=== PATIENT | male | born 1940 | race Caucasian/White ===

== ENCOUNTER 2016-10-25 06:23 | Inpatient (IN) | payer MEDICARE, BC ==
[2016-10-25] VITALS (7 sets, daily range): BP systolic 122–211; BP diastolic 68–131; PULSE 58–134; RESP 16–32; TEMP 96.8–98.4; O2SAT 90–97; Ht 177.8 cm; Wt 67.4 kg
[~2016-10-25] VITALS: Ht 177.8 cm; Wt 67.4 kg
[~2016-10-25 06:23] MED LIST: GLIP5TAB11 PO; [UNRECOGNIZED DRUG - CODE] PO
--- OUTSIDE RECORDS SUMMARY | 2016-10-25 06:28 | XMS REPORT | Continuity of Care Document ---
Author Author [facility] Organization [facility] Address Unknown Phone Unavailable Allergies Active Description Code Type Severity Reaction Onset Reported/Identified Relationship to Patient Clinical Status Yes No Known Allergies Drug Allergy 08/06/2012 Yes No Known Drug Allergies Drug Allergy 08/06/2012 Yes No Known Food Allergies Food Allergy 08/06/2012 Yes No Known Allergies Drug Allergy N/A N/A 08/29/2013 Yes No Known Drug Allergies Drug Allergy N/A N/A 08/29/2013 Yes No Known Food Allergies Food Allergy N/A N/A 08/29/2013 Yes No Known Allergies No Known Allergies Drug Allergy Unknown N/A 03/20/2016 Yes No Known Allergies No Known Allergies Drug Allergy Unknown N/A 08/15/2016 Medications Problems Date Dx Coded Attending Type Code Diagnosis Diagnosed By 04/30/2012 Phani Renteria MD Final V10.06 HX RECTAL ANAL CA 04/30/2012 Phani Renteria MD Final V55.2 ATTEN TO ILEOSTOMY 04/30/2012 Phani Renteria MD Final V72.63 PRE-PX LABORATORY EXAM 05/04/2012 Phani Renteria MD Final 250.00 DM2/NOS UNCOMP NSU 05/04/2012 Phani Renteria MD Final 272.0 PURE HYPERCHOLESTEROLEM 05/04/2012 Phani Renteria MD Final 401.9 HYPERTENSION NOS 05/04/2012 Phani Renteria MD Final 428.0 CHF NOS 05/04/2012 Phani Renteria MD Final 428.22 CHRONIC SYSTOLIC HF 05/04/2012 Phani Renteria MD Final 790.99 ABNORMAL BLOOD FIND NEC 05/04/2012 Phani Renteria MD Final V55.2 ATTEN TO ILEOSTOMY 05/04/2012 Phani Renteria MD Final V64.1 NO PX/CONTRAINDICATION 08/06/2012 Rodger Welch MD Final 250.02 DM2/NOS UNCOMP UNC 08/06/2012 Rodger Welch MD Final 276.1 HYPOSMOLALITY 08/06/2012 Rodger Welch MD Final 276.2 ACIDOSIS 08/06/2012 Rodger Welch MD Final 276.69 FLUID OVERLOAD NEC 08/06/2012 Rodger Welch MD Final 276.7 HYPERPOTASSEMIA 08/06/2012 Rodger Welch MD Final 285.9 ANEMIA NOS 08/06/2012 Rodger Welch MD Final 403.90 HTN CKD NOS I-IV/NOS 08/06/2012 Rodger Welch MD Final 428.0 CHF NOS 08/06/2012 Rodger Welch MD Final 458.9 HYPOTENSION NOS 08/06/2012 Rodger Welch MD Final 560.1 PARALYTIC ILEUS 08/06/2012 Rodger Welch MD Final 584.9 ACUTE KIDNEY FAILURE NOS 08/06/2012 Rodger Welch MD Final 585.9 CHRONIC KIDNEY DIS NOS 08/06/2012 Rodger Welch MD Final V55.2 ATTEN TO ILEOSTOMY 08/29/2013 Diamond Lin MD Final 154.1 RECTUM CA 08/29/2013 Diamond Lin MD L Final 250.00 DM2/NOS UNCOMP NSU 08/29/2013 Diamond Lin MD L Final 272.4 HYPERLIPIDEMIA NEC NOS 08/29/2013 Diamond Lin MD L Final 403.90 HTN CKD NOS I-IV/NOS 08/29/2013 Diamond Lin MD L Final 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 08/29/2013 Diamond Lin MD L Final 428.0 CHF NOS 08/29/2013 Diamond Lin MD L Final 560.1 PARALYTIC ILEUS 08/29/2013 Diamond Lin MD L Final 585.9 CHRONIC KIDNEY DIS NOS 08/29/2013 Diamond Lin MD L Final 592.1 URETERAL CALCULUS 08/29/2013 Diamond Lin MD Admitting 789.09 ABDOMINAL PAIN-SITE NEC Procedures Code Description Performed By Performed On 46.51 SM BOWEL STOMA CLOSURE Dexter ALVAREZ, Phani C 08/13/2012 45.24 FLEXIBLE SIGMOIDOSCOPY Dexter ALVAREZ, Phani C 08/30/2013 04.43 CARPAL TUNNEL RELEASE Naeem ALVAREZ, Vaibhav P 03/14/2014 14.52 DETACH RETINA-CRYOTHERAP Naeem ALVAREZ, Vaibhav P 03/14/2014 14.74 MECH VITRECTOMY NEC Naeem ALVAREZ, Vaibhav P 03/14/2014 14.75 VITREOUS SUBSTITUT INJEC Naeem ALVAREZ, Vaibhav P 03/14/2014 86.84 RELAXATION OF SCAR Naeem ALVAREZ, Vaibhav P 03/14/2014 86.87 FAT GRAFT OF SKIN AND SUBCUTANEOUS TISSUE Naeem ALVAREZ, Vaibhav P 03/14/2014 14.49 SCLERAL BUCKLING Vaibhav Chavez MD P 04/07/2014 Results Test Result Range HEMOGLOBIN - 03/14/14 13:07 MEAN CELL VOLUME 89.0 fl 80.0-100.0 HEMOGLOBIN 13.5 gm/dL 14.0-18.0 GLUCOSE (POC) - 03/14/14 13:10 GLUCOSE (POC) 217 mg/dL 70-99 METABOLIC PANEL, BASIC - 03/14/14 13:10 POTASSIUM 3.6 mmol/L 3.5-5.3 EST GFR (MDRD) 58 mL/min > 59 ANION GAP 8 mmol/L 5-15 EST CrCl (CG) 38 mL/min > 59 GLUCOSE 232 mg/dL 70-99 CALCIUM 9.1 mg/dL 8.5-10.1 BLOOD UREA NITROGEN 21 mg/dL 7-20 CREATININE 1.3 mg/dL 0.8-1.3 SODIUM 141 mmol/L 135-148 CHLORIDE 104 mmol/L 98-110 CARBON DIOXIDE 29 mmol/L 21-32 GLUCOSE (POC) - 03/14/14 15:53 GLUCOSE (POC) 185 mg/dL 70-99 GLUCOSE (POC) - 03/14/14 18:13 GLUCOSE (POC) 259 mg/dL 70-99 ARTERIAL BLOOD GAS - 03/14/14 22:21 ABG BASE EXCESS -4.1 meq/L -3.0-3.0 ABG DEVICE NC ABG BICARBONATE 19.6 meq/L 23.0-28.0 ABG L/M 2.0 ABG PCO2 33 mm Hg 34-45 ABG PH 7.40 7.35-7.45 ABG PO2 63 mm Hg 75-100 ABG O2 SATURATION 91 % 93-100 GLUCOSE (POC) - 03/15/14 05:53 GLUCOSE (POC) 234 mg/dL 70-99 GLUCOSE (POC) - 04/07/14 14:58 GLUCOSE (POC) 278 mg/dL 70-99 GLUCOSE (POC) - 03/20/16 12:56 GLUCOSE (POC) 127 mg/dL 70-99 HEMOGLOBIN - 03/20/16 13:00 MEAN CELL VOLUME 88.2 fl 80.0-100.0 HEMOGLOBIN 14.9 gm/dL 14.0-18.0 METABOLIC PANEL, BASIC - 03/20/16 13:01 POTASSIUM 3.9 mmol/L 3.5-5.3 EST GFR (MDRD) 59 mL/min > 59 ANION GAP 7 mmol/L 5-15 EST CrCl (CG) 57 mL/min > 59 GLUCOSE 149 mg/dL 70-99 CALCIUM 8.9 mg/dL 8.5-10.1 BLOOD UREA NITROGEN 20 mg/dL 7-20 CREATININE 1.2 mg/dL 0.7-1.3 SODIUM 142 mmol/L 135-148 CHLORIDE 107 mmol/L 98-110 CARBON DIOXIDE 28 mmol/L 21-32 GLUCOSE (POC) - 03/20/16 16:02 GLUCOSE (POC) 140 mg/dL 70-99 B-TYPE NATRIURETIC PEPTIDE - 08/15/16 21:40 B-TYPE NATRIURETIC PEPTIDE 2000 pg/mL < 100 CBC W/DIFF - 08/15/16 21:40 COMMENT REVIEWED EOSINOPHIL # 0.2 k/cumm 0.1-0.5 EOSINOPHIL % 2 % 2-4 GRANULOCYTE # 7.3 k/cumm 2.0-9.0 GRANULOCYTE % 82 % 50-75 LYMPHOCYTE # 0.8 k/cumm 1.0-4.0 LYMPHOCYTE % 9 % 20-30 MEAN CELL HGB 30.0 pg 27.0-33.0 MEAN CELL HGB CONCENTRATION 34.3 g/dL 32.0-37.0 MEAN CELL VOLUME 87.6 fl 80.0-100.0 MONOCYTE # 0.6 k/cumm 0.1-1.0 MONOCYTE % 7 % 4-6 RED BLOOD CELL 4.66 m/cumm 4.00-6.00 RED CELL DISTRIBUTION WIDTH 14.2 % 11.0- 15.6 WHITE BLOOD CELL 8.9 k/cumm 5.0-10.0 HEMOGLOBIN 14.0 gm/dL 14.0-18.0 HEMATOCRIT 40.8 % 40.0-54.0 PLATELET COUNT 249 k/cumm 150-450 D-DIMER QUANT - 08/15/16 21:40 D-DIMER QUANT 413 ng/mL 0-229 METABOLIC PANEL, COMPREHN - 08/15/16 21:40 POTASSIUM 3.6 mmol/L 3.5-5.3 EST GFR (MDRD) 54 mL/min > 59 ANION GAP 12 mmol/L 5-15 EST CrCl (CG) 54 mL/min > 59 GLUCOSE 208 mg/dL 70-99 CALCIUM 8.7 mg/dL 8.5-10.1 BLOOD UREA NITROGEN 23 mg/dL 7-20 CREATININE 1.3 mg/dL 0.7-1.3 SODIUM 141 mmol/L 135-148 CHLORIDE 106 mmol/L 98-110 AST/SGOT 19 Units/L 10-37 ALT/SGPT 24 Units/L < 66 CARBON DIOXIDE 23 mmol/L 21-32 TOTAL PROTEIN 6.5 gm/dL 6.4-8.2 ALBUMIN 3.1 gm/dL 3.4-5.0 BILI TOTAL 1.3 mg/dL 0.0-1.0 ALKALINE PHOSPHATASE TOTAL 123 IU/L 45- 117 TROPONIN I - 08/15/16 21:40 TROPONIN I 0.03 ng/mL < 0.07 Encounters ACCT No. Visit Date/Time Discharge Status Pt. Type Provider Facility Loc./Unit Complaint [id number] 08/29/2013 03:47:00 2013 11:10:00 DIS Inpatient Riley ALVAREZ, Diamond Phan [facility] F8SE [id number] 08/06/2012 16:32:00 2012 18:33:00 DIS Inpatient Yuri ALVAREZ, Rodger Mccord [facility] F6SE [id number] 05/04/2012 09:41:00 2011 12:15:00 DIS Inpatient Phani Renteria MD [facility] F3PA [id number] 04/30/2012 05:00:00 2011 23:59:59 CLS Outpatient Phani Renteria MD [facility] FOP [id number] 08/04/2012 14:40:00 Document Registration [id number] 08/04/2012 14:36:00 Document Registration
[2016-10-25] MEDS ORDERED: METOCLOPRAMIDE 10mg/2ml INJECTION IV ONE (07:00)
[2016-10-25] MEDS ORDERED: PROCHLORPERAZINE 10mg/2ml INJECTION IV ONE (07:00)
--- NOTE | 2016-10-25 07:00 | NUR ---
ELIMINATION PT. NEEDING TO URINATE. UA COLLECTED. THEN CLEANED PT. OF INCONTINENT SOFT STOOL. STOOL IS A YELLOWISH BROWN COLOR.
[2016-10-25] MEDS ORDERED: NORMAL SALINE 1,000 ML IV ONE (07:04)
--- OUTSIDE RECORDS SUMMARY | 2016-10-25 07:08 | XMS REPORT | Continuity of Care Document ---
Author Author [facility] Organization [facility] Address Unknown Phone Unavailable Allergies [...] Diamond Lin MD L Final 414.01 COR -SEMINOLE VESSEL 08/29/2013 Diamond Lin MD L Final [...] Status Pt. Type Provider Facility Loc./Unit Complaint [id number] 08/29/2013 03:47:00 2013 11:10:00 DIS Inpatient Riley ALVAREZ, Diamond Phan [facility] F8SE [id number] 08/06/2012 16:32:00 2012 18:33:00 DIS Inpatient Yuri ALVAREZ, Rodger Mccord [facility] F6SE [id number] 05/04/2012 09:41:00 2011 12:15:00 DIS Inpatient Phani Renteria MD [facility] F3PA [id number] 04/30/2012 05:00:00 2011 23:59:59 CLS Outpatient Phani Renteria MD [facility] FOP [id number] 08/04/2012 14:40:00 Document Registration [id number] 08/04/2012 14:36:00 Document Registration
[2016-10-25 07:11] LABS: BASOPHILS # (AUTO) 0.1 T/MM3 (0-0.2); BASOPHILS % (AUTO) 0.6 % (0-2); EOSINOPHILS # (AUTO) 0.3 T/MM3 (0-0.5); EOSINOPHILS % (AUTO) 3.6 % (0-4); HCT - HEMATOCRIT 45.6 % (41-53); IMMATURE GRANULOCYTE # (AUTO) 0.08 T/MM3 (0.00-0.03); IMMATURE GRANULOCYTE % (AUTO) 0.9 % (0.0-0.5); LYMPHOCYTES # (AUTO) 2.3 T/MM3 (1-4.8); LYMPHOCYTES % (AUTO) 26.9 % (23-45); MEAN CORPUSCULAR HGB 29.2 UUG (26-34); MEAN CORPUSCULAR HGB CONC(MCHC 32.9 GM/DL (31-37); MEAN CORPUSCULAR VOLUME 88.9 UM3 (80-100); MEAN PLATELET VOLUME 10.7 UM3 (9.4-12.4); MONOCYTES # (AUTO) 0.5 T/MM3 (0-0.8); MONOCYTES % (AUTO) 5.7 % (0-9.0); NEUTROPHILS #(AUTO)-ABSOLUTE 5.4 T/MM3 (1.8-7.7); NEUTROPHILS % (AUTO) 62.3 % (33-66); RED BLOOD COUNT 5.13 M/MM3 (4.50-5.90); WBC - WHITE BLOOD COUNT 8.6 T/MM3 (4.5-11.0)
[2016-10-25 07:15] LABS: INR 1.05 (0.76-1.04); PROTHROMBIN TIME 11.4 SEC (9.31-12.49)
[2016-10-25] MEDS ORDERED: NITROGLYCERIN 0.4 MG SUBLINGUAL TABLET SL PRN (07:15)
--- NOTE | 2016-10-25 07:15 | NUR ---
IV FLUIDS IV FLUIDS STARTED AT 125 CC/HR.
[2016-10-25 07:17] LABS: ALBUMIN 3.7 G/DL (3.5-5.0); ALBUMIN/GLOBULIN RATIO 1.1 RATIO (1.1-2.2); ALKALINE PHOSPHATASE 115 U/L (38-126); ALT (SGPT) 33 U/L (21-72); ANION GAP 14 MEQ/L (5-15); AST (SGOT) 30 U/L (17-59); BUN/CREATININE RATIO 26 RATIO (6-26); CALCIUM 9.2 MG/DL (8.4-10.2); CHLORIDE 106 MEQ/L (98-107); CO2 - CARBON DIOXIDE 24 MEQ/L (22-30); CREATININE 1.1 MG/DL (0.8-1.5); GLOMERULAR FILTRATION RATE 66; GLUCOSE 162 MG/DL (75-110); POTASSIUM 3.6 MEQ/L (3.6-5); SODIUM 144 MEQ/L (134-144)
--- NOTE | 2016-10-25 07:25 | NUR ---
MEDS REGLAN AND COMPAZINE GIVEN FOR NAUSEA. THEN STRAIGTENED PT. UP TO GIVE HIM BABY ASA AND HE STARTED WRETCHING AGAIN. WILL WAIT AND ATTEMPT ASA AGAIN LATER.
[2016-10-25 07:28] LABS: PROBNP 7160 PG/ML (0-175)
[2016-10-25] MEDS: ASPIRIN 81 MG CHEWABLE TABLET PO ONE ×2 (07:28→09:50)
--- NOTE | 2016-10-25 07:40 | NUR ---
CT PT. TO CT PER CART.
[2016-10-25 07:42] LABS: BLOOD, URINE TRACE-INTACT (NEGATIVE); COLOR,URINE YELLOW (YELLOW); LEUKOCYTE ESTERASE ,URINE NEGATIVE (NEGATIVE); NITRITE,URINE NEGATIVE (NEGATIVE); UROBILINOGEN,URINE 0.2 EU/DL (NORMAL)
[2016-10-25] MEDS ORDERED: SALINE FLUSH 10ml SYRINGE ONE (07:45)
[2016-10-25] MEDS ORDERED: IOHEXOL 350 MG/ML 75ml INJECTION ONE (07:45)
[2016-10-25] MEDS ORDERED: NORMAL SALINE 100 ML ONE (07:45)
[2016-10-25 07:57] LABS: BACTERIA,URINE NEGATIVE (NEGATIVE); RBC,URINE NONE SEEN /HPF (0-3); WBC,URINE NONE SEEN /HPF (0-5)
--- NOTE | 2016-10-25 08:08 | NUR ---
CT PT. RETURNED FROM CT.
[2016-10-25] MEDS ORDERED: PROMETHAZINE 25 MG INJECTION IV ONE (08:15)
--- NOTE | 2016-10-25 08:24 | DI ---
Indication: ITS.REASON: ms changes PROCEDURE: CT HEAD W/O CONTRAST: Encounter: Initial Comparison: None Technique: Axial CT images through the head were performed without contrast. Iterative Reconstruction dose reducing technique was utilized. FINDINGS: The ventricles are of normal size, shape, and contour for the patient's age. There are scattered areas of low attenuation in the white matter which most likely represent changes from chronic microvascular ischemia. The brainstem, cerebellum, and cerebral hemispheres otherwise have a normal morphology and CT attenuation. There is no evidence of midline displacement. No hemorrhage, signs of acute territorial stroke, mass effect, mass lesions, or edema is evident. The visualized portions of the skull base, midface, and calvarium demonstrate no abnormality. Prominent mucus retention cysts in the maxillary sinuses. The tympanic and mastoid cavities appear normal. Right ocular prosthesis. IMPRESSION: No acute intracranial abnormality or hemorrhage. .
--- NOTE | 2016-10-25 08:24 | ERPDOC ---
Departure Disposition Decision Date: Oct 25, 2016 Disposition Decision Time: 09:15 Disposition: 02 TO [facility] Impression Impression Impression: Primary Impression: Pulmonary edema Additional Impressions: Diabetes Shortness of breath Severity: Moderate Condition: Stable Seen By: Physician only Referrals: ALLY MENDEZ MD (Family) Problems/Meds/Labs Reviewed?: Yes Medications reviewed and manag: Yes Follow up care ordered?: Yes Mental Status: Alert [facility] - General Medical General Chief Complaint: Dizzy Stated Complaint: DIZZY/NAUSEA Time Seen by Provider: 06:55 HPI - General Medical Initial Comments 75-year-old gentleman with some confusion, severe dizziness, nausea and vomiting. His states that since middle of the night he has vomited approximately 5 times, with no diarrhea, but has had incontinence of stool. No fever. He does not answer our questions, mostly mutters and the answers. O2 sats are low at 88% on initial eval. He does not claim any dyspnea, but does have mild chest pain. He did have a cardiac stress test performed yesterday. Family is uncertain of results. Allergies: Coded Allergies: No Known Drug Allergies (Verified Allergy, Unknown, 10/25/16) Past History Past Medical History Metabolic: cancer, diabetes, hypertension ENMT: nosebleeds Cardiac: CAD, [place] Male: renal insufficiency Surgical History General: colonoscopy, other Cardiac: cardiac bypass, cardiac cath, cardiac stent Family History Family PMH: FOUND: [place], cancer Vaccines Hx Influenza Vaccination: Yes (MAR 2013) Hx Pneumococcal Vaccination: Yes (2009) Social History Smoking Status: Never smoker Substance Use Type: does not use Record Review Pertinent history updated: Yes Review of Systems Cardiovascular Cardiac: see HPI Rhythm/Rate: see HPI Vascular: see HPI Pulmonary Respiratory: see HPI GI Upper Abdomen: see HPI Lower Abdomen: see HPI All other Systems All Other Systems: Reviewed and Negative Physical Exam General General Nourishment: well nourished, appears stated age Distress Description Patient is gagging and dry heaving, bringing up spittle Vitals and Pain First Documented Vital Signs Date Time Temp Pulse Resp B/P Pulse Ox O2 Delivery O2 Flow Rate FiO2 10/25/16 06:25 97.4 88 20 187/107 88 Nasal Cannula 2.00 Weight: Kilograms: 71.500 Height (feet): 5 Height (inches): 10.00 Triage Pain Scale: Normal Exams: Head: Normocephalic w/o trauma Chest/Resp: Clear all dinh, with good airflow, and symmetry bilaterally CV: Regular rate and rhythm, without murmur or gallop, Pulses 2+ all extremities, capillary refill, <2 seconds all ext., no pedal edema noted Abdomen: Bowel sounds positive, non-distended, no hepatosplenomegaly, masses or bruits noted Abdomen (brief) Abdominal Brief: FOUND: tender Comments Mildly tender midepigastric, bowel sounds slightly hyperactive, nondistended. Differential Diagnoses Considering: Acute [place], Hypo/Hyperkalemia, Medication Effect, Metabolic, Pneumonia, Poisoning/Accidental OD, Pulmonary Embolus, TIA, UTI Progress Results/Orders Orders Procedure Category Date Status Time Prochlorperazine PHA 10/25/16 Complete (Compazine) 07:00 Metoclopramide PHA 10/25/16 Complete (Reglan Inj) 07:00 Cbc W/Auto LAB 10/25/16 Complete Diff-Reflex Manual 07:04 Cmp - Comprehensive LAB 10/25/16 Complete Metabolic 07:04 Probnp LAB 10/25/16 Complete 07:04 Troponin I W LAB 10/25/16 Complete Hemolysis Index 07:04 INR LAB 10/25/16 Complete 07:04 D-Dimer LAB 10/25/16 Complete 07:04 EKG EKG 10/25/16 Taken 07:04 Iv Lock (Ed Only) EDM 10/25/16 Transmitted 07:04 Normal Saline (Normal PHA 10/25/16 In Process Saline Iv) 07:04 Aspirin (Asa) PHA 10/25/16 Complete 07:15 Nitroglycerin PHA 10/25/16 In Process (Nitrostat) 07:15 UA, LAB 10/25/16 Complete Dip&Micro(Complete) & 07:27 Iohexol (Omnipaque) PHA 10/25/16 Complete 07:45 Normal Saline (Ns) PHA 10/25/16 Complete 07:45 Saline Flush (Iv PHA 10/25/16 Complete Flush) 07:[address] 10/25/[address] Head W/O Contrast CT 10/25/16 Resulted 07:45 Promethazine PHA 10/25/16 Complete (Phenergan) 08:15 Gi Panel, Pcr, Stool LAB 10/25/16 Logged 09:07 [address] In Facility: ED ADM 10/25/16 Verified 09:10 Furosemide (Lasix) PHA 10/25/16 Verified 09:15 Measure Intake And SONU 10/25/16 Verified Output 09:10 Lab Results Laboratory Tests Test 10/25/16 06:39 10/25/16 07:27 White Blood Count 8.6T/MM3 Red Blood Count 5.13M/MM3 Hemoglobin 15.0GM/DL Hematocrit 45.6% Mean Corpuscular Volume 88.9UM3 Mean Corpuscular Hemoglobin 29.2UUG Mean Corpuscular Hemoglobin Concent 32.9GM/DL RDW Standard Deviation 50.6FL Platelet Count 234T/MM3 Mean Platelet Volume 10.7UM3 Immature Granulocyte % (Auto) 0.9% Neutrophils (%) (Auto) 62.3% Lymphocytes (%) (Auto) 26.9% Monocytes (%) (Auto) 5.7% Eosinophils (%) (Auto) 3.6% Basophils (%) (Auto) 0.6% Absolute Immature Granulocyte (auto 0.08T/MM3 Absolute Neutrophils (auto) 5.4T/MM3 Absolute Lymphocytes (auto) 2.3T/MM3 Absolute Monocytes (auto) 0.5T/MM3 Absolute Eosinophils (auto) 0.3T/MM3 Absolute Basophils (auto) 0.1T/MM3 Prothromb Time International Ratio 1.05 D-Dimer 552NG/ML Turbidity < 20 Sodium Level 144MEQ/L Potassium Level 3.6MEQ/L Chloride Level 106MEQ/L Carbon Dioxide Level 24MEQ/L Anion Gap 14MEQ/L Blood Urea Nitrogen 28.0MG/DL Creatinine 1.1MG/DL Glomerular Filtration Rate Calc 66 BUN/Creatinine Ratio 26RATIO Glucose Level 162MG/DL Calculated Osmolality 287MOSM/KG Calcium Level 9.2MG/DL Total Bilirubin 1.00MG/DL Icterus Index < 2 Aspartate Amino Transf (AST/SGOT) 30U/L Alanine Aminotransferase (ALT/SGPT) 33U/L Alkaline Phosphatase 115U/L Troponin I 0.078ng/ml PF-Nfq-S-Type Natriuretic Peptide 7160PG/ML Total Protein 7.0G/DL Albumin 3.7G/DL Globulin 3.3G/DL Albumin/Globulin Ratio 1.1RATIO Chemistry Specimen Hemolysis < 15 Urine Collection Type Voided-not cc-midstr Urine Color Yellow Urine Turbidity Clear Urine pH 6.0 Urine Specific [place] 1.025 Urine Protein 2+ Urine Glucose (UA) 1+ Urine Ketones Negative Urine Blood Trace-intact Urine Nitrite Negative Urine Bilirubin Negative Urine Urobilinogen 0.2EU/DL Urine Leukocyte Esterase Negative Urine RBC None seen/HPF Urine WBC None seen/HPF Urine Bacteria Negative Urine Culture Indicated Cult not indicated Medications Current ED Medications Prochlorperazine Edisylate (Compazine) 10 mg O ONCE IV Last administered on 07:22; Start 10/25/16 at 07:00; Stop 10/25/16 at 07:01; Status DC Metoclopramide HCl 5 mg 5 mg O ONCE IV Last administered on 10/25/16 07:19; Start 10/25/16 at 07:00; Stop 10/25/16 at 07:01; Status DC Sodium Chloride (Normal Saline IV) 1,000 ml @ 125 mls/hr Q8H ONCE IV Last administered on 10/25/16 07:15; Start 10/25/16 at 07:04; Stop 10/25/16 at 15:03 Aspirin (ASA) 324 mg O ONCE PO ; Start 10/25/16 at 07:15; Stop 10/25/16 at 07: 16; Status DC Nitroglycerin (Nitrostat) 0.4 mg Q5MIN PRN SL CHEST PAIN; Start 10/25/16 at 07: 15 Iohexol 1 bottle 1 bottle STK-MED ONCE .ROUTE ; Start 10/25/16 at 07:45; Stop at 07:46; Status DC Sodium Chloride (NS) 100 ml @ As Directed STK-MED ONCE .ROUTE ; Start 10/25/16 at 07:45; Stop 10/25/16 at 07:46; Status DC Sodium Chloride (Iv Flush) 10 ml STK-MED ONCE .ROUTE ; Start 10/25/16 at 07:45; Stop 10/25/16 at 07:46; Status DC Promethazine HCl (Phenergan) 25 mg O ONCE IV Last administered on 10/25/16 08 :50; Start 10/25/16 at 08:15; Stop 10/25/16 at 08:16; Status DC Progress Progress White count appropriate, creatinine is normal. D-dimer was elevated, patient had CT head and CT PE. CT head was negative, does not account for confusion, which is most likely due to vomiting and possibly some dehydration. CT PE was negative for PE but did show pulmonary edema, consistent with possible heart failure. Spoke with hospitalist, Dr. Reeves, who graciously accepted the patient. Patient be placed on observation with IV diuresis, Lasix 20 mg given in the ER. Stool PCR ordered. I spoke with Dr. Hooks who offered to be on consult for the patient if hospitalist wanted, but felt that this was not cardiac directly. Initial troponins were negative, EKG was not impressive. OLIVA STUBBS MD Oct 25, 2016 08:24
--- NOTE | 2016-10-25 08:29 | DI ---
Indication: ITS.REASON: elevated ddimer PROCEDURE: CTA PULMONARY EMBOLI: Encounter: Initial Comparison: None Technique: Axial CT pulmonary angiographic phase images were performed through the chest after the administration of intravenous contrast. Coronal and Sagittal MIP reconstructed images were created and reviewed. Automated Exposure Control and Iterative Reconstruction dose reducing techniques were utilized. Contrast: Omnipaque 350 60 mL Findings: Pulmonary arteries: Exam is diagnostic to the interlobar pulmonary artery only due to severe respiratory motion artifact. No large or saddle embolus identified. Segmental and subsegmental pulmonary artery branches cannot be well evaluated Other findings: Severe motion artifact. Diffuse groundglass opacities and interlobular septal thickening seen in both upper lobes. Small bilateral pleural effusions. No pneumothorax. The central airways are patent. No axillary or mediastinal adenopathy. Heart is severely enlarged without pericardial effusion. Main pulmonary artery is enlarged relative to the aorta consistent with pulmonary artery hypertension. Left subclavian port in place. Prior CABG. Moderate hiatal hernia. The upper abdomen shows no acute findings. Impression: 1. No large or central pulmonary embolus. 2. Diffuse airspace disease with findings most consistent with severe pulmonary edema. Less common considerations would include pulmonary hemorrhage and hypersensitivity pneumonitis/drug reaction. 3. Cardiomegaly and pulmonary artery hypertension. .
--- NOTE | 2016-10-25 08:45 | NUR ---
ELIMINATION PT. USED URINAL AGAIN. NO WRETCHING AT THIS TIME.
--- NOTE | 2016-10-25 08:50 | NUR ---
STATUS PT. WRETCHING AGAIN. PHENERGAN GIVEN IV FOR CONTINUED WRETCHING WITH MOVEMENT.
[2016-10-25] MEDS ORDERED: FUROSEMIDE 20 MG/2 ML INJECTION IV ONE (09:15)
--- OUTSIDE RECORDS SUMMARY | 2016-10-25 09:19 | XMS REPORT | Continuity of Care Document ---
Author Author [facility] Organization [facility] Address Unknown Phone Unavailable Allergies [...] Diamond Lin MD L Final 414.01 COR -KALSK[place] VESSEL 08/29/2013 Diamond Lin MD L Final [...] Status Pt. Type Provider Facility Loc./Unit Complaint [id number] 08/29/2013 03:47:00 2013 11:10:00 DIS Inpatient Riley ALVAREZ, Diamond Phan [facility] F8SE [id number] 08/06/2012 16:32:00 2012 18:33:00 DIS Inpatient Yuri ALVAREZ, Rodger Mccord [facility] F6SE [id number] 05/04/2012 09:41:00 2011 12:15:00 DIS Inpatient Phani Renteria MD [facility] F3PA [id number] 04/30/2012 05:00:00 2011 23:59:59 CLS Outpatient Phani Renteria MD [facility] FOP [id number] 08/04/2012 14:40:00 Document Registration [id number] 08/04/2012 14:36:00 Document Registration
[2016-10-25] MEDS ORDERED: GLIP5TAB PO ×2 (09:27)
--- NOTE | 2016-10-25 09:37 | NUR ---
REPORT REPORT GIVEN TO MCKENZIE GAVIN ON MEDICAL UNIT.
--- NOTE | 2016-10-25 09:50 | NUR ---
ADMIT PT ADMITTED TO ROOM 159 ON 4L/NC. PT MUMBLES AT TIMES, BUT OTHERWISE DOES NOT SPEAK TO STAFF WHEN TALKED TO. DOES NOT APPEAR TO BE IN PAIN. TRANSFERRED TO THE BED X4 ASSIST AND DRAW SHEET. BED ALARM ON.
--- NOTE | 2016-10-25 09:50 | NUR ---
ADMISSION NOTE PT. TAKEN TO RM. 159 PER CART. PT. INCONTINENT STOOL AGAIN AND ASSISTED IN CLEANING HIM UP.
[2016-10-25] MEDS ORDERED: ONDANSETRON 4mg/2ml INJECTION IV PRN (10:00)
--- NOTE | 2016-10-25 10:20 | HPPDOC ---
MARLENE HIGGINS V [employer] E[employer]MENT INST[employer]ER 10/25/16 0939: HPI - Adult Date DATE: 10/25/16 TIME: 09:36 General Chief Complaint: Nausea, vomiting, Respiratory failure with hypoxia History of Present Illness Patient 75-year-old male who is brought by EMS today for evaluation of nausea, vomiting, dizziness, following a fall. Patient resides independently at home with his . reports that patient awoke at approximately 5 a.m. and was having nausea and vomiting. He then fell due to losing his balance. He was significantly dizzy and unable to get up and activated EMS brought him to the emergency room for further evaluation and treatment. Laboratory studies were obtained. The WBC count was found normal 8.6, hemoglobin 15, hematocrit 45.6, platelet count 234. Sodium 144, potassium 3.6, BUN 28, creatinine 1.1. Troponin is 0.078, proBNP 7160. INR 1.02, d-dimer was found to be elevated at 552. A CT scan of the head is obtained does not show any intracranial abnormalities or hemorrhages. CTA was obtained which was negative for pulmonary emboli, however, did reveal evidence of diffuse airspace consistent with severe pulmonary edema. There is prominent cardiomegaly and pulmonary artery hypertension. Arrival he was found to be afebrile 97.4, pulse 88, respiration rate 20, blood pressure is initially elevated at 187/107 Room air saturations are low at 88%. 12-lead EKG was obtains showing Sinus rhythm with PVCs. This was reviewed with cardiology in the ER. Patient was placed on 2 liters of oxygen by nasal cannula. She received multiple antiemetic agents while in the emergency room as well as IV fluids. Given his continued nausea and vomiting. Due to findings of pulmonary edema and respiratory failure with hypoxia. The hospitalist services were contacted and accepted patient for outpatient admission for further evaluation and treatment. It is expected that his stay will be less than 2 overnights. David is seen on initial examination was done emergency room. He is quite lethargic/sedated secondary to receiving multiple antimanic agents. All history and information is obtained from his at the bedside. Ports onside started just this morning as described above. He does reveal that patient follows with Dr. Hooks and that he had an echocardiogram in the last 1 month, as well as a stress test yesterday 10/24/16. It is reported that patient is on multiple cardiac medications, however, he has had a long-standing history of noncompliance as he has not tolerated many of those. Did discuss advanced directives and does verbalize that she wishes patient to be a full code Past Medical History Past Medical History Coronary artery disease with [place] 2. Diabetes Colon cancer Kidney stones History of detached retina Massive Paraesophageal hernia Hyperlipidemia Surgical History Patient's Surgical History: CABG 4 Radha Fundoplication- 2004- Dr Jennings. Repeat in 2009. Rectal/Colon Resection- Dr Renteria- 2011 Appendectomy Inguinal Hernia repair 2 Bilateral cataract extraction Current Medications Home Meds Reported Medications Glipizide (Glipizide Xl) 5 Mg Tab.er.24, 5 MG PO HS 10/25/16 Glipizide (Glipizide Xl) 5 Mg Tab.er.24, 10 MG PO QAM 10/25/16 Allergies: Coded Allergies: No Known Drug Allergies (Verified Allergy, Unknown, 10/25/16) Family History Family History: Father history of aortic aneurysm Mother-lung cancer Social History Smoking Status: Never smoker Substance Use Type: does not use Sexuality: female partner Housing: house Advance Directives: Yes Full Code Social History Comments Primary care provider Dr. Srivastava Cardiology Dr. Hooks Review of Systems Unable to Obtain ROS Due to: clinical condition Comments Unable to obtain ROS due to level of sedation. All information is obtained from at the bedside Physical Exam General General Nourishment: well nourished, well developed Vital Signs Vital Signs Date Time Temp Pulse Resp B/P Pulse Ox O2 Delivery O2 Flow Rate FiO2 10/25/16 06:25 97.4 88 20 187/107 88 Nasal Cannula 2.00 Height (Feet): 5 Height (Inches): 10.00 ENMT Brief: FOUND: mucosa moist, normal dentition, NOT FOUND: pharnyx erythema Comments Diminished bilaterally throughout Cardiovascular (brief) Cardiac Brief: FOUND: regular rate, regular rhythm, NOT FOUND: murmur, pedal edema Abdomen (brief) Abdominal Brief: FOUND: BS normo active x4, soft, NOT FOUND: distended, tender Integumentary (brief) Integumentary Brief: FOUND: dry, pink, warm Neurologic RN Documented GCS Eye Opening: Verbal: Motor: Total: Laboratory Laboratory Tests Test 10/25/16 06:39 10/25/16 07:27 White Blood Count 8.6T/MM3 Red Blood Count 5.13M/MM3 Hemoglobin 15.0GM/DL Hematocrit 45.6% Mean Corpuscular Volume 88.9UM3 Mean Corpuscular Hemoglobin 29.2UUG Mean Corpuscular Hemoglobin Concent 32.9GM/DL RDW Standard Deviation 50.6FL Platelet Count 234T/MM3 Mean Platelet Volume 10.7UM3 Immature Granulocyte % (Auto) 0.9% Neutrophils (%) (Auto) 62.3% Lymphocytes (%) (Auto) 26.9% Monocytes (%) (Auto) 5.7% Eosinophils (%) (Auto) 3.6% Basophils (%) (Auto) 0.6% Absolute Immature Granulocyte (auto 0.08T/MM3 Absolute Neutrophils (auto) 5.4T/MM3 Absolute Lymphocytes (auto) 2.3T/MM3 Absolute Monocytes (auto) 0.5T/MM3 Absolute Eosinophils (auto) 0.3T/MM3 Absolute Basophils (auto) 0.1T/MM3 Prothromb Time International Ratio 1.05 D-Dimer 552NG/ML Turbidity < 20 Sodium Level 144MEQ/L Potassium Level 3.6MEQ/L Chloride Level 106MEQ/L Carbon Dioxide Level 24MEQ/L Anion Gap 14MEQ/L Blood Urea Nitrogen 28.0MG/DL Creatinine 1.1MG/DL Glomerular Filtration Rate Calc 66 BUN/Creatinine Ratio 26RATIO Glucose Level 162MG/DL Calculated Osmolality 287MOSM/KG Calcium Level 9.2MG/DL Total Bilirubin 1.00MG/DL Icterus Index < 2 Aspartate Amino Transf (AST/SGOT) 30U/L Alanine Aminotransferase (ALT/SGPT) 33U/L Alkaline Phosphatase 115U/L Troponin I 0.078ng/ml YH-Lyj-N-Type Natriuretic Peptide 7160PG/ML Total Protein 7.0G/DL Albumin 3.7G/DL Globulin 3.3G/DL Albumin/Globulin Ratio 1.1RATIO Chemistry Specimen Hemolysis < 15 Urine Collection Type Voided-not cc-midstr Urine Color Yellow Urine Turbidity Clear Urine pH 6.0 Urine Specific [place] 1.025 Urine Protein 2+ Urine Glucose (UA) 1+ Urine Ketones Negative Urine Blood Trace-intact Urine Nitrite Negative Urine Bilirubin Negative Urine Urobilinogen 0.2EU/DL Urine Leukocyte Esterase Negative Urine RBC None seen/HPF Urine WBC None seen/HPF Urine Bacteria Negative Urine Culture Indicated Cult not indicated Assessment & Plan Problems: (1) Respiratory failure with hypoxia Status: Acute Qualifiers: Chronicity: acute Qualified Codes: J96.01 - Acute respiratory failure with hypoxia (2) Pulmonary edema Status: Acute Qualifiers: Chronicity: acute Qualified Codes: J81.0 - Acute pulmonary edema (3) Nausea & vomiting Status: Acute (4) CAD (coronary artery disease) Status: Chronic (5) DM (diabetes mellitus) Status: Chronic (6) Hyperlipemia Status: Chronic (7) Non compliance w medication regimen Status: Chronic (8) History of colon cancer Status: Resolved (9) History of kidney stones Status: Resolved (10) History of Radha fundoplication Status: Resolved Plan/Intensity of Service Admit patient as an outpatient observation for nausea/vomiting, speech rate failure with hypoxemia and pulmonary edema Patient continues on 2 liters of oxygen by nasal canula to maintain adequate saturations. Lasix 20 mg IV x1 is given on admission. He will likely need further diuresing given findings of pulmonary edema. Monitor patient on cardiac telemetry. Will obtain serial troponins x3 to rule out cardiac ischemia given known coronary artery disease. Will obtain records from Dr Hooks office to review recent ECHO and stress test. Monitor accuchecks fasting and [address] patient on sliding scale insulin. Will likely not be able to take in PO currently given nausea Zofran as needed for nausea and vomiting. Will obtain GI Panel to rule out infectious etiology SCD to bilateral lower extremities for DVT prophylaxis Will recheck CBC and BMP tomorrow morning to follow blood counts, renal function and electrolytes Will discuss further plan of care with attending Dr Gonzalez Again patient is a full code and this order is written At time of discharge medical care is to return to PCP Dr Srivastava DVT Prophylaxis: SCD'S Code Status Full Code Hospital Course Summary Disclaimer The hospital course summary below is not to be considered part of the above Progress Note. Hospital Course Summary 10/25/16- Admission Admit patient as an outpatient observation for nausea/vomiting, speech rate failure with hypoxemia and pulmonary edema Patient continues on 2 liters of oxygen by nasal canula to maintain adequate saturations. Lasix 20 mg IV x1 is given on admission. He will likely need further diuresing given findings of pulmonary edema. Monitor patient on cardiac telemetry. Will obtain serial troponins x3 to rule out cardiac ischemia given known coronary artery disease. Will obtain records from Dr Hooks office to review recent ECHO and stress test. Monitor accuchecks fasting and [address] patient on sliding scale insulin. Will likely not be able to take in PO currently given nausea Zofran as needed for nausea and vomiting. Will obtain GI Panel to rule out infectious etiology SCD to bilateral lower extremities for DVT prophylaxis Will recheck CBC and BMP tomorrow morning to follow blood counts, renal function and electrolytes Will discuss further plan of care with attending Dr Gonzalez Again patient is a full code and this order is written At time of discharge medical care is to return to PCP SHEMAR Zhao MD 10/25/16 4083: Past Medical History Current Medications Home Meds Reported Medications Glipizide (Glipizide Xl) 5 Mg Tab.er.24, 5 MG PO HS 10/25/16 Glipizide (Glipizide Xl) 5 Mg Tab.er.24, 10 MG PO QAM 10/25/16 Allergies: Coded Allergies: No Known Drug Allergies (Verified Allergy, Unknown, 10/25/16) Assessment & Plan Problems: (1) Cerebellar infarct Assessment & Plan: Based on MRI showing a large left cerebellar infarct which appears to be acute (2) Pulmonary edema Status: Acute Qualifiers: Chronicity: acute Qualified Codes: J81.0 - Acute pulmonary edema (3) CAD (coronary artery disease) Status: Chronic (4) DM (diabetes mellitus) Status: Chronic (5) Nausea & vomiting Status: Acute (6) History of kidney stones Status: Resolved (7) Respiratory failure with hypoxia Status: Acute Qualifiers: Chronicity: acute Qualified Codes: J96.01 - Acute respiratory failure with hypoxia (8) Hyperlipemia Status: Chronic (9) History of colon cancer Status: Resolved (10) Non compliance w medication regimen Status: Chronic (11) History of Radha fundoplication Status: Resolved Assessment 10/25/2016-I reviewed this chart, the patient history, and the HEATING EQUIPMENT INSTALLER's/PA's documented findings as above. We discussed and formulated the assessment and plan as above with the additions below.-Dr. Gonzalez The patient was seen in his room accompanied by his and son. He was very somnolent after receiving antibiotics including Phenergan in the emergency room. His stated that he was fine last night and this morning had nausea, vomiting and diarrhea. He was complaining of being dizzy and had to crawl on the ground in the hallway. He could not walk. She thought his speech was somewhat slurred. She called EMS and he was taken to the emergency room at [facility]. In the ER CT head was obtained which showed no acute intracranial abnormality. He was mildly hypoxic and a d-dimer was obtained and was elevated. He then underwent CTA of the chest which showed no large or central pulmonary embolus. Diffuse airspace disease with findings most consistent with severe pulmonary edema. Less common considerations would include pulmonary hemorrhage and hypersensitivity pneumonitis/drug reaction. Cardiomegaly and pulmonary artery hypertension also seen. MRI head without contrast was obtained because of his dizziness and slurred speech. This did show a large left cerebellar infarct which was acute. Exam was otherwise limited due to motion artifact. Family was notified of acute stroke and my recommendation for transfer to a facility in [place] with neurologic specialist. They requested transfer to [facility]. Currently, patient is arousable to voice. He does speak but mumbles. He moves all 4 extremities on command. Heart rate is 59. Blood pressure 122/68. O2 sat is 95% on room air. I did call and speak with Dr. Baxter, neurologist at [facility] for possible transfer. He did agree that transfer was indicated based on large cerebellar ischemic stroke. I then spoke with the hospitalist at [facility] who agreed to accept. Echocardiogram was read after MRI done and showed an apical thrombus which is likely the cause of his stroke. EF was 30-35%. This is a verbal report from Dr. Hooks. Patient is critically ill. Greater than 90 minutes time was spent seeing and evaluating the patient, performing H&P, and arranging transfer MARLENE HIGGINS APRN Oct 25, 2016 09:39 SHEMAR GONZALEZ MD Oct 25, 2016 17:19
--- NOTE | 2016-10-25 10:25 | NUR ---
MED REC PT'S STATES PT WILL ONLY TAKE HIS GLIPIZIDE AND SHE IS NOT SURE IF HE ALWAYS TAKES THAT-"PROBABLY NOT." ALSO STATES PT'S DOCTOR ORDER "LASIX" AND "ISORBIDE" AND THAT DR. CORREA HAD PT ON "A COUPLE MORE MEDS" BUT THAT PT DOES NOT TAKE ANY OF THEM BECAUSE HE "DID NOT KNOW WHICH OF THEM WAS CAUSING HIS DIARRHEA."
[2016-10-25] MEDS: INSULIN LISPRO 100 UNIT/ML SQ PRN ×2 (10:53→14:52)
[2016-10-25] MEDS ORDERED: LISINOPRIL 5 MG TABLET PO SCH (12:45)
[2016-10-25] MEDS ORDERED: ASPIRIN *EC* 81mg TABLET PO SCH (12:45)
[2016-10-25] MEDS ORDERED: ISOSORBIDE MONONITRATE ER 30 MG TABLET PO SCH (13:15)
--- NOTE | 2016-10-25 13:21 | CONSPD ---
HANNA ISRAEL UPKEEP WORKER 10/25/16 1302: Consultation Info Date DATE: 10/25/16 TIME: 12:54 Date of Consultation: Oct 25, 2016 Attending Physician: Analy Reeves MD Reason for Consultation: pulmonary edema, CHF HPI - Adult Date DATE: 10/25/16 TIME: 12:54 General Date of Admission Date of Admission: Oct 25, 2016 at 09:10 Chief Complaint: Nausea, vomiting, Respiratory failure with hypoxia History of Present Illness David is a 75-year-old male who is known to Dr. Hooks who was last seen on August 16, 2016 for dyspnea and acute diastolic heart failure with a history of CAD with CABG, HTN and DM. He presented to ED today with some confusion, severe dizziness, nausea and vomiting. His stated that since middle of the night he had vomited approximately 5 times, with no diarrhea, but has had incontinence of stool. No fever. He does not answer questions, mostly mutters and the answers. O2 saturations were low at 88% on initial evaluation. He does not claim any dyspnea, but does have mild chest pain. He did have a cardiac stress test performed yesterday. Family is uncertain of results. He is examined in his room on the Medical unit. He is somnolent and his reports this is due to antiemetics given to control his vomiting. She reports being awake early this morning when she heard her bedroom door open and the patient in his bathroom vomiting. When she arrived to him he reported that he had been very dizzy and fell to the floor, he then crawled to the bathroom. Patient is unable at this time to verify if there was loss of consciousness. Past Medical History Past Medical History Metabolic: cancer, diabetes, hypertension ENMT: nosebleeds Cardiac: CAD, PA Male: renal insufficiency Surgical History General: colonoscopy, other Cardiac: cardiac bypass, cardiac cath, cardiac stent Current Medications Home Meds Discontinued Reported Medications Glipizide (Glipizide Xl) 5 Mg Tab.er.24, 5 MG PO HS 10/25/16 Glipizide (Glipizide Xl) 5 Mg Tab.er.24, 10 MG PO QAM 10/25/16 Allergies: Coded Allergies: No Known Drug Allergies (Verified Allergy, Unknown, 10/25/16) Family History FOUND: PA, cancer Vaccines SEPT 2016 23-9/23/09 13-04/25/1504/19/0904/25/15 Social History Smoking Status: Never smoker Substance Use Type: does not use Sexuality: female partner Housing: house Advance Directives: Yes Full Code, No DPOA for Healthcare Only Review of Systems Unable to Obtain ROS Due to: clinical condition Comments able to provide a limited ROS Constitutional: REPORTS: dizziness, syncope, DENIES: chills, fever Cardiovascular dyspnea on exertion, DENIES: chest pain Pulmonary Respiratory: DENIES: cough GI Upper Abdomen: nausea, vomiting Lower Abdomen: diarrhea Physical Exam General General Nourishment: well nourished, apparent age Vital Signs Vital Signs Date Time Temp Pulse Resp B/P Pulse Ox O2 Delivery O2 Flow Rate FiO2 10/25/16 10:36 100 176/102 97 Nasal Cannula 2.00 10/25/16 10:17 32 10/25/16 09:58 96.8 Height (Feet): 5 Height (Inches): 10.00 ENMT Brief: FOUND: mucosa moist Neck Brief: NOT FOUND: JVD, carotid bruits Respiratory Brief: FOUND: clear all dinh, equal bilaterally (diminished), NOT FOUND: rales, wheezes Cardiovascular (brief) Cardiac Brief: FOUND: regular rate, regular rhythm, NOT FOUND: click, gallop, murmur, pedal edema Abdomen (brief) Abdominal Brief: FOUND: BS normo active x4, soft Integumentary (brief) Integumentary Brief: FOUND: dry, pink, warm Neurologic RN Documented GCS Eye Opening: Verbal: Motor: Total: Laboratory Laboratory Tests Test 10/25/16 06:39 10/25/16 07:27 10/25/16 10:04 10/25/16 10:43 White Blood Count 8.6T/MM3 Red Blood Count 5.13M/MM3 Hemoglobin 15.0GM/DL Hematocrit 45.6% Mean Corpuscular Volume 88.9UM3 Mean Corpuscular Hemoglobin 29.2UUG Mean Corpuscular Hemoglobin Concent 32.9GM/DL RDW Standard Deviation 50.6FL Platelet Count 234T/MM3 Mean Platelet Volume 10.7UM3 Immature Granulocyte % (Auto) 0.9% Neutrophils (%) (Auto) 62.3% Lymphocytes (%) (Auto) 26.9% Monocytes (%) (Auto) 5.7% Eosinophils (%) (Auto) 3.6% Basophils (%) (Auto) 0.6% Absolute Immature Granulocyte (auto 0.08T/MM3 Absolute Neutrophils (auto) 5.4T/MM3 Absolute Lymphocytes (auto) 2.3T/MM3 Absolute Monocytes (auto) 0.5T/MM3 Absolute Eosinophils (auto) 0.3T/MM3 Absolute Basophils (auto) 0.1T/MM3 Prothromb Time International Ratio 1.05 D-Dimer 552NG/ML Turbidity < 20 Sodium Level 144MEQ/L Potassium Level 3.6MEQ/L Chloride Level 106MEQ/L Carbon Dioxide Level 24MEQ/L Anion Gap 14MEQ/L Blood Urea Nitrogen 28.0MG/DL Creatinine 1.1MG/DL Glomerular Filtration Rate Calc 66 BUN/Creatinine Ratio 26RATIO Glucose Level 162MG/DL Calculated Osmolality 287MOSM/KG Calcium Level 9.2MG/DL Total Bilirubin 1.00MG/DL Icterus Index < 2 Aspartate Amino Transf (AST/SGOT) 30U/L Alanine Aminotransferase (ALT/SGPT) 33U/L Alkaline Phosphatase 115U/L Troponin I 0.078ng/ml [id number]-B-Type Natriuretic Peptide 7160PG/ML Total Protein 7.0G/DL Albumin 3.7G/DL Globulin 3.3G/DL Albumin/Globulin Ratio 1.1RATIO Chemistry Specimen Hemolysis < 15 Urine Collection Type Voided-not cc-midstr Urine Color Yellow Urine Turbidity Clear Urine pH 6.0 Urine Specific [place] 1.025 Urine Protein 2+ Urine Glucose (UA) 1+ Urine Ketones Negative Urine Blood Trace-intact Urine Nitrite Negative Urine Bilirubin Negative Urine Urobilinogen 0.2EU/DL Urine Leukocyte Esterase Negative Urine RBC None seen/HPF Urine WBC None seen/HPF Urine Bacteria Negative Urine Culture Indicated Cult not indicated Stool Cyclospora species Detection Negative Stool Rotavirus A PCR Negative Stool Adenovirus (PCR) Negative Stool Astrovirus (PCR) Negative Stool Campylobacter PCR Negative Stool C. difficile Toxin (PCR) Negative Stool Cryptosporidium PCR Negative Stool E. coli Shiga Toxins Negative Stool E coli O157 PCR N/a Stool Enterotoxigenic Ecoli PCR Negative Stool Enteropathogenic E. coli (PCR Negative Stool Enteroaggregative E. coli PCR Negative Stool Entamoeba (PCR) Negative Stool Giardia Lamblia PCR Negative Stool Salmonella PCR Negative Stool Sapovirus (PCR) Negative Stool Plesiomonas shigelloides PCR Negative Stool Shigella/EIEC (PCR) Negative Stool Yersinia enterocolitica (PCR) Negative Stool Vibrio (PCR) Negative Stool Vibrio cholera (PCR) Negative Stool Norovirus GI/GII PCR Negative Glucometer 246mg/dL Test 10/25/16 11:24 Troponin I 0.052ng/ml Chemistry Specimen Hemolysis 27 Laboratory Tests Test 10/25/16 06:39 10/25/16 07:27 10/25/16 10:04 10/25/16 10:43 White Blood Count 8.6T/MM3 Red Blood Count 5.13M/MM3 Hemoglobin 15.0GM/DL Hematocrit 45.6% Mean Corpuscular Volume 88.9UM3 Mean Corpuscular Hemoglobin 29.2UUG Mean Corpuscular Hemoglobin Concent 32.9GM/DL RDW Standard Deviation 50.6FL Platelet Count 234T/MM3 Mean Platelet Volume 10.7UM3 Immature Granulocyte % (Auto) 0.9% Neutrophils (%) (Auto) 62.3% Lymphocytes (%) (Auto) 26.9% Monocytes (%) (Auto) 5.7% Eosinophils (%) (Auto) 3.6% Basophils (%) (Auto) 0.6% Absolute Immature Granulocyte (auto 0.08T/MM3 Absolute Neutrophils (auto) 5.4T/MM3 Absolute Lymphocytes (auto) 2.3T/MM3 Absolute Monocytes (auto) 0.5T/MM3 Absolute Eosinophils (auto) 0.3T/MM3 Absolute Basophils (auto) 0.1T/MM3 Prothromb Time International Ratio 1.05 D-Dimer 552NG/ML Turbidity < 20 Sodium Level 144MEQ/L Potassium Level 3.6MEQ/L Chloride Level 106MEQ/L Carbon Dioxide Level 24MEQ/L Anion Gap 14MEQ/L Blood Urea Nitrogen 28.0MG/DL Creatinine 1.1MG/DL Glomerular Filtration Rate Calc 66 BUN/Creatinine Ratio 26RATIO Glucose Level 162MG/DL Calculated Osmolality 287MOSM/KG Calcium Level 9.2MG/DL Total Bilirubin 1.00MG/DL Icterus Index < 2 Aspartate Amino Transf (AST/SGOT) 30U/L Alanine Aminotransferase (ALT/SGPT) 33U/L Alkaline Phosphatase 115U/L Troponin I 0.078ng/ml [id number]-M-Type Natriuretic Peptide 7160PG/ML Total Protein 7.0G/DL Albumin 3.7G/DL Globulin 3.3G/DL Albumin/Globulin Ratio 1.1RATIO Chemistry Specimen Hemolysis < 15 Urine Collection Type Voided-not cc-midstr Urine Color Yellow Urine Turbidity Clear Urine pH 6.0 Urine Specific [place] 1.025 Urine Protein 2+ Urine Glucose (UA) 1+ Urine Ketones Negative Urine Blood Trace-intact Urine Nitrite Negative Urine Bilirubin Negative Urine Urobilinogen 0.2EU/DL Urine Leukocyte Esterase Negative Urine RBC None seen/HPF Urine WBC None seen/HPF Urine Bacteria Negative Urine Culture Indicated Cult not indicated Stool Cyclospora species Detection Negative Stool Rotavirus A PCR Negative Stool Adenovirus (PCR) Negative Stool Astrovirus (PCR) Negative Stool Campylobacter PCR Negative Stool C. difficile Toxin (PCR) Negative Stool Cryptosporidium PCR Negative Stool E. coli Shiga Toxins Negative Stool E coli O157 PCR N/a Stool Enterotoxigenic Ecoli PCR Negative Stool Enteropathogenic E. coli (PCR Negative Stool Enteroaggregative E. coli PCR Negative Stool Entamoeba (PCR) Negative Stool Giardia Lamblia PCR Negative Stool Salmonella PCR Negative Stool Sapovirus (PCR) Negative Stool Plesiomonas shigelloides PCR Negative Stool Shigella/EIEC (PCR) Negative Stool Yersinia enterocolitica (PCR) Negative Stool Vibrio (PCR) Negative Stool Vibrio cholera (PCR) Negative Stool Norovirus GI/GII PCR Negative Glucometer 246mg/dL Test 10/25/16 11:24 Troponin I 0.052ng/ml Chemistry Specimen Hemolysis 27 EKG SR, occasional PVCs, LVH, STT changes, AWMI, IWMI Radiology DATE OF EXAM: 10/25/16 ORDERING DOCTOR: OLIVA STUBBS MD TYPE OF EXAM: CTA PULMONARY EMBOLI REASON FOR EXAM: elevated ddimer Indication: ITS.REASON: elevated ddimer PROCEDURE: CTA PULMONARY EMBOLI: Encounter: Initial Comparison: None Technique: Axial CT pulmonary angiographic phase images were performed through the chest after the administration of intravenous contrast. Coronal and Sagittal MIP reconstructed images were created and reviewed. Automated Exposure Control and Iterative Reconstruction dose reducing techniques were utilized. Contrast: Omnipaque 350 60 mL Findings: Pulmonary arteries: Exam is diagnostic to the interlobar pulmonary artery only due to severe respiratory motion artifact. No large or saddle embolus identified. Segmental and subsegmental pulmonary artery branches cannot be well evaluated Other findings: Severe motion artifact. Diffuse groundglass opacities and interlobular septal thickening seen in both upper lobes. Small bilateral pleural effusions. No pneumothorax. The central airways are patent. No axillary or mediastinal adenopathy. Heart is severely enlarged without pericardial effusion. Main pulmonary artery is enlarged relative to the aorta consistent with pulmonary artery hypertension. Left subclavian port in place. Prior CABG. Moderate hiatal hernia. The upper abdomen shows no acute findings. Impression: 1. No large or central pulmonary embolus. 2. Diffuse airspace disease with findings most consistent with severe pulmonary edema. Less common considerations would include pulmonary hemorrhage and hypersensitivity pneumonitis/drug reaction. 3. Cardiomegaly and pulmonary artery hypertension. DATE OF EXAM: 10/25/16 ORDERING DOCTOR: OLIVA STUBBS MD TYPE OF EXAM: CT HEAD W/O CONTRAST REASON FOR EXAM: ms changes Indication: ITS.REASON: ms changes PROCEDURE: CT HEAD W/O CONTRAST: Encounter: Initial Comparison: None Technique: Axial CT images through the head were performed without contrast. Iterative Reconstruction dose reducing technique was utilized. FINDINGS: The ventricles are of normal size, shape, and contour for the patient's age. There are scattered areas of low attenuation in the white matter which most likely represent changes from chronic microvascular ischemia. The brainstem, cerebellum, and cerebral hemispheres otherwise have a normal morphology and CT attenuation. There is no evidence of midline displacement. No hemorrhage, signs of acute territorial stroke, mass effect, mass lesions, or edema is evident. The visualized portions of the skull base, midface, and calvarium demonstrate no abnormality. Prominent mucus retention cysts in the maxillary sinuses. The tympanic and mastoid cavities appear normal. Right ocular prosthesis. IMPRESSION: No acute intracranial abnormality or hemorrhage. Impression/Recommendation Problems: (1) Atrial thrombus Status: Acute Assessment & Plan: per echo, report pending (2) Respiratory failure with hypoxia Status: Acute (3) Acute systolic (congestive) heart failure Status: Acute Assessment & Plan: Echo done 09/12/16 showed LVH, LV hypokinesis with akinesis of the LV apex, inferior and lateral sun. EF 30-35%. Will start on Coreg 3.125mg, resume previously ordered Lisinopril 5mg daily, Imdur 30mg daily, Aspirin 81mg daily (4) Pulmonary edema Status: Acute Assessment & Plan: Lasix 40mg IV q12h for diuresis, may increase depending on diuresis. (5) Atherosclerosis of coronary artery bypass graft without angina pectoris Status: Chronic Assessment & Plan: continue medical therapy, with risk management and routine monitoring. (6) Essential (primary) hypertension Status: Chronic (7) DM (diabetes mellitus) Status: Chronic Assessment & Plan: per attending, PCP manages (8) Hyperlipemia Status: Chronic Assessment & Plan: Lipid panel in am. Start Atorvastatin 40mg at HS Recommendation CHF: Echo done 09/12/16 showed LVH, LV hypokinesis with akinesis of the LV apex, inferior and lateral sun. EF 30-35%. Echo today shows atrial thrombus. Will start on Coreg 3.125mg, resume previously ordered Lisinopril 5mg daily, Imdur 30mg daily, Aspirin 81mg daily when able to swallow. Pulm.Edema: Lasix 40mg IV q12h for diuresis, may increase depending on diuresis. Potassium for replacement. Lipid panel in am, start Atorvastatin. Thank you for allowing us to participate in the care of this patient, we will follow along with you. HUMERA HOOKS MD 10/29/16 1549: Past Medical History Current Medications Home Meds Discontinued Reported Medications Glipizide (Glipizide Xl) 5 Mg Tab.er.24, 5 MG PO HS 10/25/16 Glipizide (Glipizide Xl) 5 Mg Tab.er.24, 10 MG PO QAM 10/25/16 Allergies: Coded Allergies: No Known Drug Allergies (Verified Allergy, Unknown, 10/25/16) Impression/Recommendation Recommendation After examining the patient I agree with the above assessment. I am involved in the formulation of the patient's plan of care. HANNA ISRAEL APRN Oct 25, 2016 13:02 HUMERA HOOKS MD Oct 29, 2016 15:49
[2016-10-25] MEDS: CARVEDILOL 3.125 MG TABLET PO SCH ×2 (14:38→17:19)
--- NOTE | 2016-10-25 15:33 | STEVAL ---
Eval Subjective and History Date/Time of Eval DATE: 10/25/16 TIME: 15:10 Medical Diagnosis Nausea, vomiting, respiratory failure with hypoxia, decreased LOC Treatment Order: Assessment, Dev./Imp. tx plan Orientations: Cooperative, Lethargic (maintained eyes closed but alerted briefly) Primary Complaint: Respiratory failure with hypoxia Date of Onset of Primary Com: 10/25/16 Secondary Complaint: Dysphagia Patient's Goals: Pt was not alert enough to express his goals. Significant Past Medical Hx: CAD with MIx2, Diabetes, Colon cancer, Hx of detached retina, massive paraesophageal hernia, hyperlipidemia, Radha Fundoplication in 2004 and repeated in 2009. Medical History Form Reviewed: Yes Residence Type: Private home/apartment Lives With: Spouse Prior Functional Status: Pts and son stated that altough he does not have teeth or dentures, the pt was on a regular diet and had no swallowing difficulties prior to hospitalization. Pts reported that her is active and working. He had worked a full day at work yesterday. Current Functional Status: The pt is with decreased LOC. He had been given several medications that cause drowsiness per RN report. Pts stated that when she found him struggling on the floor after falling, he was vomiting and his speech was not coherent. Education Subject: Safety, Diet, Treatment Plan Person(s) Educated: Spouse/significant other, Family/DPOA Instruction Understanding Demo: Famly/[employer] verb underst Education Comment CHEMICAL LIBRARIAN educated patient on reasoning for evaluation. Patient was agreeable to evaluation. Subjective and History Comment: Pts and son were present for this evaluation. Dysphagia Evaluation Evaluation Location: Bed Evaluation Angle: 80 Oral Peripheral Exam-facial: Facial Symmetry: No Impairment (WFL) Facial Asymmetry Comment: difficult to fully assess due to extreme lethargy Tongue Elevation: Mild Impairment Tongue Lateralization: Minimal Impairment Tongue Protrusion: Mild Impairment Tongue Retraction: No Impairment (WFL) Tongue Extension Midline: No Impairment (WFL) Labial Approximation: Minimal Impairment Intraoral Air Pressure: Unable to Elicit Volitional Cough: Unable to Elicit Palatal Elevation: Unable to Elicit Larynx Elevation During Swallo: Mild Impairment Saliva Control: Minimal Impairment Dentition: Natural Oral Peripheral Exam Comment: The pt was lethargic, alerting only briefly to respond to question; pts eyes remained closed throughout the assessment. Pt presents with generalized oral motor weakness, possibly partially due to medication causing decreased LOC. Pts voice is dry and clear. He is on 2L supplemental O2. He is edentulous and has no dentures. Pts stated that he is able to eat a regular diet. Lip Seal: Inadequate-liquid, Adequate-pudding Lingual Manipulation: Adequate-liquid, Adequate-pudding Oral cavity clear post swallow: Adequate-liquid, Adequate-pudding Swallow initiated w/o delay: Inadequate-liquid (4 second delay), Adequate- pudding Multiple swallows not needed: Inadequate-liquid, Adequate-pudding Voice clear&dry post swallow: Adequate-liquid, Adequate-pudding No cough/throat clear: Adequate-liquid, Adequate-pudding (pt was assessed with trials of thickened water and pudding. Thin trials were not assessed at this time due to pts inability to maintain alertness.) Assessment/Plan of Care Speech Therapy Impressions: Pt presents with decreased LOC and dysphagia characterized by a 4 second delay in pharyngeal swallow response with thin liquids, decreased laryngeal elevation and generalized oral motor weakness. The pt has had several medications recently that cause drowsiness. The pt did alert briefly to tolerate bites of pudding with adequate swallow response and slightly decreased laryngeal elevation. No s/s of aspiration was noted with thickened water trials or pudding. The pt refused further trials. Chcf Goal: Pt will maintain nutrition and hydration of the least restrictive diet while demonstrating no s/s of aspiration for [3] consecutive trials. Short Term Goal: Pt will consume a [soft/reg] consistency with [thin] liquids without outward signs of aspiration at bedside in 85% of trials. ST Treatment Plan: Modified Diet ST Treatment Plan Frequency: three times per week Treatment Plan Duration: one week Plan of Care Comment ST will provide therapy to pt to assess toleration of the safest oral diet. The pt was lethargic at the time of this evaluation possibly due to medication. Recommended Diet: Pureed with syrup thick liquids. Pt must be fully alert and maintain alertness. Please use the following precautions: 1. Pt must be HOB at 90 degrees 2. No straws 3. Frequent oral care if pt cont. to be decreased LOC Date of Visit 10/25/16 Time Visit Began: 14:55 Time Visit Ended: 15:25 ST Assess/Plan of Care: ST Treatment Charge: Swallow Eval Minutes of Individual Therapy: 30 GILBERTO CANSECO MA Oct 25, 2016 15:13
--- NOTE | 2016-10-25 15:43 | NUR ---
SPEECH THERAPY: DYSPHAGIA Pt with decreased LOC during assessment. Recommend pureed trials and syrup thick liquids. Pt must be fully alert, sitting upright at 90 degrees for all meals/snack; no straws; frequent oral care; crush meds in applesauce. ST will work with pt and upgrade diet when safely possible. Full report can be found in EMR under "other reports".
[2016-10-25 15:48] LABS: MAGNESIUM 1.7 MG/DL (1.6-2.3); PHOSPHORUS 3.9 MG/DL (2.5-4.5)
[2016-10-25] MEDS ORDERED: FUROSEMIDE 40 MG/4 ML INJECTION IV SCH (16:00)
[2016-10-25 16:31] LABS: THYROID STIM HORMONE-TSH 2.79 MIU/L (0.47-4.68)
--- NOTE | 2016-10-25 16:57 | DI ---
Indication: ITS.REASON: altered mental status, dizziness, evaluate for cva PROCEDURE: MRI BRAIN W/O CONTRAST: Encounter: Initial Comparisons: Head CT dated October 25, 2016 Technique: Multiplanar, multisequence, MR imaging of the head without contrast was acquired. FINDINGS: Exam is severely limited by motion artifact. There is a large area of restricted diffusion involving the left cerebellar hemisphere. This area has corresponding T2/FLAIR hyperintensity as expected. No other areas of acute diffusion restriction identified. Most of the remaining sequences are essentially nondiagnostic due to severe motion artifact. Prominent mucus retention cysts noted incidentally in the right maxillary sinus. Moderate generalized atrophy. No gross acute intracranial hemorrhage or extra-axial fluid collection. Impression: Acute left cerebellar infarct. This is in the superior cerebellar artery territory. .
--- NOTE | 2016-10-25 17:19 | NUR ---
DECREASED LOC NOTIFIED DR. GONZALEZ OF DECREASING LOC ON PATIENT. ORDERS TO HOLD ALL MEDS IV AND PO NOW.
--- NOTE | 2016-10-25 17:26 | NUR ---
[facility] CALLED FOR TRANSPORT TO [place] [id number] BED ROOM 308.
[2016-10-25] MEDS ORDERED: POTASSIUM CHLORIDE 20 MEQ TABLET PO SCH (17:30)
--- NOTE | 2016-10-25 17:51 | DSPDOC ---
General Date Date DATE: 10/25/16 TIME: 17:40 Attending Physician Analy Reeves MD Admitting Physician Analy Reeves MD Consulting Physician López Hooks MD Admitting Diagnosis pulmonary edema Discharge Diagnosis Acute large left cerebellar infarct Echocardiogram showing apical thrombus Cardiomyopathy with ejection fraction of 30-35% Acute hypoxic respiratory failure secondary to pulmonary edema Coronary artery disease Intermittent diarrhea Nausea and vomiting-likely secondary to acute stroke Dizziness-likely secondary to acute stroke Diabetes mellitus newly diagnosed with A1c of 8.0 Procedures Echocardiogram showing apical thrombus and ejection fraction of 30-35%-this is a verbal report Laboratory Laboratory Tests Test 10/25/16 06:39 10/25/16 07:27 10/25/16 10:04 10/25/16 10:43 White Blood Count 8.6T/MM3 (4.5-11.0) Red Blood Count 5.13M/MM3 (4.50-5.90) Hemoglobin 15.0GM/DL (13.5-17.5) Hematocrit 45.6% (41-53) Mean Corpuscular Volume 88.9UM3 (80-100) Mean Corpuscular Hemoglobin 29.2UUG (26-34) Mean Corpuscular Hemoglobin Concent 32.9GM/DL (31-37) RDW Standard Deviation 50.6FL (36.9-50.2) Platelet Count 234T/MM3 (130-400) Mean Platelet Volume 10.7UM3 (9.4-12.4) Immature Granulocyte % (Auto) 0.9% (0.0-0.5) Neutrophils (%) (Auto) 62.3% (33-66) Lymphocytes (%) (Auto) 26.9% (23-45) Monocytes (%) (Auto) 5.7% (0-9.0) Eosinophils (%) (Auto) 3.6% (0-4) Basophils (%) (Auto) 0.6% (0-2) Absolute Immature Granulocyte (auto 0.08T/MM3 (0.00-0.03) Absolute Neutrophils (auto) 5.4T/MM3 (1.8-7.7) Absolute Lymphocytes (auto) 2.3T/MM3 (1-4.8) Absolute Monocytes (auto) 0.5T/MM3 (0-0.8) Absolute Eosinophils (auto) 0.3T/MM3 (0-0.5) Absolute Basophils (auto) 0.1T/MM3 (0-0.2) Prothromb Time International Ratio 1.05 (0.76-1.04) D-Dimer 552NG/ML (0-230) Turbidity < 20 (0-20) Sodium Level 144MEQ/L (134-144) Potassium Level 3.6MEQ/L (3.6-5) Chloride Level 106MEQ/L (98-107) Carbon Dioxide Level 24MEQ/L (22-30) Anion Gap 14MEQ/L (5-15) Blood Urea Nitrogen 28.0MG/DL (9-20) Creatinine 1.1MG/DL (0.8-1.5) Glomerular Filtration Rate Calc 66 BUN/Creatinine Ratio 26RATIO (6-26) Glucose Level 162MG/DL (75-110) Calculated Osmolality 287MOSM/KG (261-280) Calcium Level 9.2MG/DL (8.4-10.2) Total Bilirubin 1.00MG/DL (0.20-1.30) Icterus Index < 2 (0-7) Aspartate Amino Transf (AST/SGOT) 30U/L (17-59) Alanine Aminotransferase (ALT/SGPT) 33U/L (21-72) Alkaline Phosphatase 115U/L (38-126) Troponin I 0.078ng/ml (0-0.12) NB-Jxt-D-Type Natriuretic Peptide 7160PG/ML (0-175) Total Protein 7.0G/DL (6.3-8.2) Albumin 3.7G/DL (3.5-5.0) Globulin 3.3G/DL (2.4-3.6) Albumin/Globulin Ratio 1.1RATIO (1.1-2.2) Chemistry Specimen Hemolysis < 15 (0-25) Urine Collection Type Voided-not cc-midstr Urine Color Yellow (YELLOW) Urine Turbidity Clear (CLEAR) Urine pH 6.0 (5.0-8.0) Urine Specific [place] 1.025 (1.015-1.025) Urine Protein 2+ (NEGATIVE) Urine Glucose (UA) 1+ (NEGATIVE) Urine Ketones Negative (NEGATIVE) Urine Blood Trace-intact (NEGATIVE) Urine Nitrite Negative (NEGATIVE) Urine Bilirubin Negative (NEGATIVE) Urine Urobilinogen 0.2EU/DL (NORMAL) Urine Leukocyte Esterase Negative (NEGATIVE) Urine RBC None seen/HPF (0-3) Urine WBC None seen/HPF (0-5) Urine Bacteria Negative (NEGATIVE) Urine Culture Indicated Cult not indicated Stool Cyclospora species Detection Negative (NEGATIVE) Stool Rotavirus A PCR Negative (NEGATIVE) Stool Adenovirus (PCR) Negative (NEGATIVE) Stool Astrovirus (PCR) Negative (NEGATIVE) Stool Campylobacter PCR Negative (NEGATIVE) Stool C. difficile Toxin (PCR) Negative (NEGATIVE) Stool Cryptosporidium PCR Negative (NEGATIVE) Stool E. coli Shiga Toxins Negative (NEGATIVE) Stool E coli O157 PCR N/a (NA/NEG) Stool Enterotoxigenic Ecoli PCR Negative (NEGATIVE) Stool Enteropathogenic E. coli (PCR Negative (NEGATIVE) Stool Enteroaggregative E. coli PCR Negative (NEGATIVE) Stool Entamoeba (PCR) Negative (NEGATIVE) Stool Giardia Lamblia PCR Negative (NEGATIVE) Stool Salmonella PCR Negative (NEGATIVE) Stool Sapovirus (PCR) Negative (NEGATIVE) Stool Plesiomonas shigelloides PCR Negative (NEGATIVE) Stool Shigella/EIEC (PCR) Negative (NEGATIVE) Stool Yersinia enterocolitica (PCR) Negative (NEGATIVE) Stool Vibrio (PCR) Negative (NEGATIVE) Stool Vibrio cholera (PCR) Negative (NEGATIVE) Stool Norovirus GI/GII PCR Negative (NEGATIVE) Glucometer 246mg/dL (75-110) Test 10/25/16 11:24 Hemoglobin A1c 8.0% (6.1-7.9) Phosphorus Level 3.9MG/DL (2.5-4.5) Magnesium Level 1.7MG/DL (1.6-2.3) Troponin I 0.052ng/ml (0-0.12) Thyroid Stimulating Hormone (TSH) 2.79MIU/L (0.47-4.68) Chemistry Specimen Hemolysis 27 (0-25) Radiology CTA chest Pulmonary arteries: Exam is diagnostic to the interlobar pulmonary artery only due to severe respiratory motion artifact. No large or saddle embolus identified. Segmental and subsegmental pulmonary artery branches cannot be well evaluated Other findings: Severe motion artifact. Diffuse groundglass opacities and interlobular septal thickening seen in both upper lobes. Small bilateral pleural effusions. No pneumothorax. The central airways are patent. No axillary or mediastinal adenopathy. Heart is severely enlarged without pericardial effusion. Main pulmonary artery is enlarged relative to the aorta consistent with pulmonary artery hypertension. Left subclavian port in place. Prior CABG. Moderate hiatal hernia. The upper abdomen shows no acute findings. Impression: 1. No large or central pulmonary embolus. 2. Diffuse airspace disease with findings most consistent with severe pulmonary edema. Less common considerations would include pulmonary hemorrhage and hypersensitivity pneumonitis/drug reaction. 3. Cardiomegaly and pulmonary artery hypertension. PROCEDURE: MRI BRAIN W/O CONTRAST: Encounter: Initial Comparisons: Head CT dated October 25, 2016 Technique: Multiplanar, multisequence, MR imaging of the head without contrast was acquired. FINDINGS: Exam is severely limited by motion artifact. There is a large area of restricted diffusion involving the left cerebellar hemisphere. This area has corresponding T2/FLAIR hyperintensity as expected. No other areas of acute diffusion restriction identified. Most of the remaining sequences are essentially nondiagnostic due to severe motion artifact. Prominent mucus retention cysts noted incidentally in the right maxillary sinus. Moderate generalized atrophy. No gross acute intracranial hemorrhage or extra-axial fluid collection. Impression: Acute left cerebellar infarct. This is in the superior cerebellar artery territory. CT head without contrast FINDINGS: The ventricles are of normal size, shape, and contour for the patient's age. There are scattered areas of low attenuation in the white matter which most likely represent changes from chronic microvascular ischemia. The brainstem, cerebellum, and cerebral hemispheres otherwise have a normal morphology and CT attenuation. There is no evidence of midline displacement. No hemorrhage, signs of acute territorial stroke, mass effect, mass lesions, or edema is evident. The visualized portions of the skull base, midface, and calvarium demonstrate no abnormality. Prominent mucus retention cysts in the maxillary sinuses. The tympanic and mastoid cavities appear normal. Right ocular prosthesis. IMPRESSION: No acute intracranial abnormality or hemorrhage. History of Present Illness Patient 75-year-old male who is brought by EMS today for evaluation of nausea, vomiting, dizziness, following a fall. Patient resides independently at home with his . reports that patient awoke at approximately 5 a.m. and was having nausea and vomiting. He then fell due to losing his balance. He was significantly dizzy and unable to get up and activated EMS brought him to the emergency room for further evaluation and treatment. Laboratory studies were obtained. The WBC count was found normal 8.6, hemoglobin 15, hematocrit 45.6, platelet count 234. Sodium 144, potassium 3.6, BUN 28, creatinine 1.1. Troponin is 0.078, proBNP 7160. INR 1.02, d-dimer was found to be elevated at 552. A CT scan of the head is obtained does not show any intracranial abnormalities or hemorrhages. CTA was obtained which was negative for pulmonary emboli, however, did reveal evidence of diffuse airspace consistent with severe pulmonary edema. There is prominent cardiomegaly and pulmonary artery hypertension. Arrival he was found to be afebrile 97.4, pulse 88, respiration rate 20, blood pressure is initially elevated at 187/107 Room air saturations are low at 88%. 12-lead EKG was obtains showing Sinus rhythm with PVCs. This was reviewed with cardiology in the ER. Patient was placed on 2 liters of oxygen by nasal cannula. She received multiple antiemetic agents while in the emergency room as well as IV fluids. Given his continued nausea and vomiting. Due to findings of pulmonary edema and respiratory failure with hypoxia. The hospitalist services were contacted and accepted patient for outpatient admission for further evaluation and treatment. It is expected that his stay will be less than 2 overnights. David is seen on initial examination was done emergency room. He is quite lethargic/sedated secondary to receiving multiple antimanic agents. All history and information is obtained from his at the bedside. Ports onside started just this morning as described above. He does reveal that patient follows with Dr. Hooks and that he had an echocardiogram in the last 1 month, as well as a stress test yesterday 10/24/16. It is reported that patient is on multiple cardiac medications, however, he has had a long-standing history of noncompliance as he has not tolerated many of those. Did discuss advanced directives and does verbalize that she wishes patient to be a full code Hospital Course 10/25/16- Admission Admit patient as an outpatient observation for nausea/vomiting, speech rate failure with hypoxemia and pulmonary edema Patient continues on 2 liters of oxygen by nasal canula to maintain adequate saturations. Lasix 20 mg IV x1 is given on admission. He will likely need further diuresing given findings of pulmonary edema. Monitor patient on cardiac telemetry. Will obtain serial troponins x3 to rule out cardiac ischemia given known coronary artery disease. Will obtain records from Dr Hooks office to review recent ECHO and stress test. Monitor accuchecks fasting and [address] patient on sliding scale insulin. Will likely not be able to take in PO currently given nausea Zofran as needed for nausea and vomiting. Will obtain GI Panel to rule out infectious etiology SCD to bilateral lower extremities for DVT prophylaxis Will recheck CBC and BMP tomorrow morning to follow blood counts, renal function and electrolytes Will discuss further plan of care with attending Dr Reeves Again patient is a full code and this order is written At time of discharge medical care is to return to PCP Dr Srivastava 10/25/2016-I reviewed this chart, the patient history, and the ATTENDANCE SECRETARY's/PA's documented findings as above. We discussed and formulated the assessment and plan as above with the additions below.-Dr. Reeves The patient was seen in his room accompanied by his and son. He was very somnolent after receiving anti-emetics including Phenergan in the emergency room. His stated that he was fine last night and this morning had nausea, vomiting and diarrhea. He was complaining of being dizzy and had to crawl on the ground in the hallway. He could not walk. She thought his speech was somewhat slurred. She called EMS and he was taken to the emergency room at [facility]. In the ER CT head was obtained which showed no acute intracranial abnormality. He was mildly hypoxic and a d-dimer was obtained and was elevated. He then underwent CTA of the chest which showed no large or central pulmonary embolus. Diffuse airspace disease with findings most consistent with severe pulmonary edema. Less common considerations would include pulmonary hemorrhage and hypersensitivity pneumonitis/drug reaction. Cardiomegaly and pulmonary artery hypertension also seen. On my exam the patient was somnolent but arousable. He could speak but speech was slurred. He was not able to answer very many questions secondary to somnolence. Chest was clear to auscultation. Cardiovascular reveals a regular rate and rhythm. Abdomen was soft and nontender. Extremities were free of edema. Skin was warm and dry and without rashes. He would not allow me to examine his eyes. Oropharynx was moist. Speech was slurred. It was difficult to assess cranial nerve testing secondary to patient' s somnolence and difficulty following directions. Her strength was equal and 4+ in the hands bilaterally and he had equal strength in the legs and feet 4+ bilaterally. MRI head without contrast was obtained to rule out stroke because of his dizziness and slurred speech. This unfortunately, MRI did show a large left cerebellar infarct which was acute. Exam was otherwise limited due to motion artifact. Family was notified of acute stroke and my recommendation for transfer to a facility in [place] with neurologic specialist. They requested transfer to [facility]. Currently, patient is arousable to voice. He does speak but mumbles. He moves all 4 extremities on command. Heart rate is 59. Blood pressure 122/68. O2 sat is 95% on room air. I did call and speak with Dr. Baxter, neurologist at [facility] for possible transfer. He did agree that transfer was indicated based on large cerebellar ischemic stroke. I then spoke with the hospitalist at [facility] who agreed to accept. Echocardiogram was read after MRI done and showed an apical thrombus which is likely the cause of his stroke. EF was 30-35%. This is a verbal report from Dr. Hooks. Patient is critically ill. Greater than 90 minutes time was spent seeing and evaluating the patient, performing H&P, and arranging transfer Problems: (1) Cerebellar infarct Assessment & Plan: Based on MRI showing a large left cerebellar infarct which appears to be acute (2) Pulmonary edema Status: Acute (3) CAD (coronary artery disease) Status: Chronic (4) DM (diabetes mellitus) Status: Chronic (5) Nausea & vomiting Status: Acute (6) History of kidney stones Status: Resolved (7) Respiratory failure with hypoxia Status: Acute (8) Hyperlipemia Status: Chronic (9) History of colon cancer Status: Resolved (10) Non compliance w medication regimen Status: Chronic (11) History of Radha fundoplication Status: Resolved Code Status Full Code Home Meds Discontinued Reported Medications Glipizide (Glipizide Xl) 5 Mg Tab.er.24, 5 MG PO HS 10/25/16 Glipizide (Glipizide Xl) 5 Mg Tab.er.24, 10 MG PO QAM 10/25/16 Face to Face Encounter I met with patient on the day of dismissal and discussed follow up appointments , medications, and safety plan. Discharge Disposition Transfer to [facility] in critical condition Copies To 1: HOLDEMAN,ALLY ANALY PARKER MD, MD Oct 25, 2016 17:45
--- NOTE | 2016-10-25 18:18 | NUR ---
DISCHARGE PT DISCHARGED WITH EMS, REPORT CALLED TO [facility], REPORT GIVEN TO EMS. PACKET SENT WITH EMS FOR [facility], IMAGING DISC IN PACKET. PT DISCHARGED ON 1L/NC. SIGNED CONSENT FOR TRANSPORT. PT DID NOT HAVE ANY EMESIS WHILE HERE ONLY [facility]. PT WAS TURNED Q2H. USED URINAL TO VOID. PT BLIND IN THE RIGHT EYE, PUPIL DILATED. SLURRED SPEECH. SPEAKS MINIMALLY TO STAFF WITH COAXING. 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 DIFFICULT TO ASSESS SMILE OR SENSATIONS DO TO HIS DECREASED LOC. UNABLE TO TELL ORIENTATION WELL. BELONGINGS SENT WITH FAMILY. PT DISCHARGED WITH IVL. TELEMETRY DC'D FOR EMS CARDIAC MONITORING.
--- NOTE | 2016-10-25 18:24 | ECHOF ---
DATE OF PROCEDURE 10/25/2016 PROCEDURE This is a two-dimensional echo with spectral Doppler, color-flow, and M-mode. It was obtained in a patient with dyspnea. DESCRIPTION OF PROCEDURE Left atrium is dilated. Left ventricle is dilated. Left ventricular wall thickness is normal. LV systolic function is reduced with apical, lateral, posterior, and inferior wall akinesia with ejection fraction of about 30% to 35%. Apical thrombus cannot be excluded. Right atrium is normal. Right ventricle is normal. Aortic root dimension is normal. Mitral valve is morphologically normal with mild mitral annulus calcification and mild mitral regurgitation. Aortic valve appears to be normal with mild aortic insufficiency. Tricuspid valve shows mild tricuspid regurgitation with moderate pulmonary hypertension with estimated pulmonary artery systolic pressure of 59. Pulmonary valve shows no pulmonary insufficiency. There is no pericardial effusion. IMPRESSION 1. Wall motion abnormalities as described above with ejection fraction of about 30% to 35%. 2. Possible apical thrombus. 3. Left atrial dilation. 4. Left ventricular dilation. 5. Mitral annulus calcification with mild mitral regurgitation. 6. Mild aortic insufficiency. 7. Mild tricuspid regurgitation with moderate pulmonary hypertension with estimated pulmonary artery systolic pressure of 59. MTDD
[2016-10-25] MEDS ORDERED: ATORVASTATIN 40 MG TABLET PO SCH (22:00)
== END 2016-10-25 18:18 | disposition short-term general hospital (02) | DRG 64 ==
LOC: ED 06:23 → EDHOLD 09:10 → MED 09:50 → OBSVTOIN 15:31
PROVIDERS: ADMIT Internal Medicine; ATTEND Internal Medicine
PROC: B24BZZZ Ultrasonography of Heart with Aorta (ICD-10-PCS; principal; 2016-10-25)
PROC: B030ZZZ Magnetic Resonance Imaging (MRI) of Brain (ICD-10-PCS; 2016-10-25)
DX: I63.342 Cerebral infarction due to thrombosis of left cerebellar artery (principal); J81.0 Acute pulmonary edema; J96.01 Acute respiratory failure with hypoxia; I50.21 Acute systolic (congestive) heart failure; I25.810 Atherosclerosis of coronary artery bypass graft(s) without angina pectoris; E11.9 Type 2 diabetes mellitus without complications; I27.2 Other secondary pulmonary hypertension; E78.5 Hyperlipidemia, unspecified; R11.2 Nausea with vomiting, unspecified; I11.0 Hypertensive heart disease with heart failure; Z91.14 Patient's other noncompliance with medication regimen
CPT/HCPCS: 0398T; 76376; 93307; 36415; 80053; 81001; 82948; 83036; 83735; 83880; 84100; 84443; 84484; 85025; 85379; 85610; 87507; 93005; 93306; 96361; 96374; 96375

== ENCOUNTER 2016-10-31 17:40 | Inpatient (IN) | payer MEDICARE, BC ==
[~2016-10-31] VITALS: Ht 177.8 cm; Wt 69.3 kg
[2016-10-31 16:00] VITALS: PULSE 55
[2016-10-31 17:40] VITALS: Ht 177.8 cm; Wt 69.3 kg
--- NOTE | 2016-10-31 17:40 | NUR ---
ADMISSION NOTE PATIENT ARRIVED FROM [facility] VIA PRIVATE VEHICLE, DROVE. ARRIVED TO MAIN ENTRANCE, TRANSPORTED VIA WHEELCHAIR BY NURSING ASSISTENT TO IRU 179. ONE ASSIST FROM WHEELCHAIR TO BED. VITALS TAKEN, PATIENT ORIENTED TO UNIT, CONSENTS SIGNED. ARMBAND PLACED. OLD ARMBANDS FROM PREVIOUS HOSPITAL REMOVED.
--- OUTSIDE RECORDS SUMMARY | 2016-10-31 17:54 | XMS REPORT | Continuity of Care Document ---
Author Author [facility] Organization [facility] Address Unknown Phone Unavailable Allergies Active Description [...] Diamond Lin MD L Final 414.01 COR -THREE [employer] VESSEL 08/29/2013 Diamond Lin MD L Final [...] 21:40 TROPONIN I 0.03 ng/mL < 0.07 GLUCOSE (POC) - 10/25/16 21:20 GLUCOSE (POC) 213 mg/dL 70-99 CBC W/DIFF - 10/25/16 22:30 COMMENT REVIEWED GRANULOCYTE # 8.1 k/cumm 2.0-9.0 GRANULOCYTE % 89 % 50-75 LYMPHOCYTE # 0.5 k/cumm 1.0-4.0 LYMPHOCYTE % 5 % 20-30 MEAN CELL HGB 29.7 pg 27.0-33.0 MEAN CELL HGB CONCENTRATION 33.3 g/dL 32.0-37.0 MEAN CELL VOLUME 89.1 fl 80.0-100.0 MONOCYTE # 0.5 k/cumm 0.1-1.0 MONOCYTE % 6 % 4-6 RED BLOOD CELL 4.31 m/cumm 4.00-6.00 RED CELL DISTRIBUTION WIDTH 15.6 % 11.0- 15.6 WHITE BLOOD CELL 9.1 k/cumm 5.0-10.0 HEMOGLOBIN 12.8 gm/dL 14.0-18.0 HEMATOCRIT 38.4 % 40.0-54.0 PLATELET COUNT 203 k/cumm 150-400 HEMOGLOBIN A1C - 10/25/16 22:30 HEMOGLOBIN A1C 8.4 % < 5.7 PROTHROMBIN TIME WITH INR - 10/25/16 22:30 INTERNATIONAL NORMAL RATIO 1.1 0.9-1.1 PROTHROMBIN TIME 12.5 sec 10.0-12.9 PARTIAL THROMBOPLASTIN TIME - 10/25/16 22:30 PARTIAL THROMBOPLASTIN TIME 28 sec 25-37 METABOLIC PANEL, BASIC - 10/25/16 22:30 POTASSIUM 4.4 mmol/L 3.5-5.3 EST GFR (MDRD) 46 mL/min > 59 ANION GAP 9 mmol/L 5-15 EST CrCl (CG) 42 mL/min > 59 GLUCOSE 224 mg/dL 70-99 CALCIUM 8.2 mg/dL 8.5-10.1 BLOOD UREA NITROGEN 27 mg/dL 7-20 CREATININE 1.5 mg/dL 0.7-1.3 SODIUM 140 mmol/L 135-148 CHLORIDE 105 mmol/L 98-110 CARBON DIOXIDE 26 mmol/L 21-32 THYROID STIM HORMONE (TSH) - 10/25/16 22:30 THYROID STIM HORMONE (TSH) 1.62 uIU/mL 0.34-4.82 CBC W/DIFF - 10/26/16 04:36 GRANULOCYTE # 8.8 k/cumm 2.0-9.0 GRANULOCYTE % 83 % 50-75 LYMPHOCYTE # 0.8 k/cumm 1.0-4.0 LYMPHOCYTE % 8 % 20-30 MEAN CELL HGB 29.0 pg 27.0-33.0 MEAN CELL HGB CONCENTRATION 32.5 g/dL 32.0-37.0 MEAN CELL VOLUME 89.4 fl 80.0-100.0 MONOCYTE # 0.9 k/cumm 0.1-1.0 MONOCYTE % 9 % 4-6 RED BLOOD CELL 4.34 m/cumm 4.00-6.00 RED CELL DISTRIBUTION WIDTH 15.7 % 11.0- 15.6 WHITE BLOOD CELL 10.5 k/cumm 5.0-10.0 HEMOGLOBIN 12.6 gm/dL 14.0-18.0 HEMATOCRIT 38.8 % 40.0-54.0 PLATELET COUNT 197 k/cumm 150-400 METABOLIC PANEL, BASIC - 10/26/16 04:36 POTASSIUM 4.1 mmol/L 3.5-5.3 EST GFR (MDRD) 50 mL/min > 59 ANION GAP 7 mmol/L 5-15 EST CrCl (CG) 45 mL/min > 59 GLUCOSE 178 mg/dL 70-99 CALCIUM 8.2 mg/dL 8.5-10.1 BLOOD UREA NITROGEN 30 mg/dL 7-20 CREATININE 1.4 mg/dL 0.7-1.3 SODIUM 141 mmol/L 135-148 CHLORIDE 107 mmol/L 98-110 CARBON DIOXIDE 27 mmol/L 21-32 LIPID PANEL - 10/26/16 04:36 CHOLESTEROL/HDL RATIO 2.7 < 5.0 LDL CHOLESTEROL 82 mg/dL < 100 VLDL CHOLESTEROL 14 mg/dL < 30 TRIGLYCERIDES 72 mg/dL < 150 CHOLESTEROL 153 mg/dL < 200 HDL CHOLESTEROL 57 mg/dL > 39 GLUCOSE (POC) - 10/26/16 13:01 GLUCOSE (POC) 180 mg/dL 70-99 GLUCOSE (POC) - 10/26/16 17:14 GLUCOSE (POC) 149 mg/dL 70-99 GLUCOSE (POC) - 10/26/16 21:40 GLUCOSE (POC) 145 mg/dL 70-99 CBC - 10/27/16 05:12 MEAN CELL HGB 29.2 pg 27.0-33.0 MEAN CELL HGB CONCENTRATION 32.9 g/dL 32.0-37.0 MEAN CELL VOLUME 88.8 fl 80.0-100.0 RED BLOOD CELL 4.83 m/cumm 4.00-6.00 RED CELL DISTRIBUTION WIDTH 15.7 % 11.0- 15.6 WHITE BLOOD CELL 10.1 k/cumm 5.0-10.0 HEMOGLOBIN 14.1 gm/dL 14.0-18.0 HEMATOCRIT 42.9 % 40.0-54.0 PLATELET COUNT 189 k/cumm 150-400 RENAL FUNCTION PANEL - 10/27/16 05:12 POTASSIUM 4.1 mmol/L 3.5-5.3 EST GFR (MDRD) 59 mL/min > 59 ANION GAP 9 mmol/L 5-15 EST CrCl (CG) 53 mL/min > 59 GLUCOSE 180 mg/dL 70-99 CALCIUM 8.6 mg/dL 8.5-10.1 BLOOD UREA NITROGEN 26 mg/dL 7-20 CREATININE 1.2 mg/dL 0.7-1.3 SODIUM 140 mmol/L 135-148 CHLORIDE 106 mmol/L 98-110 CARBON DIOXIDE 25 mmol/L ALBUMIN 2.8 gm/dL 3.4-5.0 PHOSPHORUS 3.5 mg/dL 2.5-4.9 MAGNESIUM - 10/27/16 05:12 MAGNESIUM 1.7 mg/dL 1.8-2.4 GLUCOSE (POC) - 10/27/16 11:19 GLUCOSE (POC) 204 mg/dL 70-99 GLUCOSE (POC) - 10/27/16 17:36 GLUCOSE (POC) 280 mg/dL 70-99 GLUCOSE (POC) - 10/27/16 19:51 GLUCOSE (POC) 202 mg/dL 70-99 CBC - 10/28/16 05:37 MEAN CELL HGB 29.2 pg 27.0-33.0 MEAN CELL HGB CONCENTRATION 32.9 g/dL 32.0-37.0 MEAN CELL VOLUME 88.6 fl 80.0-100.0 RED BLOOD CELL 4.90 m/cumm 4.00-6.00 RED CELL DISTRIBUTION WIDTH 15.2 % 11.0- 15.6 WHITE BLOOD CELL 10.5 k/cumm 5.0-10.0 HEMOGLOBIN 14.3 gm/dL 14.0-18.0 HEMATOCRIT 43.4 % 40.0-54.0 PLATELET COUNT 191 k/cumm 150-400 RENAL FUNCTION PANEL - 10/28/16 05:37 POTASSIUM 4.6 mmol/L 3.5-5.3 EST GFR (MDRD) 54 mL/min > 59 ANION GAP 8 mmol/L 5-15 EST CrCl (CG) 49 mL/min > 59 GLUCOSE 195 mg/dL 70-99 CALCIUM 8.5 mg/dL 8.5-10.1 BLOOD UREA NITROGEN 25 mg/dL 7-20 CREATININE 1.3 mg/dL 0.7-1.3 SODIUM 138 mmol/L 135-148 CHLORIDE 104 mmol/L 98-110 CARBON DIOXIDE 26 mmol/L 21-32 ALBUMIN 2.7 gm/dL 3.4-5.0 PHOSPHORUS 3.1 mg/dL 2.5-4.9 MAGNESIUM - 10/28/16 05:37 MAGNESIUM 2.0 mg/dL 1.8-2.4 GLUCOSE (POC) - 10/28/16 05:39 GLUCOSE (POC) 212 mg/dL 70-99 Encounters ACCT No. Visit Date/Time Discharge Status Pt. Type Provider Facility Loc./Unit Complaint [id number] 08/29/2013 03:47:00 2013 11:10:00 DIS Inpatient Riley ALVAREZ, Diamond Phan [facility] [id number] [id number] 08/06/2012 16:32:00 2012 18:33:00 DIS Inpatient Rodger Welch MD [facility] F6SE [id number] 05/04/2012 09:41:00 2011 12:15:00 DIS Inpatient Phani Renteria MD [facility] F3PA [id number] 04/30/2012 05:00:00 2011 23:59:59 CLS Outpatient Phani Renteria MD [facility] FO [id number] 08/04/2012 14:40:00 Document Registration [id number] 08/04/2012 14:36:00 Document Registration
--- OUTSIDE RECORDS SUMMARY | 2016-10-31 17:54 | XMS REPORT | Continuity of Care Document ---
Author Author [facility] Organization [facility] Address Unknown Phone Unavailable Support Name Relationship Address Phone SHEMAR REEVES MD Caregiver [address] [place] [address] Unavailable SHEMAR REEVES MD Caregiver [address] [place] [address] Unavailable ALLY MENDEZ MD Caregiver [address] [place] [address] [place] [address] Unavailable OLIVA STUBBS MD Caregiver [address] [place] [id number] Unavailable ROLANDO DURAN Next Of Kin [address] [place] [id number] Insurance Providers Guarantor Cheryl Duran Address [address] [place] [address] Email DENIED 10-25-16 [facility] Policy Number [id number] Subscriber's Name Cheryl Duran Relationship 18 Self Group Number [id number] Effective Date 10 Payer Medicare Policy Number [id number] Subscriber's Name Cheryl Duran Relationship 18 Self Effective Date 07 Advance Directives Directive Response Recorded Date/Time Advanced Directives Type None 10/25/16 6:25am Ordered Resuscitation Status Full Code 10/25/16 9:12am Resuscitation Documents on File No 10/25/16 10:12am DPOA for Healthcare Only No 10/25/16 1:21pm Living Will No 10/25/16 10:12am Problems Active Problems Medical Problem Onset Date Status Acute diastolic heart failure Unknown Acute Acute systolic (congestive) heart failure Unknown Acute Atherosclerosis of coronary artery bypass graft without angina pectoris Unknown Chronic Atrial thrombus Unknown Acute CAD (coronary artery disease) Unknown Chronic Cerebellar infarct Unknown DM (diabetes mellitus) Unknown Chronic Epistaxis Unknown Acute Essential (primary) hypertension Unknown Chronic History of colon cancer Unknown Resolved History of kidney stones Unknown Resolved Hyperlipemia Unknown Chronic LEFT URETERAL STONE Unknown Acute LEFT URETERAL STONE Unknown Acute Nausea & vomiting Unknown Acute Non compliance w medication regimen Unknown Chronic Respiratory failure with hypoxia Unknown Acute URETERAL COLIC Unknown Acute large bowel obstruction Unknown Acute Surgical Problem Onset Date Status History of Radha fundoplication Unknown Resolved Past Problems Medical Problem Onset Date Diabetes Unknown Pulmonary edema Unknown Shortness of breath Unknown Medications Past Home Medications Medication Directions Ordered Status Aspirin (Aspir 81) 81 Mg Tablet.dr, 81 Mg Oral Bedtime 09/15/09 Discontinued Atenolol 25 Mg Tablet, 25 Mg Oral Daily 09/15/09 Discontinued Cholecalciferol (Vitamin D) 1,000 Unit Capsule, 1000 Unit Oral Daily Discontinued Cholecalciferol (Vitamin D3) (Vitamin D) 5,000 Unit Tablet, 5000 Unit Oral Daily 05/05/13 Discontinued Clopidogrel Bisulfate (Plavix) 75 Mg Tablet, 75 Mg Oral Daily 09/15/09 Discontinued Ferrous Sulfate 1 Tab Tablet, 1 Tab Oral 02/24/12 Discontinued Furosemide (Lasix) 40 Mg Tablet, 40 Mg Oral Daily 09/15/09 Discontinued Glipizide (Glipizide Xl) 5 Mg Tab.er.24, 10 Mg Oral Every Morning 10/25/16 Discontinued Glipizide (Glipizide Xl) 5 Mg Tab.er.24, 5 Mg Oral Bedtime 10/25/16 Discontinued Insulin Glargine (Lantus Solostar) 1 Unit Pen, 8 Unit Sub-Q Bedtime 05/05/13 Discontinued Isosorbide Mononitrate 30 Mg Tab.sr.24h, 30 Mg Oral 2 In Am, 1 In Pm Discontinued Meloxicam (Mobic) 15 Mg Tablet, 15 Mg Oral 02/24/12 Discontinued Metformin Hcl 500 Mg Tablet, 500 Mg Oral Twice A Day 09/15/09 Discontinued Multivitamins (Multivitamin) 1 Tab Tablet, 1 Tab Oral Daily 05/05/13 Discontinued Nadolol/Bendroflumethiazide (Corzide 40/5 Tablet) 1 Tab Tablet, 1 Tab Oral Daily 11/06/08 Discontinued Nitroglycerin 0.4 Mg Tab.subl, 0.4 Mg Sublingual As Needed 09/05/09 Discontinued Omeprazole (Prilosec) 20 Mg Tablet.dr, 20 Mg Oral Daily 02/24/12 Discontinued Pioglitazone Hcl (Actos) 45 Mg Tablet, 1 Tab Oral Daily 11/06/08 Discontinued Potassium Chloride (Klor-Con M20) 20 Meq Tab.prt.sr, 20 Meq Oral Daily Discontinued Simvastatin 20 Mg Tablet, 20 Mg Oral 1 Qod 09/15/09 Discontinued Telmisartan (Micardis) 80 Mg Tablet, 1 Tab Oral Daily 11/06/08 Discontinued Social History Social History Problem Response Recorded Date/Time Onset Date Status Reason for Hospitalization nausea, vomiting, dizziness 10/25/2016 5:52pm Not Applicable Not Applicable Chewing Tobacco Status No 08/28/2013 11:47pm Not Applicable Not Applicable Hx Substance Use No 10/25/2016 7:48am Not Applicable Not Applicable Hx Alcohol Use No 10/25/2016 7:48am Not Applicable Not Applicable Has the pt used tobacco in the last 12 months No 10/25/2016 10:13am Not Applicable Not Applicable Query Response Start Date Stop Date Smoking Status Never smoker Hospital Discharge Instructions Instructions: Care Instructions: Reason for Hospitalization: nausea, vomiting, dizziness I was in the hospital because (patient own words): unable to say Discharge Diet: nothing by mouth Discharge Activity: Bedrest Follow Up Appointments: Not applicable Pending Lab / Results: Follow up w/ your PCP Wound/Incision Care: Not applicable Pain Management/Treatment: Not applicable Expected Signs/Symptoms: Not Applicable Notify Physician If: Not applicable During Business Hours:: Not applicable After Business Hours:: Not applicable Condition at time of discharge: Critical Plan of Care Discharge Date 10/25/16 6:18pm Disposition 02 TO [facility] Instructions/Education Provided Effects of a Stroke (DC) Prescriptions See Medication Section Care Plan and Goals See Discharge Instructions Section Functional Status Query Response Date Recorded Mobility Status Ambulatory October 25, 2016 5:52pm Assistive Devices None October 25, 2016 5:52pm Activity Limitations Weakness Fatigue Shortness of breath Dizziness October 25, 2016 5:52pm Feeding Ability Independent October 25, 2016 5:52pm Toileting Ability Independent October 25, 2016 5:52pm Grooming Ability Independent October 25, 2016 5:52pm Dressing Ability Independent October 25, 2016 5:52pm Driving Ability Independent October 25, 2016 5:52pm Housework Ability Independent October 25, 2016 5:52pm Meal Preparation Ability Independent October 25, 2016 5:52pm Stair Climbing Ability Independent October 25, 2016 5:52pm Ability to complete ADL's impeded by No change October 25, 2016 5:52pm Cognitive/Perceptual Impairments Impaired vision Impaired hearing October 25, 2016 5:52pm Visual Assistive Devices Glasses October 25, 2016 10:07am Allergies, Adverse Reactions, Alerts Allergen Type Severity Reaction Status Last Updated No Known Drug Allergies Allergy Unknown Active 10/25/16 Immunizations Query Response on File Recorded Date/Time Hx Influenza Vaccination Y APR 2016 10/25/16 10:13am Hx Pneumococcal Vaccination Y 04/19/0904/25/15 10/25/16 10:13am Hx Influenza Vaccination Y APR 2016 10/25/16 10:13am Influenza Vaccine Hx MAR 2016 10/25/16 7:48am Vital Signs Acute Vital Signs Vital Response Date/Time Temperature (Fahrenheit) 98.4 deg F (96.8 - 99.1) 10/25/2016 5:08pm Temperature (Calculated Celsius) 36.94983 degrees C (36.0 - 37.3) 10/25/2016 5:08pm Pulse Rate (adult) 59 bpm (60 - 100) 10/25/2016 5:08pm Respiratory Rate 16 breaths/min (10 - 20) 10/25/2016 5:08pm O2 Sat by Pulse Oximetry 95 % (90 - 100) 10/25/2016 5:08pm Oxygen Delivery Method Nasal Cannula 10/25/2016 5:08pm Oxygen Flow Rate 1.00 L/min 10/25/2016 5:08pm Blood Pressure 122/68 mm Hg 10/25/2016 5:08pm Blood Pressure Source Automatic Cuff 10/25/2016 5:08pm Height (Feet) 5 feet 10/25/2016 1:21pm Height (Inches) 10.00 inches 10/25/2016 1:21pm Weight (Kilograms) 67.400 kg 10/25/2016 10:04am Body Mass Index (BMI) 21.3 10/25/2016 10:04am Results Laboratory Results Test Name Result Units Flags Reference Collection Date/Time Result Date/ Time Comments Adenovirus (PCR) NEGATIVE NEGATIVE 08/15/2016 4:02pm 08/15/2016 5: 17pm Coronavirus Type 229E (PCR) NEGATIVE NEGATIVE 08/15/2016 4:02pm 08/15 5:17pm Coronavirus Type HKU1 (PCR) NEGATIVE NEGATIVE 08/15/2016 4:02pm 08/15 5:17pm Coronavirus Type NL63 (PCR) NEGATIVE NEGATIVE 08/15/2016 4:02pm 08/15 5:17pm Coronavirus Type OC43 (PCR) NEGATIVE NEGATIVE 08/15/2016 4:02pm 08/15 5:17pm Human Metapneumovirus (PCR) NEGATIVE NEGATIVE 08/15/2016 4:02pm 08/15 5:17pm Enterovirus/Rhinovirus (PCR) NEGATIVE NEGATIVE 08/15/2016 4:02pm 5:17pm Influenza Virus Type A (PCR) NEGATIVE NEGATIVE 08/15/2016 4:02pm 5:17pm Influenza Virus Type B (PCR) NEGATIVE NEGATIVE 08/15/2016 4:02pm 5:17pm Parainfluenza Type 1 (PCR) NEGATIVE NEGATIVE 08/15/2016 4:02pm 2016 5:17pm Parainfluenza Type 2 (PCR) NEGATIVE NEGATIVE 08/15/2016 4:02pm 2016 5:17pm Parainfluenza Type 3 (PCR) NEGATIVE NEGATIVE 08/15/2016 4:02pm 2016 5:17pm Parainfluenza Type 4 (PCR) NEGATIVE NEGATIVE 08/15/2016 4:02pm 2016 5:17pm Respiratory Syncytial Virus (PCR) NEGATIVE NEGATIVE 08/15/2016 4:02pm 08/15/2016 5:17pm Bordetella parapertussis DNA (PCR) NEGATIVE NEGATIVE 08/15/2016 4: 02pm 08/15/2016 5:17pm Chlamydia pneumoniae DNA (PCR) NEGATIVE NEGATIVE 08/15/2016 4:02pm 5:17pm Mycoplasma pneumoniae (PCR) NEGATIVE NEGATIVE 08/15/2016 4:02pm 08/15 5:17pm White Blood Count 8.6 T/MM3 4.5-11.0 10/25/2016 6:39am 10/25/2016 7: 11am Red Blood Count 5.13 M/MM3 4.50-5.90 10/25/2016 6:39am 10/25/2016 7: 11am Hemoglobin 15.0 GM/DL 13.5-17.5 10/25/2016 6:39am 10/25/2016 7:11am Hematocrit 45.6 % 41-53 10/25/2016 6:39am 10/25/2016 7:11am Mean Corpuscular Volume 88.9 UM3 80-100 10/25/2016 6:3910/25/2016 7: 11am Mean Corpuscular Hemoglobin 29.2 UUG 26-34 10/25/2016 6:392016 7:11am Mean Corpuscular Hemoglobin Concent 32.9 GM/DL 31-37 10/25/2016 6:3910/25/2016 7:11am RDW Standard Deviation 50.6 FL H 36.9-50.2 10/25/2016 6:3910/25/2016 7:11am Platelet Count 234 T/MM3 130-400 10/25/2016 6:3910/25/2016 7:11am Mean Platelet Volume 10.7 UM3 9.4-12.4 10/25/2016 6:3910/25/2016 7: 11am Neutrophils (%) (Auto) 62.3 % 33-66 10/25/2016 6:3910/25/2016 7: 11am Lymphocytes (%) (Auto) 26.9 % 23-45 10/25/2016 6:3910/25/2016 7: 11am Monocytes (%) (Auto) 5.7 % 0-9.0 10/25/2016 6:3910/25/2016 7:11am Eosinophils (%) (Auto) 3.6 % 0-4 10/25/2016 6:3910/25/2016 7:11am Basophils (%) (Auto) 0.6 % 0-2 10/25/2016 6:3910/25/2016 7:11am Immature Granulocyte % (Auto) 0.9 % H 0.0-0.5 10/25/2016 6:392016 7:11am Absolute Neutrophils (auto) 5.4 T/MM3 1.8-7.7 10/25/2016 6:392016 7:11am Absolute Lymphocytes (auto) 2.3 T/MM3 1-4.8 10/25/2016 6:392016 7:11am Absolute Monocytes (auto) 0.5 T/MM3 0-0.8 10/25/2016 6:3910/25/2016 7:11am Absolute Eosinophils (auto) 0.3 T/MM3 0-0.5 10/25/2016 6:39am 2016 7:11am Absolute Basophils (auto) 0.1 T/MM3 0-0.2 10/25/2016 6:39am 10/25/2016 7:11am Absolute Immature Granulocyte (auto 0.08 T/MM3 H 0.00-0.03 10/25/2016 6: 39am 10/25/2016 7:11am Prothromb Time International Ratio 1.05 H 0.76-1.04 10/25/2016 6:39am 10/25/2016 7:15am THERAPUTIC RANGE=2.00-3.00 FOR ANTI-THROMBOSIS THERAPUTIC RANGE=2.50-3.50 FOR IMPLANTED VALVE D-Dimer 552 NG/ML H 0-230 10/25/2016 6:39am 10/25/2016 7:15am <230 NG/ ML D-DU=PRESUMPTIVE NEGATIVE FOR PE OR DVT >230 NG/ML D-DU=ADDITIONAL EVAL FOR PE OR DVT RECOMMENDED Icterus Index < 2 0-7 10/25/2016 6:39am 10/25/2016 7:17am Chemistry Specimen Hemolysis 27 H 0-25 10/25/2016 11:24am 10/25/2016 11:57am 26-70: Specimen Exhibited Slight Hemolysis - can falsely elevate K (Potassium) and Urine Protein. Turbidity < 20 0-20 10/25/2016 6:39am 10/25/2016 7:17am Sodium Level 144 MEQ/L 134-144 10/25/2016 6:39am 10/25/2016 7:17am Potassium Level 3.6 MEQ/L 3.6-5 10/25/2016 6:39am 10/25/2016 7:17am Chloride Level 106 MEQ/L 98-107 10/25/2016 6:39am 10/25/2016 7:17am Carbon Dioxide Level 24 MEQ/L 22-30 10/25/2016 6:39am 10/25/2016 7: 17am Anion Gap 14 MEQ/L 5-15 10/25/2016 6:39am 10/25/2016 7:17am Blood Urea Nitrogen 28.0 MG/DL H 9-20 10/25/2016 6:39am 10/25/2016 7: 17am Creatinine 1.1 MG/DL 0.8-1.5 10/25/2016 6:39am 10/25/2016 7:17am BUN/Creatinine Ratio 26 RATIO 6-26 10/25/2016 6:39am 10/25/2016 7:17am Glomerular Filtration Rate Calc 66 10/25/2016 6:39am 10/25/2016 7: 17am Glucose Level 162 MG/DL H 75-110 10/25/2016 6:39am 10/25/2016 7:17am Calculated Osmolality 287 MOSM/KG H 261-280 10/25/2016 6:39am 2016 7:17am Calcium Level 9.2 MG/DL 8.4-10.2 10/25/2016 6:39am 10/25/2016 7:17am Phosphorus Level 3.9 MG/DL 2.5-4.5 10/25/2016 11:24am 10/25/2016 3: 48pm Total Bilirubin 1.00 MG/DL 0.20-1.30 10/25/2016 6:39am 10/25/2016 7: 17am Alkaline Phosphatase 115 U/L 38-126 10/25/2016 6:39am 10/25/2016 7: 17am Total Protein 7.0 G/DL 6.3-8.2 10/25/2016 6:39am 10/25/2016 7:17am Albumin 3.7 G/DL 3.5-5.0 10/25/2016 6:39am 10/25/2016 7:17am Globulin 3.3 G/DL 2.4-3.6 10/25/2016 6:39am 10/25/2016 7:17am Albumin/Globulin Ratio 1.1 RATIO 1.1-2.2 10/25/2016 6:39am 10/25/2016 7 :17am Aspartate Amino Transf (AST/SGOT) 30 U/L 17-59 10/25/2016 6:39am 2016 7:17am Alanine Aminotransferase (ALT/SGPT) 33 U/L 21-72 10/25/2016 6:39am 7:17am Troponin I 0.052 ng/ml 0-0.12 10/25/2016 11:24am 10/25/2016 11:57am Troponin values with a difference of 55% increase from orginal troponin value represent a true biological DELTA value. (%increase Calc=Orginal Troponin value, divided by subsequent Troponin value, multiplied by 100) QV-Vhw-I-Type Natriuretic Peptide 7160 PG/ML H 0-175 10/25/2016 6:39am 10/25/2016 7:28am Rule in cut points: <50 years old=450; 50-75 years old=900; >75 years old=1800; When utilizing ProBNP rule-in cut points, adjustment for impaired renal function is typically not required. Magnesium Level 1.7 MG/DL 1.6-2.3 10/25/2016 11:24am 10/25/2016 3:48pm Thyroid Stimulating Hormone (TSH) 2.79 MIU/L 0.47-4.68 10/25/2016 11: 24am 10/25/2016 4:31pm Hemoglobin A1c 8.0 % H 6.1-7.9 10/25/2016 11:24am 10/25/2016 3:48pm < 6.0 NON-DIABETIC RANGE 6.1-7.9 [facility] TARGET RANGE >8.0 ACTION SUGGESTED Stool Campylobacter PCR NEGATIVE NEGATIVE 10/25/2016 10:04am 2016 11:41am Stool C. difficile Toxin (PCR) NEGATIVE NEGATIVE 10/25/2016 10:04am 10/25/2016 11:41am Stool Plesiomonas shigelloides PCR NEGATIVE NEGATIVE 10/25/2016 10: 04am 10/25/2016 11:41am Stool Salmonella PCR NEGATIVE NEGATIVE 10/25/2016 10:04am 10/25/2016 11:41am Stool Vibrio (PCR) NEGATIVE NEGATIVE 10/25/2016 10:04am 10/25/2016 11 :41am Stool Vibrio cholera (PCR) NEGATIVE NEGATIVE 10/25/2016 10:04am 10/25 11:41am Stool Yersinia enterocolitica (PCR) NEGATIVE NEGATIVE 10/25/2016 10: 04am 10/25/2016 11:41am Stool Enteroaggregative E. coli PCR NEGATIVE NEGATIVE 10/25/2016 10: 04am 10/25/2016 11:41am Stool Enteropathogenic E. coli (PCR NEGATIVE NEGATIVE 10/25/2016 10: 04am 10/25/2016 11:41am Stool Enterotoxigenic Ecoli PCR NEGATIVE NEGATIVE 10/25/2016 10:04am 10/25/2016 11:41am Stool E. coli Shiga Toxins NEGATIVE NEGATIVE 10/25/2016 10:04am 10/25 11:41am Stool E coli O157 PCR N/A NA/NEG 10/25/2016 10:04am 10/25/2016 11: 41am Stool Shigella/EIEC (PCR) NEGATIVE NEGATIVE 10/25/2016 10:04am 2016 11:41am Stool Cryptosporidium PCR NEGATIVE NEGATIVE 10/25/2016 10:04am 2016 11:41am Stool Cyclospora species Detection NEGATIVE NEGATIVE 10/25/2016 10: 04am 10/25/2016 11:41am Stool Entamoeba (PCR) NEGATIVE NEGATIVE 10/25/2016 10:04am 2016 11:41am Stool Giardia Lamblia PCR NEGATIVE NEGATIVE 10/25/2016 10:04am 2016 11:41am Stool Adenovirus (PCR) NEGATIVE NEGATIVE 10/25/2016 10:04am 2016 11:41am Stool Astrovirus (PCR) NEGATIVE NEGATIVE 10/25/2016 10:04am 2016 11:41am Stool Norovirus GI/GII PCR NEGATIVE NEGATIVE 10/25/2016 10:04am 10/25 11:41am Stool Rotavirus A PCR NEGATIVE NEGATIVE 10/25/2016 10:04am 2016 11:41am Stool Sapovirus (PCR) NEGATIVE NEGATIVE 10/25/2016 10:04am 2016 11:41am Urine Collection Type VOIDED-NOT CC-MIDSTR 10/25/2016 7:27am 2016 7:42am Urine Color YELLOW YELLOW 10/25/2016 7:2710/25/2016 7:42am Urine Turbidity CLEAR CLEAR 10/25/2016 7:2710/25/2016 7:42am Urine Specific Kathleen 1.025 1.015-1.025 10/25/2016 7:272016 7:42am Urine pH 6.0 5.0-8.0 10/25/2016 7:27am 10/25/2016 7:42am Urine Leukocyte Esterase NEGATIVE NEGATIVE 10/25/2016 7:27am 2016 7:42am Urine Nitrite NEGATIVE NEGATIVE 10/25/2016 7:2710/25/2016 7:42am Urine Protein 2+ A NEGATIVE 10/25/2016 7:2710/25/2016 7:42am Urine Glucose (UA) 1+ A NEGATIVE 10/25/2016 7:27am 10/25/2016 7:42am Urine Ketones NEGATIVE NEGATIVE 10/25/2016 7:2710/25/2016 7:42am Urine Urobilinogen 0.2 EU/DL NORMAL 10/25/2016 7:27am 10/25/2016 7: 42am Urine Bilirubin NEGATIVE NEGATIVE 10/25/2016 7:2710/25/2016 7: 42am Urine Blood TRACE-INTACT A NEGATIVE 10/25/2016 7:10/25/2016 7: 42am Urine WBC NONE SEEN /HPF 0-5 10/25/2016 7:10/25/2016 7:57am Urine RBC NONE SEEN /HPF 0-3 10/25/2016 7:am 10/25/2016 7:57am Urine Bacteria NEGATIVE NEGATIVE 10/25/2016 7:27am 10/25/2016 7:57am Urine Culture Indicated CULT NOT INDICATED 10/25/2016 7:2016 7:57am Glucometer 246 mg/dL H 75-110 10/25/2016 10:43am 10/25/2016 11:30am Name: CHERYL DURAN Unit #: [id number] : 1940 Sex: M DISCHARGE SUMMARY Admit Date: 10/25/16 Report #: [id number] [facility] General Date Date DATE: 10/25/16 TIME: 17:40 Attending Physician Shemar Reeves MD Admitting Physician Shemar Reeves MD Consulting Physician López Hooks MD Admitting Diagnosis pulmonary edema Discharge Diagnosis Acute large left cerebellar infarct Echocardiogram showing apical thrombus Cardiomyopathy with ejection fraction of 30-35% Acute hypoxic respiratory failure secondary to pulmonary edema Coronary artery disease Intermittent diarrhea Nausea and vomiting-likely secondary to acute stroke Dizziness-likely secondary to acute stroke Diabetes mellitus newly diagnosed with A1c of 8.0 Procedures Echocardiogram showing apical thrombus and ejection fraction of 30-35%-this is a verbal report Laboratory Laboratory Tests Test 10/25/16 06:39 10/25/16 07:27 10/25/16 10:04 10/25/16 10:43 White Blood Count 8.6T/MM3 (4.5-11.0) Red Blood Count 5.13M/MM3 (4.50-5.90) Hemoglobin 15.0GM/DL (13.5-17.5) Hematocrit 45.6% (41-53) Mean Corpuscular Volume 88.9UM3 (80-100) Mean Corpuscular Hemoglobin 29.2UUG (26-34) Mean Corpuscular Hemoglobin Concent 32.9GM/DL (31-37) RDW Standard Deviation 50.6FL (36.9-50.2) Platelet Count 234T/MM3 (130-400) Mean Platelet Volume 10.7UM3 (9.4-12.4) Immature Granulocyte % (Auto) 0.9% (0.0-0.5) Neutrophils (%) (Auto) 62.3% (33-66) Lymphocytes (%) (Auto) 26.9% (23-45) Monocytes (%) (Auto) 5.7% (0-9.0) Eosinophils (%) (Auto) 3.6% (0-4) Basophils (%) (Auto) 0.6% (0-2) Absolute Immature Granulocyte (auto 0.08T/MM3 (0.00-0.03) Absolute Neutrophils (auto) 5.4T/MM3 (1.8-7.7) Absolute Lymphocytes (auto) 2.3T/MM3 (1-4.8) Absolute Monocytes (auto) 0.5T/MM3 (0-0.8) Absolute Eosinophils (auto) 0.3T/MM3 (0-0.5) Absolute Basophils (auto) 0.1T/MM3 (0-0.2) Prothromb Time International Ratio 1.05 (0.76-1.04) D-Dimer 552NG/ML (0-230) Turbidity < 20 (0-20) Sodium Level 144MEQ/L (134-144) Potassium Level 3.6MEQ/L (3.6-5) Chloride Level 106MEQ/L (98-107) Carbon Dioxide Level 24MEQ/L (22-30) Anion Gap 14MEQ/L (5-15) Blood Urea Nitrogen 28.0MG/DL (9-20) Creatinine 1.1MG/DL (0.8-1.5) Glomerular Filtration Rate Calc 66 BUN/Creatinine Ratio 26RATIO (6-26) Glucose Level 162MG/DL (75-110) Calculated Osmolality 287MOSM/KG (261-280) Calcium Level 9.2MG/DL (8.4-10.2) Total Bilirubin 1.00MG/DL (0.20-1.30) Icterus Index < 2 (0-7) Aspartate Amino Transf (AST/SGOT) 30U/L (17-59) Alanine Aminotransferase (ALT/SGPT) 33U/L (21-72) Alkaline Phosphatase 115U/L (38-126) Troponin I 0.078ng/ml (0-0.12) MC-Blw-X-Type Natriuretic Peptide 7160PG/ML (0-175) Total Protein 7.0G/DL (6.3-8.2) Albumin 3.7G/DL (3.5-5.0) Globulin 3.3G/DL (2.4-3.6) Albumin/Globulin Ratio 1.1RATIO (1.1-2.2) Chemistry Specimen Hemolysis < 15 (0-25) Urine Collection Type Voided-not cc-midstr Urine Color Yellow (YELLOW) Urine Turbidity Clear (CLEAR) Urine pH 6.0 (5.0-8.0) Urine Specific Kathleen 1.025 (1.015-1.025) Urine Protein 2+ (NEGATIVE) Urine Glucose (UA) 1+ (NEGATIVE) Urine Ketones Negative (NEGATIVE) Urine Blood Trace-intact (NEGATIVE) Urine Nitrite Negative (NEGATIVE) Urine Bilirubin Negative (NEGATIVE) Urine Urobilinogen 0.2EU/DL (NORMAL) Urine Leukocyte Esterase Negative (NEGATIVE) Urine RBC None seen/HPF (0-3) Urine WBC None seen/HPF (0-5) Urine Bacteria Negative (NEGATIVE) Urine Culture Indicated Cult not indicated Stool Cyclospora species Detection Negative (NEGATIVE) Stool Rotavirus A PCR Negative (NEGATIVE) Stool Adenovirus (PCR) Negative (NEGATIVE) Stool Astrovirus (PCR) Negative (NEGATIVE) Stool Campylobacter PCR Negative (NEGATIVE) Stool C. difficile Toxin (PCR) Negative (NEGATIVE) Stool Cryptosporidium PCR Negative (NEGATIVE) Stool E. coli Shiga Toxins Negative (NEGATIVE) Stool E coli O157 PCR N/a (NA/NEG) Stool Enterotoxigenic Ecoli PCR Negative (NEGATIVE) Stool Enteropathogenic E. coli (PCR Negative (NEGATIVE) Stool Enteroaggregative E. coli PCR Negative (NEGATIVE) Stool Entamoeba (PCR) Negative (NEGATIVE) Stool Giardia Lamblia PCR Negative (NEGATIVE) Stool Salmonella PCR Negative (NEGATIVE) Stool Sapovirus (PCR) Negative (NEGATIVE) Stool Plesiomonas shigelloides PCR Negative (NEGATIVE) Stool Shigella/EIEC (PCR) Negative (NEGATIVE) Stool Yersinia enterocolitica (PCR) Negative (NEGATIVE) Stool Vibrio (PCR) Negative (NEGATIVE) Stool Vibrio cholera (PCR) Negative (NEGATIVE) Stool Norovirus GI/GII PCR Negative (NEGATIVE) Glucometer 246mg/dL (75-110) Test 10/25/16 11:24 Hemoglobin A1c 8.0% (6.1-7.9) Phosphorus Level 3.9MG/DL (2.5-4.5) Magnesium Level 1.7MG/DL (1.6-2.3) Troponin I 0.052ng/ml (0-0.12) Thyroid Stimulating Hormone (TSH) 2.79MIU/L (0.47-4.68) Chemistry Specimen Hemolysis 27 (0-25) Radiology CTA chest Pulmonary arteries: Exam is diagnostic to the interlobar pulmonary artery only due to severe respiratory motion artifact. No large or saddle embolus identified. Segmental and subsegmental pulmonary artery branches cannot be well evaluated Other findings: Severe motion artifact. Diffuse groundglass opacities and interlobular septal thickening seen in both upper lobes. Small bilateral pleural effusions. No pneumothorax. The central airways are patent. No axillary or mediastinal adenopathy. Heart is severely enlarged without pericardial effusion. Main pulmonary artery is enlarged relative to the aorta consistent with pulmonary artery hypertension. Left subclavian port in place. Prior CABG. Moderate hiatal hernia. The upper abdomen shows no acute findings. Impression: 1. No large or central pulmonary embolus. 2. Diffuse airspace disease with findings most consistent with severe pulmonary edema. Less common considerations would include pulmonary hemorrhage and hypersensitivity pneumonitis/drug reaction. 3. Cardiomegaly and pulmonary artery hypertension. PROCEDURE: MRI BRAIN W/O CONTRAST: Encounter: Initial Comparisons: Head CT dated October 25, 2016 Technique: Multiplanar, multisequence, MR imaging of the head without contrast was acquired. FINDINGS: Exam is severely limited by motion artifact. There is a large area of restricted diffusion involving the left cerebellar hemisphere. This area has corresponding T2/FLAIR hyperintensity as expected. No other areas of acute diffusion restriction identified. Most of the remaining sequences are essentially nondiagnostic due to severe motion artifact. Prominent mucus retention cysts noted incidentally in the right maxillary sinus. Moderate generalized atrophy. No gross acute intracranial hemorrhage or extra-axial fluid collection. Impression: Acute left cerebellar infarct. This is in the superior cerebellar artery territory. CT head without contrast FINDINGS: The ventricles are of normal size, shape, and contour for the patient's age. There are scattered areas of low attenuation in the white matter which most likely represent changes from chronic microvascular ischemia. The brainstem, cerebellum, and cerebral hemispheres otherwise have a normal morphology and CT attenuation. There is no evidence of midline displacement. No hemorrhage, signs of acute territorial stroke, mass effect, mass lesions, or edema is evident. The visualized portions of the skull base, midface, and calvarium demonstrate no abnormality. Prominent mucus retention cysts in the maxillary sinuses. The tympanic and mastoid cavities appear normal. Right ocular prosthesis. IMPRESSION: No acute intracranial abnormality or hemorrhage. History of Present Illness Patient 75-year-old male who is brought by EMS today for evaluation of nausea, vomiting, dizziness, following a fall. Patient resides independently at home with his . reports that patient awoke at approximately 5 a.m. and was having nausea and vomiting. He then fell due to losing his balance. He was significantly dizzy and unable to get up and activated EMS brought him to the emergency room for further evaluation and treatment. Laboratory studies were obtained. The WBC count was found normal 8.6, hemoglobin 15, hematocrit 45.6, platelet count 234. Sodium 144, potassium 3.6, BUN 28, creatinine 1.1. Troponin is 0.078, proBNP 7160. INR 1.02, d-dimer was found to be elevated at 552. A CT scan of the head is obtained does not show any intracranial abnormalities or hemorrhages. CTA was obtained which was negative for pulmonary emboli, however, did reveal evidence of diffuse airspace consistent with severe pulmonary edema. There is prominent cardiomegaly and pulmonary artery hypertension. Arrival he was found to be afebrile 97.4, pulse 88, respiration rate 20, blood pressure is initially elevated at 187/107 Room air saturations are low at 88%. 12-lead EKG was obtains showing Sinus rhythm with PVCs. This was reviewed with cardiology in the ER. Patient was placed on 2 liters of oxygen by nasal cannula. She received multiple antiemetic agents while in the emergency room as well as IV fluids. Given his continued nausea and vomiting. Due to findings of pulmonary edema and respiratory failure with hypoxia. The hospitalist services were contacted and accepted patient for outpatient admission for further evaluation and treatment. It is expected that his stay will be less than 2 overnights. Cheryl is seen on initial examination was done emergency room. He is quite lethargic/sedated secondary to receiving multiple antimanic agents. All history and information is obtained from his at the bedside. Ports onside started just this morning as described above. He does reveal that patient follows with Dr. Hooks and that he had an echocardiogram in the last 1 month, as well as a stress test yesterday 10/24/16. It is reported that patient is on multiple cardiac medications, however, he has had a long-standing history of noncompliance as he has not tolerated many of those. Did discuss advanced directives and does verbalize that she wishes patient to be a full code Hospital Course 10/25/16- Admission Admit patient as an outpatient observation for nausea/vomiting, speech rate failure with hypoxemia and pulmonary edema Patient continues on 2 liters of oxygen by nasal canula to maintain adequate saturations. Lasix 20 mg IV x1 is given on admission. He will likely need further diuresing given findings of pulmonary edema. Monitor patient on cardiac telemetry. Will obtain serial troponins x3 to rule out cardiac ischemia given known coronary artery disease. Will obtain records from Dr Hooks office to review recent ECHO and stress test. Monitor accuchecks fasting and [address] patient on sliding scale insulin. Will likely not be able to take in PO currently given nausea Zofran as needed for nausea and vomiting. Will obtain GI Panel to rule out infectious etiology SCD to bilateral lower extremities for DVT prophylaxis Will recheck CBC and BMP tomorrow morning to follow blood counts, renal function and electrolytes Will discuss further plan of care with attending Dr Reeves Again patient is a full code and this order is written At time of discharge medical care is to return to PCP Dr Mendez 10/25/2016-I reviewed this chart, the patient history, and the CREDIT OPERATIONS SPECIALIST's/PA's documented findings as above. We discussed and formulated the assessment and plan as above with the additions below.-Dr. Reeves The patient was seen in his room accompanied by his and son. He was very somnolent after receiving anti-emetics including Phenergan in the emergency room. His stated that he was fine last night and this morning had nausea, vomiting and diarrhea. He was complaining of being dizzy and had to crawl on the ground in the hallway. He could not walk. She thought his speech was somewhat slurred. She called EMS and he was taken to the emergency room at [facility]. In the ER CT head was obtained which showed no acute intracranial abnormality. He was mildly hypoxic and a d-dimer was obtained and was elevated. He then underwent CTA of the chest which showed no large or central pulmonary embolus. Diffuse airspace disease with findings most consistent with severe pulmonary edema. Less common considerations would include pulmonary hemorrhage and hypersensitivity pneumonitis/drug reaction. Cardiomegaly and pulmonary artery hypertension also seen. On my exam the patient was somnolent but arousable. He could speak but speech was slurred. He was not able to answer very many questions secondary to somnolence. Chest was clear to auscultation. Cardiovascular reveals a regular rate and rhythm. Abdomen was soft and nontender. Extremities were free of edema. Skin was warm and dry and without rashes. He would not allow me to examine his eyes. Oropharynx was moist. Speech was slurred. It was difficult to assess cranial nerve testing secondary to patient's somnolence and difficulty following directions. Her strength was equal and 4+ in the hands bilaterally and he had equal strength in the legs and feet 4+ bilaterally. MRI head without contrast was obtained to rule out stroke because of his dizziness and slurred speech. This unfortunately, MRI did show a large left cerebellar infarct which was acute. Exam was otherwise limited due to motion artifact. Family was notified of acute stroke and my recommendation for transfer to a facility in [place] with neurologic specialist. They requested transfer to [facility]. Currently, patient is arousable to voice. He does speak but mumbles. He moves all 4 extremities on command. Heart rate is 59. Blood pressure 122/68. O2 sat is 95% on room air. I did call and speak with Dr. Baxter, neurologist at [facility] for possible transfer. He did agree that transfer was indicated based on large cerebellar ischemic stroke. I then spoke with the hospitalist at [facility] who agreed to accept. Echocardiogram was read after MRI done and showed an apical thrombus which is likely the cause of his stroke. EF was 30-35%. This is a verbal report from Dr. Hooks. Patient is critically ill. Greater than 90 minutes time was spent seeing and evaluating the patient, performing H&P, and arranging transfer Problems: (1) Cerebellar infarct Assessment & Plan: Based on MRI showing a large left cerebellar infarct which appears to be acute (2) Pulmonary edema Status: Acute (3) CAD (coronary artery disease) Status: Chronic (4) DM (diabetes mellitus) Status: Chronic (5) Nausea & vomiting Status: Acute (6) History of kidney stones Status: Resolved (7) Respiratory failure with hypoxia Status: Acute (8) Hyperlipemia Status: Chronic (9) History of colon cancer Status: Resolved (10) Non compliance w medication regimen Status: Chronic (11) History of Radha fundoplication Status: Resolved Code Status Full Code Home Meds Discontinued Reported Medications Glipizide (Glipizide Xl) 5 Mg Tab.er.24, 5 MG PO HS 10/25/16 Glipizide (Glipizide Xl) 5 Mg Tab.er.24, 10 MG PO QAM 10/25/16 Face to Face Encounter I met with patient on the day of dismissal and discussed follow up appointments , medications, and safety plan. Discharge Disposition Transfer to [facility] in critical condition Copies To 1: ALLY MENDEZ MD, STEPHANIE L MD Oct 25, 2016 17:45 Procedures Procedure Status Date Provider(s) Routine venipuncture Completed 08/15/16 Chest x-ray 2vw frontal&latl Completed 08/15/16 Comprehen metabolic panel Completed 08/15/16 Assay of natriuretic peptide Completed 08/15/16 Assay of troponin quant Completed 08/15/16 Complete cbc w/auto diff wbc Completed 08/15/16 Fibrin degradation quant Completed 08/15/16 Chylmd pneum dna amp probe Completed 08/15/16 M.pneumon dna amp probe Completed 08/15/16 Resp virus 12-25 targets Completed 08/15/16 Detect agent nos dna amp Completed 08/15/16 Encounters Encounter Location Arrival/Admit Date Discharge/Depart Date Attending Provider Discharged Inpatient [facility] 10/25/16 3:31pm 10/25/16 6:18pm SHEMAR REEVES MD Registered Clinic [facility] 08/15/16 3:41pm ALLY MENDEZ MD
[2016-10-31 18:16] VITALS: BP 153/81; PULSE 55; RESP 20; TEMP 97.7; O2SAT 96
[2016-10-31] MEDS ORDERED: ACET325T51 PO (19:13)
[2016-10-31] MEDS ORDERED: ATOR40TA64 PO (19:15)
[2016-10-31] MEDS ORDERED: FAMO20TA8 PO (19:16)
[2016-10-31] MEDS ORDERED: INSU100V SQ (19:20)
[2016-10-31] MEDS ORDERED: MAGN400T6 PO (19:21)
[2016-10-31] MEDS ORDERED: [UNRECOGNIZED DRUG - CODE] PO (19:27)
[2016-10-31 19:47] VITALS: PULSE 64; RESP 16; O2SAT 97
[2016-10-31 20:00] VITALS: BP 149/85; PULSE 58; RESP 14; TEMP 97.9; O2SAT 92
[2016-10-31] MEDS ORDERED: PRN ORDERS MC (20:45)
[2016-10-31] MEDS ORDERED: INSULIN REGULAR 100 UNIT/ML SQ PRN (20:45)
[2016-10-31] MEDS ORDERED: ACETAMINOPHEN 325 MG TABLET PO PRN (20:45)
[2016-10-31] MEDS: DOCUSATE SODIUM 100 MG CAPSULE PO SCH (21:00)
[2016-10-31] MEDS: FAMOTIDINE 20 MG TABLET PO SCH (22:21)
[2016-10-31] MEDS: MAGNESIUM OXIDE 400 MG TABLET PO SCH (22:21)
[2016-10-31] MEDS: ATORVASTATIN 40 MG TABLET PO SCH (22:22)
[2016-11-01] VITALS (7 sets, daily range): BP systolic 137–179; BP diastolic 72–97; PULSE 59–72; RESP 16–24; TEMP 97.5–97.8; O2SAT 95–96
[2016-11-01] MEDS ORDERED: INSULIN ASPART 100 UNIT/ML SQ PRN (01:30)
--- NOTE | 2016-11-01 04:08 | NUR ---
CHART CHECK 24hr chart check completed
[2016-11-01 05:31] LABS: BASOPHILS % (AUTO) 0.4 % (0-2); EOSINOPHILS # (AUTO) 0.1 T/MM3 (0-0.5); EOSINOPHILS % (AUTO) 1.1 % (0-4); HCT - HEMATOCRIT 39.6 % (41-53); HGB - HEMOGLOBIN 13.2 GM/DL (13.5-17.5); IMMATURE GRANULOCYTE # (AUTO) 0.07 T/MM3 (0.00-0.03); IMMATURE GRANULOCYTE % (AUTO) 0.8 % (0.0-0.5); LYMPHOCYTES # (AUTO) 1.1 T/MM3 (1-4.8); LYMPHOCYTES % (AUTO) 12.6 % (23-45); MEAN CORPUSCULAR HGB 29.3 UUG (26-34); MEAN CORPUSCULAR HGB CONC(MCHC 33.3 GM/DL (31-37); MEAN CORPUSCULAR VOLUME 87.8 UM3 (80-100); MEAN PLATELET VOLUME 10.2 UM3 (9.4-12.4); MONOCYTES # (AUTO) 0.6 T/MM3 (0-0.8); MONOCYTES % (AUTO) 7.3 % (0-9.0); NEUTROPHILS #(AUTO)-ABSOLUTE 6.5 T/MM3 (1.8-7.7); NEUTROPHILS % (AUTO) 77.8 % (33-66); RED BLOOD COUNT 4.51 M/MM3 (4.50-5.90); WBC - WHITE BLOOD COUNT 8.3 T/MM3 (4.5-11.0)
[2016-11-01 05:47] LABS: ANION GAP 7 MEQ/L (5-15); BUN/CREATININE RATIO 21 RATIO (6-26); CALCIUM 8.8 MG/DL (8.4-10.2); CHLORIDE 103 MEQ/L (98-107); CO2 - CARBON DIOXIDE 28 MEQ/L (22-30); CREATININE 1.1 MG/DL (0.8-1.5); GLOMERULAR FILTRATION RATE 66; GLUCOSE 212 MG/DL (75-110); POTASSIUM 3.6 MEQ/L (3.6-5); SODIUM 138 MEQ/L (134-144)
[2016-11-01] MEDS: INSULIN REGULAR 100 UNIT/ML SQ PRN ×4 (06:37→23:17)
[2016-11-01] MEDS: MAGNESIUM OXIDE 400 MG TABLET PO SCH ×2 (08:17→19:43)
[2016-11-01] MEDS: FAMOTIDINE 20 MG TABLET PO SCH ×2 (08:17→19:43)
[2016-11-01] MEDS: DOCUSATE SODIUM 100 MG CAPSULE PO SCH ×2 (08:17→19:43)
--- NOTE | 2016-11-01 08:25 | NUR ---
NOTE NOTIFIED MARLENE HIGGINS OF PATIENT ELEVATED BP 179/83. WILL CONT TO MONITOR.
--- NOTE | 2016-11-01 08:25 | NUR ---
NOTE NOTIFIED MARLENE HIGGINS OF ELEVATED CR 2.0 AND BUN, NOTIFIED HER OF TENDER, FIRM AREA IN RAC. WILL CONT TO MONITOR.
--- NOTE | 2016-11-01 08:34 | NUR ---
DISREGARD PREVIOUS NOTE, ENTERED ON WRONG PATIENT
--- NOTE | 2016-11-01 08:34 | NUR ---
DISREGARD NOTE REGARDING BUN/CR/RAC ONLY, ENTERED ON WRONG PATIENT
--- NOTE | 2016-11-01 09:15 | NUR ---
CM LACE SCORE IS 11. PT WILL BE MONITORED FOR APPROPRIATENESS OF ROTP AND DC PLANNING NEEDS. Addendum: 11/01/16 at 0916 by AYANNA HARRY Amended: Links added.
--- NOTE | 2016-11-01 09:17 | NUR ---
CM STOPPED BY PT'S ROOM, SPOKE WITH PT. INTRODUCED SELF, EXPLAINED ROLE, PROVIDED CONTACT INFO. PT STATED HE LIVES HERE IN [place] WITH HIS , JOSE, AND HIS DC PLAN IS TO RETURN HOME WITH JOSE. HE GAVE PERMISSION FOR THIS WORKER TO CONTACT JOSE. REVIEWED DME AND HOME HEALTH NEEDS. CALLED JOSE. SHE SAID SHE ALSO WANTS PT TO RETURN HOME. SHE SAID HE HAS NO DME CURRENTLY. 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 SHE SAID SHE HAS HAD HOME HEALTH IN THE PAST, DOES NOT REMEMBER THE NAME OF THE AGENCY, AND HAS NO PREFERENCE OF HOME HEALTH IF THIS IS INDICATED. THIS WORKER REVIEWED [facility], DISCLOSED THE FINANCIAL RELATIONSHIP, AND SHE STATED SHE IS FINE WITH THIS. Addendum: 11/01/16 at 0919 by AYANNA HARRY Amended: Links added.
--- NOTE | 2016-11-01 10:38 | NUR ---
MARLENE HIGGINS NOTIFIED OF REPEAT HIGH BP, 172/97, HR 70, WILL CONT TO MONITOR.
[2016-11-01] MEDS ORDERED: AMLODIPINE 5 MG TABLET PO ONE (11:00)
--- NOTE | 2016-11-01 11:05 | CONSPD ---
MARLENE HIGGINS V PATENTS EXAMINER 11/01/16 1047: Consultation Info Date DATE: 11/01/16 TIME: 10:41 Date of Consultation: Nov 01, 2016 Attending Physician: Roxana Darling Reason for Consultation: Hemorrhagic CVA and Diabetes HPI - Adult Date DATE: 11/01/16 TIME: 10:41 General Chief Complaint: hemorrhagic CVA History of Present Illness David is a 75 year old patient who originally presented to [facility] ED on 10/25/16 with intractable nausea and vomiting. He had a medical evaluate in the ER including labs and Ct scan. His initial head CT was negative for any ischemia or infarct, however a MRI was completed later on the same day for further eval however, demonstrated a left cerebellar infarct. An Echocardiogram was also completed which resulted in a left apical thrombus and cardiomyopathy of 30-35%. This patient was then transported to [facility] for further treatment. Dr. Jensen was the attending physician with a consult to Dr. Baxter for Neurology. On 10/26 the patient had a carotid ultrasound which was positive for mild atherosclerosis but negative for stenosis, Dr. Hooks's group was consulted and the patient was seen by Dr. Ortiz. Patient also had a MRI which demonstrated left cerebellar infarct with petechial like hemorrhages without alondra hemorrhaging. On 10/28 he had a head CT that resulted in a hemorrhagic conversion of the left cerebellar hemorrhage without evidence of increasing or decreasing herniation. Also demonstrated abnormal high density material with right global possible from a retinal hemorrhage. Recommendation from Dr. Baxter (Neurology) was to hold ASA and anticoagulants until November 09. Repeat head CT on 10/30 was negative for any further changes to hemorrhage or infarct. He has a history of non-compliance with both his cardiac and diabetic medication. He has recovered well, but continues to have deficits which require inpatient rehabilitation including the need for strength and functional improvement. David is seen this morning on initial consultation. He is alert and oriented and pleasant, sitting in his chair. His only complaint is some mild nausea. Did review this morning's laboratory studies. WBC 8.1, hemoglobin 13.2, hematocrit 39.6, platelet count 193. Sodium is 138, potassium 3.6, BUN 23, creatinine 1.1. Fasting glucose this morning was 168. Past Medical History Past Medical History Hemorrhagic CVA- 10/30/16 Ischemic CVA- 10/25/16 Coronary artery disease with NM 2. Diabetes Colon cancer Kidney stones History of detached retina Massive Paraesophageal hernia Hyperlipidemia Surgical History Patient's Surgical History: CABG 4 Radha Fundoplication- 2004- Dr Jennings. Repeat in 2009. Rectal/Colon Resection- Dr Renteria- 2011 Appendectomy Inguinal Hernia repair 2 Bilateral cataract extraction Current Medications Home Meds Reported Medications Glipizide (Glipizide ER) 10 Mg Tab.er.24, 1 TAB PO DAILY, TAB 10/31/16 Magnesium Oxide (Magnesium Oxide) 400 Mg Tablet, 1 TAB PO BID, TAB Take one tablet, twice daily. 10/31/16 Insulin Lispro (Humalog) 100 Unit/Ml Inj, 1 UNIT SQ SS, VIAL 10/31/16 Famotidine (Famotidine) 20 Mg Tablet, 1 TAB PO BID, TAB 10/31/16 Atorvastatin Calcium (Atorvastatin Calcium) 40 Mg Tablet, 1 TAB PO HS, TAB 10/31/16 Acetaminophen (Acetaminophen) 325 Mg Tablet, 2 TAB PO Q4HR Y for PAIN, TAB Do not exceed 3,200 mg of acetaminophen in a 24 hours period. 10/31/16 Discontinued Reported Medications Glipizide (Glipizide Xl) 5 Mg Tab.er.24, 5 MG PO HS 10/25/16 Glipizide (Glipizide Xl) 5 Mg Tab.er.24, 10 MG PO QAM 10/25/16 Allergies: Coded Allergies: No Known Drug Allergies (Verified Allergy, Unknown, 10/25/16) Family History Family History: Father history of aortic aneurysm Mother-lung cancer Social History Smoking Status: Never smoker Substance Use Type: does not use Sexuality: female partner Housing: house Advance Directives: Yes Full Code, No DPOA for Healthcare Only Review of Systems Constitutional: REPORTS: fatigue, weakness GI Upper Abdomen: nausea Musculoskeletal General: weakness Neurological General: blindness (Right eye), change in strength Endocrine other (He is T2DM) All Other Systems All Other Systems: Reviewed Physical Exam General General Nourishment: well nourished General Body Habitus: well groomed Vital Signs Vital Signs Date Time Temp Pulse Resp B/P Pulse Ox O2 Delivery O2 Flow Rate FiO2 11/01/16 10:31 70 172/97 11/01/16 08:15 97.8 24 95 Room Air Height (Feet): 5 Height (Inches): 10.00 Eyes Brief: FOUND: EOMI, PERRL (To L eye, R eye is non-reactive and without EOMI) Respiratory Brief: FOUND: clear all dinh, equal bilaterally Cardiovascular (brief) Cardiac Brief: FOUND: regular rate, regular rhythm Abdomen (brief) Abdominal Brief: FOUND: BS normo active x4, soft Musculoskeletal (brief) Musculoskeletal Brief: FOUND: extremities move equally Integumentary (brief) Integumentary Brief: FOUND: dry, pink, warm Neurologic (brief) Neurological Brief: FOUND: cerebellar, cranial 2-12 intact (grossly intact), motor (Equal Strength x 4 extremities) Neurologic RN Documented GCS Eye Opening: Verbal: Motor: Total: Psychiatric (brief) FOUND: alert, normal affect, oriented Laboratory Laboratory Tests Test 10/31/16 19:35 11/01/16 05:17 11/01/16 06:18 11/01/16 10:30 Glucometer 145mg/dL 168mg/dL 262mg/dL White Blood Count 8.3T/MM3 Red Blood Count 4.51M/MM3 Hemoglobin 13.2GM/DL Hematocrit 39.6% Mean Corpuscular Volume 87.8UM3 Mean Corpuscular Hemoglobin 29.3UUG Mean Corpuscular Hemoglobin Concent 33.3GM/DL RDW Standard Deviation 45.6FL Platelet Count 193T/MM3 Mean Platelet Volume 10.2UM3 Immature Granulocyte % (Auto) 0.8% Neutrophils (%) (Auto) 77.8% Lymphocytes (%) (Auto) 12.6% Monocytes (%) (Auto) 7.3% Eosinophils (%) (Auto) 1.1% Basophils (%) (Auto) 0.4% Absolute Immature Granulocyte (auto 0.07T/MM3 Absolute Neutrophils (auto) 6.5T/MM3 Absolute Lymphocytes (auto) 1.1T/MM3 Absolute Monocytes (auto) 0.6T/MM3 Absolute Eosinophils (auto) 0.1T/MM3 Absolute Basophils (auto) 0.0T/MM3 Turbidity < 20 Sodium Level 138MEQ/L Potassium Level 3.6MEQ/L Chloride Level 103MEQ/L Carbon Dioxide Level 28MEQ/L Anion Gap 7MEQ/L Blood Urea Nitrogen 23.0MG/DL Creatinine 1.1MG/DL Glomerular Filtration Rate Calc 66 BUN/Creatinine Ratio 21RATIO Glucose Level 212MG/DL Calculated Osmolality 276MOSM/KG Calcium Level 8.8MG/DL Icterus Index < 2 Chemistry Specimen Hemolysis < 15 Impression/Recommendation Problems: (1) Hemorrhagic cerebrovascular accident (CVA) Status: Acute Assessment & Plan: 10/28/16 (2) Cerebellar infarct Status: Chronic Assessment & Plan: 10/25/16 (3) Atrial thrombus Status: Acute Assessment & Plan: Incidental finding on 10/25/16 (4) Generalized weakness Status: Acute (5) Essential (primary) hypertension Status: Chronic (6) Cardiomyopathy Status: Chronic (7) CAD (coronary artery disease) Status: Chronic (8) DM (diabetes mellitus) Status: Chronic Qualifiers: Diabetes mellitus type: type 2 (9) Hyperlipemia Status: Chronic (10) Blind right eye Status: Chronic (11) Hx of retinal detachment Status: Resolved (12) History of colon cancer Status: Resolved Recommendation Agree with admission to IRU for ongoing rehabilitation for improved strength and functioning following hemorrhagic CVA. All neurology documents reviewed from [facility]. Recommendation is holding off on any anticoagulation until November 09. This includes ASA. Careful control of blood pressure is important given recent ischemic and hemorrhagic CVA. Blood pressure this morning was elevated at 179 systolic. Patient was not sent from [facility] on any antihypertensives. Start Amlodipine 5mg daily for hypertension. We will consult Dr. Hooks for management of blood pressure and other cardiovascular management of atrial thrombus and other existing co-morbidities. Continue Glipizide and Novolin Regular sliding scale. Continue to monitor blood glucose before meals and at bedtime. We will order SCDs for DVT prophylaxis as anticoagulation is currently contraindicated given recent hemorrhagic CVA. Continue Lipitor at for lipid control Colace 100 milligrams twice a day for ongoing bowel motivation Pepcid 20 BID for GI protection Did review this morning laboratory studies. Hemoglobin is stable at 13.1 To improve his strength and functionality he will need physical therapy, occupational therapy and speech therapy. ROXANA DARLING MD 11/01/161933: Past Medical History Current Medications Home Meds Reported Medications Glipizide (Glipizide ER) 10 Mg Tab.er.24, 1 TAB PO DAILY, TAB 10/31/16 Magnesium Oxide (Magnesium Oxide) 400 Mg Tablet, 1 TAB PO BID, TAB Take one tablet, twice daily. 10/31/16 Insulin Lispro (Humalog) 100 Unit/Ml Inj, 1 UNIT SQ SS, VIAL 10/31/16 Famotidine (Famotidine) 20 Mg Tablet, 1 TAB PO BID, TAB 10/31/16 Atorvastatin Calcium (Atorvastatin Calcium) 40 Mg Tablet, 1 TAB PO HS, TAB 10/31/16 Acetaminophen (Acetaminophen) 325 Mg Tablet, 2 TAB PO Q4HR Y for PAIN, TAB Do not exceed 3,200 mg of acetaminophen in a 24 hours period. 10/31/16 Discontinued Reported Medications Glipizide (Glipizide Xl) 5 Mg Tab.er.24, 5 MG PO HS 10/25/16 Glipizide (Glipizide Xl) 5 Mg Tab.er.24, 10 MG PO QAM 10/25/16 Allergies: Coded Allergies: No Known Drug Allergies (Verified Allergy, Unknown, 10/25/16) Impression/Recommendation Problems: (1) Hemorrhagic cerebrovascular accident (CVA) Status: Acute Assessment & Plan: 10/28/16-hemorrhagic conversion of left cerebellar infarct (2) Cerebellar infarct Status: Chronic Assessment & Plan: 10/25/16-left cerebellar (3) Atrial thrombus Status: Acute Assessment & Plan: Incidental finding on 10/25/16 (4) Cardiomyopathy Status: Chronic Assessment & Plan: Likely ischemic (5) Generalized weakness Status: Acute (6) Essential (primary) hypertension Status: Chronic (7) CAD (coronary artery disease) Status: Chronic (8) DM (diabetes mellitus) Status: Chronic Qualifiers: Diabetes mellitus type: type 2 Assessment & Plan: A1c 8.0 on 10/25/16 (9) Hyperlipemia Status: Chronic (10) Blind right eye Status: Chronic (11) Hx of retinal detachment Status: Resolved (12) History of colon cancer Status: Resolved (13) CKD (chronic kidney disease) Status: Chronic Assessment & Plan: Stage 2-3 Impression I have independently evaluated and examined this patient. I reviewed the chart, the patient's history, and the PATENTS EXAMINER's documented findings as above. We discussed and formulated the assessment and plan as above with additions as below: Mr. Duran defers to his for most history. He reports some weakness in his left arm and his reports persistent right facial drooping after recent left cerebellar ischemic stroke, acute by hemorrhagic conversion. Patient notes that he has minimal residual nausea and denies diplopia although it's noted that he had preceding right visual loss. He does not clearly describe vertigo but reports dizziness earlier in the stroke course which has improved. Patient describes his gait as "wobbly". Examination reveals right nasolabial fold flattening and droop. Right pupil is nonreactive to light. Left pupil reacts to light. There is slight right exotropia at rest but extraocular muscles are intact and no nystagmus is noted. Sensation is intact across all 3 distributions of the trigeminal nerve bilaterally and tongue elevates symmetrically. Power is grossly normal proximally and distally in the upper and lower extremities and graded 4/5 throughout but left fine finger movements are slow and clumsy compared to the right. Sensation is intact to light touch in the upper and lower extremities bilaterally. Breath sounds are clear and cardiac rhythm regular. Recommendation to withhold anticoagulation through 11/09 noted. Blood pressure control inadequate, amlodipine initiated. Given diagnosis of diabetes we can also push ESME inhibitor or switch to ARB for improved blood pressure control. Renal function should tolerate ESME inhibitor. Carvedilol initiated per cardiology. Blood sugar control suboptimal as well, will monitor and modify over the next couple of days. CTA of chest obtained last admission reviewed, pulmonary infiltrates present at that time-probable pulmonary edema. Currently on room air. Chest x-ray to be obtained given history of cardiomyopathy/CHF. Recommendation Recent records reviewed, chest x-ray ordered, CTA and recent MRI reviewed by myself, laboratory data reviewed. MARLENE HIGGINS APRN Nov 01, 2016 10:47 ROXANA DARLING MD Nov 01, 2016 19:34
--- NOTE | 2016-11-01 11:09 | NUR ---
NOTE RECEIVED CALL FROM MARLENE HIGGINS ABOUT NEW ORDER SHE PUT IN FOR BP MED AND CARD CONSULT SHE WILL NOTIFY. PO NORVASC GIVEN, WILL RECHECK BP.
--- NOTE | 2016-11-01 12:25 | STEVAL ---
Eval Subjective and History Date/Time of Eval DATE: 11/01/16 TIME: 10:01 Medical Diagnosis Large Cerebellar Infarct. Treatment Order: Assessment Orientations: Place, Time, Alert, Cooperative Primary Complaint: Cerebellar Infarct Pain: Yes (Pt c/o nausea and dizziness) Date of Onset of Primary Com: 10/25/16 Clinical Test Results: Acute large left cerebellar infarct Echocardiogram showing apical thrombus Prior History of This Problem: No Patient's Goals: Pt stated that his goal was to just get stronger and have better use of his arms/hands. Significant Past Medical Hx: CAD with MIx2, Diabetes, Colon CA, Hx of detached retina, massive paraesophageal hernia, Radha Fundoplication in 2004 and repeated in 2009 Medical History Form Reviewed: Yes Residence Type: Private home/apartment Lives With: Spouse Prior Functional Status: Pt stated that although he has no teeth and no dentures, he has always eaten a regular diet without difficulty. He stated that he is careful about the choices of foods he eats. 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 Current Functional Status: The pt c/o off/on nausea and dizziness. He was observed eating breakfast. He ate one whole pancake and sips of thin water without difficulty; no s/s of aspiration. Pts speech is somewhat slow but intelligible. The pt was initially evaluated on 10/25/16 on the medical floor of [facility] by this ST. Pts speech appears to be the same as when he was initially evaluated. The pts was present at the initial evaluation and stated that his speech has not changed. Education Subject: Safety, Diet, Treatment Plan Person(s) Educated: Patient Instruction Understanding Demo: Pt. verbalizes understand Education Comment HEAD START TEACHER educated patient on reasoning for evaluation. Patient was agreeable to evaluation. Cognition Point to single items: object, pictures Answer yes/no questions: Yes Follow simple commands: Yes Follow complex commands: Yes Comprehension Comments Pt was able to follow multi step directions. He is [place] in the right ear so it is very important for the speaker to be on the left side when speaking. The pt followed conversational speech and answered questions appropriately. Expression Assessment Method: Both Expression Abilities: Social speech, Serial speech, Phrase completion, Repeats words, Repeats phrases, Repeats sentences, Communicates w/ sentences, Formulates Sentences, Complex Conversation % Words Intelligible: 100% % Sentence Intelligible: 100% % Conversation Intelligible: 95% Written Communication: Sentences Voice Quality: Within Functional Limits Expression Comment: The pt is very [place] in the right ear and often asks for repetition or will answer a question incorrectly initially. It is important for the speaker to be placed on the left side when speaking. His speech is somewhat slow and slurred however, on 10/25/16 the pts stated that his speech is normally like this. The pt was able to explain in detail what he was doing the day before he came into the hospital and gave his personal information with accuracy. ALPS Test Results: The pt was assessed with the Aphasia Language Performance Scale. He scored 10/10 on all sub-tests: Listening, Talking, Reading, and Writing. Occasionally he asked for repetition of the question due to his hearing loss. Assessment/Plan of Care Speech Therapy Impressions: The pt is very [place] in the right ear and often asks for repetition or will answer a question incorrectly initially. It is important for the speaker to be placed on the left side when speaking. His speech is somewhat slow and slurred however, on 10/25/16 the pts stated that his speech is normally like this. The pt was able to explain in detail what he was doing the day before he came into the hospital and gave his personal information with accuracy. The pt was screened for dysphagia during his breakfast meal. The pt demonstrated no s/s of dysphagia with soft solids and thin liquids; no coughing or throat clearing. The pt is edentulous with no dentures. He stated he has had no teeth for years and eats a regular diet without difficulty. He stated that he is careful with his food choices. The pt presented with adequate oral motor strength and coordination with adequate laryngeal elevation upon a dry swallow. His speech is somewhat slow and slurred however, intelligible. The pts speech has not changed since his initial evaluation at [facility] on 10/25/16; at that time, the pts stated that his speech has not changed. ST Treatment Plan: Evaluation Only ST Treatment Plan Frequency: N/A Treatment Plan Duration: N/A Plan of Care Comment Evaluation only. ST treatment is not indicated at this time. Recommended Diet: Regular diet Date of Visit 11/01/16 Time Visit Began: 09:00 Time Visit Ended: 09:30 ST Assess/Plan of Care: ST Treatment Charge: Speech Josephine SPENCE FIM Comprehension Ability: 7+ Complete [place] Social Interaction: 7+ Complete [place] Memory: 7+ Complete [place] Memory FIM Score Reason: Pt does not remember events when hospitalized however, he was able to recall detailed information regarding events prior to hospitalization including past medical history and personal information and remote events. Expression Ability: 7+ Complete [place] Expression FIM Score Reason: Pts speech is somewhat slow and slurred however, intelligible. Pts stated on 10/25/16 that she has not noted a change in her husbands speech. Pt is very [place] in the right ear so it is important that the speaker be on his left side. Swallowin+ Complete [place] Swallowing FIM Score Reason: Pt is edentulous and does not have dentures. He stated that has tolerated a regular diet for years but is careful in his food choices. GILBERTO CANSECO MA Nov 01, 2016 10:04
--- NOTE | 2016-11-01 13:33 | CONSPD ---
HANNA ISRAEL JOB COST ESTIMATOR 11/01/16 1328: Consultation Info Date DATE: 11/01/16 TIME: :24 Date of Consultation: Nov 01, 2016 Attending Physician: Matteo Salas MD Reason for Consultation: HTN recommendations HPI - Adult Date DATE: 11/01/16 TIME: 13:24 General Date of Admission Date of Admission: Oct 31, 2016 at 17:40 Chief Complaint: hemorrhagic CVA History of Present Illness David is a 75 year old male who is well known to Dr. Correa who originally presented to [facility] ED on 10/25/16 with intractable nausea and vomiting. He had a medical evaluate in the ED including labs and Ct scan. His initial head CT was negative for any ischemia or infarct, however a MRI was completed later on the same day for further evaluation and demonstrated a left cerebellar infarct. An Echocardiogram was also completed which resulted in a left apical thrombus and cardiomyopathy of 30-35%. He was then transported to [facility] for further treatment. Dr. Jensen was the attending physician with a consult to Dr. Baxter for Neurology. On 10/26 the patient had a carotid ultrasound which was positive for mild atherosclerosis but negative for stenosis, Dr. Correa's group was consulted and the patient was seen by Dr. Ortiz. He also had a MRI which demonstrated left cerebellar infarct with petechial like hemorrhages without alondra hemorrhaging. On 10/28 he had a head CT that resulted in a hemorrhagic conversion of the left cerebellar hemorrhage without evidence of increasing or decreasing herniation. Also demonstrated abnormal high density material with right global possible from a retinal hemorrhage. Recommendation from Dr. Baxter (Neurology) was to hold ASA and anticoagulants until November 09. Repeat head CT on 10/30 was negative for any further changes to hemorrhage or infarct. He has a history of non-compliance with both his cardiac and diabetic medication. He has recovered well, but continues to have deficits which require inpatient rehabilitation including the need for strength and functional improvement. David is seen this morning on initial consultation. He is alert and oriented and pleasant, sitting in his chair. His only complaint is some mild nausea. He denies chest pain or pressure, palpitations, dyspnea, dizziness or lightheadedness. Past Medical History Past Medical History Metabolic: cancer, diabetes, hypertension ENMT: nosebleeds Cardiac: CAD, DE Male: renal insufficiency Surgical History General: colonoscopy, other Cardiac: cardiac bypass, cardiac cath, cardiac stent Current Medications Home Meds Reported Medications Glipizide (Glipizide ER) 10 Mg Tab.er.24, 1 TAB PO DAILY, TAB 10/31/16 Magnesium Oxide (Magnesium Oxide) 400 Mg Tablet, 1 TAB PO BID, TAB Take one tablet, twice daily. 10/31/16 Insulin Lispro (Humalog) 100 Unit/Ml Inj, 1 UNIT SQ SS, VIAL 10/31/16 Famotidine (Famotidine) 20 Mg Tablet, 1 TAB PO BID, TAB 10/31/16 Atorvastatin Calcium (Atorvastatin Calcium) 40 Mg Tablet, 1 TAB PO HS, TAB 10/31/16 Acetaminophen (Acetaminophen) 325 Mg Tablet, 2 TAB PO Q4HR Y for PAIN, TAB Do not exceed 3,200 mg of acetaminophen in a 24 hours period. 10/31/16 Allergies: Coded Allergies: No Known Drug Allergies (Verified Allergy, Unknown, 10/25/16) Family History FOUND: DE, cancer Vaccines 2015 Social History Smoking Status: Never smoker Substance Use Type: does not use Sexuality: female partner Housing: house Advance Directives: Yes Full Code, No DPOA for Healthcare Only Review of Systems Constitutional: DENIES: chills, dizziness, fever, weakness Eyes Vision: DENIES: double vision ENMT Hearing: DENIES: tinnitus Balance: DENIES: vertigo Sinuses: NOT FOUND: rhinorrhea Mouth/Throat: DENIES: sore throat Cardiovascular DENIES: chest pain, dyspnea on exertion, murmur, orthopnea Rhythm/Rate: DENIES: irregular beat, palpitations Vascular: DENIES: pedal edema Pulmonary Respiratory: DENIES: cough, sputum GI Upper Abdomen: nausea, DENIES: vomiting Lower Abdomen: DENIES: diarrhea General: DENIES: dysuria Musculoskeletal General: weakness (left arm) Integumentary Skin: DENIES: rash, sores Neurological General: weakness (left arm), DENIES: headache, numbness, seizures, syncope All Other Systems All Other Systems: Reviewed (remainder of 10-point ROS Neg.) Physical Exam General General Nourishment: well nourished, well developed, thin Vital Signs Vital Signs Date Time Temp Pulse Resp B/P Pulse Ox O2 Delivery O2 Flow Rate FiO2 11/01/16 12:09 66 158/88 11/01/16 08:15 97.8 24 95 Room Air Height (Feet): 5 Height (Inches): 10.00 ENMT Brief: FOUND: mucosa moist Neck Brief: NOT FOUND: JVD, carotid bruits Respiratory Brief: FOUND: clear all dinh, equal bilaterally, NOT FOUND: rales , wheezes Cardiovascular (brief) Cardiac Brief: FOUND: regular rate, regular rhythm, NOT FOUND: click, gallop, murmur Abdomen (brief) Abdominal Brief: FOUND: BS normo active x4, soft, NOT FOUND: tender Integumentary (brief) Integumentary Brief: FOUND: dry, warm Neurologic RN Documented GCS Eye Opening: Verbal: Motor: Total: Psychiatric (brief) FOUND: alert, oriented Laboratory l Laboratory Tests Test 10/31/16 19:35 11/01/16 05:17 11/01/16 06:18 11/01/16 10:30 Glucometer 145mg/dL 168mg/dL 262mg/dL White Blood Count 8.3T/MM3 Red Blood Count 4.51M/MM3 Hemoglobin 13.2GM/DL Hematocrit 39.6% Mean Corpuscular Volume 87.8UM3 Mean Corpuscular Hemoglobin 29.3UUG Mean Corpuscular Hemoglobin Concent 33.3GM/DL RDW Standard Deviation 45.6FL Platelet Count 193T/MM3 Mean Platelet Volume 10.2UM3 Immature Granulocyte % (Auto) 0.8% Neutrophils (%) (Auto) 77.8% Lymphocytes (%) (Auto) 12.6% Monocytes (%) (Auto) 7.3% Eosinophils (%) (Auto) 1.1% Basophils (%) (Auto) 0.4% Absolute Immature Granulocyte (auto 0.07T/MM3 Absolute Neutrophils (auto) 6.5T/MM3 Absolute Lymphocytes (auto) 1.1T/MM3 Absolute Monocytes (auto) 0.6T/MM3 Absolute Eosinophils (auto) 0.1T/MM3 Absolute Basophils (auto) 0.0T/MM3 Turbidity < 20 Sodium Level 138MEQ/L Potassium Level 3.6MEQ/L Chloride Level 103MEQ/L Carbon Dioxide Level 28MEQ/L Anion Gap 7MEQ/L Blood Urea Nitrogen 23.0MG/DL Creatinine 1.1MG/DL Glomerular Filtration Rate Calc 66 BUN/Creatinine Ratio 21RATIO Glucose Level 212MG/DL Calculated Osmolality 276MOSM/KG Calcium Level 8.8MG/DL Icterus Index < 2 Chemistry Specimen Hemolysis < 15 Laboratory Tests Test 10/31/16 19:35 11/01/16 05:17 11/01/16 06:18 11/01/16 10:30 Glucometer 145mg/dL 168mg/dL 262mg/dL White Blood Count 8.3T/MM3 Red Blood Count 4.51M/MM3 Hemoglobin 13.2GM/DL Hematocrit 39.6% Mean Corpuscular Volume 87.8UM3 Mean Corpuscular Hemoglobin 29.3UUG Mean Corpuscular Hemoglobin Concent 33.3GM/DL RDW Standard Deviation 45.6FL Platelet Count 193T/MM3 Mean Platelet Volume 10.2UM3 Immature Granulocyte % (Auto) 0.8% Neutrophils (%) (Auto) 77.8% Lymphocytes (%) (Auto) 12.6% Monocytes (%) (Auto) 7.3% Eosinophils (%) (Auto) 1.1% Basophils (%) (Auto) 0.4% Absolute Immature Granulocyte (auto 0.07T/MM3 Absolute Neutrophils (auto) 6.5T/MM3 Absolute Lymphocytes (auto) 1.1T/MM3 Absolute Monocytes (auto) 0.6T/MM3 Absolute Eosinophils (auto) 0.1T/MM3 Absolute Basophils (auto) 0.0T/MM3 Turbidity < 20 Sodium Level 138MEQ/L Potassium Level 3.6MEQ/L Chloride Level 103MEQ/L Carbon Dioxide Level 28MEQ/L Anion Gap 7MEQ/L Blood Urea Nitrogen 23.0MG/DL Creatinine 1.1MG/DL Glomerular Filtration Rate Calc 66 BUN/Creatinine Ratio 21RATIO Glucose Level 212MG/DL Calculated Osmolality 276MOSM/KG Calcium Level 8.8MG/DL Icterus Index < 2 Chemistry Specimen Hemolysis < 15 Impression/Recommendation Problems: (1) Cardiomyopathy Status: Chronic Assessment & Plan: Start Coreg 3.125mg BID and Lisinopril 2.5mg daily (2) CAD (coronary artery disease) Status: Chronic Assessment & Plan: continue risk management, routine monitoring (3) Essential (primary) hypertension Status: Chronic Assessment & Plan: Continue Amlodipine as tolerated (4) DM (diabetes mellitus) Status: Chronic Assessment & Plan: per attending Recommendation Cardiomyopathy: Start Coreg 3.125mg BID and Lisinopril 2.5mg daily. HTN Continue Amlodipine as tolerated. Thank you for allowing us to participate in this patient's care, we will follow along with you. HUMERA CORREA MD 11/06/16 1530: Past Medical History Current Medications Home Meds Reported Medications Glipizide (Glipizide ER) 10 Mg Tab.er.24, 1 TAB PO DAILY, TAB 10/31/16 Magnesium Oxide (Magnesium Oxide) 400 Mg Tablet, 1 TAB PO BID, TAB Take one tablet, twice daily. 10/31/16 Insulin Lispro (Humalog) 100 Unit/Ml Inj, 1 UNIT SQ SS, VIAL 10/31/16 Famotidine (Famotidine) 20 Mg Tablet, 1 TAB PO BID, TAB 10/31/16 Atorvastatin Calcium (Atorvastatin Calcium) 40 Mg Tablet, 1 TAB PO HS, TAB 10/31/16 Acetaminophen (Acetaminophen) 325 Mg Tablet, 2 TAB PO Q4HR Y for PAIN, TAB Do not exceed 3,200 mg of acetaminophen in a 24 hours period. 10/31/16 Allergies: Coded Allergies: No Known Drug Allergies (Verified Allergy, Unknown, 10/25/16) Impression/Recommendation Recommendation After examining the patient I agree with the above assessment. I am involved in the formulation of the patient's plan of care. HANNA ISRAEL APRN Nov 01, 2016 13:28 HUMERA CORREA MD Nov 06, 2016 15:30
[2016-11-01] MEDS: CARVEDILOL 3.125 MG TABLET PO SCH ×2 (13:53→17:58)
--- NOTE | 2016-11-01 16:47 | HPPDOC ---
HPI Date DATE: 11/01/16 TIME: 16:35 General Chief Complaint: hemorrhagic CVA History of Present Illness 75 yo Male with N/V which was uncontrollable. Initial CT showed no cva, but later in the day, MRI was obtained and cerebellar stroke was identified. Pt was transferred to [place] for care. He is returning to [facility] for IRU due to cont weakness and dizziness. He is unable to maintain ADL's due to symptoms. He would like to return home after therapy if possible. Past Medical History Past Medical History Hemorrhagic CVA- 10/30/16 Ischemic CVA- 10/25/16 Coronary artery disease with NV 2. Diabetes Colon cancer Kidney stones History of detached retina Massive Paraesophageal hernia Hyperlipidemia Surgical History Patient's Surgical History: CABG 4 Radha Fundoplication- 2004- Dr Jennings. Repeat in 2009. Rectal/Colon Resection- Dr Renteria- 2011 Appendectomy Inguinal Hernia repair 2 Bilateral cataract extraction Current Medications Home Meds Reported Medications Glipizide (Glipizide ER) 10 Mg Tab.er.24, 1 TAB PO DAILY, TAB 10/31/16 Magnesium Oxide (Magnesium Oxide) 400 Mg Tablet, 1 TAB PO BID, TAB Take one tablet, twice daily. 10/31/16 Insulin Lispro (Humalog) 100 Unit/Ml Inj, 1 UNIT SQ SS, VIAL 10/31/16 Famotidine (Famotidine) 20 Mg Tablet, 1 TAB PO BID, TAB 10/31/16 Atorvastatin Calcium (Atorvastatin Calcium) 40 Mg Tablet, 1 TAB PO HS, TAB 10/31/16 Acetaminophen (Acetaminophen) 325 Mg Tablet, 2 TAB PO Q4HR Y for PAIN, TAB Do not exceed 3,200 mg of acetaminophen in a 24 hours period. 10/31/16 Discontinued Reported Medications Glipizide (Glipizide Xl) 5 Mg Tab.er.24, 5 MG PO HS 10/25/16 Glipizide (Glipizide Xl) 5 Mg Tab.er.24, 10 MG PO QAM 10/25/16 Allergies: Coded Allergies: No Known Drug Allergies (Verified Allergy, Unknown, 10/25/16) Family History Family History: Father history of aortic aneurysm Mother-lung cancer Social History Smoking Status: Never smoker Substance Use Type: does not use Sexuality: female partner Housing: house Advance Directives: Yes Full Code, No DPOA for Healthcare Only Review of Systems Cardiovascular see HPI Musculoskeletal General: see HPI Neurological General: see HPI All Other Systems All Other Systems: Reviewed Physical Exam General General Nourishment: well nourished, well developed, thin General Body Habitus: well groomed Vital Signs Vital Signs Date Time Temp Pulse Resp B/P Pulse Ox O2 Delivery O2 Flow Rate FiO2 11/01/16 16:12 97.5 68 16 148/77 96 Room Air Height (Feet): 5 Height (Inches): 10.00 Telemetry Rhythm: Sinus Rhythm Eyes Brief: FOUND: EOMI, PERRL ENMT Brief: FOUND: TM clear, TM good light reflex Neck Brief: NOT FOUND: adenopathy, carotid bruits, thyromegaly Cardiovascular (brief) Cardiac Brief: FOUND: regular rate, regular rhythm Neurologic (brief) Neurological Brief: FOUND: cranial 2-12 intact Comments generalized weakness. Neurologic RN Documented GCS Eye Opening: Verbal: Motor: Total: Laboratory Laboratory Tests Test 10/31/16 19:35 11/01/16 05:17 11/01/16 06:18 11/01/16 10:30 Glucometer 145mg/dL 168mg/dL 262mg/dL White Blood Count 8.3T/MM3 Red Blood Count 4.51M/MM3 Hemoglobin 13.2GM/DL Hematocrit 39.6% Mean Corpuscular Volume 87.8UM3 Mean Corpuscular Hemoglobin 29.3UUG Mean Corpuscular Hemoglobin Concent 33.3GM/DL RDW Standard Deviation 45.6FL Platelet Count 193T/MM3 Mean Platelet Volume 10.2UM3 Immature Granulocyte % (Auto) 0.8% Neutrophils (%) (Auto) 77.8% Lymphocytes (%) (Auto) 12.6% Monocytes (%) (Auto) 7.3% Eosinophils (%) (Auto) 1.1% Basophils (%) (Auto) 0.4% Absolute Immature Granulocyte (auto 0.07T/MM3 Absolute Neutrophils (auto) 6.5T/MM3 Absolute Lymphocytes (auto) 1.1T/MM3 Absolute Monocytes (auto) 0.6T/MM3 Absolute Eosinophils (auto) 0.1T/MM3 Absolute Basophils (auto) 0.0T/MM3 Turbidity < 20 Sodium Level 138MEQ/L Potassium Level 3.6MEQ/L Chloride Level 103MEQ/L Carbon Dioxide Level 28MEQ/L Anion Gap 7MEQ/L Blood Urea Nitrogen 23.0MG/DL Creatinine 1.1MG/DL Glomerular Filtration Rate Calc 66 BUN/Creatinine Ratio 21RATIO Glucose Level 212MG/DL Calculated Osmolality 276MOSM/KG Calcium Level 8.8MG/DL Icterus Index < 2 Chemistry Specimen Hemolysis < 15 Test 11/01/16 13:56 Glucometer 272mg/dL Assessment & Plan Problems: (1) Cerebellar infarct Status: Acute Assessment & Plan: Medical to follow. PT and OT to develop plan of care for dizziness safety management and weakness strengthening and stamina. (2) Generalized weakness Status: Acute Assessment & Plan: PT and OT evaluating pt. DVT Prophylaxis: SCD'S Code Status Full Code Interventions to Obtain Goals PT Treatment Plan: Therapeutic Exercise, Gait Training, Functional Activities , Patient/Family Education OT Treatment Plan: ADL's (basic care), Ther. Exercise for ADL's, UE Functional Training, Balance Training, Pt./Family Education, IADL's ST Treatment Plan: Evaluation Only Hospital Course Summary Disclaimer The hospital course summary below is not to be considered part of the above Progress Note. OLIVA STUBBS MD Nov 01, 2016 16:39
--- NOTE | 2016-11-01 16:54 | IRU24PDOC ---
24 Hour Post Admission Eval Relevant Changes Relevant Changes: No I have reviewed the patient's information and concur with the finding and results of the pre-admission screen. Certification I certify the patient for rehabilitation. Patient Condition Prior Medical Conditions: (1) Cerebellar infarct Status: Acute Additional Information: Medical to follow. PT and OT to develop plan of care for dizziness safety management and weakness strengthening and stamina. (2) Generalized weakness Status: Acute Additional Information: PT and OT evaluating pt. Current Medical Conditions: (1) Cerebellar infarct Status: Acute Additional Information: Medical to follow. PT and OT to develop plan of care for dizziness safety management and weakness strengthening and stamina. (2) Generalized weakness Status: Acute Additional Information: PT and OT evaluating pt. Prior Functional Condition Lives With: Spouse Residence Type: Private home/apartment Assistive Devices: No Assistive Device Prior Functional Status: Indep. at home or school Current Functional Status Failed Alternative Therapy Tri: Arrived from acute care Patient Requirements * Patient has been determined to have significant functional limitations requiring at least two therapy disciplines. * Rehabilitation medical practitioner will provide admission approval, assessment and oversight and program coordination at least daily. * Intensive rehabilitative nursing services on site and available 24 hours a day. * The treatment plan will be developed within 24 hours of admission. * Interdisciplinary and goal oriented treatment by professional nursing, social worker delinquency prevention, and rehabilitation therapist. * Interdisciplinary team meeting weekly inclusive of ongoing comprehensive discharge planning. First team meeting by seven. Weekly meetings to follow. * Rehab Physician is the team meeting leader. * Pharmacy and diagnostic services will be available. * Ongoing comprehensive rehab program with at least 2 disciplines and greater than or equal to 3 hours a day, 5 days a week. Limitations require: limited mobility, ADL impairment Speech Therapy Minutes: 60 Physical Therapy Minutes: 60 Occupational Therapy Minutes: 60 Therapy The patient is to receive therapy at least 5 days a week. Current Functional Status: Using assistive device PT Treatment Plan: Therapeutic Exercise, Gait Training, Functional Activities , Patient/Family Education Treatment Plan Frequency: five times per week Treatment Plan Duration: three weeks Plan of Care Comment: 6x/wk for 1st wk; 5x/wk for 2nd and 3rd wks. OT Treatment Plan: ADL's (basic care), Ther. Exercise for ADL's, UE Functional Training, Balance Training, Pt./Family Education, IADL's OT Treatment Plan Frequency: five times per week OT Treatment Plan Duration: three weeks ST Treatment Plan: Evaluation Only ST Treatment Plan Frequency: N/A Treatment Plan Duration: N/A ROM Deficit: Left Lower Extremity, Left Upper Extremity ROM Comment: functional decrease coordination with L UE and LE Muscle Weakness Location: Left Lower Extremity, Left Upper Extremity Complication/Comorbidities Patient Complication Risk: (1) Cerebellar infarct Status: Acute Comments: Medical to follow. PT and OT to develop plan of care for dizziness safety management and weakness strengthening and stamina. (2) Generalized weakness Status: Acute Comments: PT and OT evaluating pt. Impact on Functional Outcomes will require safety training and accommodation of weakness. Barriers to Discharge: weakness, endurance, balance Plan to Avoid Complications Plan to Avoid Complications The patient cannot receive this care in a lesser intensive setting such as Halfway or Outpatient Therapy due to the patient requiring the following medical supervision after cerebellar cva. The patient requires oversight by a rehabilitation physician to manage their rehabilitation treatment plan and the multidisciplinary approach to care that can only be provided in an IRF and requires a multidisciplinary approach to care , provided by professional PTs, OTs, STs, dieticians, RTs, rehabilitation nurses and is not available in lesser levels of care. The frequency and duration for therapy, as recommended by the professional Rehabilitation therapists, meet the patient's initial rehabilitation treatment plan needs and will be further evaluated on a weekly basis for progress and/or changes needed. OLIVA STUBBS MD Nov 01, 2016 16:54
--- NOTE | 2016-11-01 17:45 | NUR ---
DM Screen Diet Order: 2000 calories consistent carb diet Lab: Glucose 145 - 272 SS Rios Burkett Insulin ordered to aid in glycemic control Per Diabetic assessment pt's Hgb A1c 8.0 10/25/2016 Based on Verna Tejada with 1.3 activity factor and 1.0 injury factor caloric needs ~ [address] to maintain current weight. RD available at ext [phone]
--- NOTE | 2016-11-01 19:00 | NUR ---
SHIFT SUMMARY PATIENT ALERT AND ORIENTED, PATIENT C/O NAUSEA IN AM. BP ELEVATED IN AM, MD MADE AWARE AND HTN MEDS AND CARDIO CONSULT STARTED. BP WENT DOWN TO NORMAL RANGE. PATIENT REFUSED TO GO TO DINNING ROOM FOR MEALS AFTER MUCH DISCUSSION. PATIENT REPORTED HE WOULD GO TO MEALS IN THE DINNING ROOM TOMORROW. AT BEDSIDE. PATIENT HAD SEVERAL INCONTINENT BM'S TODAY. CONTINENT OF BLADDER. WILL CONT TO MONITOR.
[2016-11-01] MEDS: ATORVASTATIN 40 MG TABLET PO SCH (19:43)
[2016-11-02] VITALS (7 sets, daily range): BP systolic 114–155; BP diastolic 69–85; PULSE 59–64; RESP 16–20; TEMP 97.5–98.2; O2SAT 97–98
--- NOTE | 2016-11-02 01:19 | NUR ---
Chart Check 24 hour chart check completed
[2016-11-02] MEDS: INSULIN REGULAR 100 UNIT/ML SQ PRN ×4 (06:11→23:20)
--- NOTE | 2016-11-02 07:00 | NUR ---
Summary David is a pleasant and cooperative patient. He is alert and oriented x three. He has denied pain. VSS. General / equal weakness noted. Two staff with gaitbelt for transfers. Use of w/c to the bathroom and then to bed. Incontinent of stool with staff managing hygiene and clothes. Continent of bladder per urinal. Wears pullups when OOB and while in bed..SCD's to bilateral lower extremities. He has no teeth and refused his hs oral cares. While in bed side rails up x two and bedalarms intact.
[2016-11-02] MEDS: DOCUSATE SODIUM 100 MG CAPSULE PO SCH ×3 (09:00→21:30)
[2016-11-02] MEDS: AMLODIPINE 5 MG TABLET PO SCH (09:23)
[2016-11-02] MEDS: CARVEDILOL 3.125 MG TABLET PO SCH ×2 (09:23→17:18)
[2016-11-02] MEDS: FAMOTIDINE 20 MG TABLET PO SCH ×2 (09:23→21:30)
[2016-11-02] MEDS: MAGNESIUM OXIDE 400 MG TABLET PO SCH ×2 (09:23→21:30)
[2016-11-02] MEDS: LISINOPRIL 2.5 MG TABLET PO SCH (09:23)
--- NOTE | 2016-11-02 14:09 | NUR ---
NAUSEA/DIZZINESS Pt has been up and out to dining room for lunch. Pt has been c/o nausea and has not had any emesis but spits up clear saliva. Pt gets nausea when standing and pivoting. Pt nausea after Pt worked with occupational therapy in the shower, one time with physical therapy and one time for this RN when just now transferring Pt back to bed. Pt c/o dizziness at the same times. Pt able to recover after 5-10 minutes, ie ate breakfast after shower with OT this AM. Will continue to monitor. NO emesis seen or noted thus far.
--- NOTE | 2016-11-02 19:22 | NUR ---
SUMMARY Pt is A/O x 2, thought it was October 02, able to reorient for the rest of the day. Pt is in no acute distress. Pt came out to dining room for lunch and supper. Pt took meds 2 at a time and the "bigger" ones with applesauce. Pt has had no s/s of choking this shift. Pt denies pain; was assist x 2 to and from the bathroom and pivot/transfer. Pt coccyx pink from incontinent bowel; periarea cleaned and barrier cream applied. Pt refused after physical therapy to get cleaned up or use restroom. Pt had visitors this afternoon. Pt didn't get nausea when transferring from w/c to bed. Pt remains to have abrasion on left arora, no change. Pt rested some of this afternoon with eyes closed. VSS, see vital sign assessment. Will continue to monitor. Call light in reach. Bed locked and low. Bed alarm on. Pt uses call light appropriately.
[2016-11-02] MEDS: ATORVASTATIN 40 MG TABLET PO SCH (21:30)
--- NOTE | 2016-11-03 00:11 | NUR ---
Chart Check 24 hour chart check completed
--- NOTE | 2016-11-03 06:34 | NUR ---
Summary David is a pleasant and cooperative gentleman. He is alert and oriented x three. He has denied pain. VSS. General / equal weakness noted. Two staff with gaitbelt for transfers. Use of w/c to the bathroom and then to bed. Incontinent of stool with staff managing hygiene and clothes. Continent of bladder per urinal. Wears pullups.SCD's to bilateral lower extremities. He has no teeth and refused his hs oral cares. While in bed side rails up x two and bedalarms intact.
--- NOTE | 2016-11-03 08:17 | PNPDOC ---
MAE PARIS CDL PROGRAM COORDINATOR 11/03/16 0810: Subjective Date DATE: 11/03/16 TIME: 08:07 Subjective David was lying awake in bed, watching television. He states that he had a good night, and feels pretty good this morning. His nausea seems to have resolved. He denies dizziness or weakness, but states that when he stands up, his "faculties" are quite right yet. He still has some fine motor deficits to his left hand. He is right hand dominant. We reviewed new blood pressure medications. He denies any chest pain or shortness of breath. Objective Vital Signs Vital signs Vital Signs Date Time Temp Pulse Resp B/P Pulse Ox O2 Delivery O2 Flow Rate FiO2 11/02/16 21:30 60 16 11/02/16 19:22 97.6 114/69 97 Room Air Telemetry Rhythm: Sinus Rhythm Height (Feet): 5 Height (Inches): 10.00 Weight (Kilograms): 69.500 General General Appearance: Alert, Orientated x 3, Well Nourished, Well Developed, No Acute Distress Eyes (Brief) Eyes: NOT FOUND: scleral icterus ENMT (Brief) ENMT: FOUND: mucosa moist, NOT FOUND: pharnyx erythema Respiratory (Brief) Respiratory: FOUND: clear all dinh, equal bilaterally Cardiovascular (Brief) Cardiac: FOUND: regular rate, regular rhythm Abdomen (Brief) Abdominal: FOUND: BS normo active x4, soft, NOT FOUND: distended Extremities (Brief) Extremity : Side: Bilateral Extremity: leg Extremity Finding: NOT FOUND: edema Musculoskeletal (Brief) Musculoskeletal: NOT FOUND: tenderness Integumentary (Brief) Integumentary: FOUND: dry, pink, warm Neurologic (Brief) Neurological: FOUND: facial droop (subtle right-sided drooping, ptosis) Psychiatric (Brief) Psychiatric: FOUND: alert, attentive, normal affect, oriented Assessment & Plan Problems: (1) Hemorrhagic cerebrovascular accident (CVA) Status: Acute Assessment & Plan: 10/28/16-hemorrhagic conversion of left cerebellar infarct (2) Cerebellar infarct Status: Chronic Assessment & Plan: 10/25/16-left cerebellar (3) Atrial thrombus Status: Acute Assessment & Plan: Incidental finding on 10/25/16 (4) Generalized weakness Status: Acute (5) Cardiomyopathy Status: Chronic Assessment & Plan: Likely ischemic (6) Essential (primary) hypertension Status: Chronic (7) CAD (coronary artery disease) Status: Chronic (8) DM (diabetes mellitus) Status: Chronic Qualifiers: Diabetes mellitus type: type 2 Assessment & Plan: A1c 8.0 on 10/25/16 (9) Hyperlipemia Status: Chronic (10) CKD (chronic kidney disease) Status: Chronic Qualifiers: Chronic kidney disease stage: stage 3 (moderate) Qualified Codes: N18.3 - Chronic kidney disease, stage 3 (moderate) Assessment & Plan: Stage 2-3 (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 Remains hyperglycemic with blood glucose frequently above 200. He is on glipizide 10 mg daily plus sliding scale insulin. On 10/25/16 his hemoglobin A1c was 8%. Will discuss addition of long-acting insulin with attending. Hemorrhagic conversion of left cerebellar infarct: Continue secondary prevention with blood pressure and glucose control, statin therapy. Recommendations are to avoid taking anticoagulants and anti-thrombotic through . Continue PT/OT. Code Status Full Code Hospital Course Summary Disclaimer The hospital course summary below is not to be considered part of the above Progress Note. Hospital Course Summary Agree with admission to IRU for ongoing rehabilitation for improved strength and functioning following hemorrhagic CVA. All neurology documents reviewed from [facility]. Recommendation is holding off on any anticoagulation until November 09. This includes ASA. Careful control of blood pressure is important given recent ischemic and hemorrhagic CVA. Blood pressure this morning was elevated at 179 systolic. Patient was not sent from [place] on any antihypertensives. Start Amlodipine 5mg daily for hypertension. We will consult Dr. Hooks for management of blood pressure and other cardiovascular management of atrial thrombus and other existing co-morbidities. Continue Glipizide and Novolin Regular sliding scale. Continue to monitor blood glucose before meals and at bedtime. We will order SCDs for DVT prophylaxis as anticoagulation is currently contraindicated given recent hemorrhagic CVA. Continue Lipitor at for lipid control Colace 100 milligrams twice a day for ongoing bowel motivation Pepcid 20 BID for GI protection Did review this morning laboratory studies. Hemoglobin is stable at 13.1 To improve his strength and functionality he will need physical therapy, occupational therapy and speech therapy. Impression I have independently evaluated and examined this patient. I reviewed the chart, the patient's history, and the CDL PROGRAM COORDINATOR's documented findings as above. We discussed and formulated the assessment and plan as above with additions as below: Mr. Duran defers to his for most history. He reports some weakness in his left arm and his reports persistent right facial drooping after recent left cerebellar ischemic stroke, acute by hemorrhagic conversion. Patient notes that he has minimal residual nausea and denies diplopia although it's noted that he had preceding right visual loss. He does not clearly describe vertigo but reports dizziness earlier in the stroke course which has improved. Patient describes his gait as "wobbly". Examination reveals right nasolabial fold flattening and droop. Right pupil is nonreactive to light. Left pupil reacts to light. There is slight right exotropia at rest but extraocular muscles are intact and no nystagmus is noted. Sensation is intact across all 3 distributions of the trigeminal nerve bilaterally and tongue elevates symmetrically. Power is grossly normal proximally and distally in the upper and lower extremities and graded 4/5 throughout but left fine finger movements are slow and clumsy compared to the right. Sensation is intact to light touch in the upper and lower extremities bilaterally. Breath sounds are clear and cardiac rhythm regular. Recommendation to withhold anticoagulation through 11/09 noted. Blood pressure control inadequate, amlodipine initiated. Given diagnosis of diabetes we can also push ESME inhibitor or switch to ARB for improved blood pressure control. Renal function should tolerate ESME inhibitor. Carvedilol initiated per cardiology. Blood sugar control suboptimal as well, will monitor and modify over the next couple of days. CTA of chest obtained last admission reviewed, pulmonary infiltrates present at that time-probable pulmonary edema. Currently on room air. Chest x-ray to be obtained given history of cardiomyopathy/CHF. 11/03/16 Blood pressure is under better control with addition of amlodipine, low-dose lisinopril, and Coreg. Remains hyperglycemic with blood glucose frequently above 200. He is on glipizide 10 mg daily plus sliding scale insulin. On 10/25/16 his hemoglobin A1c was 8%. Will discuss addition of long-acting insulin with attending. Hemorrhagic conversion of left cerebellar infarct: Continue secondary prevention with blood pressure and glucose control, statin therapy. Recommendations are to avoid taking anticoagulants and anti-thrombotic through . ZECHARIAH HUNTER MD 11/03/161931: Assessment & Plan Assessment I have independently evaluated and examined this patient. I reviewed the chart, the patient's history, and the CDL PROGRAM COORDINATOR's documented findings as above. We discussed and formulated the assessment and plan as above with additions as below: Mr. Duran reports that he has no concerns. He had minor nausea yesterday but no recurrence today and no emesis. He was able to walk up and down the stairs in therapy yesterday. He denied having any pain. Patient is alert and cooperative. There is a dressing on his left forearm and an abrasion over his left arora. Breath sounds are clear and respirations nonlabored. Blood sugars reviewed, fastings relatively well controlled but postprandials consistently high. I'm concerned that addition of long-acting insulin would lead to nocturnal hypoglycemia. Will add low-dose Humalog with meals and readdress. May benefit from one of the newer agents if insurance covers. MAE PARIS APRN Nov 03, 2016 08:10 ZECHARIAH HUNTER MD Nov 03, 2016 19:32
[2016-11-03 08:27] VITALS: BP 151/83; PULSE 57; RESP 20; TEMP 98.1; O2SAT 96
[2016-11-03 08:30] VITALS: PULSE 57; RESP 20
[2016-11-03] MEDS: MAGNESIUM OXIDE 400 MG TABLET PO SCH ×2 (08:37→21:35)
[2016-11-03] MEDS: FAMOTIDINE 20 MG TABLET PO SCH ×2 (08:37→21:36)
[2016-11-03] MEDS: AMLODIPINE 5 MG TABLET PO SCH (08:37)
[2016-11-03] MEDS: CARVEDILOL 3.125 MG TABLET PO SCH ×2 (08:37→17:02)
[2016-11-03] MEDS: DOCUSATE SODIUM 100 MG CAPSULE PO SCH ×2 (08:38→21:00)
[2016-11-03] MEDS: LISINOPRIL 2.5 MG TABLET PO SCH (09:34)
--- NOTE | 2016-11-03 10:00 | NUR ---
Skin Tear MAINTENANCE COORDINATOR informed this RN that pt. has a skin tear. This RN went in to assess pt. Pt. is sitting up in the wheelchair after breakfast and a skin tear is noted on left forearm. Skin tear is noted to be bleeding. Cleansed area with normal saline. Steri-strips applied and area covered with tefla dressing. Will continue to monitor.
--- NOTE | 2016-11-03 10:38 | DI ---
Indication: ITS.REASON: cardiomyopathy, CHF PROCEDURE: CHEST 1 VIEW: Encounter: Initial Comparison: August 15, 2016 Findings: Lungs are grossly stable without new pneumonia, pleural effusion or pneumothorax. Prior CABG. Heart size and mediastinal contours are stable. Left subclavian port catheter. Impression: Stable chest. .
[2016-11-03] MEDS: INSULIN REGULAR 100 UNIT/ML SQ PRN ×3 (12:06→21:35)
[2016-11-03 15:56] VITALS: BP 133/71; PULSE 53; RESP 18; TEMP 97.6; O2SAT 98
--- NOTE | 2016-11-03 18:25 | NUR ---
Summary Pt. is pleasant and A/O x3. He is a moderate assist pivot-transfer x1-2 with FWW and gait belt. Pt. does lean to the right. VS's stable. Encouraged fluids. Pt. has been continent of bladder and uses the urinal. He has been incontinent of bowel once this shift. Pt. takes meds whole w/o difficulty. BGM at 1000 noted to be 248 and BGM at 1400 noted to be 232. Insulin administered per sliding scale. Please see eMAR. Will pass on report to night hsift. Addendum: 11/03/16 at 1828 by JAMARCUS RODRIGUEZ RN Will pass on report to stock handler floorperson.
[2016-11-03 20:30] VITALS: PULSE 59; RESP 20
[2016-11-03] MEDS: ATORVASTATIN 40 MG TABLET PO SCH (21:35)
--- NOTE | 2016-11-03 21:41 | NUR ---
STATUS David was reluctant but did agree to shower. He expressed that he didn't want to be cold, so bathroom was heated up for him prior to his entering shower. He was appreciative and reports he did not get cold. Has nearly constant smearing of stool in spite of frequent kaia care provided by staff. Wears pullups. Has been continent of bladder. Has ST on left forearm. Dressing is changed after shower. 2 steri strips remain intact. covered with Telfa and secured with tape. SCDs on in bed. Takes meds whole with water. Blood sugar of 270. SS insulin given per orders. His gait is very unsteady. Required 2 assist for pivot transfer to shower bench. He overestimates his ability to walk and stood in shower in spite of staff asking him to wait. He lunges as he walks and is not able to tell he is losing his balance. He did the same as he transferred with 2 staff from w/c to bed. Loses balance and can't feel it so he keeps going. Gait belt with mod to max assist for transfers. Total assist for lower body bathing, Mod assist for upper body bathing. Min assist for upper body dressing. Max assist for lower body dressing. Toilet hygiene is total assist.
[2016-11-03 23:21] VITALS: BP 138/75; PULSE 59; RESP 20; TEMP 97.3; O2SAT 99
--- NOTE | 2016-11-04 01:18 | NUR ---
Chart Check 24 hour chart check completed
[2016-11-04 02:24] VITALS: BP 152/82; RESP 20; TEMP 98.1
--- NOTE | 2016-11-04 05:54 | NUR ---
Shift Summary Incontinent of soft brown stool x2 this shift. Judy-care given. Pt. denies pain; slept between cares.
[2016-11-04 07:34] VITALS: BP 140/77; PULSE 62; RESP 24; TEMP 99.7; O2SAT 94
[2016-11-04] MEDS: INSULIN ASPART 100 UNIT/ML SQ SCH ×3 (08:17→18:06)
[2016-11-04] MEDS: CARVEDILOL 3.125 MG TABLET PO SCH ×2 (08:17→18:06)
[2016-11-04] MEDS: LISINOPRIL 2.5 MG TABLET PO SCH (08:17)
[2016-11-04] MEDS: AMLODIPINE 5 MG TABLET PO SCH (08:17)
[2016-11-04] MEDS: MAGNESIUM OXIDE 400 MG TABLET PO SCH ×2 (08:17→20:50)
[2016-11-04] MEDS: FAMOTIDINE 20 MG TABLET PO SCH ×2 (08:17→20:50)
[2016-11-04] MEDS: DOCUSATE SODIUM 100 MG CAPSULE PO SCH ×2 (08:17→20:50)
[2016-11-04] MEDS: INSULIN REGULAR 100 UNIT/ML SQ PRN ×3 (10:56→20:51)
[2016-11-04 11:19] VITALS: TEMP 97.5
--- NOTE | 2016-11-04 12:36 | PDIRUTEAM ---
Multidisciplinary Team Meeting Nursing Hx Incontinence: Yes Bladder Goal: 6 Modified [place] Y/N: No Bladder Continent or Incontine: Continent Incontinent Product Used: Pull-up Cleaning Ability-Bladder: 5 Supervision/Setup Bowel Goal: 6 Modified [place] Colostomy Y/N: No Bowel Incontinent/Continent: Incontinent Bowel Number of Accidents: 1 Number of times Incontinent of: 3 Cleaning Ability-Bowel: 1 Total Assistance Bowel Incontinence Management: 1 Total Assistance Toileting Ability: 3 Moderate Assistance Vital Signs Vital Signs Date Time Temp Pulse Resp B/P Pulse Ox O2 Delivery O2 Flow Rate FiO2 11/04/16 11:19 97.5 11/04/16 07:34 62 24 140/77 94 Room Air Current Medications Current Medications Medications (Trade) Dose Ordered Sig/Dandy Route PRN Reason Start Time Stop Time Status Last Admin Dose Admin Docusate Sodium (Colace) 100 mg BID PO 10/31/16 21:00 11/04/16 08:17 Atorvastatin Calcium (LIPITOR 40 mg) 40 mg HS PO 10/31/16 22:00 11/03/16 21:35 Famotidine (Pepcid) 20 mg BID PO 10/31/16 21:00 11/04/16 08:17 Glipizide (Glucotrol Xl) 10 mg DAILY PO 11/01/16 09:00 11/04/16 08:17 Magnesium Oxide (Magox) 400 mg BID PO 10/31/16 21:00 11/04/16 08:17 Insulin Human Regular (Novolin R) SS PRN SQ 11/01/16 06:30 11/04/16 10:56 Amlodipine Besylate (Norvasc) 5 mg DAILY PO 11/02/16 09:00 11/04/16 08:17 Carvedilol (Coreg) 3.125 mg BIDWM PO 11/01/16 13:00 11/04/16 08:17 Lisinopril (Prinivil) 2.5 mg DAILY PO 11/02/16 09:00 11/04/16 08:17 Insulin Aspart (Novolog) 3 unit TIDWM SQ 11/04/16 08:00 11/04/16 12:20 Comments Speech patterns normal for patient. Swallow function normal. Physical Therapy Bed Transfer Ability: 4 Minimal Assistance Bed Transfer Assistance Needed: 1 Person Bed FIM Score Reason: pivot-transfer Chair Transfer Ability: 4 Minimal Assistance Chair Transfer Assistance Need: 1 Person Chair FIM Score Reason: verbal cueing to push up from surface as pt attempting to pull up from walker. Overall Wheelchair Transfer Ab: 4 Minimal Assistance Wheelchair Transfer Assistance: 1 Person Wheelchair Transfer FIM Score: verbal cueing to reach back for chair prior to descent. Overall Toilet / Commode Trans: 1 Total Assistance Ambulation Ability: 4 Minimal Assistance Ambulation Assistance Needed: 1 Person Walk FIM Score Reason: poor balance Ambulation Distance: 10 Comments Very poor balance and coordination Occupational Therapy Grooming Ability: 5 Supervision/Setup Bathing Ability: 4 Minimal Assistance Upper Body Dressing Ability: 4 Minimal Assistance Lower Body Dressing Ability: 3 Moderate Assistance Lower Body Dressing Assistance: 1 Person Toileting Assistance Needed: 1 Person Toileting FIM Score Reason: pt. uses the urinal Comments Poor lower body Left hand coordination worse than right. impulsive with safety issue. Not aware of balance loss and not anticipating stability. Care Plan Interventions/Goals Day 4, no estimate yet. Barriers to discharge: Safety, strength, balance. Address diabetes issues if pt wants to discharge home. Diabetic teaching recommended. OLIVA STUBBS MD Nov 04, 2016 12:35
[2016-11-04 16:00] VITALS: BP 150/78; PULSE 54; RESP 12; TEMP 97.5; O2SAT 99
--- NOTE | 2016-11-04 16:46 | NUR ---
DM consult r/t medications A1c: 8.0; Diet: CC 2000 kcal; Home medications: Glipizide ER 10 units, irregular usage. Current insulin order: Novolog 3 units TID with meals and SS insulin, per order. RD visited with patient and his , who was at his bedside. Pt states that he has had DM for nearly 50 years and was previously on insulin. 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 He also states that the shots in the arm hurt him. 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 pt states that he is ready to begin giving himself shots in the stomach, and expresses willingness to learn.
--- NOTE | 2016-11-04 16:49 | PDIRUOPC ---
Overall Plan of Care Date DATE: 11/03/16 TIME: 17:30 IPOC performed 11/03/16, 1730, recorded today, 11/04/16 Relevant Changes Relevant Changes: No I have reviewed the patient's information and concur with the finding and results of the pre-admission screen. Certification I certify the patient for rehabilitation. Patient Impairments Prior Medical Conditions: (1) Cerebellar infarct Status: Chronic Additional Information: Medical to follow. PT and OT to develop plan of care for dizziness safety management and weakness strengthening and stamina. (2) Generalized weakness Status: Acute Additional Information: PT and OT evaluating pt. Current Medical Conditions: (1) Cerebellar infarct Status: Chronic Additional Information: Medical to follow. PT and OT to develop plan of care for dizziness safety management and weakness strengthening and stamina. (2) Generalized weakness Status: Acute Additional Information: PT and OT evaluating pt. Medical Prognosis Fair IRF Tx That Should Address Dx: (1) Generalized weakness (2) Hemorrhagic cerebrovascular accident (CVA) Dx Requiring Medical FU: (1) Hemorrhagic cerebrovascular accident (CVA) (2) Cardiomyopathy (3) Atrial thrombus (4) Acute systolic (congestive) heart failure Vital Signs Vital Signs Date Time Temp Pulse Resp B/P Pulse Ox O2 Delivery O2 Flow Rate FiO2 11/04/16 16:00 97.5 54 12 150/78 99 Room Air Laboratory Laboratory Tests Test 11/02/16 23:15 11/03/16 06:12 11/03/16 11:25 11/03/16 14:18 Glucometer 219mg/dL 94mg/dL 248mg/dL 232mg/dL Test 11/03/16 21:20 11/04/16 05:36 11/04/16 10:16 11/04/16 14:11 Glucometer 270mg/dL 146mg/dL 158mg/dL 203mg/dL Anticipated Interventions The patient requires inpatient IRF care for PT, OT, and/or ST for residuals remaining from [] resulting in muscular weakness and strength deficits. Strength Deficits: Right Upper Extremity FIM Scores Ambulation Distance: 120 Wheelchair Propulsion Distance: 50 Ambulation Ability: 2 Maximum Assistance Ambulation Assistance Needed: 1 Person Walk FIM Score Reason: poor balance Wheelchair Propulsion Ability: 5 Supervision/Setup Wheelchair Propulsion Assistan: 1 Person Wheelchair FIM Score Reason: verbal cueing to utilize UE during w/c mobility to increase strength needed for all functional transfers and ADL/IADL tasks. Stairs: 1 Total Assistance Stair Assistance Needed: 1 Person Number of Stairs: 6 Reason for Stair FIM: The pt performed one step at a time using both hand rails and 3/7 assist.The FIM score is 1/7 due to the amount of steps Eating Ability-FIM: 5 Supervision/Setup Grooming Ability: 5 Supervision/Setup Bathing Ability: 4 Minimal Assistance Upper Body Dressing Ability: 4 Minimal Assistance Lower Body Dressing Ability: 3 Moderate Assistance Lower Body Dressing Assistance: 1 Person Toileting Ability: 3 Moderate Assistance Toileting Assistance Needed: 1 Person Toileting FIM Score Reason: pt. uses the urinal Bed Transfer Ability: 6 Modified Johnson Bed Transfer Assistance Needed: 1 Person Bed FIM Score Reason: pivot-transfer Chair Transfer Ability: 4 Minimal Assistance Chair Transfer Assistance Need: 1 Person Chair FIM Score Reason: verbal cueing to push up from surface as pt attempting to pull up from walker. Overall Wheelchair Transfer Ab: 4 Minimal Assistance Overall Toilet / Commode Trans: 1 Total Assistance Toilet / Commode Transfer Assi: 2 Persons Tub / Shower Transfer Ability: 4 Minimal Assistance Tub / Shower Transfer Assistan: 1 Person Tub/Shower FIM Score Reason: Not tested due to Pt. feeling nauseous this date. Comprehension Ability: 4 Minimal Assistance Social Interaction: 5 Supervision/Setup Problem Solvin Minimal Assistance Expression Ability: 5 Supervision/Setup Memory: 5 Supervision/Setup Memory FIM Score Reason: Pt does not remember events when hospitalized however, he was able to recall detailed information regarding events prior to hospitalization including past medical history and personal information and remote events. Expression FIM Score Reason: Pts speech is somewhat slow and slurred however, intelligible. Pts stated on 10/25/16 that she has not noted a change in her husbands speech. Pt is very [place] in the right ear so it is important that the speaker be on his left side. Swallowin+ Complete Johnson Swallowing FIM Score Reason: Pt is edentulous and does not have dentures. He stated that has tolerated a regular diet for years but is careful in his food choices. Current Functional Status Failed Alternative Therapy: Arrived from acute care Patient Requires * Patient has been determined to have significant functional limitations requiring at least two therapy disciplines. * Rehabilitation medical practitioner will provide admission approval, assessment and oversight and program coordination at least daily. * Intensive rehabilitative nursing services on site and available 24 hours a day. * The treatment plan will be developed within 24 hours of admission. * Interdisciplinary and goal oriented treatment by professional nursing, social work specialist, and rehabilitation therapist. * Interdisciplinary team meeting weekly inclusive of ongoing comprehensive discharge planning. First team meeting by day seven. Weekly meetings to follow. * Rehab Physician is the team meeting leader. * Pharmacy and diagnostic services will be available. * Ongoing comprehensive rehab program with at least 2 disciplines and greater than or equal to 3 hours a day, 5 days a week. Limitations require: limited mobility, ADL impairment Speech Therapy Minutes: 60 Physical Therapy Minutes: 60 Occupational Therapy Minutes: 60 Therapy The patient is to receive therapy at least 5 days a week. PT Treatment Plan: Therapeutic Exercise, Gait Training, Functional Activities , Patient/Family Education Treatment Plan Frequency: five times per week Treatment Plan Duration: three weeks Plan of Care Comment: 6x/wk for 1st wk; 5x/wk for 2nd and 3rd wks. OT Treatment Plan: ADL's (basic care), Ther. Exercise for ADL's, UE Functional Training, Balance Training, Pt./Family Education, IADL's OT Treatment Plan Frequency: five times per week OT Treatment Plan Duration: three weeks ST Treatment Plan: Evaluation Only ST Treatment Plan Frequency: N/A Treatment Plan Duration: N/A Anticapted LOS/Outcomes Anticipated Functional Outcome Improvement in overall strength and stability Anticipated DC Destination: Home Health Service Home Safety Plan The patient will be provided with the development of a Home Safety Plan for return to a home or home-like environment and to ensure safety post discharge. Complicating Conditions Complications since IRF admit: (1) Cerebellar infarct Status: Chronic Comments: Medical to follow. PT and OT to develop plan of care for dizziness safety management and weakness strengthening and stamina. (2) Generalized weakness Status: Acute Comments: PT and OT evaluating pt. Other Contributing Factors: Plan to Avoid Complications Barriers to Attaining Goals: weakness, balance, endurance, medical limitation Plan to Avoid Complications The patient cannot receive this care in a lesser intensive setting such as [facility] or Outpatient Therapy due to the patient requiring the following Risk of embolic stroke following cva, hx of atrial thrombus. The patient requires oversight by a rehabilitation physician to manage their rehabilitation treatment plan and the multidisciplinary approach to care that can only be provided in an IRF and requires a multidisciplinary approach to care , provided by professional PTs, OTs, STs, dieticians, RTs, rehabilitation nurses and is not available in lesser levels of care. The frequency and duration for therapy, as recommended by the professional Rehabilitation therapists, meet the patient's initial rehabilitation treatment plan needs and will be further evaluated on a weekly basis for progress and/or changes needed. OLIVA STUBBS MD Nov 04, 2016 16:49
--- NOTE | 2016-11-04 16:51 | PNPDOC ---
IRU Subjective Date DATE: 11/04/16 TIME: 16:49 Subjective Pt resting with in room. WOrked with PT and OT today and is "tired". Planning on continuing to work with them daily. IRU Objective Vital Signs Vital signs Vital Signs Date Time Temp Pulse Resp B/P Pulse Ox O2 Delivery O2 Flow Rate FiO2 11/04/16 16:00 97.5 54 12 150/78 99 Room Air Telemetry Rhythm: Sinus Rhythm Height (Feet): 5 Height (Inches): 10.00 Weight (Kilograms): 69.500 General General Appearance: Alert, Orientated x 2 Respiratory (Brief) Respiratory: FOUND: clear all dinh, equal bilaterally, NOT FOUND: rales Cardiovascular (Brief) Cardiac: FOUND: regular rate, regular rhythm Capillary Refill: <2 sec Laboratory Laboratory Laboratory Tests Test 11/02/16 23:15 11/03/16 06:12 11/03/16 11:25 11/03/16 14:18 Glucometer 219mg/dL 94mg/dL 248mg/dL 232mg/dL Test 11/03/16 21:20 11/04/16 05:36 11/04/16 10:16 11/04/16 14:11 Glucometer 270mg/dL 146mg/dL 158mg/dL 203mg/dL Assessment & Plan Problems: (1) Cerebellar infarct Status: Chronic Assessment & Plan: managed by medical. 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 Cont with PT and OT and should see improvement in strength and stability. Assessment I have independently evaluated and examined this patient. I reviewed the chart, the patient's history, and the SWITCH CLEANER's documented findings as above. We discussed and formulated the assessment and plan as above with additions as below: Mr. Duran reports that he has no concerns. He had minor nausea yesterday but no recurrence today and no emesis. He was able to walk up and down the stairs in therapy yesterday. He denied having any pain. Patient is alert and cooperative. There is a dressing on his left forearm and an abrasion over his left arora. Breath sounds are clear and respirations nonlabored. Blood sugars reviewed, fastings relatively well controlled but postprandials consistently high. I'm concerned that addition of long-acting insulin would lead to nocturnal hypoglycemia. Will add low-dose Humalog with meals and readdress. May benefit from one of the newer agents if insurance covers. Code Status Full Code Interventions to Obtain Goals PT Treatment Plan: Therapeutic Exercise, Gait Training, Functional Activities , Patient/Family Education OT Treatment Plan: ADL's (basic care), Ther. Exercise for ADL's, UE Functional Training, Balance Training, Pt./Family Education, IADL's ST Treatment Plan: Evaluation Only Hospital Course Summary Disclaimer The hospital course summary below is not to be considered part of the above Progress Note. Hospital Course Summary Agree with admission to IRU for ongoing rehabilitation for improved strength and functioning following hemorrhagic CVA. All neurology documents reviewed from [facility]. Recommendation is holding off on any anticoagulation until November 09. This includes ASA. Careful control of blood pressure is important given recent ischemic and hemorrhagic CVA. Blood pressure this morning was elevated at 179 systolic. Patient was not sent from [place] on any antihypertensives. Start Amlodipine 5mg daily for hypertension. We will consult Dr. Hooks for management of blood pressure and other cardiovascular management of atrial thrombus and other existing co-morbidities. Continue Glipizide and Novolin Regular sliding scale. Continue to monitor blood glucose before meals and at bedtime. We will order SCDs for DVT prophylaxis as anticoagulation is currently contraindicated given recent hemorrhagic CVA. Continue Lipitor at for lipid control Colace 100 milligrams twice a day for ongoing bowel motivation Pepcid 20 BID for GI protection Did review this morning laboratory studies. Hemoglobin is stable at 13.1 To improve his strength and functionality he will need physical therapy, occupational therapy and speech therapy. Impression I have independently evaluated and examined this patient. I reviewed the chart, the patient's history, and the SWITCH CLEANER's documented findings as above. We discussed and formulated the assessment and plan as above with additions as below: Mr. Duran defers to his for most history. He reports some weakness in his left arm and his reports persistent right facial drooping after recent left cerebellar ischemic stroke, acute by hemorrhagic conversion. Patient notes that he has minimal residual nausea and denies diplopia although it's noted that he had preceding right visual loss. He does not clearly describe vertigo but reports dizziness earlier in the stroke course which has improved. Patient describes his gait as "wobbly". Examination reveals right nasolabial fold flattening and droop. Right pupil is nonreactive to light. Left pupil reacts to light. There is slight right exotropia at rest but extraocular muscles are intact and no nystagmus is noted. Sensation is intact across all 3 distributions of the trigeminal nerve bilaterally and tongue elevates symmetrically. Power is grossly normal proximally and distally in the upper and lower extremities and graded 4/5 throughout but left fine finger movements are slow and clumsy compared to the right. Sensation is intact to light touch in the upper and lower extremities bilaterally. Breath sounds are clear and cardiac rhythm regular. Recommendation to withhold anticoagulation through 11/09 noted. Blood pressure control inadequate, amlodipine initiated. Given diagnosis of diabetes we can also push ESME inhibitor or switch to ARB for improved blood pressure control. Renal function should tolerate ESME inhibitor. Carvedilol initiated per cardiology. Blood sugar control suboptimal as well, will monitor and modify over the next couple of days. CTA of chest obtained last admission reviewed, pulmonary infiltrates present at that time-probable pulmonary edema. Currently on room air. Chest x-ray to be obtained given history of cardiomyopathy/CHF. 11/03/16 Blood pressure is under better control with addition of amlodipine, low-dose lisinopril, and Coreg. Remains hyperglycemic with blood glucose frequently above 200. He is on glipizide 10 mg daily plus sliding scale insulin. On 10/25/16 his hemoglobin A1c was 8%. Will discuss addition of long-acting insulin with attending. Hemorrhagic conversion of left cerebellar infarct: Continue secondary prevention with blood pressure and glucose control, statin therapy. Recommendations are to avoid taking anticoagulants and anti-thrombotic through . OLIVA STUBBS MD Nov 04, 2016 16:51
--- NOTE | 2016-11-04 16:54 | PNPDOC ---
IRU Subjective Date DATE: 11/03/16 TIME: 17:30 Evaluation/visit performed 11/03/16, approx 1730pm, recorded today. Subjective Pt eating. No complaints. IRU Objective Vital Signs Vital signs Vital Signs Date Time Temp Pulse Resp B/P Pulse Ox O2 Delivery O2 Flow Rate FiO2 11/04/16 16:00 97.5 54 12 150/78 99 Room Air Telemetry Rhythm: Sinus Rhythm Height (Feet): 5 Height (Inches): 10.00 Weight (Kilograms): 69.500 General General Appearance: Alert, Orientated x 2 Respiratory (Brief) Respiratory: FOUND: clear all dinh, equal bilaterally, NOT FOUND: rales Cardiovascular (Brief) Cardiac: FOUND: regular rate, regular rhythm Capillary Refill: <2 sec Musculoskeletal (Brief) Comments generalized weakness, cannot walk without support of 2 wheeled walker. Laboratory Laboratory Laboratory Tests Test 11/02/16 23:15 11/03/16 06:12 11/03/16 11:25 11/03/16 14:18 Glucometer 219mg/dL 94mg/dL 248mg/dL 232mg/dL Test 11/03/16 21:20 11/04/16 05:36 11/04/16 10:16 11/04/16 14:11 Glucometer 270mg/dL 146mg/dL 158mg/dL 203mg/dL Assessment & Plan Problems: (1) Cerebellar infarct Status: Chronic Assessment & Plan: to be managed by medical. (2) Generalized weakness Status: Acute Assessment & Plan: PT and OT to work with pt to increase strength and stability and to help him understand safety issues and precautions. Assessment I have independently evaluated and examined this patient. I reviewed the chart, the patient's history, and the WHEEL AND PINION INSPECTOR's documented findings as above. We discussed and formulated the assessment and plan as above with additions as below: Mr. Duran reports that he has no concerns. He had minor nausea yesterday but no recurrence today and no emesis. He was able to walk up and down the stairs in therapy yesterday. He denied having any pain. Patient is alert and cooperative. There is a dressing on his left forearm and an abrasion over his left arora. Breath sounds are clear and respirations nonlabored. Blood sugars reviewed, fastings relatively well controlled but postprandials consistently high. I'm concerned that addition of long-acting insulin would lead to nocturnal hypoglycemia. Will add low-dose Humalog with meals and readdress. May benefit from one of the newer agents if insurance covers. Code Status Full Code Interventions to Obtain Goals PT Treatment Plan: Therapeutic Exercise, Gait Training, Functional Activities , Patient/Family Education OT Treatment Plan: ADL's (basic care), Ther. Exercise for ADL's, UE Functional Training, Balance Training, Pt./Family Education, IADL's ST Treatment Plan: Evaluation Only Hospital Course Summary Disclaimer The hospital course summary below is not to be considered part of the above Progress Note. Hospital Course Summary Agree with admission to IRU for ongoing rehabilitation for improved strength and functioning following hemorrhagic CVA. All neurology documents reviewed from [facility]. Recommendation is holding off on any anticoagulation until November 09. This includes ASA. Careful control of blood pressure is important given recent ischemic and hemorrhagic CVA. Blood pressure this morning was elevated at 179 systolic. Patient was not sent from [place] on any antihypertensives. Start Amlodipine 5mg daily for hypertension. We will consult Dr. Hooks for management of blood pressure and other cardiovascular management of atrial thrombus and other existing co-morbidities. Continue Glipizide and Novolin Regular sliding scale. Continue to monitor blood glucose before meals and at bedtime. We will order SCDs for DVT prophylaxis as anticoagulation is currently contraindicated given recent hemorrhagic CVA. Continue Lipitor at for lipid control Colace 100 milligrams twice a day for ongoing bowel motivation Pepcid 20 BID for GI protection Did review this morning laboratory studies. Hemoglobin is stable at 13.1 To improve his strength and functionality he will need physical therapy, occupational therapy and speech therapy. Impression I have independently evaluated and examined this patient. I reviewed the chart, the patient's history, and the WHEEL AND PINION INSPECTOR's documented findings as above. We discussed and formulated the assessment and plan as above with additions as below: Mr. Duran defers to his for most history. He reports some weakness in his left arm and his reports persistent right facial drooping after recent left cerebellar ischemic stroke, acute by hemorrhagic conversion. Patient notes that he has minimal residual nausea and denies diplopia although it's noted that he had preceding right visual loss. He does not clearly describe vertigo but reports dizziness earlier in the stroke course which has improved. Patient describes his gait as "wobbly". Examination reveals right nasolabial fold flattening and droop. Right pupil is nonreactive to light. Left pupil reacts to light. There is slight right exotropia at rest but extraocular muscles are intact and no nystagmus is noted. Sensation is intact across all 3 distributions of the trigeminal nerve bilaterally and tongue elevates symmetrically. Power is grossly normal proximally and distally in the upper and lower extremities and graded 4/5 throughout but left fine finger movements are slow and clumsy compared to the right. Sensation is intact to light touch in the upper and lower extremities bilaterally. Breath sounds are clear and cardiac rhythm regular. Recommendation to withhold anticoagulation through 11/09 noted. Blood pressure control inadequate, amlodipine initiated. Given diagnosis of diabetes we can also push ESME inhibitor or switch to ARB for improved blood pressure control. Renal function should tolerate ESME inhibitor. Carvedilol initiated per cardiology. Blood sugar control suboptimal as well, will monitor and modify over the next couple of days. CTA of chest obtained last admission reviewed, pulmonary infiltrates present at that time-probable pulmonary edema. Currently on room air. Chest x-ray to be obtained given history of cardiomyopathy/CHF. 11/03/16 Blood pressure is under better control with addition of amlodipine, low-dose lisinopril, and Coreg. Remains hyperglycemic with blood glucose frequently above 200. He is on glipizide 10 mg daily plus sliding scale insulin. On 10/25/16 his hemoglobin A1c was 8%. Will discuss addition of long-acting insulin with attending. Hemorrhagic conversion of left cerebellar infarct: Continue secondary prevention with blood pressure and glucose control, statin therapy. Recommendations are to avoid taking anticoagulants and anti-thrombotic through . OLIVA STUBBS MD Nov 04, 2016 16:54
[2016-11-04] MEDS ORDERED: LISINOPRIL 2.5 MG TABLET PO SCH (18:00)
--- NOTE | 2016-11-04 18:40 | PNPDOC ---
HANNA ISRAEL VEHICLE DETAILER 11/04/16 1840: Subjective Date DATE: 11/04/16 TIME: 17:37 Subjective David is seen in the dining room of the IRU unit. He denies chest pain or pressure , palpitations, dyspnea or dizziness. Objective Vital Signs Vital signs Vital Signs 11/04/16 11/04/16 11/04/16 07:34 11:19 16:00 Temp 99.7 97.5 97.5 Pulse 62 54 Resp 24 12 B/P 140/77 150/78 Pulse Ox 94 99 O2 Delivery Room Air Room Air Telemetry Rhythm: Sinus Rhythm Height (Feet): 5 Height (Inches): 10.00 Weight (Kilograms): 69.500 General Alert, Cooperative, No Acute Distress ENMT (Brief) mucosa moist Neck (Brief) NOT FOUND: JVD, carotid bruits Respiratory (Brief) clear all dinh, equal bilaterally, NOT FOUND: rales, wheezes Cardiovascular (Brief) regular rate, regular rhythm, NOT FOUND: murmur, pedal edema Abdomen (Brief) BS normo active x4, soft Integumentary (Brief) dry, pink, warm Psychiatric (Brief) alert, attentive Laboratory Laboratory Laboratory Tests Test 11/02/16 23:15 11/03/16 06:12 11/03/16 11:25 11/03/16 14:18 Glucometer 219mg/dL 94mg/dL 248mg/dL 232mg/dL Test 11/03/16 21:20 11/04/16 05:36 11/04/16 10:16 11/04/16 14:11 Glucometer 270mg/dL 146mg/dL 158mg/dL 203mg/dL Medications Current Medications Docusate Sodium (Colace) 100 mg BID PO Last administered on 11/04/16 08:17; Start 10/31/16 at 21:00 Miscellaneous Medication (May use PRN orders) 1 PRN PRN MC ; Start 10/31/16 at 20:45 Acetaminophen (Tylenol Regular Strength) 650 mg Q4HR PRN PO PAIN; Start at 20:45 Atorvastatin Calcium (LIPITOR 40 mg) 40 mg HS PO Last administered on 11/03/16 21:35; Start 10/31/16 at 22:00 Famotidine (Pepcid) 20 mg BID PO Last administered on 11/04/16 08:17; Start at 21:00 Glipizide (Glucotrol Xl) 10 mg DAILY PO Last administered on 11/04/16 08:17; Start 11/01/16 at 09:00 Magnesium Oxide (Magox) 400 mg BID PO Last administered on 11/04/16 08:17; Start 10/31/16 at 21:00 Insulin Human Regular (Novolin R) SS PRN SQ Last administered on 11/04/16 15 :02; Start 11/01/16 at 06:30 Amlodipine Besylate (Norvasc) 5 mg DAILY PO Last administered on 11/04/16 08: 17; Start 11/02/16 at 09:00 Carvedilol (Coreg) 3.125 mg BIDWM PO Last administered on 11/04/16 18:06; Start 11/01/16 at 13:00 Insulin Aspart (Novolog) 3 unit TIDWM SQ Last administered on 11/04/16 18:06; Start 11/04/16 at 08:00 Lisinopril (Prinivil) 2.5 mg DAILY PO Last administered on 11/04/16 18:07; Start 11/04/16 at 18:00; Stop 11/04/16 at 19:00 Assessment & Plan Problems: (1) Cardiomyopathy Status: Chronic Assessment & Plan: Start Coreg 3.125mg BID and Lisinopril 2.5mg daily (2) CAD (coronary artery disease) Status: Chronic Assessment & Plan: continue risk management, routine monitoring (3) Essential (primary) hypertension Status: Chronic Assessment & Plan: Continue Amlodipine as tolerated (4) DM (diabetes mellitus) Status: Chronic Qualifiers: Diabetes mellitus type: type 2 Assessment & Plan: per attending Plan/Intensity of Service 11/01/16 Cardiomyopathy: Start Coreg 3.125mg BID and Lisinopril 2.5mg daily. HTN Continue Amlodipine as tolerated. 11/04/16 Increase Lisinopril to 5mg daily, give additional 2.5mg this evening Thank you for allowing us to participate in this patient's care, we will follow along with you. HUMERA CORREA MD 11/06/16 1536: Assessment & Plan Plan/Intensity of Service After examining the patient I agree with the above assessment. I am involved in the formulation of the patient's plan of care. HANNA ISRAEL VEHICLE DETAILER Nov 04, 2016 18:40 HUMERA CORREA MD Nov 06, 2016 15:36
--- NOTE | 2016-11-04 19:00 | NUR ---
SHIFT SUMMARY PATIENT ALERT AND ORIENTED. PATIENT DENIES PAIN, PATIENT WHEELING SELF IN WHEELCHAIR TO AND FROM MEALS. BP WNL TODAY. WILL CONT TO MONITOR.
[2016-11-04 20:29] VITALS: BP 124/67; PULSE 100; RESP 16; TEMP 97.7; O2SAT 97
[2016-11-04] MEDS: ATORVASTATIN 40 MG TABLET PO SCH (20:50)
[2016-11-05 02:15] VITALS: PULSE 100; RESP 16
--- NOTE | 2016-11-05 06:25 | NUR ---
Summary David is a pleasant and cooperative gentleman. He is alert and oriented x three. He has denied pain. VS have been stable. General weakness noted. One staff for transfers but another was in the room for safety. Use of w/c to the bathroom and then to bed. Incontinent of stool with staff managing hygiene and clothes. Continent of bladder per urinal. Wears pullups.SCD's to bilateral lower extremities. He has no teeth and refused his hs oral cares. While in bed side rails up x two and bedalarms intact
[2016-11-05 08:00] VITALS: BP 158/85; PULSE 64; RESP 16; TEMP 97.5; O2SAT 98
[2016-11-05] MEDS: DOCUSATE SODIUM 100 MG CAPSULE PO SCH ×2 (09:00→19:58)
[2016-11-05] MEDS: AMLODIPINE 5 MG TABLET PO SCH (09:14)
[2016-11-05] MEDS: MAGNESIUM OXIDE 400 MG TABLET PO SCH ×2 (09:14→19:58)
[2016-11-05] MEDS: FAMOTIDINE 20 MG TABLET PO SCH ×2 (09:15→19:58)
[2016-11-05] MEDS: LISINOPRIL 5 MG TABLET PO SCH (09:16)
[2016-11-05] MEDS: CARVEDILOL 3.125 MG TABLET PO SCH ×2 (09:17→18:17)
[2016-11-05] MEDS: INSULIN ASPART 100 UNIT/ML SQ SCH ×3 (09:27→17:47)
[2016-11-05] MEDS: INSULIN REGULAR 100 UNIT/ML SQ PRN ×3 (12:28→22:21)
--- NOTE | 2016-11-05 12:55 | NUR ---
DIABETES EDUCATION Met with patient about insulin injections. Previously treated with insulin. Demonstrated use of insulin pen. Adequate technique with use of pen and sample shot. Discussed timing of Novolog. Reviewed hypoglycemia treatment. Verbalized understanding. CDE will meet with patient and at 0915 on 11/06/16. Carlos Nordisk booklet and log book left in room.
--- NOTE | 2016-11-05 14:54 | NUR ---
CM THIS WORKER REVIEWED IRU PLAN OF CARE WITH PT, PT HAD NO QUESTIONS/CONCERNS. PT STATED HE AND -JOSE WILL BE MEETING WITH HEMATOLOGIST ONCOLOGIST TO REVIEW DIABETIC EDUCATION AROUND 9:30 AM 11/06/16.
[2016-11-05 16:21] VITALS: BP 138/76; PULSE 52; RESP 16; TEMP 97.4; O2SAT 99
--- NOTE | 2016-11-05 18:28 | NUR ---
Shift Summary Patient propelling self to dining room and back to room. Patient has scheduled toileting schedule but has refused to use to toilet according to schedule. Patient worked with PT and OT this shift. Alert and oriented x3. Continent of bladder. Incontinent of stool x1 per OT this shift with accident. Denies pain this shift.
[2016-11-05] MEDS: ATORVASTATIN 40 MG TABLET PO SCH (19:58)
[2016-11-05 20:00] VITALS: PULSE 53; RESP 20
[2016-11-05 21:32] VITALS: BP 151/77; PULSE 53; RESP 20; TEMP 97.4; O2SAT 98
--- NOTE | 2016-11-05 23:18 | NUR ---
Chart Check 24 hour chart check completed
--- NOTE | 2016-11-06 06:01 | NUR ---
SUMMARY David is pleasant and cooperative. He is alert and oriented x three. He is able to make his needs known. Appropriate use of call light. He is able to take his meds whole. He has denied pain. When in bed David has his side rails up x two, his bed alarm on and he has bilateral SCDs on. He was incontinent of bowel x two and continent of bladder. Staff manages clothes and hygiene. His VS are stable. Pt transfers with two staff for safety. Use of w/c for transport to the bathroom and then to bed. He wears pullups. He has no teeth and has refused his hs oral cares.
[2016-11-06 07:38] VITALS: BP 143/73; PULSE 59; RESP 18; TEMP 98.2; O2SAT 96
[2016-11-06 08:00] VITALS: PULSE 59; RESP 18
[2016-11-06] MEDS: DOCUSATE SODIUM 100 MG CAPSULE PO SCH ×2 (09:00→20:43)
[2016-11-06] MEDS: MAGNESIUM OXIDE 400 MG TABLET PO SCH ×2 (09:21→20:43)
[2016-11-06] MEDS: AMLODIPINE 5 MG TABLET PO SCH (09:21)
[2016-11-06] MEDS: LISINOPRIL 5 MG TABLET PO SCH (09:22)
[2016-11-06] MEDS: CARVEDILOL 3.125 MG TABLET PO SCH ×2 (09:22→17:39)
[2016-11-06] MEDS: FAMOTIDINE 20 MG TABLET PO SCH ×2 (09:22→20:43)
[2016-11-06] MEDS: INSULIN ASPART 100 UNIT/ML SQ SCH ×2 (09:24→17:40)
--- NOTE | 2016-11-06 10:00 | NUR ---
Bridge Ironworker manager enrollment here to see pt. this morning. Pt. was able to administer own morning insulin injection in the thigh after this RN rebecca it up with supervision. The crop specialist did also talk the pt. through the injection. Will continue to monitor.
--- NOTE | 2016-11-06 10:00 | NUR ---
DIABETES EDUCATION Met with patient and regarding injection review and SBGM. Unable to find meter or recall brand. Provided and instructed on [employer] Next EZ. Nine sample strips remain in kit. Self-test with fair technique due to shaky hands. agrees to help and verbalized understanding of technique. Patient self-injected Novolog with adequate technique. Reviewed site selection and rotation. Verbalizes understanding that if meal is skipped, meal-time insulin will not be given. Would like to use pens. Discussed causes, signs / symptoms and treatment of hypoglycemia. Agrees to keep treatment available. CDE may be reached at ext. [phone].
--- NOTE | 2016-11-06 12:21 | PNPDOC ---
Subjective Date DATE: 11/06/16 TIME: 12:16 Subjective David is seen today in follow up for post CVA. He is alert and orientated pleasant during examination. He denies having any current pain, shortness of breath or GI complaints. He does report having some intermittent episodes of nausea, however, he feels that if he takes his medications at different times with eating this improves. No difficulty with bowel movements or urination. The pressure 143/73 this morning. Objective Vital Signs Vital signs Vital Signs Date Time Temp Pulse Resp B/P Pulse Ox O2 Delivery O2 Flow Rate FiO2 11/06/16 08:00 59 18 11/06/16 07:38 98.2 143/73 96 Room Air Telemetry Rhythm: Sinus Rhythm Height (Feet): 5 Height (Inches): 10.00 Weight (Kilograms): 69.500 General General Appearance: Alert, Orientated x 3, Cooperative, No Acute Distress Eyes (Brief) Eyes: FOUND: EOMI ENMT (Brief) ENMT: FOUND: mucosa moist, normal dentition, NOT FOUND: pharnyx erythema Neck (Brief) Neck: FOUND: midline, NOT FOUND: adenopathy, carotid bruits, tracheal deviation Respiratory (Brief) Respiratory: FOUND: clear all dinh, equal bilaterally, NOT FOUND: wheezes Cardiovascular (Brief) Cardiac: FOUND: regular rate, regular rhythm, NOT FOUND: murmur, pedal edema Capillary Refill: <2 sec Abdomen (Brief) Abdominal: FOUND: BS normo active x4, soft, NOT FOUND: distended, tender Lymphatic (Brief) Lymphatic: NOT FOUND: adenopathy Musculoskeletal (Brief) Musculoskeletal: NOT FOUND: tenderness Integumentary (Brief) Integumentary: FOUND: dry, pink, warm Neurologic (Brief) Neurological: FOUND: cranial 2-12 intact Psychiatric (Brief) Psychiatric: FOUND: alert, attentive, normal affect, oriented Assessment & Plan Problems: (1) Hemorrhagic cerebrovascular accident (CVA) Status: Acute Assessment & Plan: 10/28/16-hemorrhagic conversion of left cerebellar infarct (2) Cerebellar infarct Status: Chronic Assessment & Plan: 10/25/16-left cerebellar (3) Atrial thrombus Status: Acute Assessment & Plan: Incidental finding on 10/25/16 (4) Generalized weakness Status: Acute (5) Cardiomyopathy Status: Chronic Assessment & Plan: Likely ischemic (6) Essential (primary) hypertension Status: Chronic (7) CAD (coronary artery disease) Status: Chronic (8) DM (diabetes mellitus) Status: Chronic Qualifiers: Diabetes mellitus type: type 2 Assessment & Plan: A1c 8.0 on 10/25/16 (9) Hyperlipemia Status: Chronic (10) CKD (chronic kidney disease) Status: Chronic Qualifiers: Chronic kidney disease stage: stage 3 (moderate) Qualified Codes: N18.3 - Chronic kidney disease, stage 3 (moderate) Assessment & Plan: Stage 2-3 (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 Will increase mealtime insulin to 5 units and monitor carefully. Concern for adding long- acting insulin may lead to hypoglycemia at night. Continue to monitor blood pressure carefully. Current regimen. Lisinopril 5 milligrams, Norvasc 5 milligrams, Coreg 3.125 twice a day Continue with Colace twice a day for bowel motivation PT/OT for ongoing strengthening and function. Overall making good gains Hemorrhagic conversion of left cerebellar infarct: Recommendations are to avoid taking anticoagulants and anti-thrombotic through 11/09/16. Code Status Full Code Hospital Course Summary Disclaimer The hospital course summary below is not to be considered part of the above Progress Note. Hospital Course Summary Agree with admission to IRU for ongoing rehabilitation for improved strength and functioning following hemorrhagic CVA. All neurology documents reviewed from [facility]. Recommendation is holding off on any anticoagulation until November 09. This includes ASA. Careful control of blood pressure is important given recent ischemic and hemorrhagic CVA. Blood pressure this morning was elevated at 179 systolic. Patient was not sent from [facility] on any antihypertensives. Start Amlodipine 5mg daily for hypertension. We will consult Dr. Hooks for management of blood pressure and other cardiovascular management of atrial thrombus and other existing co-morbidities. Continue Glipizide and Novolin Regular sliding scale. Continue to monitor blood glucose before meals and at bedtime. We will order SCDs for DVT prophylaxis as anticoagulation is currently contraindicated given recent hemorrhagic CVA. Continue Lipitor at HS for lipid control Colace 100 milligrams twice a day for ongoing bowel motivation Pepcid 20 BID for GI protection Did review this morning laboratory studies. Hemoglobin is stable at 13.1 To improve his strength and functionality he will need physical therapy, occupational therapy and speech therapy. Impression I have independently evaluated and examined this patient. I reviewed the chart, the patient's history, and the OYSTER BUYER's documented findings as above. We discussed and formulated the assessment and plan as above with additions as below: Mr. Duran defers to his for most history. He reports some weakness in his left arm and his reports persistent right facial drooping after recent left cerebellar ischemic stroke, acute by hemorrhagic conversion. Patient notes that he has minimal residual nausea and denies diplopia although it's noted that he had preceding right visual loss. He does not clearly describe vertigo but reports dizziness earlier in the stroke course which has improved. Patient describes his gait as "wobbly". Examination reveals right nasolabial fold flattening and droop. Right pupil is nonreactive to light. Left pupil reacts to light. There is slight right exotropia at rest but extraocular muscles are intact and no nystagmus is noted. Sensation is intact across all 3 distributions of the trigeminal nerve bilaterally and tongue elevates symmetrically. Power is grossly normal proximally and distally in the upper and lower extremities and graded 4/5 throughout but left fine finger movements are slow and clumsy compared to the right. Sensation is intact to light touch in the upper and lower extremities bilaterally. Breath sounds are clear and cardiac rhythm regular. Recommendation to withhold anticoagulation through 11/09 noted. Blood pressure control inadequate, amlodipine initiated. Given diagnosis of diabetes we can also push ESME inhibitor or switch to ARB for improved blood pressure control. Renal function should tolerate ESME inhibitor. Carvedilol initiated per cardiology. Blood sugar control suboptimal as well, will monitor and modify over the next couple of days. CTA of chest obtained last admission reviewed, pulmonary infiltrates present at that time-probable pulmonary edema. Currently on room air. Chest x-ray to be obtained given history of cardiomyopathy/CHF. 11/03/16 Blood pressure is under better control with addition of amlodipine, low-dose lisinopril, and Coreg. Remains hyperglycemic with blood glucose frequently above 200. He is on glipizide 10 mg daily plus sliding scale insulin. On 10/25/16 his hemoglobin A1c was 8%. Will discuss addition of long-acting insulin with attending. Hemorrhagic conversion of left cerebellar infarct: Continue secondary prevention with blood pressure and glucose control, statin therapy. Recommendations are to avoid taking anticoagulants and anti-thrombotic through . 11/06/16 Continues to be hyperglycemic frequently greater than 200. Will increase mealtime insulin to 5 units and monitor carefully. Concern for adding long- acting insulin may lead to hypoglycemia at night. Continue to monitor blood pressure carefully. Current regimen. Lisinopril 5 milligrams, Norvasc 5 milligrams, Coreg 3.125 twice a day Continue with Colace twice a day for bowel motivation PT/OT for ongoing strengthening and function. Overall making good gains Hemorrhagic conversion of left cerebellar infarct: Recommendations are to avoid taking anticoagulants and anti-thrombotic through 11/09/16. MARLENE HIGGINS APRN Nov 06, 2016 12:21
[2016-11-06] MEDS: INSULIN REGULAR 100 UNIT/ML SQ PRN ×3 (12:26→20:53)
--- NOTE | 2016-11-06 15:38 | NUR ---
CM SPOKE WITH PT. DISCUSSED DC PLANNING. HE SAID HE FEELS MORE COMFORTABLE AT HOME AND FEELS HE COULD MANAGE BETTER THERE BECAUSE HE IS USED TO THINGS THERE (I.E. HIS OWN TUB, ETC). HE SAID HE WOULD LIKE TO RETURN HOME AND DO OUTPT PHYS THERAPY. HE GAVE PERMISSION FOR THIS WORKER TO CONTACT HIS ABOUT THIS. THIS WORKER CALLED JOSE. SPOKE TO HER ABOUT THIS. SHE SAID SHE FEELS COMFORTABLE WITH THIS AND FEELS SHE CAN MANAGE HIS CARES AT HOME. SHE WAS AGREEABLE TO COMING IN FOR FAMILY TRAINING TO FURTHER ASSESS THIS. ARRANGED FOR HER TO COME TOMORROW AT 9 AM. PT THANKED THIS WORKER AND HAD NO QUESTIONS/CONCERNS. SPOKE WITH OT ABOUT THE ABOVE. Addendum: 11/06/16 at 1540 by AYANNA HARRY Amended: Links added.
[2016-11-06 16:47] VITALS: BP 138/74; PULSE 53; RESP 16; TEMP 97.7; O2SAT 96
--- NOTE | 2016-11-06 18:41 | NUR ---
Summary VS's stable. Pt. has denied pain and SOA. He is a moderate assist transfer x1 with FWW and gait belt. Pt. is unsteady and wobbly. I/O adequate. Pt. has been incontinent of stool three times this shift. He is mod to max assist the incontinence management. Toileting offered on a routine basis. Coccyx and scrotum are noted to be red. Barrier cream applied. BGM at 1000 noted to be 237 and BGM at 1400 noted to be 168. Insulin per sliding scale orders administered. Please see eMAR. Pt. is currently sitting up in the recliner. Alarm is on. Will pass on report to pillow filler.
[2016-11-06 19:42] VITALS: BP 134/74; PULSE 51; RESP 16; TEMP 97.6; O2SAT 99
[2016-11-06] MEDS: ATORVASTATIN 40 MG TABLET PO SCH (20:43)
[2016-11-07 01:26] VITALS: PULSE 51; RESP 16
--- NOTE | 2016-11-07 07:07 | NUR ---
Summary David has been cooperative with all cares.He has denied pain.He is alert and oriented x three.He is able to make his needs known.Appropriate use of call light.He takes his meds whole.When in bed his siderails are up x two and his bedalarm is on.He wears bilateral SCD's thru the night.He has been incontinent of bowel x two with staff managing his clothes and pericare.VSS.Pt transfers with one assist with fww gb and one staff contact guard.Use of w/c to the br then back to bed.He has no teeth and refuses pm oral care.
[2016-11-07 08:00] VITALS: BP 152/79; PULSE 61; RESP 16; TEMP 98.1; O2SAT 97
[2016-11-07] MEDS: DOCUSATE SODIUM 100 MG CAPSULE PO SCH ×2 (09:00→21:00)
[2016-11-07] MEDS: INSULIN ASPART 100 UNIT/ML SQ SCH ×3 (10:08→18:27)
[2016-11-07] MEDS: AMLODIPINE 5 MG TABLET PO SCH (10:09)
[2016-11-07] MEDS: MAGNESIUM OXIDE 400 MG TABLET PO SCH ×2 (10:09→22:00)
[2016-11-07] MEDS: LISINOPRIL 5 MG TABLET PO SCH (10:09)
[2016-11-07] MEDS: FAMOTIDINE 20 MG TABLET PO SCH ×2 (10:09→22:00)
[2016-11-07] MEDS: CARVEDILOL 3.125 MG TABLET PO SCH ×2 (10:10→18:28)
[2016-11-07] MEDS: INSULIN REGULAR 100 UNIT/ML SQ PRN ×3 (11:16→22:05)
--- NOTE | 2016-11-07 12:38 | NUR ---
CM SPOKE WITH OT; WHO SAID THAT AFTER FAMILY TRAINING, THEIR RECOMMENDATION IS A SNU DUE TO THE ASSISTANCE PT REQUIRED. THIS WORKER SPOKE WITH PT AND JOSE. JOSE STATED THAT FAMILY TRAINING WENT WELL. THIS WORKER ADDRESSED THE CONCERNS THAT THE TEAM HAS (INCLUDING PT'S LEVEL OF CARE AND LOSS OF BALANCE EPISODES), AND EXPLAINED THE TEAM IS RECOMMENDING A SNU FOR THE PT. PT AND HEAVILY INSISTED ON JUST RETURNING HOME. THIS WORKER REITERATED THAT THE TEAM IS RECOMMENDING SNU BUT THAT WE CANNOT FORCE THE PT TO GO TO SNU. PT STATED HE WANTS TO RETURN HOME, AND SAID SHE IS AGREEABLE TO THIS AND CAN HELP HIM AT HOME. THIS WORKER DISCUSSED HOME HEALTH VS. OUTPT THERAPY; HE AND AGREEABLE TO HOME HEALTH. REVIEWED PROVIDER LIST AND SHE HAD NO PREFERENCE. THIS WORKER DISCLOSED THE FINANCIAL RELATIONSHIP WITH [facility], AND SHE WAS AGREEABLE TO [facility]. THEY SAID PT DOES NOT HAVE ANY DME. THEY REQUESTED A WALKER FOR PT. REVIEWED DM SUPPLIES: THEY SAID PT HAS ALL SUPPLIES NEEDED EXCEPT TEST STRIPS. JOSE SAID SHE CAN PICK THESE UP AT THE STORE WITH NO PROBLEMS. LATER, THIS WORKER AND PHYS THERAPY SPOKE WITH PT, AND IT WAS RECOMMENDED THAT PT RECEIVE CGA AT ALL TIMES. PT STATED HE WILL GO HOME AND BE OK. EXPLAINED IT WOULD BE SAFER FOR HIM TO HAVE A WHEELCHAIR DUE TO HIS LOSS OF BALANCE EPISODES, BUT HE SAID HE WANTED A WALKER. THIS WORKER THEN SPOKE AGAIN WITH JOSE OUT OF PT'S PRESENCE. ASKED HER IF SHE TRUELY WANTS TO TAKE PT HOME OR IF SHE IS JUST GOING ALONG WITH WHAT PT WANTS. SHE SAID SHE WILL TAKE HIM HOME. SHE SAID THIS IS WHAT HE WANTS, SO SHE WILL GO ALONG WITH IT. SHE SAID SHE WILL TAKE CARE OF HIS NEEDS AND EXPLAINED HER PLAN FOR NIGHTTIME TOILETING ASSISTANCE. THIS WORKER OFFERED TO CALL THEIR SON, TO EXPRESS THE CONCERNS TO HIM AND SEE IF HE COULD CONVINCE PT TO GO TO SNU. SHE SAID NO, THIS WOULD JUST MAKE THE SON UPSET, AND THE PT DOES NOT LISTEN TO THE SON EITHER. THIS WORKER EXPLAINED THAT PT COULD GET TO A SNU WITHIN 30 DAYS OF DC FROM REHAB, IN THE EVENT THAT SHE TAKES PT HOME AND IT IS NOT WORKING. SHE EXPRESSED UNDERSTANDING OF THIS. THIS WORKER REVIEWED ROTP, AND SHE WAS AGREEABLE TO THAT. EXPLAINED PHYS THERAPY RECOMMENDS A WHEELCHAIR INSTEAD OF A WALKER, BUT SHE WANTED A WALKER. SPOKE WITH DR. STUBBS, WHO SAID HE WOULD DC THE PT TOMORROW. SPOKE WITH PT, UPDATED HIM, HE WAS AGREEABLE TO THIS. Addendum: 11/07/16 at 1250 by AYANNA HARRY Amended: Links added.
--- NOTE | 2016-11-07 13:54 | NUR ---
CM THIS WORKER VISITED PT IN ROOM. INQUIRED IF HE WOULD BE INTERESTED IN THE ROTP, PT WAS AGREEABLE. PT STATED HE HAD A SHOWER CHAIR AT HOME AND ASKED FOR THIS WORKER TO CONTACT HIS REGARDING D/C TIME SET FOR TOMORROW. THIS WORKER CALLED PT'S AND CONFIRMED PT HAD A SHOWER CHAIR AT HOME. PT'S STATED SHE HAD A SHOWER CHAIR AND A WALK-IN SHOWER AT HOME. INFORMED ON D/C TIME AROUND NOON TOMORROW, WAS AGREEABLE AND HAD NO QUESTIONS.
--- NOTE | 2016-11-07 14:44 | NUR ---
CM THIS WORKER FAXED ORDER FOR WALKER TO [facility] AT [phone]. FAX CONFIRMATION RECEIVED. CALLED AT [phone] AND SPOKE WITH NIGEL. NIGEL CONFIRMED SHE RECEIVED THE FAX AND STATED THEY COULD DELIVER THE WALKER TO PT'S HOME.
[2016-11-07 14:51] VITALS: PULSE 61; RESP 16
[2016-11-07 16:07] VITALS: BP 135/69; PULSE 55; RESP 18; TEMP 97.4; O2SAT 97
--- NOTE | 2016-11-07 19:22 | PNPDOC ---
IRU Subjective Date DATE: 11/06/16 TIME: 19:00 Pt evaluated and treated 11/06/16 at approx 19:00, note entered today. Subjective Patient working with physical therapy, did have significant fatigue today. IRU Objective Vital Signs Vital signs Vital Signs Date Time Temp Pulse Resp B/P Pulse Ox O2 Delivery O2 Flow Rate FiO2 11/07/16 16:07 97.4 55 18 135/69 97 Room Air Telemetry Rhythm: Sinus Rhythm Height (Feet): 5 Height (Inches): 10.00 Weight (Kilograms): 69.500 Respiratory (Brief) Respiratory: FOUND: clear all dinh, equal bilaterally, NOT FOUND: rales Cardiovascular (Brief) Cardiac: FOUND: regular rate, regular rhythm Capillary Refill: <2 sec Laboratory Laboratory Laboratory Tests Test 11/06/16 10:06 11/06/16 14:43 11/06/16 20:49 11/07/16 04:48 Glucometer 237mg/dL 168mg/dL 162mg/dL Magnesium Level 2.0MG/DL Test 11/07/16 05:48 11/07/16 10:42 11/07/16 13:59 Glucometer 115mg/dL 248mg/dL 198mg/dL Assessment & Plan Problems: (1) Cerebellar infarct Status: Chronic Assessment & Plan: Continue dizziness, with improvement. Working with physical therapy and occupational therapy, continue with current plan of care. (2) Generalized weakness Status: Acute Assessment & Plan: Patient is increasing strength and stability and will continue with PT and OT according to current plan. Continue to follow FIM scores Code Status Full Code Interventions to Obtain Goals PT Treatment Plan: Therapeutic Exercise, Gait Training, Functional Activities , Patient/Family Education OT Treatment Plan: ADL's (basic care), Ther. Exercise for ADL's, UE Functional Training, Balance Training, Pt./Family Education, IADL's ST Treatment Plan: Evaluation Only Hospital Course Summary Disclaimer The hospital course summary below is not to be considered part of the above Progress Note. Hospital Course Summary Agree with admission to IRU for ongoing rehabilitation for improved strength and functioning following hemorrhagic CVA. All neurology documents reviewed from [facility]. Recommendation is holding off on any anticoagulation until November 09. This includes ASA. Careful control of blood pressure is important given recent ischemic and hemorrhagic CVA. Blood pressure this morning was elevated at 179 systolic. Patient was not sent from [place] on any antihypertensives. Start Amlodipine 5mg daily for hypertension. We will consult Dr. Hooks for management of blood pressure and other cardiovascular management of atrial thrombus and other existing co-morbidities. Continue Glipizide and Novolin Regular sliding scale. Continue to monitor blood glucose before meals and at bedtime. We will order SCDs for DVT prophylaxis as anticoagulation is currently contraindicated given recent hemorrhagic CVA. Continue Lipitor at for lipid control Colace 100 milligrams twice a day for ongoing bowel motivation Pepcid 20 BID for GI protection Did review this morning laboratory studies. Hemoglobin is stable at 13.1 To improve his strength and functionality he will need physical therapy, occupational therapy and speech therapy. Impression I have independently evaluated and examined this patient. I reviewed the chart, the patient's history, and the BUSINESS IMPROVEMENT MANAGER's documented findings as above. We discussed and formulated the assessment and plan as above with additions as below: Mr. Duran defers to his for most history. He reports some weakness in his left arm and his reports persistent right facial drooping after recent left cerebellar ischemic stroke, acute by hemorrhagic conversion. Patient notes that he has minimal residual nausea and denies diplopia although it's noted that he had preceding right visual loss. He does not clearly describe vertigo but reports dizziness earlier in the stroke course which has improved. Patient describes his gait as "wobbly". Examination reveals right nasolabial fold flattening and droop. Right pupil is nonreactive to light. Left pupil reacts to light. There is slight right exotropia at rest but extraocular muscles are intact and no nystagmus is noted. Sensation is intact across all 3 distributions of the trigeminal nerve bilaterally and tongue elevates symmetrically. Power is grossly normal proximally and distally in the upper and lower extremities and graded 4/5 throughout but left fine finger movements are slow and clumsy compared to the right. Sensation is intact to light touch in the upper and lower extremities bilaterally. Breath sounds are clear and cardiac rhythm regular. Recommendation to withhold anticoagulation through 11/09 noted. Blood pressure control inadequate, amlodipine initiated. Given diagnosis of diabetes we can also push ESME inhibitor or switch to ARB for improved blood pressure control. Renal function should tolerate ESME inhibitor. Carvedilol initiated per cardiology. Blood sugar control suboptimal as well, will monitor and modify over the next couple of days. CTA of chest obtained last admission reviewed, pulmonary infiltrates present at that time-probable pulmonary edema. Currently on room air. Chest x-ray to be obtained given history of cardiomyopathy/CHF. 11/03/16 Blood pressure is under better control with addition of amlodipine, low-dose lisinopril, and Coreg. Remains hyperglycemic with blood glucose frequently above 200. He is on glipizide 10 mg daily plus sliding scale insulin. On 10/25/16 his hemoglobin A1c was 8%. Will discuss addition of long-acting insulin with attending. Hemorrhagic conversion of left cerebellar infarct: Continue secondary prevention with blood pressure and glucose control, statin therapy. Recommendations are to avoid taking anticoagulants and anti-thrombotic through . 11/06/16 Continues to be hyperglycemic frequently greater than 200. Will increase mealtime insulin to 5 units and monitor carefully. Concern for adding long- acting insulin may lead to hypoglycemia at night. Continue to monitor blood pressure carefully. Current regimen. Lisinopril 5 milligrams, Norvasc 5 milligrams, Coreg 3.125 twice a day Continue with Colace twice a day for bowel motivation PT/OT for ongoing strengthening and function. Overall making good gains Hemorrhagic conversion of left cerebellar infarct: Recommendations are to avoid taking anticoagulants and anti-thrombotic through 11/09/16. OLIVA STUBBS MD Nov 07, 2016 19:22
[2016-11-07 20:00] VITALS: BP 153/79; PULSE 61; RESP 16; TEMP 97.9; O2SAT 98
--- NOTE | 2016-11-07 20:50 | NUR ---
Shift summary Patient alert and oriented x3. Gait unsteady with FWW, gait blet and min assist. Transfers with min assist. Is able to propel wheelchair with set up assist. Patient incontinent of bowel x2 today with accident both times. Continent of urine. Patient wants to go home tomorrow with .
[2016-11-07] MEDS: ATORVASTATIN 40 MG TABLET PO SCH (22:00)
[2016-11-08 00:38] VITALS: PULSE 61
--- NOTE | 2016-11-08 01:18 | NUR ---
Chart Check 24 hour chart check completed
--- NOTE | 2016-11-08 06:33 | NUR ---
SUMMARY. PT SAT UP IN WC WATCHING TV MOST OF THE EVENING. INCONT OF BOWEL X2 TONIGHT. PT ASSISTS WITH INCONT CARE. PT GIVEN SCHEDULED MEDS WITH SIPS OF REG LIQUID. SCDS ON WHILE IN BED FOR NOC. BGM AT HS 150. PT REC'D 1 UNIT SLIDING SCALE COVERAGE. FASTING BGM 153. WILL REPORT TO DAY NURSE. PT AMBULATES USING FWW AND GAITBELT WITH 1 ASSIST. PT IS UNSTEADY AT TIMES.
[2016-11-08 07:45] VITALS: BP 132/77; PULSE 57; RESP 16; TEMP 96.9; O2SAT 94
[2016-11-08] MEDS: INSULIN ASPART 100 UNIT/ML SQ SCH ×3 (08:44→17:30)
[2016-11-08] MEDS: AMLODIPINE 5 MG TABLET PO SCH (08:45)
[2016-11-08] MEDS: LISINOPRIL 5 MG TABLET PO SCH (08:45)
[2016-11-08] MEDS: CARVEDILOL 3.125 MG TABLET PO SCH ×2 (08:45→17:35)
[2016-11-08] MEDS: DOCUSATE SODIUM 100 MG CAPSULE PO SCH ×2 (08:45→21:00)
[2016-11-08] MEDS: MAGNESIUM OXIDE 400 MG TABLET PO SCH ×2 (08:45→21:00)
[2016-11-08] MEDS: FAMOTIDINE 20 MG TABLET PO SCH ×2 (08:45→21:00)
--- NOTE | 2016-11-08 09:00 | NUR ---
DIABETES EDUCATION Reviewed home schedule with patient. Verbalized understanding of timing of Novolog doses, meals / snacks and blood sugar checks. Provided 10 sample pen needles. Contact information previously given. CDE may be reached at [phone].
--- NOTE | 2016-11-08 10:54 | NUR ---
FAMILY UPSET / DISCHARGE Pt's in hallway crying. Active listening done and states, "He's not ready to go home." "I called my son to come and help me, because I know he will shut down; but I just can't take care of him right now." "I am afraid he's going to fall, because he's not as steady as he should be." states, "He was refusing to go into the bathroom to clean himself up and he was butting heads with the staff; he finally got to the bathroom but then refused to wipe his bottom." "I'm just scared to take him home, and I wish he'd say yes to some intermediate project manager therapy." Pt has started to increase in refusal of therapies. Pt in no acute distress. Addendum: 11/08/16 at 1103 by VASQUEZ BRADFORD RN Offered to call hieu and other support for , stated no; and states, "I will have back up with my son, so I will be okay with him here." Denies needing anything else done for support of and Pt family.
[2016-11-08] MEDS: INSULIN REGULAR 100 UNIT/ML SQ PRN ×2 (11:10→14:20)
[2016-11-08 11:15] VITALS: PULSE 57; RESP 16
--- NOTE | 2016-11-08 11:39 | NUR ---
CM SPOKE AGAIN WITH . SHE WAS TEARFUL, STATED SHE IS SCARED TO TAKE PT HOME BECAUSE OF THE HIGH LEVEL OF CARE HE REQUIRES. SHE SAID SHE DOES NOT THINK SHE CAN MANAGE HIS CARES AT HOME BUT IS SCARED OF THE BACKLASH SHE WILL RECEIVE FROM THE PT. THIS WORKER DISCUSSED THAT THIS WORKER AND THE DOCTOR CAN ADDRESS THE UNSAFETY OF DC WITH THE PT AND EXPLAINED THAT THE DC ORDER CANNOT BE WRITTEN DUE TO THAT CONCERN, BUT SHE WOULD NEED TO REMAIN STRONG AND NOT TAKE PT HOME IF SHE FEELS SHE CANNOT MANAGE HIS CARES. SHE WAS AGREEABLE TO THIS. THIS WORKER SPOKE WITH DR. STUBBS ABOUT THE ABOVE AND THE GENERAL CONCERNS OF DC AT THIS TIME. HE WAS AGREEABLE TO SPEAKING WITH THE PT AND NOT DOING THE DC ORDER. THIS WORKER AND DR. STUBBS SPOKE WITH PT. EXPLAINED THAT DUE TO THE SAFETY CONCERNS OF HIS HIGH LEVEL OF CARE AND HIS HIGH FALL RISK AND MEDICALLY (CARDIOLOGY HAS CONCERNS OF BLOOD BEING THIN), THE DC ORDER CANNOT BE WRITTEN. THIS WORKER ASSURED HIM THAT THE DC PLAN CAN STILL BE TO RETURN HOME BUT AT THIS TIME HE STILL NEEDS MORE REHAB AND IT IS NOT SAFE. THIS WORKER ASKED IF HE WOULD REMAIN HERE, AND HE SAID HE WOULD BECAUSE "YOUR MINDS ARE ALREADY MADE UP." WE EXPLAINED DC DATE CAN BE REEVALUATED NEXT WEEK. THIS WORKER AND DR. STUBBS ASKED IF HE HAD ANY QUESTIONS OR CONCERNS AND ENCOURAGED HIM TO EXPRESS THEM, BUT HE SAID NOT AT THIS TIME. THIS WORKER LEFT MESSAGE WITH PT'S , UPDATING HER THAT DC HOME WILL NOT HAPPEN TODAY AND DC DATE WILL BE RE-EVALUATED NEXT WEEK.
--- NOTE | 2016-11-08 13:24 | NUR ---
Lunch/Insulin Staff has attempted several times to encourage pt. to get up to chair to eat something for Lunch. He has refused saying he is too tired, doesn't want to get up and wants to sleep. Pt. is currently still sleeping. Alarm is on. Spoke with VIVIAN Clarke, and she reported if pt. is not going to eat do not give Lunch time insulin. Will continue to monitor.
--- NOTE | 2016-11-08 15:16 | NUR ---
OT NOTE: OT treatment attempted 2x. Pt declined OTR requesting to return at 3. MACIAS returned at 3pm and pt continued to declined tx. Pt reports he is "too tired" "maybe another time." Pt educated on benefits and purpose of OT tx. Provided simple HEP. Continues to decline. Pt does not open eyes to look at therapist. Will cont to follow and address POC.
--- NOTE | 2016-11-08 15:20 | NUR ---
Status Pt. has been fatigued and napping on/off all shift. He has refused to get up out of bed despite multiple attempts and encouragement from staff and therapy. Pt. reports he is tired and wants to stay in bed. BGM at 1400 noted to be 240. Insulin per sliding scale administered per orders. Please see eMAR. Dangelo from PT is currently in room to see pt. Will continue to monitor.
--- NOTE | 2016-11-08 15:31 | PNPDOC ---
Subjective Date DATE: 11/08/16 TIME: 15:22 Subjective David is seen today laying in bed. He is not happy about staying in IRU to continue strength and functional improvements. Many discussions were held today with patient and family in relation for safety concerns. His and son were present today and informed that they could not take care of him at home. After this discussion, David elected to stay and try to improve. This afternoon he has refused therapy and also refused to eat in the dining sommer. He reports that he is too tired. He denies any other complaints including chest pain and shortness of air. Objective Vital Signs Vital signs Vital Signs Date Time Temp Pulse Resp B/P Pulse Ox O2 Delivery O2 Flow Rate FiO2 11/08/16 11:15 57 16 11/08/16 07:45 96.9 132/77 94 Room Air Height (Feet): 5 Height (Inches): 10.00 Weight (Kilograms): 68.000 General General Appearance: Alert, Orientated x 3, Cooperative, No Acute Distress Respiratory (Brief) Respiratory: FOUND: clear all dinh, equal bilaterally Cardiovascular (Brief) Cardiac: FOUND: regular rate, regular rhythm Abdomen (Brief) Abdominal: FOUND: BS normo active x4, soft Integumentary (Brief) Integumentary: FOUND: dry, pink, warm Neurologic (Brief) Neurological: FOUND: cranial 2-12 intact Psychiatric (Brief) Psychiatric: FOUND: alert, normal affect, oriented Assessment & Plan Problems: (1) Hemorrhagic cerebrovascular accident (CVA) Status: Acute Assessment & Plan: 10/28/16-hemorrhagic conversion of left cerebellar infarct (2) Cerebellar infarct Status: Chronic Assessment & Plan: 10/25/16-left cerebellar (3) Atrial thrombus Status: Acute Assessment & Plan: Incidental finding on 10/25/16 (4) Generalized weakness Status: Acute (5) Cardiomyopathy Status: Chronic Assessment & Plan: Likely ischemic (6) Essential (primary) hypertension Status: Chronic (7) CAD (coronary artery disease) Status: Chronic (8) DM (diabetes mellitus) Status: Chronic Qualifiers: Diabetes mellitus type: type 2 Assessment & Plan: A1c 8.0 on 10/25/16 (9) Hyperlipemia Status: Chronic (10) CKD (chronic kidney disease) Status: Chronic Qualifiers: Chronic kidney disease stage: stage 3 (moderate) Qualified Codes: N18.3 - Chronic kidney disease, stage 3 (moderate) Assessment & Plan: Stage 2-3 (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 Will increase mealtime insulin to 7 units and monitor carefully Concern for adding long- acting insulin may lead to hypoglycemia at night. Continue to monitor blood pressure carefully. Current regimen. Lisinopril 5 milligrams, Norvasc 5 milligrams, Coreg 3.125 twice a day. Current BP is 132/77. Continue with Colace twice a day for bowel motivation PT/OT for ongoing strengthening and function. Overall making good gains Hemorrhagic conversion of left cerebellar infarct: Recommendations are to avoid taking anticoagulants and anti-thrombotic through 11/09/16. Discussed anticoagulation with cardiology team. Will start Xarelto 15mg twice daily for 3 weeks, Then decrease to Xarelto 20mg daily. Will check CBC and BMP for blood count, electrolyte and renal function monitoring. Code Status Full Code Hospital Course Summary Disclaimer The hospital course summary below is not to be considered part of the above Progress Note. Hospital Course Summary Agree with admission to IRU for ongoing rehabilitation for improved strength and functioning following hemorrhagic CVA. All neurology documents reviewed from [facility]. Recommendation is holding off on any anticoagulation until November 09. This includes ASA. Careful control of blood pressure is important given recent ischemic and hemorrhagic CVA. Blood pressure this morning was elevated at 179 systolic. Patient was not sent from [place] on any antihypertensives. Start Amlodipine 5mg daily for hypertension. We will consult Dr. Hooks for management of blood pressure and other cardiovascular management of atrial thrombus and other existing co-morbidities. Continue Glipizide and Novolin Regular sliding scale. Continue to monitor blood glucose before meals and at bedtime. We will order SCDs for DVT prophylaxis as anticoagulation is currently contraindicated given recent hemorrhagic CVA. Continue Lipitor at HS for lipid control Colace 100 milligrams twice a day for ongoing bowel motivation Pepcid 20 BID for GI protection Did review this morning laboratory studies. Hemoglobin is stable at 13.1 To improve his strength and functionality he will need physical therapy, occupational therapy and speech therapy. Impression I have independently evaluated and examined this patient. I reviewed the chart, the patient's history, and the MANAGER ELIGIBILITY's documented findings as above. We discussed and formulated the assessment and plan as above with additions as below: Mr. Duran defers to his for most history. He reports some weakness in his left arm and his reports persistent right facial drooping after recent left cerebellar ischemic stroke, acute by hemorrhagic conversion. Patient notes that he has minimal residual nausea and denies diplopia although it's noted that he had preceding right visual loss. He does not clearly describe vertigo but reports dizziness earlier in the stroke course which has improved. Patient describes his gait as "wobbly". Examination reveals right nasolabial fold flattening and droop. Right pupil is nonreactive to light. Left pupil reacts to light. There is slight right exotropia at rest but extraocular muscles are intact and no nystagmus is noted. Sensation is intact across all 3 distributions of the trigeminal nerve bilaterally and tongue elevates symmetrically. Power is grossly normal proximally and distally in the upper and lower extremities and graded 4/5 throughout but left fine finger movements are slow and clumsy compared to the right. Sensation is intact to light touch in the upper and lower extremities bilaterally. Breath sounds are clear and cardiac rhythm regular. Recommendation to withhold anticoagulation through 11/09 noted. Blood pressure control inadequate, amlodipine initiated. Given diagnosis of diabetes we can also push ESME inhibitor or switch to ARB for improved blood pressure control. Renal function should tolerate ESME inhibitor. Carvedilol initiated per cardiology. Blood sugar control suboptimal as well, will monitor and modify over the next couple of days. CTA of chest obtained last admission reviewed, pulmonary infiltrates present at that time-probable pulmonary edema. Currently on room air. Chest x-ray to be obtained given history of cardiomyopathy/CHF. 11/03/16 Blood pressure is under better control with addition of amlodipine, low-dose lisinopril, and Coreg. Remains hyperglycemic with blood glucose frequently above 200. He is on glipizide 10 mg daily plus sliding scale insulin. On 10/25/16 his hemoglobin A1c was 8%. Will discuss addition of long-acting insulin with attending. Hemorrhagic conversion of left cerebellar infarct: Continue secondary prevention with blood pressure and glucose control, statin therapy. Recommendations are to avoid taking anticoagulants and anti-thrombotic through . 11/06/16 Continues to be hyperglycemic frequently greater than 200. Will increase mealtime insulin to 5 units and monitor carefully. Concern for adding long- acting insulin may lead to hypoglycemia at night. Continue to monitor blood pressure carefully. Current regimen. Lisinopril 5 milligrams, Norvasc 5 milligrams, Coreg 3.125 twice a day Continue with Colace twice a day for bowel motivation PT/OT for ongoing strengthening and function. Overall making good gains Hemorrhagic conversion of left cerebellar infarct: Recommendations are to avoid taking anticoagulants and anti-thrombotic through 11/09/16. 11/08/16 Continues to be hyperglycemic frequently greater than 200. Will increase mealtime insulin to 7 units and monitor carefully Concern for adding long- acting insulin may lead to hypoglycemia at night. Continue to monitor blood pressure carefully. Current regimen. Lisinopril 5 milligrams, Norvasc 5 milligrams, Coreg 3.125 twice a day. Current BP is 132/77. Continue with Colace twice a day for bowel motivation PT/OT for ongoing strengthening and function. Overall making good gains Hemorrhagic conversion of left cerebellar infarct: Recommendations are to avoid taking anticoagulants and anti-thrombotic through 11/09/16. Discussed anticoagulation with cardiology team. Will start Xarelto 15mg twice daily for 3 weeks, Then decrease to Xarelto 20mg daily. Will check CBC and BMP for blood count, electrolyte and renal function monitoring. MARLENE HIGGINS APRN Nov 08, 2016 15:25
--- NOTE | 2016-11-08 16:29 | NUR ---
PT Note: Attempted to treat at 1514 Pt declines stating "I'll try tomorrow i need to sleep". Pt reminded of IRU therapy requirements pt continues to refuse. Will continue to follow and treat according to POC. Please call [phone] with any questions.
[2016-11-08 16:39] VITALS: BP 128/67; PULSE 54; RESP 16; TEMP 98.2; O2SAT 97
--- NOTE | 2016-11-08 16:56 | NUR ---
Nausea After getting back to bed from the bathroom, pt. started dry heaving and spitting up some sputum. Pt. reports he feels nauseous and requests cool washcloth. This RN also offered anti-nausea meds, kasie and crackers which pt. refused saying he didn't need them. Will continue to monitor.
--- NOTE | 2016-11-08 18:19 | NUR ---
Summary VS's stable. Upon re-assessment, pt. reported nausea has settled. Pt. continues to be fatigued and refuses to get out of bed, or participate in cares. This RN was able to encourage pt. to get up to the bathroom before dinner. Pt. has had a poor appetite and has not eaten much since breakfast. Staff have encouraged pt. to eat several times and have offered different foods. BGM is currently 137. Dinner time insulin not given since pt. is currently not eating. Pt. is a minimal assist pivot transfer x1. He is unsteady at times. Output is adequate. Pt. takes meds whole w/o difficulty. Bed alarm is on. Will pass on report to welder 2nd shift.
--- NOTE | 2016-11-08 20:07 | PNPDOC ---
IRU Subjective Date DATE: 11/08/16 TIME: 20:05 Subjective Long conversation with patient today, met with him twice. He wanted desperately to leave and go home, was ultimately convinced to stay, but was unhappy that he was not going home. IRU Objective Vital Signs Vital signs Vital Signs Date Time Temp Pulse Resp B/P Pulse Ox O2 Delivery O2 Flow Rate FiO2 11/08/16 16:39 98.2 54 16 128/67 97 Room Air Height (Feet): 5 Height (Inches): 10.00 Weight (Kilograms): 68.000 General General Appearance: Alert, Orientated x 3 Respiratory (Brief) Respiratory: FOUND: clear all dinh, equal bilaterally Cardiovascular (Brief) Cardiac: FOUND: regular rate, regular rhythm Musculoskeletal (Brief) Comments Unable to walk without falling, even 10 feet. Requires staff constant attention while ambulating Laboratory Laboratory Laboratory Tests Test 11/06/16 20:49 11/07/16 04:48 11/07/16 05:48 11/07/16 10:42 Glucometer 162mg/dL 115mg/dL 248mg/dL Magnesium Level 2.0MG/DL Test 11/07/16 13:59 11/07/16 21:09 11/08/16 06:21 11/08/16 10:13 Glucometer 198mg/dL 150mg/dL 153mg/dL 240mg/dL Test 11/08/16 14:12 11/08/16 18:18 Glucometer 236mg/dL 137mg/dL Assessment & Plan Problems: (1) Cerebellar infarct Status: Chronic Assessment & Plan: Dizziness is still significant. Patient is unable to stand or walk without someone to study him. He is on steady enough, that he is unsafe without staff nearby, will require 24-hour supervision. If he goes home at this time, he will fall and certainly be reinjured. His understands this as does his son. He did agree to stay and and not leave to go home today. Approximately 20 minute meeting [id number] with the patient this morning, and another 20 minutes after lunch. (2) Generalized weakness Status: Acute Assessment & Plan: Continue with physical therapy and occupational therapy. Reevaluate Friday in team meeting. Code Status Full Code Interventions to Obtain Goals PT Treatment Plan: Therapeutic Exercise, Gait Training, Functional Activities , Patient/Family Education OT Treatment Plan: ADL's (basic care), Ther. Exercise for ADL's, UE Functional Training, Balance Training, Pt./Family Education, IADL's ST Treatment Plan: Evaluation Only Hospital Course Summary Disclaimer The hospital course summary below is not to be considered part of the above Progress Note. Hospital Course Summary Agree with admission to IRU for ongoing rehabilitation for improved strength and functioning following hemorrhagic CVA. All neurology documents reviewed from [facility]. Recommendation is holding off on any anticoagulation until November 09. This includes ASA. Careful control of blood pressure is important given recent ischemic and hemorrhagic CVA. Blood pressure this morning was elevated at 179 systolic. Patient was not sent from [facility] on any antihypertensives. Start Amlodipine 5mg daily for hypertension. We will consult Dr. Hooks for management of blood pressure and other cardiovascular management of atrial thrombus and other existing co-morbidities. Continue Glipizide and Novolin Regular sliding scale. Continue to monitor blood glucose before meals and at bedtime. We will order SCDs for DVT prophylaxis as anticoagulation is currently contraindicated given recent hemorrhagic CVA. Continue Lipitor at for lipid control Colace 100 milligrams twice a day for ongoing bowel motivation Pepcid 20 BID for GI protection Did review this morning laboratory studies. Hemoglobin is stable at 13.1 To improve his strength and functionality he will need physical therapy, occupational therapy and speech therapy. Impression I have independently evaluated and examined this patient. I reviewed the chart, the patient's history, and the SUPERVISOR DIE CASTING's documented findings as above. We discussed and formulated the assessment and plan as above with additions as below: Mr. Duran defers to his for most history. He reports some weakness in his left arm and his reports persistent right facial drooping after recent left cerebellar ischemic stroke, acute by hemorrhagic conversion. Patient notes that he has minimal residual nausea and denies diplopia although it's noted that he had preceding right visual loss. He does not clearly describe vertigo but reports dizziness earlier in the stroke course which has improved. Patient describes his gait as "wobbly". Examination reveals right nasolabial fold flattening and droop. Right pupil is nonreactive to light. Left pupil reacts to light. There is slight right exotropia at rest but extraocular muscles are intact and no nystagmus is noted. Sensation is intact across all 3 distributions of the trigeminal nerve bilaterally and tongue elevates symmetrically. Power is grossly normal proximally and distally in the upper and lower extremities and graded 4/5 throughout but left fine finger movements are slow and clumsy compared to the right. Sensation is intact to light touch in the upper and lower extremities bilaterally. Breath sounds are clear and cardiac rhythm regular. Recommendation to withhold anticoagulation through 11/09 noted. Blood pressure control inadequate, amlodipine initiated. Given diagnosis of diabetes we can also push ESME inhibitor or switch to ARB for improved blood pressure control. Renal function should tolerate ESME inhibitor. Carvedilol initiated per cardiology. Blood sugar control suboptimal as well, will monitor and modify over the next couple of days. CTA of chest obtained last admission reviewed, pulmonary infiltrates present at that time-probable pulmonary edema. Currently on room air. Chest x-ray to be obtained given history of cardiomyopathy/CHF. 11/03/16 Blood pressure is under better control with addition of amlodipine, low-dose lisinopril, and Coreg. Remains hyperglycemic with blood glucose frequently above 200. He is on glipizide 10 mg daily plus sliding scale insulin. On 10/25/16 his hemoglobin A1c was 8%. Will discuss addition of long-acting insulin with attending. Hemorrhagic conversion of left cerebellar infarct: Continue secondary prevention with blood pressure and glucose control, statin therapy. Recommendations are to avoid taking anticoagulants and anti-thrombotic through . 11/06/16 Continues to be hyperglycemic frequently greater than 200. Will increase mealtime insulin to 5 units and monitor carefully. Concern for adding long- acting insulin may lead to hypoglycemia at night. Continue to monitor blood pressure carefully. Current regimen. Lisinopril 5 milligrams, Norvasc 5 milligrams, Coreg 3.125 twice a day Continue with Colace twice a day for bowel motivation PT/OT for ongoing strengthening and function. Overall making good gains Hemorrhagic conversion of left cerebellar infarct: Recommendations are to avoid taking anticoagulants and anti-thrombotic through 11/09/16. 11/08/16 Continues to be hyperglycemic frequently greater than 200. Will increase mealtime insulin to 7 units and monitor carefully Concern for adding long- acting insulin may lead to hypoglycemia at night. Continue to monitor blood pressure carefully. Current regimen. Lisinopril 5 milligrams, Norvasc 5 milligrams, Coreg 3.125 twice a day. Current BP is 132/77. Continue with Colace twice a day for bowel motivation PT/OT for ongoing strengthening and function. Overall making good gains Hemorrhagic conversion of left cerebellar infarct: Recommendations are to avoid taking anticoagulants and anti-thrombotic through 11/09/16. Discussed anticoagulation with cardiology team. Will start Xarelto 15mg twice daily for 3 weeks, Then decrease to Xarelto 20mg daily. Will check CBC and BMP for blood count, electrolyte and renal function monitoring. OLIVA STUBBS MD Nov 08, 2016 20:07
[2016-11-08] MEDS: ATORVASTATIN 40 MG TABLET PO SCH (21:00)
[2016-11-08 22:35] VITALS: BP 122/68; PULSE 56; RESP 14; TEMP 98.5; O2SAT 95
[2016-11-08 22:50] VITALS: PULSE 56; RESP 14
--- NOTE | 2016-11-08 23:16 | NUR ---
Chart Check 24 hour chart check completed
--- NOTE | 2016-11-09 05:47 | NUR ---
Summary Patient is alert and oriented but withdrawn. He has allowed us to do assessments, but continues to refuse to eat anything. Blood sugar was 108 last night. When checked for incontinence he has been clean. He only answers shortly. He is able to position himself in bed. He did have an episode of nausea and spit up a little flem in a cup. He refused bag and medication and only wanted the cold wash cloth. He is currently in bed with side rails up times two, bed alarm on and call light within reach. Addendum: 11/09/16 at 0651 by LANA CARR RN Blood sugar was 68 this morning at 0611. He refused juice but agreed to eat his gram crackers and some cheese. He stated that if he eats the gram cracker and cheese he is not eating breakfast. Upon recheck at 0645 it was 83.
[2016-11-09 07:46] VITALS: BP 134/75; PULSE 53; RESP 16; TEMP 98.3; O2SAT 96
[2016-11-09 08:00] VITALS: PULSE 53; RESP 16
[2016-11-09] MEDS: INSULIN ASPART 100 UNIT/ML SQ SCH ×3 (08:00→18:01)
[2016-11-09] MEDS: DOCUSATE SODIUM 100 MG CAPSULE PO SCH ×2 (09:00→21:00)
[2016-11-09] MEDS: RIVAROXABAN 15 MG TABLET PO SCH (10:00)
[2016-11-09] MEDS: MAGNESIUM OXIDE 400 MG TABLET PO SCH ×2 (10:01→21:53)
[2016-11-09] MEDS: FAMOTIDINE 20 MG TABLET PO SCH ×2 (10:01→21:52)
[2016-11-09] MEDS: AMLODIPINE 5 MG TABLET PO SCH (10:01)
[2016-11-09] MEDS: LISINOPRIL 5 MG TABLET PO SCH (10:02)
[2016-11-09] MEDS: CARVEDILOL 3.125 MG TABLET PO SCH ×2 (10:02→18:07)
--- NOTE | 2016-11-09 11:14 | NUR ---
Insulin BGM at 0700 83. 0800 insulin not given at this time. Patient refused bfst at 0800 Ate 1 pkg of helga crackers and banana at 1030. BGM 128.
[2016-11-09] MEDS: INSULIN REGULAR 100 UNIT/ML SQ PRN ×2 (14:20→21:51)
--- NOTE | 2016-11-09 14:55 | PNPDOC ---
Progress Note Date 11/09/16 Notified by nursing staff that we had recommendations to obtain CT of the head prior to resuming Xarelto. CT ordered. vRAD did let me know that he has a left hemorrhagic conversion of approx 3.0cm with surrounding edema. No midline shift. No blood in ventricles. I did review past CT- last reported image was 1.8x 2cm. Will continue to hold Xarelto for now. He does have a ventricular thrombus that will need to be anticoagulated when safe to do so. D/W Dr. Darling re: plan of care. PHILLY WILL RECONNAISSANCE MAN Nov 09, 2016 14:55
[2016-11-09 16:00] VITALS: BP 125/65; PULSE 56; RESP 16; TEMP 97.7; O2SAT 98
[2016-11-09 18:07] VITALS: PULSE 60
--- NOTE | 2016-11-09 18:13 | NUR ---
Shift summary Patient transferring to w/c, bed with gait belt, min assist. Used urinal this shift with no assist, staff empties. Propels wheelchair without assist to and from meals. Chair alarm utilized. Bed alarm utilized. Patient went to all meals today in the dining room with encouragement. CT of head without contrast obtained today. Xarelto on hold until CT disk from [place] is obtained to compare with today's CT per hospitalist. Patient family visited today, but patient will not speak to them. Family states he is mad at them for not taking him home yesterday. Assured family that more therapy will help him improve and be safer when he goes home. Patient has spoken little to staff today, but has been compliant with cares. Lexapro 5mg at bedtime ordered per Justine Gar APRN. Denies pain.
--- NOTE | 2016-11-09 21:14 | PNPDOC ---
Subjective Date DATE: 11/09/16 TIME: 21:00 Subjective Mr. Duran was seen this evening after earlier report of increased size in left cerebellum hemorrhage. He denies nausea or vomiting today but reports that he vomited yesterday-nursing indicates he spit up some white mucus/phlegm a couple of times yesterday. He denied vertigo or dizziness and denies tinnitus. He has no right-sided vision prior to the current stroke. Nursing has not noted any change in power since admission or other functional deterioration. 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/5; stands up independently and transfers from chair to bed without assistance Psych-withdrawn Height (Feet): 5 Height (Inches): 10.00 Weight (Kilograms): 68.[address] head reviewed by myself-hemorrhage present left cerebellum Assessment & Plan Problems: (1) Hemorrhagic cerebrovascular accident (CVA) Status: Acute Assessment & Plan: 10/28/16-hemorrhagic conversion of left cerebellar infarct (2) Cerebellar infarct Status: Chronic Assessment & Plan: 10/25/16-left cerebellar (3) Atrial thrombus Status: Acute Assessment & Plan: Incidental finding on 10/25/16 (4) Generalized weakness Status: Acute (5) Cardiomyopathy Status: Chronic Assessment & Plan: Likely ischemic (6) Essential (primary) hypertension Status: Chronic (7) CAD (coronary artery disease) Status: Chronic (8) DM (diabetes mellitus) Status: Chronic Qualifiers: Diabetes mellitus type: type 2 Assessment & Plan: A1c 8.0 on 10/25/16 (9) Hyperlipemia Status: Chronic (10) CKD (chronic kidney disease) Status: Chronic Qualifiers: Chronic kidney disease stage: stage 3 (moderate) Qualified Codes: N18.3 - Chronic kidney disease, stage 3 (moderate) Assessment & Plan: Stage 2-3 (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 Suspect that the hemorrhage is radiographically stable but we will need to discuss further with radiology at [facility] for more detailed information before resuming anticoagulation. Low blood sugar this morning noted, continue to follow. Plan/Intensity of Service CT head reviewed by myself. Discussed with nursing. Laboratory data reviewed. Code Status Full Code Hospital Course Summary Disclaimer The hospital course summary below is not to be considered part of the above Progress Note. Hospital Course Summary Agree with admission to IRU for ongoing rehabilitation for improved strength and functioning following hemorrhagic CVA. All neurology documents reviewed from [facility]. Recommendation is holding off on any anticoagulation until November 09. This includes ASA. Careful control of blood pressure is important given recent ischemic and hemorrhagic CVA. Blood pressure this morning was elevated at 179 systolic. Patient was not sent from [facility] on any antihypertensives. Start Amlodipine 5mg daily for hypertension. We will consult Dr. Hooks for management of blood pressure and other cardiovascular management of atrial thrombus and other existing co-morbidities. Continue Glipizide and Novolin Regular sliding scale. Continue to monitor blood glucose before meals and at bedtime. We will order SCDs for DVT prophylaxis as anticoagulation is currently contraindicated given recent hemorrhagic CVA. Continue Lipitor at for lipid control Colace 100 milligrams twice a day for ongoing bowel motivation Pepcid 20 BID for GI protection Did review this morning laboratory studies. Hemoglobin is stable at 13.1 To improve his strength and functionality he will need physical therapy, occupational therapy and speech therapy. Impression I have independently evaluated and examined this patient. I reviewed the chart, the patient's history, and the HOUSE SUPERVISOR's documented findings as above. We discussed and formulated the assessment and plan as above with additions as below: Mr. Duran defers to his for most history. He reports some weakness in his left arm and his reports persistent right facial drooping after recent left cerebellar ischemic stroke, acute by hemorrhagic conversion. Patient notes that he has minimal residual nausea and denies diplopia although it's noted that he had preceding right visual loss. He does not clearly describe vertigo but reports dizziness earlier in the stroke course which has improved. Patient describes his gait as "wobbly". Examination reveals right nasolabial fold flattening and droop. Right pupil is nonreactive to light. Left pupil reacts to light. There is slight right exotropia at rest but extraocular muscles are intact and no nystagmus is noted. Sensation is intact across all 3 distributions of the trigeminal nerve bilaterally and tongue elevates symmetrically. Power is grossly normal proximally and distally in the upper and lower extremities and graded 4/5 throughout but left fine finger movements are slow and clumsy compared to the right. Sensation is intact to light touch in the upper and lower extremities bilaterally. Breath sounds are clear and cardiac rhythm regular. Recommendation to withhold anticoagulation through 11/09 noted. Blood pressure control inadequate, amlodipine initiated. Given diagnosis of diabetes we can also push ESME inhibitor or switch to ARB for improved blood pressure control. Renal function should tolerate ESME inhibitor. Carvedilol initiated per cardiology. Blood sugar control suboptimal as well, will monitor and modify over the next couple of days. CTA of chest obtained last admission reviewed, pulmonary infiltrates present at that time-probable pulmonary edema. Currently on room air. Chest x-ray to be obtained given history of cardiomyopathy/CHF. 11/03/16 Blood pressure is under better control with addition of amlodipine, low-dose lisinopril, and Coreg. Remains hyperglycemic with blood glucose frequently above 200. He is on glipizide 10 mg daily plus sliding scale insulin. On 10/25/16 his hemoglobin A1c was 8%. Will discuss addition of long-acting insulin with attending. Hemorrhagic conversion of left cerebellar infarct: Continue secondary prevention with blood pressure and glucose control, statin therapy. Recommendations are to avoid taking anticoagulants and anti-thrombotic through . 11/06/16 Continues to be hyperglycemic frequently greater than 200. Will increase mealtime insulin to 5 units and monitor carefully. Concern for adding long- acting insulin may lead to hypoglycemia at night. Continue to monitor blood pressure carefully. Current regimen. Lisinopril 5 milligrams, Norvasc 5 milligrams, Coreg 3.125 twice a day Continue with Colace twice a day for bowel motivation PT/OT for ongoing strengthening and function. Overall making good gains Hemorrhagic conversion of left cerebellar infarct: Recommendations are to avoid taking anticoagulants and anti-thrombotic through 11/09/16. 11/08/16 Continues to be hyperglycemic frequently greater than 200. Will increase mealtime insulin to 7 units and monitor carefully Concern for adding long- acting insulin may lead to hypoglycemia at night. Continue to monitor blood pressure carefully. Current regimen. Lisinopril 5 milligrams, Norvasc 5 milligrams, Coreg 3.125 twice a day. Current BP is 132/77. Continue with Colace twice a day for bowel motivation PT/OT for ongoing strengthening and function. Overall making good gains Hemorrhagic conversion of left cerebellar infarct: Recommendations are to avoid taking anticoagulants and anti-thrombotic through 11/09/16. Discussed anticoagulation with cardiology team. Will start Xarelto 15mg twice daily for 3 weeks, Then decrease to Xarelto 20mg daily. Will check CBC and BMP for blood count, electrolyte and renal function monitoring. ZECHARIAH HUNTER MD Nov 09, 2016 21:03
--- NOTE | 2016-11-09 21:20 | DI ---
Indication: ITS.REASON: recheck hemorraghic conversion of left cerebellar stroke. PROCEDURE: CT HEAD W/O CONTRAST: Encounter: Initial Comparison: Head CT and brain MRI dated October 25, 2016 Technique: Axial CT images through the head were performed without contrast. Iterative Reconstruction dose reducing technique was utilized. FINDINGS: Hemorrhagic conversion of the left cerebellar hemisphere stroke is noted with an area of possibly subacute hemorrhage measuring 2.1 cm in diameter on axial image #17. There is surrounding vasogenic and cytotoxic edema with mild effacement of the left aspect of the quadrigeminal plate cistern and fourth ventricle. No overt hydrocephalus. Scattered low-attenuation white matter changes are again noted with mild generalized atrophy. No other area of acute hemorrhage seen. No definite [place] stroke. No calvarial fracture. Impression: 2 cm area of hemorrhagic conversion of the left cerebellar infarct. There is a preliminary report by [facility]. .
[2016-11-09] MEDS: ATORVASTATIN 40 MG TABLET PO SCH (21:53)
[2016-11-09] MEDS: ESCITALOPRAM 10 MG TABLET PO SCH (21:54)
[2016-11-09 23:38] VITALS: PULSE 60; RESP 16
[2016-11-10 00:58] VITALS: BP 125/66; PULSE 53; RESP 14; TEMP 97.2; O2SAT 97
--- NOTE | 2016-11-10 02:25 | NUR ---
Chart Check 24 hour chart check completed
--- NOTE | 2016-11-10 06:03 | NUR ---
Summary Patient is alert and oriented tonight and has been cooperative. He has been incontinent of urine times two. The first time he was in his chair and unaware he had gone. I told him we needed to go to the restroom and he replied that he was just passing gas. I told him we were going to go anyway and make sure and he complied. He had very runny and smelly stool. He cleaned up his front and I cleaned up his back side due to unsteadiness. Wash clothes were used after wipes. Patient then dressed himself while sitting on his chair. The second time of incontinence it happened in bed and was copius and very liquid. It took two staff, two packages of wipes and a set of bag bath wash clothes to clean him. Bedding had to be changed. CDiff test was ordered so precautions initiated and maintained. Awaiting results. Pt has worn SCDs through the night. He required two units of insulin last night for hyperglycemia. He is in bed now with bed alarm on, side rails up times two and call light within reach. Blood sugar this morning is 88.
[2016-11-10 07:27] LABS: C. DIFFICILE TOXIN B NEGATIVE (NEGATIVE)
[2016-11-10 07:39] VITALS: BP 153/77; PULSE 57; RESP 20; TEMP 97.6; O2SAT 95
[2016-11-10 08:00] VITALS: PULSE 57
[2016-11-10] MEDS: MAGNESIUM OXIDE 400 MG TABLET PO SCH ×2 (08:16→20:51)
[2016-11-10] MEDS: INSULIN ASPART 100 UNIT/ML SQ SCH ×3 (08:16→17:49)
[2016-11-10] MEDS: FAMOTIDINE 20 MG TABLET PO SCH ×2 (08:16→20:51)
[2016-11-10] MEDS: AMLODIPINE 5 MG TABLET PO SCH (08:16)
[2016-11-10] MEDS: CARVEDILOL 3.125 MG TABLET PO SCH ×2 (08:16→17:49)
[2016-11-10] MEDS: LISINOPRIL 5 MG TABLET PO SCH (08:16)
[2016-11-10] MEDS: DOCUSATE SODIUM 100 MG CAPSULE PO SCH ×2 (08:17→21:00)
--- NOTE | 2016-11-10 12:33 | NUR ---
NOTE PATIENT INSTRUCTED ON SELF ADMINISTRATION OF INSULIN. PATIENT RETURNED DEMONSTRATION. NEEDED REINFORCEMENT ON ADMINISTERING INSULIN AT SITE HE CLEANED. USED PROPER TECHNIQUE WITH INSTRUCTION. SELF ADMINISTERED INSULIN THAT I LALA UP. WILL CONT TO TEACH ABOUT INSULIN ADMINISTRATION.
[2016-11-10] MEDS: INSULIN REGULAR 100 UNIT/ML SQ PRN (15:03)
[2016-11-10 16:00] VITALS: BP 143/73; PULSE 59; RESP 16; TEMP 97.8; O2SAT 98
--- NOTE | 2016-11-10 19:00 | NUR ---
SHIFT SUMMARY PATIENT ALERT AND ORIENTED X 3, DENIES PAIN. LARGE INCONTINENT ACCIDENT BOWEL MOVEMENT TODAY. INSULIN ADMINISTRATION TAUGHT TO PATIENT. PATIENT ATE MEALS IN DINNING ROOM. PATIENT TRANSFERRED TO WITH ONE ASSIST AND GAIT BELT. WHEELS SELF TO MEALS WITH SUPERVISION. WILL CONT TO MONITOR.
[2016-11-10] MEDS: ATORVASTATIN 40 MG TABLET PO SCH (20:50)
[2016-11-10] MEDS: ESCITALOPRAM 10 MG TABLET PO SCH (20:51)
--- NOTE | 2016-11-10 21:14 | PNPDOC ---
IRU Subjective Date DATE: 11/10/16 TIME: 21:12 Subjective Pt still frustrated, but he is cooperating with staff and was out to meals. IRU Objective Vital Signs Vital signs Vital Signs Date Time Temp Pulse Resp B/P Pulse Ox O2 Delivery O2 Flow Rate FiO2 11/10/16 16:00 97.8 59 16 143/73 98 Room Air Height (Feet): 5 Height (Inches): 10.00 Weight (Kilograms): 68.000 General General Appearance: Alert Respiratory (Brief) Respiratory: FOUND: clear all dinh, equal bilaterally Cardiovascular (Brief) Cardiac: FOUND: regular rate, regular rhythm Capillary Refill: <2 sec Abdomen (Brief) Abdominal: FOUND: BS normo active x4, soft, NOT FOUND: tender Laboratory Laboratory Laboratory Tests Test 11/09/16 06:11 11/09/16 06:49 11/09/16 10:22 11/09/16 14:08 Glucometer 68mg/dL 83mg/dL 128mg/dL 262mg/dL Test 11/09/16 20:54 11/10/16 04:28 11/10/16 06:17 11/10/16 10:03 Glucometer 218mg/dL 88mg/dL 114mg/dL Stool C. difficile Toxin B Gene PCR Negative Test 11/10/16 14:14 Glucometer 151mg/dL Assessment & Plan Problems: (1) Cerebellar infarct Status: Chronic Assessment & Plan: Unsafe to return home. We met end of week and discussed this with him. He understands. (2) Generalized weakness Status: Acute Assessment & Plan: PT and OT to work with him this next week to increase strength and stability and hopefully get him strong enough to return home Assessment No clinical deterioration, current CT head with hemorrhagic conversion in the left cerebellum measuring 1.1 x 2 x 2.5 cm compared to past CT at [facility] measuring 1.8 x 2 cm prior to transfer (CT reports from [facility] only describe hemorrhage in 2 dimensions). Suspect that the hemorrhage is radiographically stable but we will need to discuss further with radiology at [facility] for more detailed information before resuming anticoagulation. Low blood sugar this morning noted, continue to follow. Code Status Full Code Interventions to Obtain Goals PT Treatment Plan: Therapeutic Exercise, Gait Training, Functional Activities , Patient/Family Education OT Treatment Plan: ADL's (basic care), Ther. Exercise for ADL's, UE Functional Training, Balance Training, Pt./Family Education, IADL's ST Treatment Plan: Evaluation Only Hospital Course Summary Disclaimer The hospital course summary below is not to be considered part of the above Progress Note. Hospital Course Summary Agree with admission to IRU for ongoing rehabilitation for improved strength and functioning following hemorrhagic CVA. All [facility]y documents reviewed [facility]. Recommendation is holding off on any anticoagulation until November 09. This includes ASA. Careful control of blood pressure is important given recent ischemic and hemorrhagic CVA. Blood pressure this morning was elevated at 179 systolic. Patient was not sent from [facility] on any antihypertensives. Start Amlodipine 5mg daily for hypertension. We will consult Dr. Hooks for management of blood pressure and other cardiovascular management of atrial thrombus and other existing co-morbidities. Continue Glipizide and Novolin Regular sliding scale. Continue to monitor blood glucose before meals and at bedtime. We will order SCDs for DVT prophylaxis as anticoagulation is currently contraindicated given recent hemorrhagic CVA. Continue Lipitor at for lipid control Colace 100 milligrams twice a day for ongoing bowel motivation Pepcid 20 BID for GI protection Did review this morning laboratory studies. Hemoglobin is stable at 13.1 To improve his strength and functionality he will need physical therapy, occupational therapy and speech therapy. Impression I have independently evaluated and examined this patient. I reviewed the chart, the patient's history, and the WASH BARREL LEADER's documented findings as above. We discussed and formulated the assessment and plan as above with additions as below: Mr. Duran defers to his for most history. He reports some weakness in his left arm and his reports persistent right facial drooping after recent left cerebellar ischemic stroke, acute by hemorrhagic conversion. Patient notes that he has minimal residual nausea and denies diplopia although it's noted that he had preceding right visual loss. He does not clearly describe vertigo but reports dizziness earlier in the stroke course which has improved. Patient describes his gait as "wobbly". Examination reveals right nasolabial fold flattening and droop. Right pupil is nonreactive to light. Left pupil reacts to light. There is slight right exotropia at rest but extraocular muscles are intact and no nystagmus is noted. Sensation is intact across all 3 distributions of the trigeminal nerve bilaterally and tongue elevates symmetrically. Power is grossly normal proximally and distally in the upper and lower extremities and graded 4/5 throughout but left fine finger movements are slow and clumsy compared to the right. Sensation is intact to light touch in the upper and lower extremities bilaterally. Breath sounds are clear and cardiac rhythm regular. Recommendation to withhold anticoagulation through 11/09 noted. Blood pressure control inadequate, amlodipine initiated. Given diagnosis of diabetes we can also push ESME inhibitor or switch to ARB for improved blood pressure control. Renal function should tolerate ESME inhibitor. Carvedilol initiated per cardiology. Blood sugar control suboptimal as well, will monitor and modify over the next couple of days. CTA of chest obtained last admission reviewed, pulmonary infiltrates present at that time-probable pulmonary edema. Currently on room air. Chest x-ray to be obtained given history of cardiomyopathy/CHF. 11/03/16 Blood pressure is under better control with addition of amlodipine, low-dose lisinopril, and Coreg. Remains hyperglycemic with blood glucose frequently above 200. He is on glipizide 10 mg daily plus sliding scale insulin. On 10/25/16 his hemoglobin A1c was 8%. Will discuss addition of long-acting insulin with attending. Hemorrhagic conversion of left cerebellar infarct: Continue secondary prevention with blood pressure and glucose control, statin therapy. Recommendations are to avoid taking anticoagulants and anti-thrombotic through . 11/06/16 Continues to be hyperglycemic frequently greater than 200. Will increase mealtime insulin to 5 units and monitor carefully. Concern for adding long- acting insulin may lead to hypoglycemia at night. Continue to monitor blood pressure carefully. Current regimen. Lisinopril 5 milligrams, Norvasc 5 milligrams, Coreg 3.125 twice a day Continue with Colace twice a day for bowel motivation PT/OT for ongoing strengthening and function. Overall making good gains Hemorrhagic conversion of left cerebellar infarct: Recommendations are to avoid taking anticoagulants and anti-thrombotic through 11/09/16. 11/08/16 Continues to be hyperglycemic frequently greater than 200. Will increase mealtime insulin to 7 units and monitor carefully Concern for adding long- acting insulin may lead to hypoglycemia at night. Continue to monitor blood pressure carefully. Current regimen. Lisinopril 5 milligrams, Norvasc 5 milligrams, Coreg 3.125 twice a day. Current BP is 132/77. Continue with Colace twice a day for bowel motivation PT/OT for ongoing strengthening and function. Overall making good gains Hemorrhagic conversion of left cerebellar infarct: Recommendations are to avoid taking anticoagulants and anti-thrombotic through 11/09/16. Discussed anticoagulation with cardiology team. Will start Xarelto 15mg twice daily for 3 weeks, Then decrease to Xarelto 20mg daily. Will check CBC and BMP for blood count, electrolyte and renal function monitoring. OLIVA STUBBS MD Nov 10, 2016 21:14
[2016-11-10 22:35] VITALS: PULSE 59; RESP 16
[2016-11-11 00:29] VITALS: BP 151/77; PULSE 95; RESP 20; TEMP 97.8; O2SAT 95
--- NOTE | 2016-11-11 04:13 | NUR ---
Chart Check 24 hour chart check completed
--- NOTE | 2016-11-11 06:13 | NUR ---
Summary Patient asked to go to bed early tonight and asked for a warm blanket. When blood sugar was checked it was 58. He refused juice but agreed to eat some gram crackers. Upon recheck his blood sugar was only up to 59. He ate some more gram crackers and some cheese and increased his blood sugar to 98. He is currently in bed with SCDs on, bed alarm on, side rails up times two and call light within reach. Blood sugar this morning is 89.
[2016-11-11 08:00] VITALS: BP 142/74; PULSE 61; RESP 16; TEMP 98.7; O2SAT 94
[2016-11-11] MEDS: DOCUSATE SODIUM 100 MG CAPSULE PO SCH ×2 (09:00→21:00)
[2016-11-11] MEDS: MAGNESIUM OXIDE 400 MG TABLET PO SCH ×2 (09:17→22:23)
[2016-11-11] MEDS: FAMOTIDINE 20 MG TABLET PO SCH ×2 (09:17→22:23)
[2016-11-11] MEDS: LISINOPRIL 5 MG TABLET PO SCH (09:18)
[2016-11-11] MEDS: CARVEDILOL 3.125 MG TABLET PO SCH ×2 (09:18→18:12)
[2016-11-11] MEDS: AMLODIPINE 5 MG TABLET PO SCH (09:18)
[2016-11-11] MEDS: INSULIN ASPART 100 UNIT/ML SQ SCH ×3 (09:35→18:13)
--- NOTE | 2016-11-11 09:53 | PNPDOC ---
Subjective Date DATE: 11/11/16 TIME: 09:49 Subjective David is seen this morning during breakfast. He is alert and orientated. Verbalizes that he is ready to be discharged. Denies pain, shortness of breath or GI complaints. Appetite today is better than yesterday. Blood pressure this morning 142/74. Objective Vital Signs Vital signs Vital Signs Date Time Temp Pulse Resp B/P Pulse Ox O2 Delivery O2 Flow Rate FiO2 11/11/16 08:00 98.7 61 16 142/74 94 Room Air Height (Feet): 5 Height (Inches): 10.00 Weight (Kilograms): 68.000 General General Appearance: Alert, Orientated x 3, Cooperative, No Acute Distress Eyes (Brief) Eyes: FOUND: EOMI ENMT (Brief) ENMT: FOUND: mucosa moist, normal dentition, NOT FOUND: pharnyx erythema Neck (Brief) Neck: FOUND: midline, NOT FOUND: adenopathy, carotid bruits, tracheal deviation Respiratory (Brief) Respiratory: FOUND: clear all dinh, equal bilaterally, NOT FOUND: wheezes Cardiovascular (Brief) Cardiac: FOUND: regular rate, regular rhythm, NOT FOUND: murmur, pedal edema Capillary Refill: <2 sec Abdomen (Brief) Abdominal: FOUND: BS normo active x4, soft, NOT FOUND: distended, tender Lymphatic (Brief) Lymphatic: NOT FOUND: adenopathy Musculoskeletal (Brief) Musculoskeletal: NOT FOUND: tenderness Integumentary (Brief) Integumentary: FOUND: dry, pink, warm Neurologic (Brief) Neurological: FOUND: cranial 2-12 intact Psychiatric (Brief) Psychiatric: FOUND: alert, attentive, normal affect, oriented Assessment & Plan Problems: (1) Hemorrhagic cerebrovascular accident (CVA) Status: Acute Assessment & Plan: 10/28/16-hemorrhagic conversion of left cerebellar infarct (2) Cerebellar infarct Status: Chronic Assessment & Plan: 10/25/16-left cerebellar (3) Atrial thrombus Status: Acute Assessment & Plan: Incidental finding on 10/25/16 (4) Generalized weakness Status: Acute (5) Cardiomyopathy Status: Chronic Assessment & Plan: Likely ischemic (6) Essential (primary) hypertension Status: Chronic (7) CAD (coronary artery disease) Status: Chronic (8) DM (diabetes mellitus) Status: Chronic Qualifiers: Diabetes mellitus type: type 2 Assessment & Plan: A1c 8.0 on 10/25/16 (9) Hyperlipemia Status: Chronic (10) CKD (chronic kidney disease) Status: Chronic Qualifiers: Chronic kidney disease stage: stage 3 (moderate) Qualified Codes: N18.3 - Chronic kidney disease, stage 3 (moderate) Assessment & Plan: Stage 2-3 (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 Blood pressure has remained stable on Norvasc, Coreg, lisinopril. Continue to monitor blood sugars as they have been well controlled on glipizide and sliding scale Novolin Hopeful to recheck to [place] radiology department today for comparison of repeat CT scan from 11/09. Assuming this is unchanged, Initiate Xarelto 15 milligrams twice a day for treatment of cardiac thrombus Discuss further with Dr. Darling [id number]- Dr Darling spoke with radiologist. CT appears to be unchanged. Will resume Xarelto. Will discuss with today. Code Status Full Code Hospital Course Summary Disclaimer The hospital course summary below is not to be considered part of the above Progress Note. Hospital Course Summary Agree with admission to IRU for ongoing rehabilitation for improved strength and functioning following hemorrhagic CVA. All neurology documents reviewed from [facility]. Recommendation is holding off on any anticoagulation until November 09. This includes ASA. Careful control of blood pressure is important given recent ischemic and hemorrhagic CVA. Blood pressure this morning was elevated at 179 systolic. Patient was not sent from [place] on any antihypertensives. Start Amlodipine 5mg daily for hypertension. We will consult Dr. Hooks for management of blood pressure and other cardiovascular management of atrial thrombus and other existing co-morbidities. Continue Glipizide and Novolin Regular sliding scale. Continue to monitor blood glucose before meals and at bedtime. We will order SCDs for DVT prophylaxis as anticoagulation is currently contraindicated given recent hemorrhagic CVA. Continue Lipitor at HS for lipid control Colace 100 milligrams twice a day for ongoing bowel motivation Pepcid 20 BID for GI protection Did review this morning laboratory studies. Hemoglobin is stable at 13.1 To improve his strength and functionality he will need physical therapy, occupational therapy and speech therapy. Impression I have independently evaluated and examined this patient. I reviewed the chart, the patient's history, and the INDUSTRIAL PIPEFITTER JOURNEYMAN's documented findings as above. We discussed and formulated the assessment and plan as above with additions as below: Mr. Duran defers to his for most history. He reports some weakness in his left arm and his reports persistent right facial drooping after recent left cerebellar ischemic stroke, acute by hemorrhagic conversion. Patient notes that he has minimal residual nausea and denies diplopia although it's noted that he had preceding right visual loss. He does not clearly describe vertigo but reports dizziness earlier in the stroke course which has improved. Patient describes his gait as "wobbly". Examination reveals right nasolabial fold flattening and droop. Right pupil is nonreactive to light. Left pupil reacts to light. There is slight right exotropia at rest but extraocular muscles are intact and no nystagmus is noted. Sensation is intact across all 3 distributions of the trigeminal nerve bilaterally and tongue elevates symmetrically. Power is grossly normal proximally and distally in the upper and lower extremities and graded 4/5 throughout but left fine finger movements are slow and clumsy compared to the right. Sensation is intact to light touch in the upper and lower extremities bilaterally. Breath sounds are clear and cardiac rhythm regular. Recommendation to withhold anticoagulation through 11/09 noted. Blood pressure control inadequate, amlodipine initiated. Given diagnosis of diabetes we can also push ESME inhibitor or switch to ARB for improved blood pressure control. Renal function should tolerate ESME inhibitor. Carvedilol initiated per cardiology. Blood sugar control suboptimal as well, will monitor and modify over the next couple of days. CTA of chest obtained last admission reviewed, pulmonary infiltrates present at that time-probable pulmonary edema. Currently on room air. Chest x-ray to be obtained given history of cardiomyopathy/CHF. 11/03/16 Blood pressure is under better control with addition of amlodipine, low-dose lisinopril, and Coreg. Remains hyperglycemic with blood glucose frequently above 200. He is on glipizide 10 mg daily plus sliding scale insulin. On 10/25/16 his hemoglobin A1c was 8%. Will discuss addition of long-acting insulin with attending. Hemorrhagic conversion of left cerebellar infarct: Continue secondary prevention with blood pressure and glucose control, statin therapy. Recommendations are to avoid taking anticoagulants and anti-thrombotic through . 11/06/16 Continues to be hyperglycemic frequently greater than 200. Will increase mealtime insulin to 5 units and monitor carefully. Concern for adding long- acting insulin may lead to hypoglycemia at night. Continue to monitor blood pressure carefully. Current regimen. Lisinopril 5 milligrams, Norvasc 5 milligrams, Coreg 3.125 twice a day Continue with Colace twice a day for bowel motivation PT/OT for ongoing strengthening and function. Overall making good gains Hemorrhagic conversion of left cerebellar infarct: Recommendations are to avoid taking anticoagulants and anti-thrombotic through 11/09/16. 11/08/16 Continues to be hyperglycemic frequently greater than 200. Will increase mealtime insulin to 7 units and monitor carefully Concern for adding long- acting insulin may lead to hypoglycemia at night. Continue to monitor blood pressure carefully. Current regimen. Lisinopril 5 milligrams, Norvasc 5 milligrams, Coreg 3.125 twice a day. Current BP is 132/77. Continue with Colace twice a day for bowel motivation PT/OT for ongoing strengthening and function. Overall making good gains Hemorrhagic conversion of left cerebellar infarct: Recommendations are to avoid taking anticoagulants and anti-thrombotic through 11/09/16. Discussed anticoagulation with cardiology team. Will start Xarelto 15mg twice daily for 3 weeks, Then decrease to Xarelto 20mg daily. Will check CBC and BMP for blood count, electrolyte and renal function monitoring. 11/11/16 David continues to be doing well. Blood pressure has remained stable on Norvasc, Coreg, lisinopril. Continue to monitor blood sugars as they have been well controlled on glipizide and sliding scale Novolin Hopeful to recheck to [place] radiology department today for comparison of repeat CT scan from 11/09. Assuming this is unchanged, Initiate Xarelto 15 milligrams twice a day for treatment of cardiac thrombus Discuss further with Dr. Darling [id number]- Dr Darling spoke with radiologist. CT appears to be unchanged. Will resume Xarelto. Will discuss with today. MARLENE HIGGINS APRN Nov 11, 2016 09:53
[2016-11-11] MEDS: INSULIN REGULAR 100 UNIT/ML SQ PRN ×2 (11:47→15:34)
--- NOTE | 2016-11-11 13:42 | PDIRUTEAM ---
Multidisciplinary Team Meeting Nursing Hx Incontinence: Yes Bladder Goal: 6 Modified [place] Y/N: No Bladder Continent or Incontine: Continent Incontinent Product Used: Pull-up Number of Times Incontinent of: 0 Cleaning Ability-Bladder: 5 Supervision/Setup Bladder Incontinence Managemen: 1 Total Assistance Bowel Goal: 6 Modified [place] Colostomy Y/N: No Bowel Incontinent/Continent: Incontinent Bowel Number of Accidents: 0 Number of times Incontinent of: 1 Cleaning Ability-Bowel: 5 Supervision/Setup Bowel Incontinence Management: 1 Total Assistance Toileting Ability: 4 Minimal Assistance Vital Signs Vital Signs Date Time Temp Pulse Resp B/P Pulse Ox O2 Delivery O2 Flow Rate FiO2 11/11/16 08:00 98.7 61 16 142/74 94 Room Air Current Medications Current Medications Medications (Trade) Dose Ordered Sig/Dandy Route PRN Reason Start Time Stop Time Status Last Admin Dose Admin Docusate Sodium (Colace) 100 mg BID PO 10/31/16 21:00 11/04/16 08:17 Atorvastatin Calcium (LIPITOR 40 mg) 40 mg HS PO 10/31/16 22:00 11/10/16 20:50 Famotidine (Pepcid) 20 mg BID PO 10/31/16 21:00 11/11/16 09:17 Glipizide (Glucotrol Xl) 10 mg DAILY PO 11/01/16 09:00 11/11/16 09:17 Magnesium Oxide (Magox) 400 mg BID PO 10/31/16 21:00 11/11/16 09:17 Insulin Human Regular (Novolin R) SS PRN SQ 11/01/16 06:30 11/11/16 11:47 Amlodipine Besylate (Norvasc) 5 mg DAILY PO 11/02/16 09:00 11/11/16 09:18 Carvedilol (Coreg) 3.125 mg BIDWM PO 11/01/16 13:00 11/11/16 09:18 Lisinopril (Prinivil) 2.5 mg DAILY PO 11/02/16 09:00 11/04/16 17:50 DC 11/04/16 08:17 Insulin Aspart (Novolog) 3 unit TIDWM SQ 11/04/16 08:00 11/06/16 12:18 DC 11/06/16 09:24 Lisinopril (Prinivil) 5 mg DAILY PO 11/05/16 09:00 11/11/16 09:18 Lisinopril (Prinivil) 2.5 mg DAILY PO 11/04/16 18:00 11/04/16 19:00 DC 11/04/16 18:07 Insulin Aspart (Novolog) 5 unit TIDWM SQ 11/06/16 17:30 11/11/16 12:21 Rivaroxaban (Xarelto) 15 mg BIDWM PO 11/09/16 08:00 Future hold 11/09/16 10:00 Escitalopram Oxalate (LEXAPRO 10mg) 5 mg HS PO 11/09/16 22:00 11/10/16 20:51 Comments Working for insulin pen on d/c. frustrated to have stayed longer, but is cooperative. Physical Therapy Bed Transfer Ability: 5 Supervision/Setup Bed Transfer Assistance Needed: 1 Person Bed FIM Score Reason: pivot-transfer Chair Transfer Ability: 5 Supervision/Setup Chair Transfer Assistance Need: 1 Person Chair FIM Score Reason: pivot-transfer Overall Wheelchair Transfer Ab: 5 Supervision/Setup Wheelchair Transfer Assistance: 1 Person Wheelchair Transfer FIM Score: pivot-transfer Overall Toilet / Commode Trans: 4 Minimal Assistance Ambulation Ability: 2 Maximum Assistance Ambulation Assistance Needed: 1 Person Walk FIM Score Reason: distance. 4/7 min(A) Ambulation Distance: 104 Comments Has room for improvement but is not caring to follow safety precautions. Occupational Therapy Grooming Ability: 5 Supervision/Setup Bathing Ability: 4 Minimal Assistance Upper Body Dressing Ability: 5 Supervision/Setup Lower Body Dressing Ability: 4 Minimal Assistance Lower Body Dressing Assistance: 1 Person Dressing-Lower FIM Score Reaso: CGA in standing Toileting Assistance Needed: 1 Person Toileting FIM Score Reason: incontinent diarrhea Comments Diff with safety issues when standing. Care Plan Condition at time of discharge: Fair IRU Discharge Disposition: Home Health Service Interventions/Goals Pt has always had a strong personality and had full function prior to cva. Recommendations are to stick with wheelchair level training and function. Barriers to d/c: strength, coordination, hygeine,safety awareness, OLIVA STUBBS MD Nov 11, 2016 13:33
--- NOTE | 2016-11-11 16:13 | PNPDOC ---
HANNA ISRAEL STAFF PHYSICIAN 11/11/16 1613: Subjective Date DATE: 11/11/16 TIME: 16:10 Subjective David is sleeping in his bed on IRU. He denies cardiac complaints Objective Vital Signs Vital signs Vital Signs 11/11/16 11/11/16 08:00 08:00 Temp 98.7 Pulse 61 61 Resp 16 16 B/P 142/74 Pulse Ox 94 O2 Delivery Room Air Telemetry Rhythm: Sinus Rhythm Height (Feet): 5 Height (Inches): 10.00 Weight (Kilograms): 68.000 General Alert, Orientated x 3, Cooperative ENMT (Brief) mucosa moist Neck (Brief) NOT FOUND: JVD, carotid bruits Respiratory (Brief) clear all dinh, equal bilaterally, NOT FOUND: rales, wheezes Cardiovascular (Brief) regular rate, regular rhythm, NOT FOUND: murmur, pedal edema Abdomen (Brief) BS normo active x4, soft, NOT FOUND: tender Integumentary (Brief) dry, warm Psychiatric (Brief) alert, oriented Laboratory Laboratory Laboratory Tests Test 11/09/16 20:54 11/10/16 04:28 11/10/16 06:17 11/10/16 10:03 Glucometer 218mg/dL 88mg/dL 114mg/dL Stool C. difficile Toxin B Gene PCR Negative Test 11/10/16 14:14 11/10/16 21:37 11/11/16 11:24 11/11/16 14:42 Glucometer 151mg/dL 98mg/dL 221mg/dL 188mg/dL Medications Current Medications Docusate Sodium (Colace) 100 mg BID PO Last administered on 11/04/16 08:17; Start 10/31/16 at 21:00 Miscellaneous Medication (May use PRN orders) 1 PRN PRN MC ; Start 10/31/16 at 20:45 Acetaminophen (Tylenol Regular Strength) 650 mg Q4HR PRN PO PAIN; Start at 20:45 Atorvastatin Calcium (LIPITOR 40 mg) 40 mg HS PO Last administered on 20:50; Start 10/31/16 at 22:00 Famotidine (Pepcid) 20 mg BID PO Last administered on 11/11/16 09:17; Start at 21:00 Glipizide (Glucotrol Xl) 10 mg DAILY PO Last administered on 11/11/16 09:17; Start 11/01/16 at 09:00 Magnesium Oxide (Magox) 400 mg BID PO Last administered on 11/11/16 09:17; Start 10/31/16 at 21:00 Insulin Human Regular (Novolin R) SS PRN SQ Last administered on 11/11/16 15 :34; Start 11/01/16 at 06:30 Amlodipine Besylate (Norvasc) 5 mg DAILY PO Last administered on 11/11/16 09: 18; Start 11/02/16 at 09:00 Carvedilol (Coreg) 3.125 mg BIDWM PO Last administered on 11/11/16 09:18; Start 11/01/16 at 13:00 Insulin Aspart (Novolog) 5 unit TIDWM SQ Last administered on 11/11/16 12:21; Start 11/06/16 at 17:30 Rivaroxaban (Xarelto) 15 mg BIDWM PO Last administered on 11/09/16 10:00; Start 11/09/16 at 08:00; Status Future hold Escitalopram Oxalate (LEXAPRO 10mg) 5 mg HS PO Last administered on 11/10/16 20:51; Start 11/09/16 at 22:00 Lisinopril (Prinivil) 10 mg DAILY PO ; Start 11/12/16 at 09:00; Status UNV Assessment & Plan Problems: (1) Cardiomyopathy Status: Chronic Assessment & Plan: Start Coreg 3.125mg BID and Lisinopril 2.5mg daily (2) CAD (coronary artery disease) Status: Chronic Assessment & Plan: continue risk management, routine monitoring (3) Essential (primary) hypertension Status: Chronic Assessment & Plan: Continue Amlodipine as tolerated (4) DM (diabetes mellitus) Status: Chronic Qualifiers: Diabetes mellitus type: type 2 Assessment & Plan: per attending Plan/Intensity of Service 11/01/16 Cardiomyopathy: Start Coreg 3.125mg BID and Lisinopril 2.5mg daily. HTN Continue Amlodipine as tolerated. 11/04/16 Increase Lisinopril to 5mg daily, give additional 2.5mg this evening. 11/11/16 Increase Lisinopril to 10mg daily Thank you for allowing us to participate in this patient's care, we will follow along with you. HUMERA CORREA MD 11/15/16 1333: Assessment & Plan Plan/Intensity of Service After examining the patient I agree with the above assessment. I am involved in the formulation of the patient's plan of care. HANNA ISRAEL STAFF PHYSICIAN Nov 11, 2016 16:13 HUMERA CORREA MD Nov 15, 2016 13:33
[2016-11-11 16:24] VITALS: BP 125/67; PULSE 50; RESP 16; TEMP 98.2; O2SAT 99
[2016-11-11] MEDS: RIVAROXABAN 15 MG TABLET PO SCH (18:12)
--- NOTE | 2016-11-11 19:27 | NUR ---
Shift summary Patient very cooperative this afternoon. Transfers to wheelchair with min assist as well as to bed. Takes med whole. Denies pain today. Urinal used. No teeth or dentures used. Propels self to and from meals today.
[2016-11-11 19:54] VITALS: BP 143/73; PULSE 53; RESP 14; TEMP 97.5; O2SAT 97
[2016-11-11] MEDS: ESCITALOPRAM 10 MG TABLET PO SCH (22:23)
[2016-11-11] MEDS: ATORVASTATIN 40 MG TABLET PO SCH (22:24)
[2016-11-11 22:44] VITALS: PULSE 53; RESP 16
--- NOTE | 2016-11-11 22:52 | NUR ---
STATUS. PT SITS IN RECLINER UNTIL 2229. ASSIST TO BED WITH SBA. PT TAKES MEDS WHOLE 2 AT A TIME. PT REFUSED COLACE. PT DENIED NEED FOR TOILETING NOW. HS BGM 73, SNACK GIVEN TO PT. SCDS ON WHILE IN BED.
--- NOTE | 2016-11-11 23:36 | NUR ---
Chart Check 24 hour chart check completed
[2016-11-12 07:16] VITALS: BP 140/74; PULSE 56; RESP 16; TEMP 98.1; O2SAT 94
--- NOTE | 2016-11-12 07:48 | NUR ---
Summary Pt has slept well.Was contient of bladder ( he manages cares and urinal) and incontinent of bowel ( staff manages hygiene x one) . VSS.Transfers with fww gaitbelt to a chair.Has denied pain.
[2016-11-12 08:00] VITALS: PULSE 56; RESP 16
[2016-11-12] MEDS: MAGNESIUM OXIDE 400 MG TABLET PO SCH ×2 (08:51→20:28)
[2016-11-12] MEDS: FAMOTIDINE 20 MG TABLET PO SCH ×2 (08:51→20:28)
[2016-11-12] MEDS: RIVAROXABAN 15 MG TABLET PO SCH ×2 (08:51→18:35)
[2016-11-12] MEDS: CARVEDILOL 3.125 MG TABLET PO SCH ×2 (08:52→18:35)
[2016-11-12] MEDS: AMLODIPINE 5 MG TABLET PO SCH (08:52)
[2016-11-12] MEDS: LISINOPRIL 10 MG TABLET PO SCH (08:53)
[2016-11-12] MEDS: DOCUSATE SODIUM 100 MG CAPSULE PO SCH ×2 (09:00→20:27)
[2016-11-12] MEDS: INSULIN ASPART 100 UNIT/ML SQ SCH ×3 (09:35→18:35)
[2016-11-12 16:00] VITALS: BP 117/65; PULSE 58; RESP 20; TEMP 97.8; O2SAT 99
--- NOTE | 2016-11-12 17:56 | PNPDOC ---
Subjective Date DATE: 11/12/16 TIME: 17:47 Subjective Mr. Duran was seen after resuming anticoagulation. He is more interactive today and reports he ate well this morning and subsequently wasn't hungry at lunch. Nursing has expressed concerns that he didn't eat at lunchtime although an aide reports he had a good snack midafternoon. He denies nausea or vomiting and has had no lightheadedness. He denied dyspnea, chest pain, or palpitations. He goes on to report that he feels much better and stronger since he's been in rehabilitation. Objective Vital Signs Vital signs Vital Signs Date Time Temp Pulse Resp B/P Pulse Ox O2 Delivery O2 Flow Rate FiO2 11/12/16 16:00 97.8 58 20 117/65 99 Room Air Patient avoids direct eye contact and has mild exotropia, speech is fluent today and he responds to questions without hesitation. Cardiac rhythm is regular Respirations nonlabored with clear lung dinh Abdomen is soft and nontender, bowel sounds present Extremities without edema Pv Design Engineer are equal/strong, patient is able to raise each leg off the floor symmetrically Sensation intact to light touch 4 extremities Telemetry Rhythm: Sinus Rhythm Height (Feet): 5 Height (Inches): 10.00 Weight (Kilograms): 68.000 Assessment & Plan Problems: (1) Hemorrhagic cerebrovascular accident (CVA) Status: Acute Assessment & Plan: 10/28/16-hemorrhagic conversion of left cerebellar infarct (2) Cerebellar infarct Status: Chronic Assessment & Plan: 10/25/16-left cerebellar (3) Atrial thrombus Status: Acute Assessment & Plan: Incidental finding on 10/25/16 (4) Generalized weakness Status: Acute (5) Cardiomyopathy Status: Chronic Assessment & Plan: Likely ischemic (6) Essential (primary) hypertension Status: Chronic (7) CAD (coronary artery disease) Status: Chronic (8) DM (diabetes mellitus) Status: Chronic Qualifiers: Diabetes mellitus type: type 2 Assessment & Plan: A1c 8.0 on 10/25/16 (9) Hyperlipemia Status: Chronic (10) CKD (chronic kidney disease) Status: Chronic Qualifiers: Chronic kidney disease stage: stage 3 (moderate) Qualified Codes: N18.3 - Chronic kidney disease, stage 3 (moderate) Assessment & Plan: Stage 2-3 (11) Blind right eye Status: Chronic (12) Hx of retinal detachment Status: Resolved (13) History of colon cancer Status: Resolved Assessment Neurologically stable with resumption of Xarelto. Minor bradycardia but the pressure stable. Lisinopril/carvedilol initiated per cardiology. Will clarify with cardiology if there is intent to resume low-dose aspirin. Blood sugar control improved overall, continue to monitor. Recheck BMP for electrolytes/renal function Plan/Intensity of Service Discussed with nursing, laboratory data reviewed. Code Status Full Code Hospital Course Summary Disclaimer The hospital course summary below is not to be considered part of the above Progress Note. Hospital Course Summary Agree with admission to IRU for ongoing rehabilitation for improved strength and functioning following hemorrhagic CVA. All neurology documents reviewed from [facility]. Recommendation is holding off on any anticoagulation until November 09. This includes ASA. Careful control of blood pressure is important given recent ischemic and hemorrhagic CVA. Blood pressure this morning was elevated at 179 systolic. Patient was not sent from [facility] on any antihypertensives. Start Amlodipine 5mg daily for hypertension. We will consult Dr. Hooks for management of blood pressure and other cardiovascular management of atrial thrombus and other existing co-morbidities. Continue Glipizide and Novolin Regular sliding scale. Continue to monitor blood glucose before meals and at bedtime. We will order SCDs for DVT prophylaxis as anticoagulation is currently contraindicated given recent hemorrhagic CVA. Continue Lipitor at for lipid control Colace 100 milligrams twice a day for ongoing bowel motivation Pepcid 20 BID for GI protection Did review this morning laboratory studies. Hemoglobin is stable at 13.1 To improve his strength and functionality he will need physical therapy, occupational therapy and speech therapy. Impression I have independently evaluated and examined this patient. I reviewed the chart, the patient's history, and the TRUCK CATERER's documented findings as above. We discussed and formulated the assessment and plan as above with additions as below: Mr. Duran defers to his for most history. He reports some weakness in his left arm and his reports persistent right facial drooping after recent left cerebellar ischemic stroke, acute by hemorrhagic conversion. Patient notes that he has minimal residual nausea and denies diplopia although it's noted that he had preceding right visual loss. He does not clearly describe vertigo but reports dizziness earlier in the stroke course which has improved. Patient describes his gait as "wobbly". Examination reveals right nasolabial fold flattening and droop. Right pupil is nonreactive to light. Left pupil reacts to light. There is slight right exotropia at rest but extraocular muscles are intact and no nystagmus is noted. Sensation is intact across all 3 distributions of the trigeminal nerve bilaterally and tongue elevates symmetrically. Power is grossly normal proximally and distally in the upper and lower extremities and graded 4/5 throughout but left fine finger movements are slow and clumsy compared to the right. Sensation is intact to light touch in the upper and lower extremities bilaterally. Breath sounds are clear and cardiac rhythm regular. Recommendation to withhold anticoagulation through 11/09 noted. Blood pressure control inadequate, amlodipine initiated. Given diagnosis of diabetes we can also push ESME inhibitor or switch to ARB for improved blood pressure control. Renal function should tolerate ESME inhibitor. Carvedilol initiated per cardiology. Blood sugar control suboptimal as well, will monitor and modify over the next couple of days. CTA of chest obtained last admission reviewed, pulmonary infiltrates present at that time-probable pulmonary edema. Currently on room air. Chest x-ray to be obtained given history of cardiomyopathy/CHF. 11/03/16 Blood pressure is under better control with addition of amlodipine, low-dose lisinopril, and Coreg. Remains hyperglycemic with blood glucose frequently above 200. He is on glipizide 10 mg daily plus sliding scale insulin. On 10/25/16 his hemoglobin A1c was 8%. Will discuss addition of long-acting insulin with attending. Hemorrhagic conversion of left cerebellar infarct: Continue secondary prevention with blood pressure and glucose control, statin therapy. Recommendations are to avoid taking anticoagulants and anti-thrombotic through . 11/06/16 Continues to be hyperglycemic frequently greater than 200. Will increase mealtime insulin to 5 units and monitor carefully. Concern for adding long- acting insulin may lead to hypoglycemia at night. Continue to monitor blood pressure carefully. Current regimen. Lisinopril 5 milligrams, Norvasc 5 milligrams, Coreg 3.125 twice a day Continue with Colace twice a day for bowel motivation PT/OT for ongoing strengthening and function. Overall making good gains Hemorrhagic conversion of left cerebellar infarct: Recommendations are to avoid taking anticoagulants and anti-thrombotic through 11/09/16. 11/08/16 Continues to be hyperglycemic frequently greater than 200. Will increase mealtime insulin to 7 units and monitor carefully Concern for adding long- acting insulin may lead to hypoglycemia at night. Continue to monitor blood pressure carefully. Current regimen. Lisinopril 5 milligrams, Norvasc 5 milligrams, Coreg 3.125 twice a day. Current BP is 132/77. Continue with Colace twice a day for bowel motivation PT/OT for ongoing strengthening and function. Overall making good gains Hemorrhagic conversion of left cerebellar infarct: Recommendations are to avoid taking anticoagulants and anti-thrombotic through 11/09/16. Discussed anticoagulation with cardiology team. Will start Xarelto 15mg twice daily for 3 weeks, Then decrease to Xarelto 20mg daily. Will check CBC and BMP for blood count, electrolyte and renal function monitoring. 11/11/16 David continues to be doing well. Blood pressure has remained stable on Norvasc, Coreg, lisinopril. Continue to monitor blood sugars as they have been well controlled on glipizide and sliding scale Novolin Hopeful to recheck to [facility] radiology department today for comparison of repeat CT scan from 11/09. Assuming this is unchanged, Initiate Xarelto 15 milligrams twice a day for treatment of cardiac thrombus Discuss further with Dr. Darling [id number]- Dr Darling spoke with radiologist. CT appears to be unchanged. Will resume Xarelto. Will discuss with today. 11/12/16-Phong Neurologically stable with resumption of Xarelto. Minor bradycardia but the pressure stable. Lisinopril/carvedilol initiated per cardiology. Will clarify with cardiology if there is intent to resume low-dose aspirin. Blood sugar control improved overall, continue to monitor. Recheck BMP for electrolytes/renal function ZECHARIAH DARLING MD Nov 12, 2016 17:55
[2016-11-12 18:21] VITALS: BP 129/58; PULSE 59; RESP 14; TEMP 97.9; O2SAT 97
--- NOTE | 2016-11-12 20:19 | NUR ---
Shift Summary Patient propelling wheelchair with supervision to and from meals. Incontinent of stool x1 with total assist to clean up. Wears pull up. Urinal used, staff empties. Refused lunch, insulin held. Family brought supper for him, ate 2 chicken sandwiches and fish fillet from [employer]. Working with PT and OT. Transfers with min assist, gait belt to w/c and bed.
[2016-11-12] MEDS: ATORVASTATIN 40 MG TABLET PO SCH (20:28)
[2016-11-12] MEDS: ESCITALOPRAM 10 MG TABLET PO SCH (20:30)
[2016-11-12] MEDS: INSULIN REGULAR 100 UNIT/ML SQ PRN (20:32)
--- NOTE | 2016-11-13 00:16 | NUR ---
Chart Check 24 hour chart check completed
[2016-11-13 00:25] VITALS: PULSE 59; RESP 14
[2016-11-13 05:48] LABS: ANION GAP 10 MEQ/L (5-15); BUN/CREATININE RATIO 28 RATIO (6-26); CALCIUM 8.8 MG/DL (8.4-10.2); CHLORIDE 104 MEQ/L (98-107); CO2 - CARBON DIOXIDE 28 MEQ/L (22-30); CREATININE 1.2 MG/DL (0.8-1.5); GLOMERULAR FILTRATION RATE 59; GLUCOSE 153 MG/DL (75-110); POTASSIUM 4.6 MEQ/L (3.6-5); SODIUM 142 MEQ/L (134-144)
--- NOTE | 2016-11-13 07:00 | NUR ---
SUMMARY CHERYL IS PLEASANT AND COOPERATIVE . HE TAKES HIS MEDS WHOLE W/O ISSUE.DENIES PAIN.WAS CONTINENT OF BLADDER. HE MANAGES URINAL AND HYGIENE.HE TRANSFERS WITH GAIT BELT AND FOR ONLY SHORT DISTANCES .HE HAS SLEPT WELL.HE WAS INCONTINENT OF BOWEL WITH STAFF MANAGING HYGIENE AND CLOTHES.
[2016-11-13 07:19] VITALS: BP 127/75; PULSE 61; RESP 20; TEMP 98; O2SAT 93
[2016-11-13 08:15] VITALS: PULSE 61; RESP 20
[2016-11-13] MEDS: MAGNESIUM OXIDE 400 MG TABLET PO SCH ×2 (08:44→22:22)
[2016-11-13] MEDS: DOCUSATE SODIUM 100 MG CAPSULE PO SCH ×2 (08:45→22:23)
[2016-11-13] MEDS: LISINOPRIL 10 MG TABLET PO SCH (08:45)
[2016-11-13] MEDS: AMLODIPINE 5 MG TABLET PO SCH (08:45)
[2016-11-13] MEDS: FAMOTIDINE 20 MG TABLET PO SCH ×2 (08:45→22:22)
[2016-11-13] MEDS: RIVAROXABAN 15 MG TABLET PO SCH ×2 (08:45→17:48)
[2016-11-13] MEDS: CARVEDILOL 3.125 MG TABLET PO SCH ×2 (08:45→17:48)
[2016-11-13] MEDS: INSULIN ASPART 100 UNIT/ML SQ SCH ×3 (08:48→17:49)
[2016-11-13] MEDS: INSULIN REGULAR 100 UNIT/ML SQ PRN ×2 (10:49→14:59)
[2016-11-13 16:20] VITALS: BP 132/71; PULSE 60; RESP 16; TEMP 97.5; O2SAT 99
--- NOTE | 2016-11-13 18:08 | NUR ---
Shift Summary Pt is in the dining room eating at this time. Pivot transfers with assist of 1 and gait belt to and from the wheelchair. He refused his bath for therapy today. Has been continent this shift, able to manage his clothing and cares with assist. BGM at 1000 was 194 received 1 unit per sliding scale, at 1400 was 154 received 1 unit per sliding scale. Worked well with therapy except for refusing the bath. He has a flat affect, has very little response. Ate well for meals, did not need assist with his tray, wheeled himself to the dining room. When in the chair, wheelchair, or bed the alarm is in use and call light is within reach.
[2016-11-13 20:10] VITALS: BP 129/66; PULSE 49; TEMP 97.5; O2SAT 96
--- NOTE | 2016-11-13 20:45 | PNPDOC ---
IRU Subjective Date DATE: 11/13/16 TIME: 20:43 Subjective Pt workign to control walker. Still does not like using wheelchair. workign with PT and OT. IRU Objective Vital Signs Vital signs Vital Signs Date Time Temp Pulse Resp B/P Pulse Ox O2 Delivery O2 Flow Rate FiO2 11/13/16 16:20 97.5 60 16 132/71 99 Room Air Telemetry Rhythm: Sinus Rhythm Height (Feet): 5 Height (Inches): 10.00 Weight (Kilograms): 68.000 General General Appearance: Alert, Orientated x 2 Respiratory (Brief) Respiratory: FOUND: clear all dinh, equal bilaterally Cardiovascular (Brief) Cardiac: FOUND: regular rate, regular rhythm Capillary Refill: <2 sec Laboratory Laboratory Laboratory Tests Test 11/12/16 09:31 11/12/16 10:09 11/12/16 14:01 11/13/16 05:04 Glucometer 120mg/dL 179mg/dL 135mg/dL Turbidity < 20 Sodium Level 142MEQ/L Potassium Level 4.6MEQ/L Chloride Level 104MEQ/L Carbon Dioxide Level 28MEQ/L Anion Gap 10MEQ/L Blood Urea Nitrogen 34.0MG/DL Creatinine 1.2MG/DL Glomerular Filtration Rate Calc 59 BUN/Creatinine Ratio 28RATIO Glucose Level 153MG/DL Calculated Osmolality 284MOSM/KG Calcium Level 8.8MG/DL Icterus Index < 2 Chemistry Specimen Hemolysis < 15 Test 11/13/16 10:16 11/13/16 14:17 Glucometer 194mg/dL 154mg/dL Assessment & Plan Problems: (1) Cerebellar infarct Status: Chronic Assessment & Plan: medical following. OVerall improvement in strength. (2) Generalized weakness Status: Acute Assessment & Plan: stamina slowly improving. Assessment Neurologically stable with resumption of Xarelto. Minor bradycardia but the pressure stable. Lisinopril/carvedilol initiated per cardiology. Will clarify with cardiology if there is intent to resume low-dose aspirin. Blood sugar control improved overall, continue to monitor. Recheck BMP for electrolytes/renal function Code Status Full Code Interventions to Obtain Goals PT Treatment Plan: Therapeutic Exercise, Gait Training, Functional Activities , Patient/Family Education OT Treatment Plan: ADL's (basic care), Ther. Exercise for ADL's, UE Functional Training, Balance Training, Pt./Family Education, IADL's ST Treatment Plan: Evaluation Only Hospital Course Summary Disclaimer The hospital course summary below is not to be considered part of the above Progress Note. Hospital Course Summary Agree with admission to IRU for ongoing rehabilitation for improved strength and functioning following hemorrhagic CVA. All neurology documents reviewed from [facility]. Recommendation is holding off on any anticoagulation until November 09. This includes ASA. Careful control of blood pressure is important given recent ischemic and hemorrhagic CVA. Blood pressure this morning was elevated at 179 systolic. Patient was not sent from [facility] on any antihypertensives. Start Amlodipine 5mg daily for hypertension. We will consult Dr. Hooks for management of blood pressure and other cardiovascular management of atrial thrombus and other existing co-morbidities. Continue Glipizide and Novolin Regular sliding scale. Continue to monitor blood glucose before meals and at bedtime. We will order SCDs for DVT prophylaxis as anticoagulation is currently contraindicated given recent hemorrhagic CVA. Continue Lipitor at for lipid control Colace 100 milligrams twice a day for ongoing bowel motivation Pepcid 20 BID for GI protection Did review this morning laboratory studies. Hemoglobin is stable at 13.1 To improve his strength and functionality he will need physical therapy, occupational therapy and speech therapy. Impression I have independently evaluated and examined this patient. I reviewed the chart, the patient's history, and the WATER MAIN PIPE LAYER's documented findings as above. We discussed and formulated the assessment and plan as above with additions as below: Mr. Duran defers to his for most history. He reports some weakness in his left arm and his reports persistent right facial drooping after recent left cerebellar ischemic stroke, acute by hemorrhagic conversion. Patient notes that he has minimal residual nausea and denies diplopia although it's noted that he had preceding right visual loss. He does not clearly describe vertigo but reports dizziness earlier in the stroke course which has improved. Patient describes his gait as "wobbly". Examination reveals right nasolabial fold flattening and droop. Right pupil is nonreactive to light. Left pupil reacts to light. There is slight right exotropia at rest but extraocular muscles are intact and no nystagmus is noted. Sensation is intact across all 3 distributions of the trigeminal nerve bilaterally and tongue elevates symmetrically. Power is grossly normal proximally and distally in the upper and lower extremities and graded 4/5 throughout but left fine finger movements are slow and clumsy compared to the right. Sensation is intact to light touch in the upper and lower extremities bilaterally. Breath sounds are clear and cardiac rhythm regular. Recommendation to withhold anticoagulation through 11/09 noted. Blood pressure control inadequate, amlodipine initiated. Given diagnosis of diabetes we can also push ESME inhibitor or switch to ARB for improved blood pressure control. Renal function should tolerate ESME inhibitor. Carvedilol initiated per cardiology. Blood sugar control suboptimal as well, will monitor and modify over the next couple of days. CTA of chest obtained last admission reviewed, pulmonary infiltrates present at that time-probable pulmonary edema. Currently on room air. Chest x-ray to be obtained given history of cardiomyopathy/CHF. 11/03/16 Blood pressure is under better control with addition of amlodipine, low-dose lisinopril, and Coreg. Remains hyperglycemic with blood glucose frequently above 200. He is on glipizide 10 mg daily plus sliding scale insulin. On 10/25/16 his hemoglobin A1c was 8%. Will discuss addition of long-acting insulin with attending. Hemorrhagic conversion of left cerebellar infarct: Continue secondary prevention with blood pressure and glucose control, statin therapy. Recommendations are to avoid taking anticoagulants and anti-thrombotic through . 11/06/16 Continues to be hyperglycemic frequently greater than 200. Will increase mealtime insulin to 5 units and monitor carefully. Concern for adding long- acting insulin may lead to hypoglycemia at night. Continue to monitor blood pressure carefully. Current regimen. Lisinopril 5 milligrams, Norvasc 5 milligrams, Coreg 3.125 twice a day Continue with Colace twice a day for bowel motivation PT/OT for ongoing strengthening and function. Overall making good gains Hemorrhagic conversion of left cerebellar infarct: Recommendations are to avoid taking anticoagulants and anti-thrombotic through 11/09/16. 11/08/16 Continues to be hyperglycemic frequently greater than 200. Will increase mealtime insulin to 7 units and monitor carefully Concern for adding long- acting insulin may lead to hypoglycemia at night. Continue to monitor blood pressure carefully. Current regimen. Lisinopril 5 milligrams, Norvasc 5 milligrams, Coreg 3.125 twice a day. Current BP is 132/77. Continue with Colace twice a day for bowel motivation PT/OT for ongoing strengthening and function. Overall making good gains Hemorrhagic conversion of left cerebellar infarct: Recommendations are to avoid taking anticoagulants and anti-thrombotic through 11/09/16. Discussed anticoagulation with cardiology team. Will start Xarelto 15mg twice daily for 3 weeks, Then decrease to Xarelto 20mg daily. Will check CBC and BMP for blood count, electrolyte and renal function monitoring. 11/11/16 David continues to be doing well. Blood pressure has remained stable on Norvasc, Coreg, lisinopril. Continue to monitor blood sugars as they have been well controlled on glipizide and sliding scale Novolin Hopeful to recheck to [facility] radiology department today for comparison of repeat CT scan from 11/09. Assuming this is unchanged, Initiate Xarelto 15 milligrams twice a day for treatment of cardiac thrombus Discuss further with Dr. Darling [id number]- Dr Darling spoke with radiologist. CT appears to be unchanged. Will resume Xarelto. Will discuss with today. 11/12/16-Phong Neurologically stable with resumption of Xarelto. Minor bradycardia but the pressure stable. Lisinopril/carvedilol initiated per cardiology. Will clarify with cardiology if there is intent to resume low-dose aspirin. Blood sugar control improved overall, continue to monitor. Recheck BMP for electrolytes/renal function OLIVA STUBBS MD Nov 13, 2016 20:45
[2016-11-13 21:00] VITALS: PULSE 58; RESP 16
[2016-11-13] MEDS: ATORVASTATIN 40 MG TABLET PO SCH (22:22)
[2016-11-13] MEDS: ESCITALOPRAM 10 MG TABLET PO SCH (22:25)
--- NOTE | 2016-11-13 23:54 | NUR ---
Chart Check 24 hour chart check completed
--- NOTE | 2016-11-14 06:49 | NUR ---
Summary patient was visiting with family in room when arrived on shift. After visitors left, patient appeared to have flat and depressed affect. Patient was moderate assist with transfer and cares. Patient needed encouragement to help or participate in cares. Hs bgm 128 no SS needed. Patient slept well during the night. Turned and checked for incontinence routinely. Fasting BGM 71, patient received small snack. Patient is currently in bed with the bed alarm on, rails upx2, and call light is in reach.
[2016-11-14 08:00] VITALS: PULSE 58; RESP 16
--- NOTE | 2016-11-14 08:00 | NUR ---
RECEIVED REPORT PATIENT IS ALERT AND ORIENTED. HEARD OF HEARING. PATIENT IS INCONTINENT OF BOWEL THIS MORNING. DENIES AWARENESS OF INCONTINENCE. RA. VITAL SIGNS STABLE.
[2016-11-14 08:03] VITALS: BP 128/69; PULSE 60; RESP 16; TEMP 98.3; O2SAT 96
[2016-11-14] MEDS: LISINOPRIL 10 MG TABLET PO SCH (08:39)
[2016-11-14] MEDS: FAMOTIDINE 20 MG TABLET PO SCH ×2 (08:39→20:56)
[2016-11-14] MEDS: RIVAROXABAN 15 MG TABLET PO SCH ×2 (08:39→18:09)
[2016-11-14] MEDS: MAGNESIUM OXIDE 400 MG TABLET PO SCH ×2 (08:39→20:56)
[2016-11-14] MEDS: CARVEDILOL 3.125 MG TABLET PO SCH ×2 (08:39→18:09)
[2016-11-14] MEDS: AMLODIPINE 5 MG TABLET PO SCH (08:39)
[2016-11-14] MEDS: DOCUSATE SODIUM 100 MG CAPSULE PO SCH ×2 (08:40→20:53)
[2016-11-14] MEDS: INSULIN ASPART 100 UNIT/ML SQ SCH ×3 (08:47→18:09)
[2016-11-14] MEDS: INSULIN REGULAR 100 UNIT/ML SQ PRN (11:22)
[2016-11-14 16:36] VITALS: BP 125/67; PULSE 51; RESP 16; TEMP 97.8; O2SAT 99
--- NOTE | 2016-11-14 18:34 | NUR ---
THERAPY PATIENT ATE ALL MEAL IN THE DINING ROOM. PATIENT ONLY REQUIRED SUPERVISION WITH TRANSFERS. PATIENT WHEELED HIMSELF TO AND FROM MEALS. PATIENT AMBULATED WITH WALKER WITH THERAPY. PATIENT WAS COOPERATIVE WITH THERAPY. NO CONCERNS REPORTED TODAY.
--- NOTE | 2016-11-14 19:20 | NUR ---
EOS REPORT GIVEN TO JIMENA GAVIN, ONCOMING NURSE
[2016-11-14 20:52] VITALS: BP 120/67; PULSE 54; RESP 16; TEMP 97.6; O2SAT 97
[2016-11-14] MEDS: ESCITALOPRAM 10 MG TABLET PO SCH (21:49)
[2016-11-14] MEDS: ATORVASTATIN 40 MG TABLET PO SCH (21:49)
[2016-11-14 22:51] VITALS: PULSE 54
--- NOTE | 2016-11-15 03:38 | NUR ---
Chart Check 24 hour chart check completed
--- NOTE | 2016-11-15 05:40 | NUR ---
Bowel Pt was incontinent of bowel with bowel accident requiring changing of brief, pants, and chair pad. Pt provided minimal assistance managing clean up of bowel accident. Pt states he has less accidents at home because he has a toileting schedule 30 minutes after each meal. Pt encouraged by this nurse to maintain that schedule while in IRU and to call for assistance whenever needed. Pt educated to report s/s of having been incont of bowel.
--- NOTE | 2016-11-15 07:26 | NUR ---
Summary Pt states he slept well "off and on" last night. Pt takes pills two at a time with water. Pt awake now and resting in bed.
[2016-11-15] MEDS: INSULIN ASPART 100 UNIT/ML SQ SCH ×3 (08:44→17:49)
[2016-11-15] MEDS: DOCUSATE SODIUM 100 MG CAPSULE PO SCH ×2 (09:00→21:00)
[2016-11-15] MEDS: AMLODIPINE 5 MG TABLET PO SCH (09:42)
[2016-11-15] MEDS: CARVEDILOL 3.125 MG TABLET PO SCH ×2 (09:42→17:48)
[2016-11-15] MEDS: FAMOTIDINE 20 MG TABLET PO SCH ×2 (09:42→20:46)
[2016-11-15] MEDS: RIVAROXABAN 15 MG TABLET PO SCH ×2 (09:42→17:48)
[2016-11-15] MEDS: LISINOPRIL 10 MG TABLET PO SCH (09:43)
[2016-11-15] MEDS: MAGNESIUM OXIDE 400 MG TABLET PO SCH ×2 (09:43→20:46)
[2016-11-15 09:47] VITALS: BP 119/66; PULSE 54; RESP 18; TEMP 97.8; O2SAT 98
--- NOTE | 2016-11-15 09:56 | PNPDOC ---
Subjective Date DATE: 11/15/16 TIME: 09:47 Lyndsay Hernandez is seen today in the dining sommer eating breakfast. He reports that he is doing well. His appetite is good and his bowels are working, he denies bloody stools or increased bleeding. He has no complaints, he thinks he is getting stronger. Objective Vital Signs Vital signs Vital Signs Date Time Temp Pulse Resp B/P Pulse Ox O2 Delivery O2 Flow Rate FiO2 11/14/16 22:51 54 11/14/16 20:52 97.6 16 120/67 97 Room Air Telemetry Rhythm: Sinus Rhythm Height (Feet): 5 Height (Inches): 10.00 Weight (Kilograms): 69.300 General General Appearance: Alert, Orientated x 3, Well Nourished, Cooperative, No Acute Distress Respiratory (Brief) Respiratory: FOUND: clear all dinh, equal bilaterally Cardiovascular (Brief) Cardiac: FOUND: regular rate, regular rhythm Abdomen (Brief) Abdominal: FOUND: BS normo active x4, soft Musculoskeletal (Brief) Musculoskeletal: FOUND: extremities move equally Integumentary (Brief) Integumentary: FOUND: dry, pink, warm Neurologic (Brief) Neurological: FOUND: cranial 2-12 intact Psychiatric (Brief) Psychiatric: FOUND: alert, normal affect, oriented Assessment & Plan Problems: (1) Hemorrhagic cerebrovascular accident (CVA) Status: Acute Assessment & Plan: 10/28/16-hemorrhagic conversion of left cerebellar infarct (2) Cerebellar infarct Status: Chronic Assessment & Plan: 10/25/16-left cerebellar (3) Atrial thrombus Status: Acute Assessment & Plan: Incidental finding on 10/25/16 (4) Generalized weakness Status: Acute (5) Cardiomyopathy Status: Chronic Assessment & Plan: Likely ischemic (6) Essential (primary) hypertension Status: Chronic (7) CAD (coronary artery disease) Status: Chronic (8) DM (diabetes mellitus) Status: Chronic Qualifiers: Diabetes mellitus type: type 2 Assessment & Plan: A1c 8.0 on 10/25/16 (9) Hyperlipemia Status: Chronic (10) CKD (chronic kidney disease) Status: Chronic Qualifiers: Chronic kidney disease stage: stage 3 (moderate) Qualified Codes: N18.3 - Chronic kidney disease, stage 3 (moderate) Assessment & Plan: Stage 2-3 (11) Blind right eye Status: Chronic (12) Hx of retinal detachment Status: Resolved (13) History of colon cancer Status: Resolved Plan/Intensity of Service 11/15/16 Continue with PT/OT for strength and functional improvement Continue to monitor vital signs BP continues to remain stable, continue Lisinopril, Norvasc, Coreg BS are stable, continue with accu-checks, Novolog, Glipizide and sliding scale regular insulin Continue with Xarelto 15mg twice daily for cardiac thrombus Will continue to monitor for potential bleeding Code Status Full Code Hospital Course Summary Disclaimer The hospital course summary below is not to be considered part of the above Progress Note. Hospital Course Summary Agree with admission to IRU for ongoing rehabilitation for improved strength and functioning following hemorrhagic CVA. All neurology documents reviewed from [facility]. Recommendation is holding off on any anticoagulation until November 09. This includes ASA. Careful control of blood pressure is important given recent ischemic and hemorrhagic CVA. Blood pressure this morning was elevated at 179 systolic. Patient was not sent from [place] on any antihypertensives. Start Amlodipine 5mg daily for hypertension. We will consult Dr. Hooks for management of blood pressure and other cardiovascular management of atrial thrombus and other existing co-morbidities. Continue Glipizide and Novolin Regular sliding scale. Continue to monitor blood glucose before meals and at bedtime. We will order SCDs for DVT prophylaxis as anticoagulation is currently contraindicated given recent hemorrhagic CVA. Continue Lipitor at for lipid control Colace 100 milligrams twice a day for ongoing bowel motivation Pepcid 20 BID for GI protection Did review this morning laboratory studies. Hemoglobin is stable at 13.1 To improve his strength and functionality he will need physical therapy, occupational therapy and speech therapy. Impression I have independently evaluated and examined this patient. I reviewed the chart, the patient's history, and the PARTY HOST/HOSTESS's documented findings as above. We discussed and formulated the assessment and plan as above with additions as below: Mr. Duran defers to his for most history. He reports some weakness in his left arm and his reports persistent right facial drooping after recent left cerebellar ischemic stroke, acute by hemorrhagic conversion. Patient notes that he has minimal residual nausea and denies diplopia although it's noted that he had preceding right visual loss. He does not clearly describe vertigo but reports dizziness earlier in the stroke course which has improved. Patient describes his gait as "wobbly". Examination reveals right nasolabial fold flattening and droop. Right pupil is nonreactive to light. Left pupil reacts to light. There is slight right exotropia at rest but extraocular muscles are intact and no nystagmus is noted. Sensation is intact across all 3 distributions of the trigeminal nerve bilaterally and tongue elevates symmetrically. Power is grossly normal proximally and distally in the upper and lower extremities and graded 4/5 throughout but left fine finger movements are slow and clumsy compared to the right. Sensation is intact to light touch in the upper and lower extremities bilaterally. Breath sounds are clear and cardiac rhythm regular. Recommendation to withhold anticoagulation through 11/09 noted. Blood pressure control inadequate, amlodipine initiated. Given diagnosis of diabetes we can also push ESME inhibitor or switch to ARB for improved blood pressure control. Renal function should tolerate ESME inhibitor. Carvedilol initiated per cardiology. Blood sugar control suboptimal as well, will monitor and modify over the next couple of days. CTA of chest obtained last admission reviewed, pulmonary infiltrates present at that time-probable pulmonary edema. Currently on room air. Chest x-ray to be obtained given history of cardiomyopathy/CHF. 11/03/16 Blood pressure is under better control with addition of amlodipine, low-dose lisinopril, and Coreg. Remains hyperglycemic with blood glucose frequently above 200. He is on glipizide 10 mg daily plus sliding scale insulin. On 10/25/16 his hemoglobin A1c was 8%. Will discuss addition of long-acting insulin with attending. Hemorrhagic conversion of left cerebellar infarct: Continue secondary prevention with blood pressure and glucose control, statin therapy. Recommendations are to avoid taking anticoagulants and anti-thrombotic through . 11/06/16 Continues to be hyperglycemic frequently greater than 200. Will increase mealtime insulin to 5 units and monitor carefully. Concern for adding long- acting insulin may lead to hypoglycemia at night. Continue to monitor blood pressure carefully. Current regimen. Lisinopril 5 milligrams, Norvasc 5 milligrams, Coreg 3.125 twice a day Continue with Colace twice a day for bowel motivation PT/OT for ongoing strengthening and function. Overall making good gains Hemorrhagic conversion of left cerebellar infarct: Recommendations are to avoid taking anticoagulants and anti-thrombotic through 11/09/16. 11/08/16 Continues to be hyperglycemic frequently greater than 200. Will increase mealtime insulin to 7 units and monitor carefully Concern for adding long- acting insulin may lead to hypoglycemia at night. Continue to monitor blood pressure carefully. Current regimen. Lisinopril 5 milligrams, Norvasc 5 milligrams, Coreg 3.125 twice a day. Current BP is 132/77. Continue with Colace twice a day for bowel motivation PT/OT for ongoing strengthening and function. Overall making good gains Hemorrhagic conversion of left cerebellar infarct: Recommendations are to avoid taking anticoagulants and anti-thrombotic through 11/09/16. Discussed anticoagulation with cardiology team. Will start Xarelto 15mg twice daily for 3 weeks, Then decrease to Xarelto 20mg daily. Will check CBC and BMP for blood count, electrolyte and renal function monitoring. 11/11/16 aDvid continues to be doing well. Blood pressure has remained stable on Norvasc, Coreg, lisinopril. Continue to monitor blood sugars as they have been well controlled on glipizide and sliding scale Novolin Hopeful to recheck to [place] radiology department today for comparison of repeat CT scan from 11/09. Assuming this is unchanged, Initiate Xarelto 15 milligrams twice a day for treatment of cardiac thrombus Discuss further with Dr. Darling [id number]- Dr Darling spoke with radiologist. CT appears to be unchanged. Will resume Xarelto. Will discuss with today. 11/12/16-Phong Neurologically stable with resumption of Xarelto. Minor bradycardia but the pressure stable. Lisinopril/carvedilol initiated per cardiology. Will clarify with cardiology if there is intent to resume low-dose aspirin. Blood sugar control improved overall, continue to monitor. Recheck BMP for electrolytes/renal function 11/15/16 Continue with PT/OT for strength and functional improvement Continue to monitor vital signs BP continues to remain stable, continue Lisinopril, Norvasc, Coreg BS are stable, continue with accu-checks, Novolog, Glipizide and sliding scale regular insulin Continue with Xarelto 15mg twice daily for cardiac thrombus Will continue to monitor for potential bleeding MARLENE HIGGINS APRN Nov 15, 2016 09:51
[2016-11-15 10:00] VITALS: PULSE 55; RESP 18
--- NOTE | 2016-11-15 13:05 | PDIRUTEAM ---
Multidisciplinary Team Meeting Nursing Hx Incontinence: Yes Bladder Goal: 6 Modified Alexander Hawkins Y/N: No Bladder Continent or Incontine: Continent Incontinent Product Used: Pull-up Number of Times Incontinent of: 0 Cleaning Ability-Bladder: 5 Supervision/Setup Bladder Incontinence Managemen: 1 Total Assistance Bowel Goal: 6 Modified Alexander Colostomy Y/N: No Bowel Incontinent/Continent: Incontinent Bowel Number of Accidents: 1 Number of times Incontinent of: 1 Cleaning Ability-Bowel: 2 Maximum Assistance Bowel Incontinence Management: 2 Maximum Assistance Toileting Ability: 4 Minimal Assistance Vital Signs Vital Signs Date Time Temp Pulse Resp B/P Pulse Ox O2 Delivery O2 Flow Rate FiO2 11/15/16 10:00 55 18 11/15/16 09:47 97.8 119/66 98 Room Air Current Medications Current Medications Medications (Trade) Dose Ordered Sig/Dandy Route PRN Reason Start Time Stop Time Status Last Admin Dose Admin Docusate Sodium (Colace) 100 mg BID PO 10/31/16 21:00 11/13/16 22:23 Atorvastatin Calcium (LIPITOR 40 mg) 40 mg HS PO 10/31/16 22:00 11/14/16 21:49 Famotidine (Pepcid) 20 mg BID PO 10/31/16 21:00 11/15/16 09:42 Glipizide (Glucotrol Xl) 10 mg DAILY PO 11/01/16 09:00 11/15/16 09:43 Magnesium Oxide (Magox) 400 mg BID PO 10/31/16 21:00 11/15/16 09:43 Insulin Human Regular (Novolin R) SS PRN SQ 11/01/16 06:30 11/14/16 11:22 Amlodipine Besylate (Norvasc) 5 mg DAILY PO 11/02/16 09:00 11/15/16 09:42 Carvedilol (Coreg) 3.125 mg BIDWM PO 11/01/16 13:00 11/15/16 09:42 Lisinopril (Prinivil) 2.5 mg DAILY PO 11/02/16 09:00 11/04/16 17:50 DC 11/04/16 08:17 Insulin Aspart (Novolog) 3 unit TIDWM SQ 11/04/16 08:00 11/06/16 12:18 DC 11/06/16 09:24 Lisinopril (Prinivil) 5 mg DAILY PO 11/05/16 09:00 11/11/16 16:06 DC 11/11/16 09:18 Lisinopril (Prinivil) 2.5 mg DAILY PO 11/04/16 18:00 11/04/16 19:00 DC 11/04/16 18:07 Insulin Aspart (Novolog) 5 unit TIDWM SQ 11/06/16 17:30 11/15/16 12:21 Rivaroxaban (Xarelto) 15 mg BIDWM PO 11/09/16 08:00 Future hold 11/15/16 09:42 Escitalopram Oxalate (LEXAPRO 10mg) 5 mg HS PO 11/09/16 22:00 11/14/16 21:49 Lisinopril (Prinivil) 10 mg DAILY PO 11/12/16 09:00 11/15/16 09:43 Comments Poor involvement in self care. Physical Therapy Bed Transfer Ability: 6 Modified Alexander Bed Transfer Assistance Needed: 1 Person Bed FIM Score Reason: pivot-transfer Chair Transfer Ability: 4 Minimal Assistance Chair Transfer Assistance Need: 1 Person Chair FIM Score Reason: pivot-transfer Overall Wheelchair Transfer Ab: 5 Supervision/Setup Wheelchair Transfer Assistance: 1 Person Wheelchair Transfer FIM Score: pivot-transfer Overall Toilet / Commode Trans: 5 Supervision/Setup Ambulation Ability: 4 Minimal Assistance Ambulation Assistance Needed: 1 Person Walk FIM Score Reason: distance. 4/7 min(A) Ambulation Distance: 400 Comments FIMS 4's Foot drop currently. Consider AFO. Occupational Therapy Grooming Ability: 4 Minimal Assistance Bathing Ability: 4 Minimal Assistance Upper Body Dressing Ability: 5 Supervision/Setup Dressing-Upper FIM Score Reaso: completed in sitting Lower Body Dressing Ability: 4 Minimal Assistance Lower Body Dressing Assistance: 1 Person Dressing-Lower FIM Score Reaso: Pt. requires CGA while standing to pull up pants d/t decreased balance. Toileting Assistance Needed: 1 Person Toileting FIM Score Reason: incontinent diarrhea Comments FIMs are mainly 5's. showing improvement with activity tolerance . Care Plan Condition at time of discharge: Fair IRU Discharge Disposition: Home Health Service Interventions/Goals Order AFO Wheelchair training, cont to encourage use of wheelchair over walker due to safety. Reeval next week to see if he has met maximal improvement. Pt will insist on going home, we will do our best to support safety based on that decision despite our disagreement. B arriers to d/c: safety, strenght, endurance, balance. OLIVA STUBBS MD Nov 15, 2016 13:02
[2016-11-15 15:46] VITALS: BP 128/69; PULSE 51; RESP 20; TEMP 97.3; O2SAT 98
--- NOTE | 2016-11-15 19:43 | NUR ---
Summary VS's stable. Pt. is on RA. He has denied pain and nausea this shift. Pt. is a pivot transfer x1 with walker and gait belt. He does have some right sided weakness. He is maximum assist with toileting hygiene. Pt. is incontinent of bowel. No stool softeners/laxatives given this shift. Pt. takes meds whole. BGM at 1000 noted to be 136 and BGM at 1400 noted to be 113. Report has been past on to overnight associate.
[2016-11-15] MEDS: ATORVASTATIN 40 MG TABLET PO SCH (22:01)
[2016-11-15] MEDS: ESCITALOPRAM 10 MG TABLET PO SCH (22:01)
[2016-11-15] MEDS: INSULIN REGULAR 100 UNIT/ML SQ PRN (22:19)
[2016-11-15 22:56] VITALS: BP 133/66; PULSE 20; RESP 18; TEMP 98.6
[2016-11-15 23:48] VITALS: PULSE 54
--- NOTE | 2016-11-16 05:31 | NUR ---
Chart Check 24 hour chart check completed
--- NOTE | 2016-11-16 06:35 | NUR ---
Summary Pt denies pain, refused stool softener, and was incont of bowel last night with bowel accident limited to soiled brief. Pt educated to toileting. Pt reassured by this nurse that he could implement his own toilet schedule and that staff would assist him to the BR whenever he called. Pt did not call for BR assistance this shift.
[2016-11-16 07:40] VITALS: BP 131/79; PULSE 61; RESP 18; TEMP 98.1; O2SAT 92
[2016-11-16 08:00] VITALS: PULSE 61; RESP 18
[2016-11-16] MEDS: DOCUSATE SODIUM 100 MG CAPSULE PO SCH ×2 (09:00→20:49)
[2016-11-16] MEDS: INSULIN ASPART 100 UNIT/ML SQ SCH ×3 (09:17→18:07)
[2016-11-16] MEDS: MAGNESIUM OXIDE 400 MG TABLET PO SCH ×2 (09:23→20:58)
[2016-11-16] MEDS: LISINOPRIL 10 MG TABLET PO SCH (09:23)
[2016-11-16] MEDS: AMLODIPINE 5 MG TABLET PO SCH (09:23)
[2016-11-16] MEDS: FAMOTIDINE 20 MG TABLET PO SCH ×2 (09:23→20:58)
[2016-11-16] MEDS: CARVEDILOL 3.125 MG TABLET PO SCH ×2 (09:24→18:07)
[2016-11-16] MEDS: RIVAROXABAN 15 MG TABLET PO SCH ×2 (09:29→18:07)
[2016-11-16] MEDS: INSULIN REGULAR 100 UNIT/ML SQ PRN ×3 (11:43→20:59)
[2016-11-16 16:35] VITALS: BP 113/65; PULSE 51; RESP 16; TEMP 97.8; O2SAT 99
--- NOTE | 2016-11-16 19:24 | NUR ---
Summary VS's stable. Pt. is on RA. He has denied pain and nausea this shift. Pt. is a transfer x1 with walker and gait belt. He has ambulated to meals, or part way to meals this shift. He is unsteady at times. He does have some right sided weakness. He is maximum assist with toileting hygiene. Pt. is incontinent of bowel. No stool softeners/laxatives given this shift. Pt. takes meds whole. He is currently sitting up in the wheelchair. Report has been past on to shift supervisor film processing.
[2016-11-16 19:58] VITALS: BP 117/65; PULSE 55; RESP 16; TEMP 97.7; O2SAT 16; O2SAT 97
[2016-11-16] MEDS: ESCITALOPRAM 10 MG TABLET PO SCH (21:21)
[2016-11-16] MEDS: ATORVASTATIN 40 MG TABLET PO SCH (21:21)
[2016-11-17] VITALS (7 sets, daily range): BP systolic 113–131; BP diastolic 64–73; PULSE 46–56; RESP 12–18; TEMP 97.1–98.6; O2SAT 93–98
--- NOTE | 2016-11-17 04:32 | NUR ---
Chart Check 24 hour chart check completed
--- NOTE | 2016-11-17 05:52 | NUR ---
Summary Pt was incont of bowel. Stool was contained to his brief. Pt was able to assist with half the clean up, and managed his own clothing. Pt takes meds 2 at a time 5 min apart to prevent nausea. no nausea this shift. Pt sleeping at this time
[2016-11-17] MEDS: INSULIN ASPART 100 UNIT/ML SQ SCH ×3 (08:55→17:49)
[2016-11-17] MEDS: DOCUSATE SODIUM 100 MG CAPSULE PO SCH ×2 (09:00→21:00)
[2016-11-17] MEDS: RIVAROXABAN 15 MG TABLET PO SCH ×2 (09:48→17:49)
[2016-11-17] MEDS: MAGNESIUM OXIDE 400 MG TABLET PO SCH ×2 (09:48→21:18)
[2016-11-17] MEDS: LISINOPRIL 10 MG TABLET PO SCH (09:48)
[2016-11-17] MEDS: AMLODIPINE 5 MG TABLET PO SCH (09:49)
[2016-11-17] MEDS: CARVEDILOL 3.125 MG TABLET PO SCH ×2 (09:49→17:49)
[2016-11-17] MEDS: FAMOTIDINE 20 MG TABLET PO SCH ×2 (09:49→21:18)
[2016-11-17] MEDS: INSULIN REGULAR 100 UNIT/ML SQ PRN ×2 (10:48→14:44)
--- NOTE | 2016-11-17 17:52 | NUR ---
Summary VS's stable. Pt. is on RA. He has denied pain and nausea this shift. Pt. is a transfer x1 with walker and gait belt. He has ambulated to meals, or part way to meals this shift. He is unsteady at times. He does have some right sided weakness. He is maximum assist with toileting hygiene. Pt. is incontinent of bowel. No stool softeners/laxatives given this shift. Pt. takes meds whole. BGM at 1000 noted to be 225 and BGM at 1400 noted to be 190. Sliding scale insulin given per orders Please see eMAR. Will pass on report to electronic communications technician.
[2016-11-17] MEDS: ATORVASTATIN 40 MG TABLET PO SCH (21:30)
[2016-11-17] MEDS: ESCITALOPRAM 10 MG TABLET PO SCH (21:31)
--- NOTE | 2016-11-17 22:32 | PNPDOC ---
IRU Subjective Date DATE: 11/17/16 TIME: 22:30 Subjective Pt improving mobility. Working with PT and OT. IRU Objective Vital Signs Vital signs Vital Signs Date Time Temp Pulse Resp B/P Pulse Ox O2 Delivery O2 Flow Rate FiO2 11/17/16 20:50 56 12 Room Air 11/17/16 19:46 97.1 113/64 97 Telemetry Rhythm: Sinus Rhythm Height (Feet): 5 Height (Inches): 10.00 Weight (Kilograms): 69.300 General General Appearance: Alert, Orientated x 2 Respiratory (Brief) Respiratory: FOUND: clear all dinh, equal bilaterally Cardiovascular (Brief) Cardiac: FOUND: regular rate, regular rhythm Laboratory Laboratory Laboratory Tests Test 11/16/16 06:31 11/16/16 11:38 11/16/16 14:36 11/16/16 20:48 Glucometer 92mg/dL 198mg/dL 188mg/dL 175mg/dL Test 11/17/16 10:35 11/17/16 14:04 11/17/16 20:31 Glucometer 225mg/dL 190mg/dL 80mg/dL Assessment & Plan Problems: (1) Cerebellar infarct Status: Chronic Assessment & Plan: medical following. (2) Generalized weakness Status: Acute Assessment & Plan: Pt agreed to stay, but now a d/c goal is tougher as he is insistent on going home, but we may not get him strong enough to go home without 24 hour assist and his is not strong enough to offer that asssist. Reeval with PT and OT in am. Code Status Full Code Interventions to Obtain Goals PT Treatment Plan: Therapeutic Exercise, Gait Training, Functional Activities , Traction- Cervical OT Treatment Plan: ADL's (basic care), Ther. Exercise for ADL's, UE Functional Training, Balance Training, Pt./Family Education, IADL's ST Treatment Plan: Evaluation Only Hospital Course Summary Disclaimer The hospital course summary below is not to be considered part of the above Progress Note. Hospital Course Summary Agree with admission to IRU for ongoing rehabilitation for improved strength and functioning following hemorrhagic CVA. All neurology documents reviewed from [facility]. Recommendation is holding off on any anticoagulation until November 09. This includes ASA. Careful control of blood pressure is important given recent ischemic and hemorrhagic CVA. Blood pressure this morning was elevated at 179 systolic. Patient was not sent from [place] on any antihypertensives. Start Amlodipine 5mg daily for hypertension. We will consult Dr. Hooks for management of blood pressure and other cardiovascular management of atrial thrombus and other existing co-morbidities. Continue Glipizide and Novolin Regular sliding scale. Continue to monitor blood glucose before meals and at bedtime. We will order SCDs for DVT prophylaxis as anticoagulation is currently contraindicated given recent hemorrhagic CVA. Continue Lipitor at for lipid control Colace 100 milligrams twice a day for ongoing bowel motivation Pepcid 20 BID for GI protection Did review this morning laboratory studies. Hemoglobin is stable at 13.1 To improve his strength and functionality he will need physical therapy, occupational therapy and speech therapy. Impression I have independently evaluated and examined this patient. I reviewed the chart, the patient's history, and the CONTROL AREA OPERATOR's documented findings as above. We discussed and formulated the assessment and plan as above with additions as below: Mr. Duran defers to his for most history. He reports some weakness in his left arm and his reports persistent right facial drooping after recent left cerebellar ischemic stroke, acute by hemorrhagic conversion. Patient notes that he has minimal residual nausea and denies diplopia although it's noted that he had preceding right visual loss. He does not clearly describe vertigo but reports dizziness earlier in the stroke course which has improved. Patient describes his gait as "wobbly". Examination reveals right nasolabial fold flattening and droop. Right pupil is nonreactive to light. Left pupil reacts to light. There is slight right exotropia at rest but extraocular muscles are intact and no nystagmus is noted. Sensation is intact across all 3 distributions of the trigeminal nerve bilaterally and tongue elevates symmetrically. Power is grossly normal proximally and distally in the upper and lower extremities and graded 4/5 throughout but left fine finger movements are slow and clumsy compared to the right. Sensation is intact to light touch in the upper and lower extremities bilaterally. Breath sounds are clear and cardiac rhythm regular. Recommendation to withhold anticoagulation through 11/09 noted. Blood pressure control inadequate, amlodipine initiated. Given diagnosis of diabetes we can also push ESME inhibitor or switch to ARB for improved blood pressure control. Renal function should tolerate ESME inhibitor. Carvedilol initiated per cardiology. Blood sugar control suboptimal as well, will monitor and modify over the next couple of days. CTA of chest obtained last admission reviewed, pulmonary infiltrates present at that time-probable pulmonary edema. Currently on room air. Chest x-ray to be obtained given history of cardiomyopathy/CHF. 11/03/16 Blood pressure is under better control with addition of amlodipine, low-dose lisinopril, and Coreg. Remains hyperglycemic with blood glucose frequently above 200. He is on glipizide 10 mg daily plus sliding scale insulin. On 10/25/16 his hemoglobin A1c was 8%. Will discuss addition of long-acting insulin with attending. Hemorrhagic conversion of left cerebellar infarct: Continue secondary prevention with blood pressure and glucose control, statin therapy. Recommendations are to avoid taking anticoagulants and anti-thrombotic through . 11/06/16 Continues to be hyperglycemic frequently greater than 200. Will increase mealtime insulin to 5 units and monitor carefully. Concern for adding long- acting insulin may lead to hypoglycemia at night. Continue to monitor blood pressure carefully. Current regimen. Lisinopril 5 milligrams, Norvasc 5 milligrams, Coreg 3.125 twice a day Continue with Colace twice a day for bowel motivation PT/OT for ongoing strengthening and function. Overall making good gains Hemorrhagic conversion of left cerebellar infarct: Recommendations are to avoid taking anticoagulants and anti-thrombotic through 11/09/16. 11/08/16 Continues to be hyperglycemic frequently greater than 200. Will increase mealtime insulin to 7 units and monitor carefully Concern for adding long- acting insulin may lead to hypoglycemia at night. Continue to monitor blood pressure carefully. Current regimen. Lisinopril 5 milligrams, Norvasc 5 milligrams, Coreg 3.125 twice a day. Current BP is 132/77. Continue with Colace twice a day for bowel motivation PT/OT for ongoing strengthening and function. Overall making good gains Hemorrhagic conversion of left cerebellar infarct: Recommendations are to avoid taking anticoagulants and anti-thrombotic through 11/09/16. Discussed anticoagulation with cardiology team. Will start Xarelto 15mg twice daily for 3 weeks, Then decrease to Xarelto 20mg daily. Will check CBC and BMP for blood count, electrolyte and renal function monitoring. 11/11/16 David continues to be doing well. Blood pressure has remained stable on Norvasc, Coreg, lisinopril. Continue to monitor blood sugars as they have been well controlled on glipizide and sliding scale Novolin Hopeful to recheck to [place] radiology department today for comparison of repeat CT scan from 11/09. Assuming this is unchanged, Initiate Xarelto 15 milligrams twice a day for treatment of cardiac thrombus Discuss further with Dr. Darling [id number]- Dr Darling spoke with radiologist. CT appears to be unchanged. Will resume Xarelto. Will discuss with today. 11/12/16-Phong Neurologically stable with resumption of Xarelto. Minor bradycardia but the pressure stable. Lisinopril/carvedilol initiated per cardiology. Will clarify with cardiology if there is intent to resume low-dose aspirin. Blood sugar control improved overall, continue to monitor. Recheck BMP for electrolytes/renal function 11/15/16 Continue with PT/OT for strength and functional improvement Continue to monitor vital signs BP continues to remain stable, continue Lisinopril, Norvasc, Coreg BS are stable, continue with accu-checks, Novolog, Glipizide and sliding scale regular insulin Continue with Xarelto 15mg twice daily for cardiac thrombus Will continue to monitor for potential bleeding OLIVA STUBBS MD Nov 17, 2016 22:32
--- NOTE | 2016-11-18 05:50 | NUR ---
Summary Pt has refused bath even when reminded that he did not have one this morning. Pt states he cleaned up well after dinner. Staff again offered bath before bed, but pt refused and refused to toilet before bed. Pt took meds whole two at a time with sips of soda. Pt in bed sleeping at this time.
[2016-11-18 07:48] VITALS: BP 132/72; PULSE 52; RESP 18; TEMP 98.3; O2SAT 95
[2016-11-18 08:30] VITALS: PULSE 52; RESP 18
[2016-11-18] MEDS: INSULIN ASPART 100 UNIT/ML SQ SCH ×3 (08:37→17:21)
[2016-11-18] MEDS: LISINOPRIL 10 MG TABLET PO SCH (10:01)
[2016-11-18] MEDS: AMLODIPINE 5 MG TABLET PO SCH (10:02)
[2016-11-18] MEDS: MAGNESIUM OXIDE 400 MG TABLET PO SCH ×2 (10:02→21:08)
[2016-11-18] MEDS: RIVAROXABAN 15 MG TABLET PO SCH ×2 (10:02→17:20)
[2016-11-18] MEDS: CARVEDILOL 3.125 MG TABLET PO SCH ×2 (10:02→17:21)
[2016-11-18] MEDS: FAMOTIDINE 20 MG TABLET PO SCH ×2 (10:03→21:08)
[2016-11-18] MEDS: DOCUSATE SODIUM 100 MG CAPSULE PO SCH ×2 (10:03→21:00)
[2016-11-18] MEDS: INSULIN REGULAR 100 UNIT/ML SQ PRN (11:15)
--- NOTE | 2016-11-18 12:24 | PNPDOC ---
Subjective Date DATE: 11/18/16 TIME: 12:19 Subjective David is seen in the dining room on IRU. He denies chest pain or dyspnea. States he may get to go home on Friday. Objective Vital Signs Vital signs Vital Signs 11/18/16 11/18/16 07:48 08:30 Temp 98.3 Pulse 52 52 Resp 18 18 B/P 132/72 Pulse Ox 95 O2 Delivery Room Air Height (Feet): 5 Height (Inches): 10.00 Weight (Kilograms): 69.300 General Alert, Orientated x 3, Cooperative ENMT (Brief) mucosa moist Neck (Brief) NOT FOUND: JVD, carotid bruits Respiratory (Brief) clear all dinh, equal bilaterally, NOT FOUND: rales, wheezes Cardiovascular (Brief) regular rate, regular rhythm, NOT FOUND: murmur, pedal edema Abdomen (Brief) BS normo active x4, soft, NOT FOUND: tender Integumentary (Brief) dry, warm Psychiatric (Brief) alert, oriented Laboratory Laboratory Laboratory Tests Test 11/16/16 14:36 11/16/16 20:48 11/17/16 10:35 11/17/16 14:04 Glucometer 188mg/dL 175mg/dL 225mg/dL 190mg/dL Test 11/17/16 20:31 11/18/16 06:05 11/18/16 10:13 Glucometer 80mg/dL 95mg/dL 237mg/dL Medications Current Medications Docusate Sodium (Colace) 100 mg BID PO Last administered on 11/13/16 22:23; Start 10/31/16 at 21:00 Miscellaneous Medication (May use PRN orders) 1 PRN PRN MC ; Start 10/31/16 at 20:45 Acetaminophen (Tylenol Regular Strength) 650 mg Q4HR PRN PO PAIN; Start at 20:45 Atorvastatin Calcium (LIPITOR 40 mg) 40 mg HS PO Last administered on 21:30; Start 10/31/16 at 22:00 Famotidine (Pepcid) 20 mg BID PO Last administered on 11/18/16 10:03; Start at 21:00 Glipizide (Glucotrol Xl) 10 mg DAILY PO Last administered on 11/18/16 10:02; Start 11/01/16 at 09:00 Magnesium Oxide (Magox) 400 mg BID PO Last administered on 11/18/16 10:02; Start 10/31/16 at 21:00 Insulin Human Regular (Novolin R) SS PRN SQ Last administered on 11/18/16 11 :15; Start 11/01/16 at 06:30 Amlodipine Besylate (Norvasc) 5 mg DAILY PO Last administered on 11/18/16 10: 02; Start 11/02/16 at 09:00 Carvedilol (Coreg) 3.125 mg BIDWM PO Last administered on 11/18/16 10:02; Start 11/01/16 at 13:00 Insulin Aspart (Novolog) 5 unit TIDWM SQ Last administered on 11/18/16 08:37; Start 11/06/16 at 17:30 Rivaroxaban (Xarelto) 15 mg BIDWM PO Last administered on 11/18/16 10:02; Start 11/09/16 at 08:00; Status Future hold Escitalopram Oxalate (LEXAPRO 10mg) 5 mg HS PO Last administered on 11/17/16 21:31; Start 11/09/16 at 22:00 Lisinopril (Prinivil) 10 mg DAILY PO Last administered on 11/18/16 10:01; Start 11/12/16 at 09:00 Assessment & Plan Problems: (1) Cardiomyopathy Status: Chronic Assessment & Plan: Start Coreg 3.125mg BID and Lisinopril 2.5mg daily (2) CAD (coronary artery disease) Status: Chronic Assessment & Plan: continue risk management, routine monitoring (3) Essential (primary) hypertension Status: Chronic Assessment & Plan: Continue Amlodipine as tolerated (4) DM (diabetes mellitus) Status: Chronic Qualifiers: Diabetes mellitus type: type 2 Assessment & Plan: per attending Plan/Intensity of Service 11/01/16 Cardiomyopathy: Start Coreg 3.125mg BID and Lisinopril 2.5mg daily. HTN Continue Amlodipine as tolerated. 11/04/16 Increase Lisinopril to 5mg daily, give additional 2.5mg this evening. 11/11/16 Increase Lisinopril to 10mg daily. 11/18/16 BP well controlled on current therapy. HR is 50-60s on BB, denies lightheadedness or syncope Thank you for allowing us to participate in this patient's care, we will follow along with you. HANNA ISRAEL APRN Nov 18, 2016 12:22
--- NOTE | 2016-11-18 12:37 | PNPDOC ---
IRU Subjective Date DATE: 11/18/16 TIME: 12:35 Subjective Patient is working with physical therapy and occupational therapy, but is looking forward to going home. He is still insistent that he will go home and not to an assisted living. IRU Objective Vital Signs Vital signs Vital Signs Date Time Temp Pulse Resp B/P Pulse Ox O2 Delivery O2 Flow Rate FiO2 11/18/16 08:30 52 18 11/18/16 07:48 98.3 132/72 95 Room Air Height (Feet): 5 Height (Inches): 10.00 Weight (Kilograms): 69.300 General General Appearance: Alert, Orientated x 2 Respiratory (Brief) Respiratory: FOUND: clear all dinh, equal bilaterally Cardiovascular (Brief) Cardiac: FOUND: regular rate, regular rhythm Capillary Refill: <2 sec Musculoskeletal (Brief) Comments Still generalized weakness, with difficulty balancing. Patient has significant difficulty pivoting, tends to lose balance during this maneuver. Laboratory Laboratory Laboratory Tests Test 11/16/16 14:36 11/16/16 20:48 11/17/16 10:35 11/17/16 14:04 Glucometer 188mg/dL 175mg/dL 225mg/dL 190mg/dL Test 11/17/16 20:31 11/18/16 06:05 11/18/16 10:13 Glucometer 80mg/dL 95mg/dL 237mg/dL Assessment & Plan Problems: (1) Cerebellar infarct Status: Chronic Assessment & Plan: Stable, managed by medical (2) Generalized weakness Status: Acute Assessment & Plan: I met with both physical therapy and occupational therapy today. Both feel that he is still lacking and safety areas to go home without 24 -hour supervision. He refuses to do this, and insists that he will be going home instead of an assisted living. His is unable to lift him and cannot offer contact guard as she is in a wheelchair herself. He would certainly be much safer if he would use his wheelchair around the house, but he is inclined to stand up and grab his walker. During this he does say pivot maneuver which is often where he loses balance. He is certainly improved, but still has risk of falling. I discussed this at length with him. He understands this and still insists he will be going home. Reevaluate Friday. Physical therapy and occupational therapy will take advantage of the next 2 days to try and reinforce the safety issues. Code Status Full Code Interventions to Obtain Goals PT Treatment Plan: Therapeutic Exercise, Gait Training, Functional Activities , Traction- Cervical OT Treatment Plan: ADL's (basic care), Ther. Exercise for ADL's, UE Functional Training, Balance Training, Pt./Family Education, IADL's ST Treatment Plan: Evaluation Only Hospital Course Summary Disclaimer The hospital course summary below is not to be considered part of the above Progress Note. Hospital Course Summary Agree with admission to IRU for ongoing rehabilitation for improved strength and functioning following hemorrhagic CVA. All neurology documents reviewed from [facility]. Recommendation is holding off on any anticoagulation until November 09. This includes ASA. Careful control of blood pressure is important given recent ischemic and hemorrhagic CVA. Blood pressure this morning was elevated at 179 systolic. Patient was not sent from [place] on any antihypertensives. Start Amlodipine 5mg daily for hypertension. We will consult Dr. Hooks for management of blood pressure and other cardiovascular management of atrial thrombus and other existing co-morbidities. Continue Glipizide and Novolin Regular sliding scale. Continue to monitor blood glucose before meals and at bedtime. We will order SCDs for DVT prophylaxis as anticoagulation is currently contraindicated given recent hemorrhagic CVA. Continue Lipitor at for lipid control Colace 100 milligrams twice a day for ongoing bowel motivation Pepcid 20 BID for GI protection Did review this morning laboratory studies. Hemoglobin is stable at 13.1 To improve his strength and functionality he will need physical therapy, occupational therapy and speech therapy. Impression I have independently evaluated and examined this patient. I reviewed the chart, the patient's history, and the TUMBLER MACHINE OPERATOR HELPER's documented findings as above. We discussed and formulated the assessment and plan as above with additions as below: Mr. Duran defers to his for most history. He reports some weakness in his left arm and his reports persistent right facial drooping after recent left cerebellar ischemic stroke, acute by hemorrhagic conversion. Patient notes that he has minimal residual nausea and denies diplopia although it's noted that he had preceding right visual loss. He does not clearly describe vertigo but reports dizziness earlier in the stroke course which has improved. Patient describes his gait as "wobbly". Examination reveals right nasolabial fold flattening and droop. Right pupil is nonreactive to light. Left pupil reacts to light. There is slight right exotropia at rest but extraocular muscles are intact and no nystagmus is noted. Sensation is intact across all 3 distributions of the trigeminal nerve bilaterally and tongue elevates symmetrically. Power is grossly normal proximally and distally in the upper and lower extremities and graded 4/5 throughout but left fine finger movements are slow and clumsy compared to the right. Sensation is intact to light touch in the upper and lower extremities bilaterally. Breath sounds are clear and cardiac rhythm regular. Recommendation to withhold anticoagulation through 11/09 noted. Blood pressure control inadequate, amlodipine initiated. Given diagnosis of diabetes we can also push ESME inhibitor or switch to ARB for improved blood pressure control. Renal function should tolerate ESME inhibitor. Carvedilol initiated per cardiology. Blood sugar control suboptimal as well, will monitor and modify over the next couple of days. CTA of chest obtained last admission reviewed, pulmonary infiltrates present at that time-probable pulmonary edema. Currently on room air. Chest x-ray to be obtained given history of cardiomyopathy/CHF. 11/03/16 Blood pressure is under better control with addition of amlodipine, low-dose lisinopril, and Coreg. Remains hyperglycemic with blood glucose frequently above 200. He is on glipizide 10 mg daily plus sliding scale insulin. On 10/25/16 his hemoglobin A1c was 8%. Will discuss addition of long-acting insulin with attending. Hemorrhagic conversion of left cerebellar infarct: Continue secondary prevention with blood pressure and glucose control, statin therapy. Recommendations are to avoid taking anticoagulants and anti-thrombotic through . 11/06/16 Continues to be hyperglycemic frequently greater than 200. Will increase mealtime insulin to 5 units and monitor carefully. Concern for adding long- acting insulin may lead to hypoglycemia at night. Continue to monitor blood pressure carefully. Current regimen. Lisinopril 5 milligrams, Norvasc 5 milligrams, Coreg 3.125 twice a day Continue with Colace twice a day for bowel motivation PT/OT for ongoing strengthening and function. Overall making good gains Hemorrhagic conversion of left cerebellar infarct: Recommendations are to avoid taking anticoagulants and anti-thrombotic through 11/09/16. 11/08/16 Continues to be hyperglycemic frequently greater than 200. Will increase mealtime insulin to 7 units and monitor carefully Concern for adding long- acting insulin may lead to hypoglycemia at night. Continue to monitor blood pressure carefully. Current regimen. Lisinopril 5 milligrams, Norvasc 5 milligrams, Coreg 3.125 twice a day. Current BP is 132/77. Continue with Colace twice a day for bowel motivation PT/OT for ongoing strengthening and function. Overall making good gains Hemorrhagic conversion of left cerebellar infarct: Recommendations are to avoid taking anticoagulants and anti-thrombotic through 11/09/16. Discussed anticoagulation with cardiology team. Will start Xarelto 15mg twice daily for 3 weeks, Then decrease to Xarelto 20mg daily. Will check CBC and BMP for blood count, electrolyte and renal function monitoring. 11/11/16 David continues to be doing well. Blood pressure has remained stable on Norvasc, Coreg, lisinopril. Continue to monitor blood sugars as they have been well controlled on glipizide and sliding scale Novolin Hopeful to recheck to [place] radiology department today for comparison of repeat CT scan from 11/09. Assuming this is unchanged, Initiate Xarelto 15 milligrams twice a day for treatment of cardiac thrombus Discuss further with Dr. Darling [id number] Dr Darling spoke with radiologist. CT appears to be unchanged. Will resume Xarelto. Will discuss with today. 11/12/16-Phong Neurologically stable with resumption of Xarelto. Minor bradycardia but the pressure stable. Lisinopril/carvedilol initiated per cardiology. Will clarify with cardiology if there is intent to resume low-dose aspirin. Blood sugar control improved overall, continue to monitor. Recheck BMP for electrolytes/renal function 11/15/16 Continue with PT/OT for strength and functional improvement Continue to monitor vital signs BP continues to remain stable, continue Lisinopril, Norvasc, Coreg BS are stable, continue with accu-checks, Novolog, Glipizide and sliding scale regular insulin Continue with Xarelto 15mg twice daily for cardiac thrombus Will continue to monitor for potential bleeding OLIVA STUBBS MD Nov 18, 2016 12:37
--- NOTE | 2016-11-18 14:14 | PNPDOC ---
MARLENE HIGGINS V EARLY CHILDHOOD EDUCATION SPECIALIST 11/18/16 1412: Subjective Date DATE: 11/18/16 TIME: 14:08 Subjective David is seen this morning in the dining room. He is without complaints and denies having any pain or shortness of breath. Denies dizziness. Pulse remains in the 50s, blood pressure this morning 132/72. Objective Vital Signs Vital signs Vital Signs Date Time Temp Pulse Resp B/P Pulse Ox O2 Delivery O2 Flow Rate FiO2 11/18/16 08:30 52 18 11/18/16 07:48 98.3 132/72 95 Room Air Height (Feet): 5 Height (Inches): 10.00 Weight (Kilograms): 69.300 General General Appearance: Alert, Orientated x 3, Cooperative, No Acute Distress Eyes (Brief) Eyes: FOUND: EOMI ENMT (Brief) ENMT: FOUND: mucosa moist, normal dentition, NOT FOUND: pharnyx erythema Neck (Brief) Neck: FOUND: midline, NOT FOUND: adenopathy, carotid bruits, tracheal deviation Respiratory (Brief) Respiratory: FOUND: clear all dinh, equal bilaterally, NOT FOUND: wheezes Cardiovascular (Brief) Cardiac: FOUND: regular rate, regular rhythm, NOT FOUND: murmur, pedal edema Capillary Refill: <2 sec Abdomen (Brief) Abdominal: FOUND: BS normo active x4, soft, NOT FOUND: distended, tender Lymphatic (Brief) Lymphatic: NOT FOUND: adenopathy Musculoskeletal (Brief) Musculoskeletal: NOT FOUND: tenderness Integumentary (Brief) Integumentary: FOUND: dry, pink, warm Neurologic (Brief) Neurological: FOUND: cranial 2-12 intact Psychiatric (Brief) Psychiatric: FOUND: alert, attentive, normal affect, oriented Assessment & Plan Problems: (1) Hemorrhagic cerebrovascular accident (CVA) Status: Acute Assessment & Plan: 10/28/16-hemorrhagic conversion of left cerebellar infarct (2) Cerebellar infarct Status: Chronic Assessment & Plan: 10/25/16-left cerebellar (3) Atrial thrombus Status: Acute Assessment & Plan: Incidental finding on 10/25/16 (4) Generalized weakness Status: Acute (5) Cardiomyopathy Status: Chronic Assessment & Plan: Likely ischemic (6) Essential (primary) hypertension Status: Chronic (7) CAD (coronary artery disease) Status: Chronic (8) DM (diabetes mellitus) Status: Chronic Qualifiers: Diabetes mellitus type: type 2 Assessment & Plan: A1c 8.0 on 10/25/16 (9) Hyperlipemia Status: Chronic (10) CKD (chronic kidney disease) Status: Chronic Qualifiers: Chronic kidney disease stage: stage 3 (moderate) Qualified Codes: N18.3 - Chronic kidney disease, stage 3 (moderate) Assessment & Plan: Stage 2-3 (11) Blind right eye Status: Chronic (12) Hx of retinal detachment Status: Resolved (13) History of colon cancer Status: Resolved Plan/Intensity of Service 11/18/16 Continue with careful blood pressure control. On current regimen including Coreg , lisinopril, Norvasc. Appreciate ongoing cardiology involvement. Continue with Xarelto 15mg twice daily for 3 weeks. 12/02/16 decrease to Xarelto 20mg daily for chronic anticoagulation for treatment of thrombus. Continue to monitor blood sugars. Overall, well controlled Encourage continued strengthening with PT Likely discharge later this week Code Status Full Code Hospital Course Summary Disclaimer The hospital course summary below is not to be considered part of the above Progress Note. Hospital Course Summary Agree with admission to IRU for ongoing rehabilitation for improved strength and functioning following hemorrhagic CVA. All neurology documents reviewed from [facility]. Recommendation is holding off on any anticoagulation until November 09. This includes ASA. Careful control of blood pressure is important given recent ischemic and hemorrhagic CVA. Blood pressure this morning was elevated at 179 systolic. Patient was not sent from [place] on any antihypertensives. Start Amlodipine 5mg daily for hypertension. We will consult Dr. Hooks for management of blood pressure and other cardiovascular management of atrial thrombus and other existing co-morbidities. Continue Glipizide and Novolin Regular sliding scale. Continue to monitor blood glucose before meals and at bedtime. We will order SCDs for DVT prophylaxis as anticoagulation is currently contraindicated given recent hemorrhagic CVA. Continue Lipitor at for lipid control Colace 100 milligrams twice a day for ongoing bowel motivation Pepcid 20 BID for GI protection Did review this morning laboratory studies. Hemoglobin is stable at 13.1 To improve his strength and functionality he will need physical therapy, occupational therapy and speech therapy. Impression I have independently evaluated and examined this patient. I reviewed the chart, the patient's history, and the EARLY CHILDHOOD EDUCATION SPECIALIST's documented findings as above. We discussed and formulated the assessment and plan as above with additions as below: Mr. Duran defers to his for most history. He reports some weakness in his left arm and his reports persistent right facial drooping after recent left cerebellar ischemic stroke, acute by hemorrhagic conversion. Patient notes that he has minimal residual nausea and denies diplopia although it's noted that he had preceding right visual loss. He does not clearly describe vertigo but reports dizziness earlier in the stroke course which has improved. Patient describes his gait as "wobbly". Examination reveals right nasolabial fold flattening and droop. Right pupil is nonreactive to light. Left pupil reacts to light. There is slight right exotropia at rest but extraocular muscles are intact and no nystagmus is noted. Sensation is intact across all 3 distributions of the trigeminal nerve bilaterally and tongue elevates symmetrically. Power is grossly normal proximally and distally in the upper and lower extremities and graded 4/5 throughout but left fine finger movements are slow and clumsy compared to the right. Sensation is intact to light touch in the upper and lower extremities bilaterally. Breath sounds are clear and cardiac rhythm regular. Recommendation to withhold anticoagulation through 11/09 noted. Blood pressure control inadequate, amlodipine initiated. Given diagnosis of diabetes we can also push ESME inhibitor or switch to ARB for improved blood pressure control. Renal function should tolerate ESME inhibitor. Carvedilol initiated per cardiology. Blood sugar control suboptimal as well, will monitor and modify over the next couple of days. CTA of chest obtained last admission reviewed, pulmonary infiltrates present at that time-probable pulmonary edema. Currently on room air. Chest x-ray to be obtained given history of cardiomyopathy/CHF. 11/03/16 Blood pressure is under better control with addition of amlodipine, low-dose lisinopril, and Coreg. Remains hyperglycemic with blood glucose frequently above 200. He is on glipizide 10 mg daily plus sliding scale insulin. On 10/25/16 his hemoglobin A1c was 8%. Will discuss addition of long-acting insulin with attending. Hemorrhagic conversion of left cerebellar infarct: Continue secondary prevention with blood pressure and glucose control, statin therapy. Recommendations are to avoid taking anticoagulants and anti-thrombotic through . 11/06/16 Continues to be hyperglycemic frequently greater than 200. Will increase mealtime insulin to 5 units and monitor carefully. Concern for adding long- acting insulin may lead to hypoglycemia at night. Continue to monitor blood pressure carefully. Current regimen. Lisinopril 5 milligrams, Norvasc 5 milligrams, Coreg 3.125 twice a day Continue with Colace twice a day for bowel motivation PT/OT for ongoing strengthening and function. Overall making good gains Hemorrhagic conversion of left cerebellar infarct: Recommendations are to avoid taking anticoagulants and anti-thrombotic through 11/09/16. 11/08/16 Continues to be hyperglycemic frequently greater than 200. Will increase mealtime insulin to 7 units and monitor carefully Concern for adding long- acting insulin may lead to hypoglycemia at night. Continue to monitor blood pressure carefully. Current regimen. Lisinopril 5 milligrams, Norvasc 5 milligrams, Coreg 3.125 twice a day. Current BP is 132/77. Continue with Colace twice a day for bowel motivation PT/OT for ongoing strengthening and function. Overall making good gains Hemorrhagic conversion of left cerebellar infarct: Recommendations are to avoid taking anticoagulants and anti-thrombotic through 11/09/16. Discussed anticoagulation with cardiology team. Will start Xarelto 15mg twice daily for 3 weeks, Then decrease to Xarelto 20mg daily. Will check CBC and BMP for blood count, electrolyte and renal function monitoring. 11/11/16 David continues to be doing well. Blood pressure has remained stable on Norvasc, Coreg, lisinopril. Continue to monitor blood sugars as they have been well controlled on glipizide and sliding scale Novolin Hopeful to recheck to [place] radiology department today for comparison of repeat CT scan from 11/09. Assuming this is unchanged, Initiate Xarelto 15 milligrams twice a day for treatment of cardiac thrombus Discuss further with Dr. Darling [phone]- Dr Darling spoke with radiologist. CT appears to be unchanged. Will resume Xarelto. Will discuss with today. 11/12/16-Phong Neurologically stable with resumption of Xarelto. Minor bradycardia but the pressure stable. Lisinopril/carvedilol initiated per cardiology. Will clarify with cardiology if there is intent to resume low-dose aspirin. Blood sugar control improved overall, continue to monitor. Recheck BMP for electrolytes/renal function 11/15/16 Continue with PT/OT for strength and functional improvement Continue to monitor vital signs BP continues to remain stable, continue Lisinopril, Norvasc, Coreg BS are stable, continue with accu-checks, Novolog, Glipizide and sliding scale regular insulin Continue with Xarelto 15mg twice daily for cardiac thrombus Will continue to monitor for potential bleeding 11/18/16 Continue with careful blood pressure control. On current regimen including Coreg , lisinopril, Norvasc. Appreciate ongoing cardiology involvement. Continue with Xarelto 15mg twice daily for 3 weeks. 12/02/16 decrease to Xarelto 20mg daily for chronic anticoagulation for treatment of thrombus. Continue to monitor blood sugars. Overall, well controlled Encourage continued strengthening with PT Likely discharge later this week ZECHARIAH DARLING MD 11/18/161951: Assessment & Plan Assessment I have independently evaluated and examined this patient. I reviewed the chart, the patient's history, and the EARLY CHILDHOOD EDUCATION SPECIALIST's documented findings as above. We discussed and formulated the assessment and plan as above with additions as below: Mr. Duran denies concerns, reports he is getting stronger and has had no further nausea. Respirations are nonlabored and breath sounds clear. Cardiac rhythm regular. Frequent bradycardia noted. No changes in therapy recommended at this time. MARLENE HIGGINS APRN Nov 18, 2016 14:12 ZECHARIAH DARLING MD Nov 18, 2016 19:52
[2016-11-18 15:41] VITALS: BP 130/69; PULSE 48; RESP 16; TEMP 97.5; O2SAT 99
--- NOTE | 2016-11-18 16:11 | NUR ---
CM ANTICIPATED DC DATE IS FRI, 11-20. SPOKE WITH PT ABOUT THIS, AND HE WAS AGREEABLE AND EAGER TO RETURN HOME. REVIEWED DC PLAN OF HOME WITH HOME HEALTH, ROTP, AND WHEELCHAIR. PROVIDED [employer] AND [employer] FOR WHEELCHAIR RESOURCE. CALLED [facility] [employer], SPOKE WITH ELDA, COST OF WHEELCHAIR WOULD BE $249 OR $538.00. RELAYED THIS TO PT. PT AGREEABLE FOR THIS WORKER TO CONTACT [employer] FOR A LOANER. THIS WORKER CALLED PT'S . UPDATED HER ON DC DATE FRI, AND SHE WAS ALSO AGREEABLE TO THIS. ALSO SPOKE WITH PT, RE: IRU POC. REVIEWED THIS WITH PT, PT SIGNED AND HAD NO QUESTIONS/CONCERNS.
--- NOTE | 2016-11-18 18:41 | NUR ---
Summary VS's stable. Pt. is on RA. He has denied pain and nausea this shift. Pt. is a transfer x1 with walker and gait belt. He has ambulated to meals, or part way to meals. He is unsteady at times. He does have some right sided weakness. He is moderate assist with toileting hygiene. Pt. is incontinent of bowel. No stool softeners/laxatives given this shift. He reports he used to have an ostomy. History of colon cancer and rectal/colon resec. noted. Pt. takes meds whole. BGM at 1000 noted to be 237 and BGM at 1400 noted to be 137. Sliding scale insulin given per orders Please see eMAR. Will pass on report to third shift lieutenant.
[2016-11-18 19:10] VITALS: BP 111/63; PULSE 53; RESP 20; TEMP 97.9; O2SAT 98
[2016-11-18] MEDS: ESCITALOPRAM 10 MG TABLET PO SCH (21:09)
[2016-11-18] MEDS: ATORVASTATIN 40 MG TABLET PO SCH (21:09)
[2016-11-18 22:30] VITALS: PULSE 53; RESP 20
--- NOTE | 2016-11-19 06:14 | NUR ---
Summary David is pleasant and cooperative with his cares.He is able to take his medications whole 2 at a time. Denies nausea or vomiting.He denies pain when asked.He is continent of bladder with the use of the urinal.Staff empties into the toilet. He is able to manage changing his pullup.He was incontinent of loose bowel x two.He manages to clean his penis and scrotum. Staff cleanses the buttocks and anal area. He ambulates with fww gb and contact guard of one staff to and from the the bed/and bathroom. His gait is fairly stable.He has slept well through the night.VSS. Side rails up x two,call light within reach and SCD's to bilateral legs.He is alert and oriented x three.
--- NOTE | 2016-11-19 06:27 | NUR ---
Chart Check 24 hour chart check completed
[2016-11-19 08:00] VITALS: PULSE 57
[2016-11-19] MEDS: RIVAROXABAN 15 MG TABLET PO SCH ×2 (08:25→17:59)
[2016-11-19] MEDS: MAGNESIUM OXIDE 400 MG TABLET PO SCH ×2 (08:25→20:16)
[2016-11-19] MEDS: AMLODIPINE 5 MG TABLET PO SCH (08:25)
[2016-11-19] MEDS: DOCUSATE SODIUM 100 MG CAPSULE PO SCH ×3 (08:25→19:39)
[2016-11-19] MEDS: FAMOTIDINE 20 MG TABLET PO SCH ×2 (08:25→20:16)
[2016-11-19] MEDS: CARVEDILOL 3.125 MG TABLET PO SCH ×2 (08:25→17:59)
[2016-11-19] MEDS: LISINOPRIL 10 MG TABLET PO SCH (08:26)
[2016-11-19] MEDS: INSULIN ASPART 100 UNIT/ML SQ SCH ×3 (08:30→18:00)
[2016-11-19 08:43] VITALS: BP 133/74; PULSE 57; RESP 20; TEMP 98.7; O2SAT 96
[2016-11-19] MEDS: INSULIN REGULAR 100 UNIT/ML SQ PRN ×2 (11:03→22:54)
--- NOTE | 2016-11-19 11:46 | NUR ---
CM THIS WORKER CALLED [employer] AT [facility] [employer] AND HE WILL BE BRINGING A WHEELCHAIR TODAY FOR PT.
[2016-11-19 16:00] VITALS: BP 128/69; PULSE 50; RESP 20; TEMP 96.3; O2SAT 98
--- NOTE | 2016-11-19 16:45 | NUR ---
CM PT'S LOANER WHEELCHAIR FROM [facility] WAS DELIVERED TO PT'S ROOM TODAY. PT WAS MADE AWARE.
--- NOTE | 2016-11-19 19:00 | NUR ---
SHIFT SUMMARY PATIENT ALERT AND ORIENTED., DENIES PAIN, TRANSFERS TO WITH ONE ASSIST AND GAITBELT, SELF PROPELS WC TO AND FROM LUNCH. JUAN MEALS WELL. VITALS STABLE. LARGE INCONTINENT BM TODAY. BS MONITORED TODAY, SSI GIVEN ONCE FOR ELEVATED LEVELS. CAME TO BEDSIDE TO TODAY. WILL CONT TO MONITOR
[2016-11-19 20:15] VITALS: PULSE 60
[2016-11-19 22:42] VITALS: BP 143/75; PULSE 47; RESP 24; TEMP 97.7; O2SAT 97
[2016-11-19] MEDS: ATORVASTATIN 40 MG TABLET PO SCH (22:43)
[2016-11-19] MEDS: ESCITALOPRAM 10 MG TABLET PO SCH (22:46)
--- NOTE | 2016-11-20 00:35 | NUR ---
Chart Check 24 hour chart check completed
[2016-11-20 01:25] VITALS: PULSE 54
--- NOTE | 2016-11-20 05:59 | NUR ---
Summary Pt has been incont of bowel. Pt was able to manage his own clothing and managed his bowel incontinence, including cleaning himself of stool and changing his brief. Pt has asked questions about meds being given this shift and appears more interested in his med administration. Pt sleeping at this time.
[2016-11-20 08:00] VITALS: BP 147/76; PULSE 52; PULSE 62; RESP 18; TEMP 97.3; O2SAT 98
[2016-11-20] MEDS: MAGNESIUM OXIDE 400 MG TABLET PO SCH (08:59)
[2016-11-20] MEDS: DOCUSATE SODIUM 100 MG CAPSULE PO SCH (09:00)
[2016-11-20] MEDS: LISINOPRIL 10 MG TABLET PO SCH (09:00)
[2016-11-20] MEDS: RIVAROXABAN 15 MG TABLET PO SCH ×2 (09:00→18:10)
[2016-11-20] MEDS: FAMOTIDINE 20 MG TABLET PO SCH (09:00)
[2016-11-20] MEDS: CARVEDILOL 3.125 MG TABLET PO SCH ×2 (09:00→18:10)
[2016-11-20] MEDS: AMLODIPINE 5 MG TABLET PO SCH (09:00)
[2016-11-20] MEDS: INSULIN ASPART 100 UNIT/ML SQ SCH ×3 (09:03→18:10)
[2016-11-20] MEDS: INSULIN REGULAR 100 UNIT/ML SQ PRN (10:48)
--- NOTE | 2016-11-20 11:44 | NUR ---
CM ANTICIPATED DC TODAY. SPOKE WITH PT AND ABOUT THIS. BOTH PT AND AGREEABLE TO HOME DC TODAY. THIS WORKER REVIEWED IM LETTER WITH PT AND ; PT REQUESTED TO SIGN THIS, WHICH SHE DID. THEY BOTH HAD NO QUESTIONS ABOUT IT. THIS WORKER SPOKE WITH , ASKED HOW SHE IS FEELING ABOUT DC NOW. SHE SAID SHE "FEELS MUCH BETTER ABOUT IT" THAN THE LAST TIME HE WAS GOING TO DC. SHE SAID SHE CAN MANAGE HIS CARES AT HOME AND FEELS COMFORTABLE TAKING HIM HOME. REVIEWED HOME HEALTH THROUGH [employer]; REVIEWED ROTP; REVIEWED DME (HE HAS A WALKER AND WHEELCHAIR IN HIS ROOM). THIS WORKER ASKED IF THEY HAD ANY OTHER DC CONCERNS. SAID SHE STILL HAS QUESTIONS ABOUT WHEN TO GIVE INSULIN TO PT. THIS WORKER RELAYED THIS TO FUR COMBER, WHO SAID SHE WILL FOLLOW UP. Addendum: 11/20/16 at 1155 by AYANNA HARRY Amended: Links added.
--- NOTE | 2016-11-20 12:33 | NUR ---
DIABETES EDUCATION Met with to review home routine for diabetes medications, blood sugar checks and hypoglycemia. Patient present for part of visit. Planning to go home with Home Health. Patient and verbalizes understanding on timing of glipizide every AM, Novolog insulin with meals and blood sugar checks fasting and 2 hours postprandial. States confidence in using blood sugar meter and insulin pens. Discussed causes, signs / symptoms and treatment of hypoglycemia. Advised to carry a snack when he goes to appointments or therapy. Written info provided. Agrees to have hypoglycemia treatment available. Will need prescriptions for medications, Contour Next blood glucose strips, Microlet lancets, Ultra-fine pen needles 4 mm x 32 gauge. Sample pen needles # 10 provided. Communicated with wrapper caser. Outpatient brochure and business card given. CDE may be reached at ext. [phone].
[2016-11-20] MEDS ORDERED: LISI10TA7 PO (13:37)
[2016-11-20] MEDS ORDERED: AMLO5TAB2 PO (13:37)
[2016-11-20] MEDS ORDERED: [UNRECOGNIZED DRUG - CODE] PO (13:37)
[2016-11-20] MEDS ORDERED: CARV3.12 PO (13:37)
--- NOTE | 2016-11-20 13:37 | PDIRUTEAM ---
Multidisciplinary Team Meeting Nursing Hx Incontinence: Yes Bladder Goal: 7+ Complete Bowman Hawkins Y/N: No Bladder Continent or Incontine: Continent Incontinent Product Used: Pull-up Number of Times Incontinent of: 0 Cleaning Ability-Bladder: 5 Supervision/Setup Bladder Incontinence Managemen: 1 Total Assistance Bowel Goal: 6 Modified Bowman Colostomy Y/N: No Bowel Incontinent/Continent: Incontinent Bowel Number of Accidents: 0 Number of times Incontinent of: 0 Cleaning Ability-Bowel: 5 Supervision/Setup Bowel Incontinence Management: 4 Minimal Assistance Toileting Ability: 4 Minimal Assistance Vital Signs Vital Signs Date Time Temp Pulse Resp B/P Pulse Ox O2 Delivery O2 Flow Rate FiO2 11/20/16 08:00 97.3 62 18 147/76 98 Room Air Current Medications Current Medications Medications (Trade) Dose Ordered Sig/Dandy Route PRN Reason Start Time Stop Time Status Last Admin Dose Admin Docusate Sodium (Colace) 100 mg BID PO 10/31/16 21:00 11/13/16 22:23 Atorvastatin Calcium (LIPITOR 40 mg) 40 mg HS PO 10/31/16 22:00 11/19/16 22:43 Famotidine (Pepcid) 20 mg BID PO 10/31/16 21:00 11/20/16 09:00 Glipizide (Glucotrol Xl) 10 mg DAILY PO 11/01/16 09:00 11/20/16 09:00 Magnesium Oxide (Magox) 400 mg BID PO 10/31/16 21:00 11/20/16 08:59 Insulin Human Regular (Novolin R) SS PRN SQ 11/01/16 06:30 11/20/16 10:48 Amlodipine Besylate (Norvasc) 5 mg DAILY PO 11/02/16 09:00 11/20/16 09:00 Carvedilol (Coreg) 3.125 mg BIDWM PO 11/01/16 13:00 11/20/16 09:00 Lisinopril (Prinivil) 2.5 mg DAILY PO 11/02/16 09:00 11/04/16 17:50 DC 11/04/16 08:17 Insulin Aspart (Novolog) 3 unit TIDWM SQ 11/04/16 08:00 11/06/16 12:18 DC 11/06/16 09:24 Lisinopril (Prinivil) 5 mg DAILY PO 11/05/16 09:00 11/11/16 16:06 DC 11/11/16 09:18 Lisinopril (Prinivil) 2.5 mg DAILY PO 11/04/16 18:00 11/04/16 19:00 DC 11/04/16 18:07 Insulin Aspart (Novolog) 5 unit TIDWM SQ 11/06/16 17:30 11/20/16 12:18 Rivaroxaban (Xarelto) 15 mg BIDWM PO 11/09/16 08:00 Future hold 11/20/16 09:00 Escitalopram Oxalate (LEXAPRO 10mg) 5 mg HS PO 11/09/16 22:00 11/19/16 22:46 Lisinopril (Prinivil) 10 mg DAILY PO 11/12/16 09:00 11/20/16 09:00 Comments Bowel incontinence last night and did his own kaia-care. BG at 2200 was 160. Physical Therapy Bed Transfer Ability: 5 Supervision/Setup Bed Transfer Assistance Needed: 1 Person Bed FIM Score Reason: pivot-transfer Chair Transfer Ability: 5 Supervision/Setup Chair Transfer Assistance Need: 1 Person Chair FIM Score Reason: pivot-transfer Overall Wheelchair Transfer Ab: 5 Supervision/Setup Wheelchair Transfer Assistance: 1 Person Wheelchair Transfer FIM Score: pivot-transfer Overall Toilet / Commode Trans: 5 Supervision/Setup Ambulation Ability: 5 Supervision/Setup Ambulation Assistance Needed: 1 Person Walk FIM Score Reason: distance. 4/7 min(A) Ambulation Distance: 328 Comments traveling well with front wheeled walker, but still requires stand by assist due to balance issues. AFO has improved stability. Occupational Therapy Grooming Ability: 5 Supervision/Setup Bathing Ability: 5 Supervision/Setup Upper Body Dressing Ability: 6 Modified Bowman Dressing-Upper FIM Score Reaso: completed in sitting Lower Body Dressing Ability: 5 Supervision/Setup Lower Body Dressing Assistance: 1 Person Dressing-Lower FIM Score Reaso: Pt. requires CGA while standing to pull up pants d/t decreased balance. Toileting Assistance Needed: 1 Person Toileting FIM Score Reason: incontinent diarrhea Comments Attitude improved as pt seems more happy and interactive. Improved safety with locking wheelchair brakes. Coordination in hand improved. Care Plan Condition at time of discharge: Fair IRU Discharge Disposition: Home Health Service Interventions/Goals D/C today with wheelchair, walker and homehealth. Pt is more interactive and more cooperative on safety issues. Recommendation is to d/c home at wheelchair level. Pt understands this. OLIVA STUBBS MD Nov 20, 2016 13:35
[2016-11-20 16:09] VITALS: BP 133/67; PULSE 49; RESP 18; TEMP 98.8; O2SAT 100
--- NOTE | 2016-11-20 17:54 | NUR ---
CM SPOKE WITH PT AND ; PROVIDED THEM WITH XARELTO SAMPLES. HOME HEALTH ORDERS TO [facility] WILL BE FAXED. THIS WORKER LEFT MESSAGE WITH KANDICE WITH HOME HEALTH THAT ORDERS WILL BE COMING. FAXED RX FOR DIABETIC SUPPLIES AND PEN TO [facility]. THIS WORKER CALLED THE PHARMACY, WAS TOLD THE ORDER IS IN PROCESS AND THEY HAD NO FURTHER QUESTIONS/NEEDS FOR THIS WORKER.
--- NOTE | 2016-11-20 18:50 | NUR ---
Shift Summary Pt has been up in his wheelchair most of the shift. Transfers with assist of 1, FWW, and gait belt. Has denied any pain this shift. His has been here most of the afternoon. Has been continent his shift, able to manage his clothing and cares. Took medications well with no problems. Worked well with therapy this shift. When bathing he only needed assist with his back, getting dressed needed stand by assist with his pants but could manage his top. When in bed or the chair the alarm is in use and call light is within reach.
--- NOTE | 2016-11-20 19:10 | NUR ---
Discharge Pt was dismissed to home with his via wheelchair escorted by staff. Instructions were provided to pt and , which included medications, prescriptions, med info, pt health summary, and stroke instructions. They did not have any questions at this time. Prescriptions were given to pts , this included the printed scripts as well as a hand written script from Dr. Darling for Famotidine, Magnesium Oxide, and Atorvastatin. All pt belongings were sent with pt.
--- NOTE | 2016-11-21 11:19 | PDONTRACK ---
Right on Track Program Date of Discharge Nov 20, 2016 at 19:10 Scheduled Amlodipine Besylate (Amlodipine Besylate), 5 MG PO DAILY Atorvastatin Calcium (Atorvastatin Calcium), 1 TAB PO HS, (Reported) Carvedilol (Coreg), 3.125 MG PO BIDWM Famotidine (Famotidine), 1 TAB PO BID, (Reported) Glipizide (Glipizide ER), 1 TAB PO DAILY Lisinopril (Lisinopril), 10 MG PO DAILY Magnesium Oxide (Magnesium Oxide), 1 TAB PO BID, (Reported) Scheduled PRN Acetaminophen (Acetaminophen), 2 TAB PO Q4HR PRN for PAIN, (Reported) Discontinued Medications Insulin Lispro (Humalog), 1 UNIT SQ SS, (Reported) Date: Nov 21, 2016 Right on Track Program: 24 Hour Follow-Up Discharge Summary Received: No Care Plan Received: Yes Follow up: Follow Up Appt. Scheduled (11/[address] Srivastava and 11/[address] Hooks) Education: Diagnosis Ed. Review, Education to Zipper Setter Lockstitch Total LACE Score: 11 Comments I spoke with Mrs. Duran on 11/21/16. She stated that David is doing well. She didn' t have any questions about the discharge care plan or medications, but states that [facility] didn't have the insulin Rx ready for them - I reviewed her discharge medications and didn't see insulin listed. Mrs. Duran reports that that received all the testing supplies. After I completed my phone call with her , I called the pharmacy in [facility]. They report that they did in fact receive a faxed prescription for NovoLog, but had to substitute Humalog Flex pen because of insurance reasons. Home health is planning on coming out this afternoon. They have an appointment scheduled with both Dr. Srivastava and Dr. Hooks. A home visit has been scheduled for 11/27/16 at 9:30 AM. Discussed w/pt and caregiver: Yes Recommendations for follow-up 1. F/U with PCP & cardiology as planned 2. Continue HH 3. F/U with inclusion special educator 4. Continue to follow in ROT Problems: (1) Hemorrhagic cerebrovascular accident (CVA) Status: Acute Assessment & Plan: 10/28/16-hemorrhagic conversion of left cerebellar infarct (2) Cerebellar infarct Status: Chronic Assessment & Plan: 10/25/16-left cerebellar (3) Atrial thrombus Status: Acute Assessment & Plan: Incidental finding on 10/25/16 (4) Generalized weakness Status: Acute (5) Cardiomyopathy Status: Chronic Assessment & Plan: Likely ischemic (6) Essential (primary) hypertension Status: Chronic (7) CAD (coronary artery disease) Status: Chronic (8) DM (diabetes mellitus) Status: Chronic Assessment & Plan: A1c 8.0 on 10/25/16 (9) CKD (chronic kidney disease) Status: Chronic Assessment & Plan: Stage 2-3 MAE PARIS APRN Nov 21, 2016 11:05
--- NOTE | 2016-11-21 15:26 | NUR ---
CM FOLLOW UP CALL CONTINUATION CALLED AND SPOKE WITH MAE Motley; WHO CONFIRMED THAT PT SHOULD STILL BE ON THE HUMALOG AND THAT SHE HAD TOLD THE PT AND THIS. THIS WORKER CALLED , UPDATED HER THAT PT SHOULD KEEP TAKING THE HUMALOG. SHE SAID OK, SHE WILL FINE ARTS MODEL THE PRESCRIPTION TODAY.
--- NOTE | 2016-11-21 15:49 | NUR ---
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 SHE SAID THE REST OF THE ORDER WILL COME TOMORROW.
--- NOTE | 2016-11-27 14:00 | PDONTRACK ---
Right on Track Program Date of Discharge Nov 20, 2016 at 19:10 Scheduled Amlodipine Besylate (Amlodipine Besylate), 5 MG PO DAILY Atorvastatin Calcium (Atorvastatin Calcium), 1 TAB PO HS, (Reported) Carvedilol (Coreg), 3.125 MG PO BIDWM Famotidine (Famotidine), 1 TAB PO BID, (Reported) Glipizide (Glipizide ER), 1 TAB PO DAILY Lisinopril (Lisinopril), 10 MG PO DAILY Magnesium Oxide (Magnesium Oxide), 1 TAB PO BID, (Reported) Scheduled PRN Acetaminophen (Acetaminophen), 2 TAB PO Q4HR PRN for PAIN, (Reported) Discontinued Medications Insulin Lispro (Humalog), 1 UNIT SQ SS, (Reported) Date: November 27, 2016 Right on Track Program: 7-14Day [id number] Discharge Summary Received: No Care Plan Received: Yes Follow up: Follow Up Appt. Scheduled Education: Diagnosis Ed. Review, Education to Ingot Stripper Referrals: Social Work Total LACE Score: 11 Comments I visited David and Kori Duran at their mobile home on 11/27/16. There were about 5 steps leading up to a small porch where the front door was located. Below is a summary of our conversation: Resources: Kori takes care of him, and they have good family support. Home Health has been coming out as well. His drives him to appointments. Barriers: Health literacy (David has a 10th grade education - Kori fills out all of his medical paperwork and interprets his instructions). Neither of them knew what most of his medications were for. Advanced directives: Neither David nor Kori have any sort of advanced directives. David states that he'd probably list his son as his DPOA. He wants full efforts at resuscitation. I encouraged them to talk to Dr. Srivastava about setting up DPOA and filling out a POLST form. I will mail them information about advanced directives, and 2 POLST forms for them to complete. Self monitoring: Kori checks his blood sugars, which have been running around 150s. He hasn't had any hypoglycemic events. They are rotating sites for insulin injections, and David will inject insulin into his abdomen and legs while Kori will give him a shot in his arms. They do not use a pill box, but write numbers on top of the bottles. For example, a 1 indicates for him to take 1 per day, a 2 means twice a day, and 2F means twice a day with food. Kori likes this method, and feels it works well. They do not monitor his blood pressure but home health is taking it. Depression screen: Negative. He rates his quality of life as "very good". Nutritional assessment: Scored in the normal range for nutritional status. Fall Risk Assessment: scored 7/10 (score of 4 or more indicates high risk of falling). His timed up and go test also indicated high risk of falling with a time of 16 seconds. We discussed ways to minimize falls: eliminating clutter, continuing to wear non-slip shoes, ensuring that Kori's oxygen tubing is out of the way. He does a good job at using his walker all the time. He is aware of his right foot drop and compensates by lifting his right hip up higher when he walks. 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 He depends on his for IADLs. Patient engagement: Score indicated he is highly engaged in his healthcare and treatment options. He understands that there is uncertainty in his health and treatment options. He knows that it may take several months to recover from a stroke, and it's possible that this may be his new baseline. Cognitive evaluation: He scored a 23 on SLUMS = mild neurocognitive disorder. This still could be related to recent stroke and hospitalization. We discussed ways to "exercise his brain". He may need repeat cognitive testing in the future. Medication reconciliation: Medications were kept in a brown paper bag, except for insulin which was kept in the refrigerator. They only medications he knew the indications for were: glipizide and insulin, and Xarelto and ASA. Neither he nor his could state why he took magnesium, carvedilol, lisinopril, amlodipine, atorvastatin, famotidine. I will make a medication list and mail it to them. He states that he had a mild nosebleed and stopped taking Xarelto for about one day - he followed up with Dr. Srivastava who instructed him to resume the Xarelto. We discussed management of epistaxis at home - currently he wads up a Kleenex and inserts it into his naris all night. I encouraged him to use some Vaseline on the Kleenex to prevent dislodgement of any clot formation when he removes it; he may also try a squirt of Afrin and then repeat the Kleenex plan for mild nosebleeds. Exam: A&O x3, pleasant, cooperative Neuro: Ataxic gait (compensates for right foot drop); right foot/leg weakness; no ptosis or facial drooping CV: RRR Pulm: CTAB Abd: soft, nontender, + bowel sounds Ext: abrasions to left arora are covered with bandages (Home Health is addressing ). Trace edema on left lower leg. Discussed w/pt and caregiver: Yes Recommendations for follow-up 1. F/U with Dr. Srivastava - David was sent home on Rx magnesium so will need his mg level checked. David is interested in assigning DPOA - perhaps Dr. Srivastava's office staff can help him with this process. 2. Continue with Home Health. 3. Will continue to follow through [facility]. I will also mail POLST, patient education on advanced directives, and a medication list to them. Problems: (1) Hemorrhagic cerebrovascular accident (CVA) Status: Acute Assessment & Plan: 10/28/16-hemorrhagic conversion of left cerebellar infarct (2) Cerebellar infarct Status: Chronic Assessment & Plan: 10/25/16-left cerebellar (3) Atrial thrombus Status: Acute Assessment & Plan: Incidental finding on 10/25/16 (4) Generalized weakness Status: Acute (5) Cardiomyopathy Status: Chronic Assessment & Plan: Likely ischemic (6) Essential (primary) hypertension Status: Chronic (7) CAD (coronary artery disease) Status: Chronic (8) DM (diabetes mellitus) Status: Chronic Assessment & Plan: A1c 8.0 on 10/25/16 (9) CKD (chronic kidney disease) Status: Chronic Assessment & Plan: Stage 2-3 Copies To 1: ALLY SRIVASTAVA MD, KAREN D APRN November 27, 2016 13:58
== END 2016-11-20 19:10 | disposition home health service (06) | DRG 57 ==
PROVIDERS: ADMIT Family Medicine; ATTEND Family Medicine
PROC: F07Z9FZ Gait Training/Functional Ambulation Treatment using Assistive, Adaptive, Supportive or Protective Equipment (ICD-10-PCS; principal; 2016-10-31)
PROC: F07M6ZZ Therapeutic Exercise Treatment of Musculoskeletal System - Whole Body (ICD-10-PCS; 2016-10-31)
PROC: F08Z4ZZ Home Management Treatment (ICD-10-PCS; 2016-10-31)
DX: I69.298 Other sequelae of other nontraumatic intracranial hemorrhage (principal); I42.9 Cardiomyopathy, unspecified; R53.1 Weakness; I12.9 Hypertensive chronic kidney disease with stage 1 through stage 4 chronic kidney disease, or unspecified chronic kidney disease; E11.22 Type 2 diabetes mellitus with diabetic chronic kidney disease; N18.3 Chronic kidney disease, stage 3 (moderate); I25.10 Atherosclerotic heart disease of native coronary artery without angina pectoris; E78.5 Hyperlipidemia, unspecified; H54.41 Blindness, right eye, normal vision left eye; I25.2 Old myocardial infarction; Z95.1 Presence of aortocoronary bypass graft; Z79.4 Long term (current) use of insulin; Z91.14 Patient's other noncompliance with medication regimen
CPT/HCPCS: 36415; 80048; 82948; 83735; 85025; 87493; 93005

== ENCOUNTER 2017-06-05 16:46 | Observation (INO) ==
[2017-06-05] MEDS ORDERED: ONDANSETRON 4 MG/2 ML INJECTION IVP ONE (17:53)
[2017-06-05] MEDS ORDERED: MORPHINE SULFATE 2mg INJECTION IVP ONE (17:53)
--- NOTE | 2017-06-05 18:07 | Emergency Department Report ---
Epistaxis HPI - General Chief complaint: Epistaxis [facility]07> Stated complaint: Nosebleed <[facility] 18:07> Time Seen by Provider: 06/05/17 17:22 <[facility] 06/05[facility]17 18:07> - Related Data Home Medications Medication Instructions Recorded Confirmed Atorvastatin Calcium 40 mg PO HS #0 tab 10/31/16 06/05/17 Aspirin [Aspirin EC] 81 mg PO DAILY 06/06/17 06/06/17 Carvedilol 6.25 mg PO BID 06/06/17 06/06/17 Famotidine [Pepcid AC] 20 mg PO BID 06/06/17 06/06/17 Insulin Detemir [Levemir Flextouch] 10 unit SQ HS 06/06/17 06/06/17 Magnesium Oxide [Magnesium] 400 mg PO BID 06/06/17 06/06/17 SACUBITRIL/VALSARTAN 49/51mg 1 tab PO BID 06/06/17 06/06/17 [ENTRESTO 49/51mg] Warfarin Sodium 4 mg PO DAILY 06/06/17 06/06/17 Warfarin Sodium 5 mg PO DAILY 06/06/17 06/06/17 glipiZIDE [Glipizide ER] 10 mg PO DAILY 06/06/17 06/06/17 Previous Rx's Medication Instructions Recorded Amlodipine Besylate 5 mg PO DAILY 30 Days #30 tab 11/20/16 Amoxicillin/Potassium Clav 875 mg PO Q12HR #10 tab 06/06/17 [Amox-Clav 875-125 mg Tablet] <[facility] 06/05/17 18:07> Allergies Allergy/AdvReac Type Severity Reaction Status Date / Time No Known Drug Allergies Allergy Unknown Verified 06/06/17 02:59 [facility]07[facility] Patient Stated Medical History Cerebrovascular Accident Yes Peripheral Neuropathy Yes: BI-LAT FEET Cataracts Yes Hearing Loss Yes: RT EAR 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 Cardiac Arrhythmia Yes Hypertension Yes Myocardial Infarction Yes: x2 Pneumonia Yes Diabetes Mellitus Type 2 Yes Gastroesophageal Reflux Yes Disease Ulcer Yes Hx Kidney Stones Yes Clotting Problems Yes: CLOT IN BRAIN AND IN HEART Osteoarthritis Yes Shingles Yes: 2013 Blood Transfusions Yes: NO PROBLEMS Other Yes: RADIATION FOR COLON [facility] Medical History (Last Reviewed 03/20/17 @ 18:08 by Latricia Barrera MD) Epistaxis (Acute Medical) A-fib (Acute Medical) Chronic anticoagulation (Acute Medical) Acute blood loss anemia (Acute Medical) GERD (gastroesophageal reflux disease) (Chronic Medical) Coronary atherosclerosis (Acute Medical) Type 2 diabetes mellitus (Chronic Medical) PNA (pneumonia) (Chronic Medical) Stroke (Acute Medical) Hx of blood clots (Resolved Medical) Colon polyps (Resolved Medical) Blindness (Chronic Medical) Colon cancer (Resolved Medical ~2010) Colectomy, radiation and chemo High cholesterol (Chronic Medical) HTN (hypertension) (Chronic Medical) Heart attack (Resolved Medical ~2008) CHF (congestive heart failure) (Chronic Medical) Hand laceration (Inactive Medical) Sprain, finger (Inactive Medical) < - 06/05/17 18:07> Surgical History: 1. Right retinal attachment--03/25/2016. 2. Ostomy reversal --2010. 3. Colectomy--2010. 4. PowerPort placement--2010. 5. Colonoscopy-- 09/05/2010. 6. Repair of Radha fundoplication--08/[address] Botello. 7. Cardiac catheterization with stent placement x2--2008 at [facility]. 8. Coronary artery bypass graft (quad)--08/28/2008. 9. Laparoscopic appendectomy--2006. 10. Radha fundoplication--12/26/[address] Jennings. 11. Inguinal hernia repair--1968. 12. Inguinal hernia repair-- 1952. < - 06/05/17 18:07> Family History: Family History (Last Reviewed 03/20/17 @ 18:08 by Latricia Barrera MD) Mother Lung cancer Father Aneurysm Brother Heart attack < - 06/05/17 18:07> - Social History Smoking status: Never smoker < - 06/05/17 18:07> Course Vital Signs Temperature 97.2 F 06/05/17 16:50 Pulse Rate 98 06/05/17 16:50 Respiratory Rate 20 06/05/17 16:50 Blood Pressure 158/74 H 11/09/17 16:50 Pulse Oximetry 94 06/05/17 16:50 Temperature 98.8 F 06/07/17 15:00 Pulse Rate 110 H 06/07/17 15:00 Respiratory Rate 16 06/07/17 15:00 Blood Pressure 144/79 H 06/07/17 15:00 Pulse Oximetry 94 06/07/17 15:00 <Angel Dasilva M - 06/05/17 18:07> Procedures - Other Procedure Procedure: B/l nasal packing (A&P with 7.5cm rhinorockets) placed. Pt tolerated procedure well, with removal of significant clot in right nare. <[facility] - 06/10/17 07:47> Epistaxis - MDM Narrative Medical decision making narrative: Nasal clamp was placed initially successfully. However patient then began bleeding through the clamp. Posterior packing Rhino Rocket placed bilateral and initially worked and that also began bleeding. At this point I assumed care, patient was observed but the bleeding continued. He was choking and coughing because of the amount of blood clot developing. He was set in a semi-elevated position and we discussed further treatment with the emergency department doctor at [place]. Recommendation was to try fully bulb posteriorly. As we prepared to do this, we noticed that the packing appeared to not be draining anymore. He agreed that this had occurred. Therefore we held off and watched him for another 40 minutes, during which time he had no more bleeding. He understands that we are more than willing to place a Hawkins bulb or assist in transfer if we are unsuccessful in stopping the bleeding. However this point with the bleeding stopped, I would prefer not to agitate any clots that are formed. His INR is 2.3. He is not taking his warfarin tonight, will speak with his primary care provider in the morning. He is being given the name of a nose and throat to contact in the morning for follow-up visit. <Matteo Salas - 06/05/17 22:52> - Differential Diagnosis Likely: anterior epistaxis, posterior epistaxis <Matteo Salas - 06/05/17 22: 52> - Medical Records Attestation: I reviewed the patient's medical records. <Matteo Salas - 06/05 22:52> - Lab Data Attestation: I reviewed the patient's lab results. <Matteo Salas - 06/05/17 22:52> Result diagrams: 06/07/17 13:04 06/07/17 05:21 <November,Angel M - 06/05/17 18:07> Lab Results 06/05/17 06/05/17 06/05/17 Range/Units 18:58 18:58 18:58 WBC 12.8 H (4.5-11.0) T/MM3 RBC 3.97 L (4.50-5.90) M/MM3 Hgb 11.8 L (13.5-17.5) GM/DL Hct 35.3 L (41-53) % MCV 88.9 (80-100) UM3 MCH 29.7 (26-34) UUG MCHC 33.4 (31-37) GM/DL RDW Std Deviation 47.0 (36.9-50.2) FL Plt Count 186 (130-400) T/MM3 MPV 9.5 (9.4-12.4) UM3 Immature Gran % (Auto) 0.8 H (0.0-0.5) % Neut % (Auto) 83.3 H (33-66) % Lymph % (Auto) 8.5 L (23-45) % [place] % (Auto) 5.6 (0-9.0) % Eos % (Auto) 1.6 (0-4) % Baso % (Auto) 0.2 (0-2) % Neut # (Auto) 10.6 H (1.8-7.7) T/MM3 Lymph # (Auto) 1.1 (1-4.8) T/MM3 [place] # (Auto) 0.7 (0-0.8) T/MM3 Eos # (Auto) 0.2 (0-0.5) T/MM3 Baso # (Auto) 0.0 (0-0.2) T/MM3 Abs Immat Gran (auto) 0.10 H (0.00-0.03) T/MM3 INR 2.35 H (0.99-1.21) Turbidity < 20 (0-20) Sodium 139 (134-144) MEQ/L Potassium 4.4 (3.6-5) MEQ/L Chloride 107 (98-107) MEQ/L Carbon Dioxide 25 (22-30) MEQ/L Anion Gap 7 (5-15) MEQ/L BUN 26.0 H (9-20) MG/DL Creatinine 1.3 (0.8-1.5) MG/DL GFR Calculation 54 BUN/Creatinine Ratio 20 (6-26) RATIO Glucose 327 H (75-110) MG/DL Calculated Osmolality 286 H (261-280) MOSM/KG Calcium 8.1 L (8.4-10.2) MG/DL Icterus Index < 2 (0-7) Specimen Hemolysis < 15 (0-25) 06/06/17 Range/Units 01:03 WBC (4.5-11.0) T/MM3 RBC (4.50-5.90) M/MM3 Hgb 10.9 L (13.5-17.5) GM/DL Hct (41-53) % MCV (80-100) UM3 MCH (26-34) UUG MCHC (31-37) GM/DL RDW Std Deviation (36.9-50.2) FL Plt Count (130-400) T/MM3 MPV (9.4-12.4) UM3 Immature Gran % (Auto) (0.0-0.5) % Neut % (Auto) (33-66) % Lymph % (Auto) (23-45) % [place] % (Auto) (0-9.0) % Eos % (Auto) (0-4) % Baso % (Auto) (0-2) % Neut # (Auto) (1.8-7.7) T/MM3 Lymph # (Auto) (1-4.8) T/MM3 [place] # (Auto) (0-0.8) T/MM3 Eos # (Auto) (0-0.5) T/MM3 Baso # (Auto) (0-0.2) T/MM3 Abs Immat Gran (auto) (0.00-0.03) T/MM3 INR (0.99-1.21) Turbidity (0-20) Sodium (134-144) MEQ/L Potassium (3.6-5) MEQ/L Chloride (98-107) MEQ/L Carbon Dioxide (22-30) MEQ/L Anion Gap (5-15) MEQ/L BUN (9-20) MG/DL Creatinine (0.8-1.5) MG/DL GFR Calculation BUN/Creatinine Ratio (6-26) RATIO Glucose (75-110) MG/DL Calculated Osmolality (261-280) MOSM/KG Calcium (8.4-10.2) MG/DL Icterus Index (0-7) Specimen Hemolysis (0-25) <06/10/17 07:47> - Radiology Data Attestation: I reviewed the patient's radiology results. <Matteo Salas E - 04/13 22:52> Disposition Clinical Impression: Epistaxis <06/10/17 07:47> Disposition: 01 Discharged Home, Self-Care <06/10/17 07:47> Condition: Stable <06/10/17 07:47> Instructions: Nosebleed (ED) <06/05/17 18:07> Additional Instructions: Call Dr Hill at [phone] in the morning. He is an ENT specialist and you need to see him to have the packing removed. <06/10/17 07:47> Prescriptions: New Amoxicillin/Potassium Clav [Amox-Clav 875-125 mg Tablet] 875 mg PO Q12HR #10 tab Continue Amlodipine Besylate 5 mg PO DAILY 30 Days #30 tab Warfarin Sodium 4 mg PO DAILY SACUBITRIL/VALSARTAN 49/51mg [ENTRESTO 49/51mg] 1 tab PO BID Atorvastatin Calcium 40 mg PO HS #0 tab Aspirin [Aspirin EC] 81 mg PO DAILY glipiZIDE [Glipizide ER] 10 mg PO DAILY Insulin Detemir [Levemir Flextouch] 10 unit SQ HS Famotidine [Pepcid AC] 20 mg PO BID Carvedilol 6.25 mg PO BID Magnesium Oxide [Magnesium] 400 mg PO BID Warfarin Sodium 5 mg PO DAILY Discontinued Magnesium Oxide 1 tab PO BID #0 tab Carvedilol 6.25 mg PO BID Warfarin Sodium 5 mg PO .X2 THEN 4MG 1X SACUBITRIL/VALSARTAN 24/26mg [ENTRESTO 24/26mg] 1 tab PO BID Minocycline [Minocin] 100 mg PO BID #13 cap glipiZIDE [Glipizide ER] 10 mg PO DAILY Insulin Lispro [HumaLOG] 5 unit SQ TIDWM Insulin Detemir [Levemir Flextouch] 10 unit SQ HS Warfarin [Coumadin] 4 mg PO Q3D <VidyaAngel Tori - 06/05/17 18:07> Time of Disposition: 22:52 <Matteo Salas - 06/05/17 22:52> - Seen By: physician <Matteo Salas - 06/05/17 22:52> Addendum entered and electronically signed by Matteo Salas MD 06/06/17 00:53 : Initial plan was to discharge patient once epistaxis was controlled. However nursing and significant concerns about his ability to care for himself once he was at home. We watched him another 45 minutes to make sure that he was stable, at which point he vomited a significant amount of blood. He does have apparent hemostasis with the posterior nasal bleeding, but is going to require follow-up hemoglobin as well as INR check in the morning before being seen by ENT. Plan to admit to hospitalist with ENT consult in a.m.
[2017-06-05] MEDS ORDERED: TRANEXAMIC ACID 1,000 MG in NS 100 ML TOP ONE (20:01)
[2017-06-05] MEDS ORDERED: LIDOCAINE 1%/EPI 1:100,000 20ml INJ MDV INFIL ONE (20:13)
[2017-06-06] MEDS ORDERED: ONDANSETRON 4 MG/2 ML INJECTION IVP ONE (00:15)
[2017-06-06] MEDS ORDERED: ONDANSETRON 4 MG/2 ML INJECTION IVP PRN (02:35)
[2017-06-06] MEDS ORDERED: ACETAMINOPHEN 325 MG TABLET PO PRN (02:35)
[2017-06-06] MEDS ORDERED: PROMETHAZINE 25 MG INJECTION IVP PRN (02:35)
[2017-06-06 02:53] VITALS: BMI 25.3
[2017-06-06] MEDS: D5-1/2NS 1,000 ML IV SCH (04:13)
--- NOTE | 2017-06-06 04:40 | History & Physical Report ---
History of Present Illness Date: 06/06/17 Chief complaint: Nose bleed HPI: The pt presents to the ER c/o profuse epistaxis that started this evening. He reports having what he describes as "severe" nose bleeds over the past 10 years which has been getting worse since starting on coumadin in the past several years due to his a-fib. He also has had GI bleed, bleeding from his eyes, and hematuria in the past. His last hospitalization was in [place] for his epistaxis and was seen by an ENT there. Presently he denies any trauma, but bleeding started after sneezing, no pain, dizziness, SOB, chest pain, other other source of bleeding at this time. Review of Systems - Constitutional Constitutional: Present: fatigue. Absent: chills, night sweats - Cardiovascular Cardiovascular: Absent: chest pain, palpitations, syncope, dyspnea on exertion - Respiratory Respiratory: Absent: hemoptysis - Gastrointestinal Gastrointestinal: Present: nausea, vomiting. 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 Cardiac Arrhythmia Yes Hypertension Yes Myocardial Infarction Yes: x2 Pneumonia Yes Diabetes Mellitus Type 2 Yes Gastroesophageal Reflux Yes Disease Ulcer Yes Hx Kidney Stones Yes Clotting Problems Yes: CLOT IN BRAIN AND IN HEART Osteoarthritis Yes Shingles Yes: 2013 Blood Transfusions Yes: NO PROBLEMS Other Yes: RADIATION FOR COLON [facility] Medical History (Last Reviewed 03/20/17 @ 18:08 by Latricia Barrera MD) Epistaxis (Acute Medical) GERD (gastroesophageal reflux disease) (Chronic Medical) Coronary atherosclerosis (Acute Medical) Type 2 diabetes mellitus (Chronic Medical) PNA (pneumonia) (Chronic Medical) Stroke (Acute Medical) Hx of blood clots (Resolved Medical) Colon polyps (Resolved Medical) Blindness (Chronic Medical) Colon cancer (Resolved Medical ~2010) Colectomy, radiation and chemo High cholesterol (Chronic Medical) HTN (hypertension) (Chronic Medical) Heart attack (Resolved Medical ~2008) CHF (congestive heart failure) (Chronic Medical) Hand laceration (Inactive Medical) Sprain, finger (Inactive Medical) Surgical History: 1. Right retinal attachment--03/25/2016. 2. Ostomy reversal --2010. 3. Colectomy--2010. 4. PowerPort placement--2010. 5. Colonoscopy-- 09/05/2010. 6. Repair of Radha fundoplication--08/[address] Botello. 7. Cardiac catheterization with stent placement x2--2008 at [facility]. 8. Coronary artery bypass graft (quad)--08/28/2008. 9. Laparoscopic appendectomy--2006. 10. Radha fundoplication--12/26/[address] Jennings. 11. Inguinal hernia repair--1968. 12. Inguinal hernia repair-- 1952. Family History: Family History (Last Reviewed 03/20/17 @ 18:08 by Latricia Barrera MD) Mother Lung cancer Father Aneurysm Brother Heart attack - Social History Smoking status: Never smoker Medications Home Medications Medication Instructions Recorded Confirmed Type Atorvastatin Calcium 40 mg PO HS #0 tab 10/31/16 06/05/17 History Aspirin [Aspirin EC] 81 mg PO DAILY 06/06/17 06/06/17 History Insulin Detemir [Levemir Flextouch] 10 unit SQ HS 06/06/17 06/06/17 History glipiZIDE [Glipizide ER] 10 mg PO DAILY 06/06/17 06/06/17 History Allergies Allergy/AdvReac Type Severity Reaction Status Date / Time No Known Drug Allergies Allergy Unknown Verified 06/06/17 02:59 Exam Vital Signs: Temperature 98.3 F 06/06/17 02:35 Pulse Rate 91 06/06/17 02:35 Respiratory Rate 18 06/06/17 02:35 Blood Pressure 150/79 H 06/06/17 02:35 Pulse Oximetry 92 06/06/17 02:35 Height/Weight/BMI: Height 1.78 m Weight 80.2 kg Body Mass Index 25.3 - Constitutional Present: no acute distress, well nourished - Routine HEENT Exam ENT: Present: mucous membranes moist (both nares with clotted blood, packing, oral pharnx clear, ) - Routine Neck Exam Present: supple, full ROM. Absent: lymphadenopathy, tracheal deviation - Routine Respiratory Exam Present: CTA bilaterally - Routine Cardiovascular Exam Present: RRR, no murmur - Routine Abdominal Exam Present: soft, normoactive bowel sounds, non distended, non tender - Routine Back/Spine/Pelvis Exam Back/Spine: Present: full ROM - Routine Skin Exam Present: intact. Absent: rash Results - Labs CBC & Chem 7: 06/06/17 03:03 06/05/17 18:58 Assessment and Plan (1) Epistaxis Current visit: Yes Status: Acute (2) A-fib Current visit: Yes Status: Acute (3) GERD (gastroesophageal reflux disease) Current visit: No Status: Chronic Assessment and Plan: will monitor Hgb Q4 hours, IVF, epistaxis packed in the ER, ENT consulted. stop the coumadin, vitals stable, GI Prophylaxis: Protonix Resuscitation Status: Full Code Hospital Course Summary Disclaimer: The visit summary below is not to be considered part of the above Progress Note.
--- NOTE | 2017-06-06 08:00 | XRay Report ---
INDICATION: aspiration risk PROCEDURE: CHEST 2-VIEWS UPRIGHT (PA & LAT) Encounter: Initial COMPARISON: May 14, 2017 FINDINGS: The lungs are clear without evidence of focal abnormal airspace opacity. There is no pleural effusion or pneumothorax. Support devices are stable. The heart size, mediastinal contours and pulmonary vascularity are stable. Hiatal hernia. IMPRESSION: No acute cardiopulmonary disease. .
[2017-06-06] MEDS: AMLODIPINE 5 MG TABLET PO SCH (11:14)
--- NOTE | 2017-06-06 12:13 | History & Physical Report ---
History of Present Illness Date: 06/06/17 Chief complaint: Nosebleed HPI: Patient is 76 old male who presented to the emergency room last evening for evaluation of severe nosebleed. Patient has had chronic episodes of nosebleeds for the past several years since been placed on warfarin. Last evening bleeding started following sneezing come and he was unable to get the bleeding to stop thus presenting to the emergency room. Patient was acutely evaluated. Patient ended up requiring bilateral posterior nasal tampons to control bleeding. This took several hours while in the emergency room. Patient would have posterior drainage causing him to vomit blood intermittently. Laboratory studies were monitored. Hemoglobin initially 11.8, and INR 2.35. Given concern for further active bleeding. Patient was admitted outpatient observation under the hospitalist services for further monitoring. Serial hemoglobin labs were trended and remained stable, currently 10.5. INR today is 2.75. No evidence of acute bleeding. The patient is without complaints, denies nausea, vomiting, shortness of breath or chest pain. PFS A-fib GERD (gastroesophageal reflux disease) Coronary atherosclerosis with history of ME Type 2 diabetes mellitus Stroke -September 2016 Hx of blood clots Colon polyps Blindness Colon cancer ([facility] ~2010) High cholesterol HTN (hypertension) Heart attack ([facility] ~2008) CHF (congestive heart failure) Chronic anticoagulation Surgical History: Cardiac pacemaker placement-03/2017-Dr. Hooks. Right retinal attachment--03/25/2016. Ostomy reversal--2010. Colectomy--2010. PowerPort placement--2010. Colonoscopy--09/05/2010. Repair of Radha fundoplication--08/[address] Botello. Cardiac catheterization with stent placement x2--2008 at [facility]. Coronary artery bypass graft ( quad)--08/28/2008. Laparoscopic appendectomy--2006. Radha fundoplication--07/[address] Jennings. Inguinal hernia repair--1968. Inguinal hernia repair- -1952. Appendectomy Family History: Father history of aortic aneurysm Mother-lung cancer Brother-ME - Social History Smoking status: Never smoker Substance use type: does not use Alcohol intake frequency: does not drink Household members: spouse Current residence: Apartment/Private Home Social history: Primary care provider Dr. Srivastava Cardiology Dr. Hooks Medications Home Medications Medication Instructions Recorded Confirmed Type Atorvastatin Calcium 40 mg PO HS #0 tab 10/31/16 06/05/17 History Aspirin [Aspirin EC] 81 mg PO DAILY 06/06/17 06/06/17 History Insulin Detemir [Levemir Flextouch] 10 unit SQ HS 06/06/17 06/06/17 History glipiZIDE [Glipizide ER] 10 mg PO DAILY 06/06/17 06/06/17 History Allergies Allergy/AdvReac Type Severity Reaction Status Date / Time No Known Drug Allergies Allergy Unknown Verified 06/06/17 02:59 Exam Vital Signs: Temperature 97.8 F 06/06/17 07:52 Pulse Rate 84 06/06/17 07:52 Respiratory Rate 18 06/06/17 07:52 Blood Pressure 143/72 H 06/06/17 07:52 Pulse Oximetry 92 06/06/17 07:52 Height/Weight/BMI: Height 1.78 m Weight 79.9 kg Body Mass Index 25.3 - Constitutional Present: no acute distress, well nourished, well developed - Routine HEENT Exam Eye: Present: EOMI ENT: Present: mucous membranes moist, oropharynx clear, dentition normal Comments: Bilateral posterior Rhino Rocket intact without evidence of acute bleeding or drainage - Routine Respiratory Exam Present: CTA bilaterally. Absent: wheezes - Routine Cardiovascular Exam Present: RRR, S1, S2. Absent: murmur - Routine Abdominal Exam Present: soft, normoactive bowel sounds, non distended. Absent: tenderness - Routine Extremities Exam Present: no edema, full ROM - Routine Skin Exam Present: dry, warm - Routine Neurological Exam Present: alert, oriented X3, CN II-XII intact - Routine Psychiatric Exam Present: normal affect Results - Labs CBC & Chem 7: 06/06/17 06:50 06/05/17 18:58 Assessment and Plan (1) Epistaxis Current visit: Yes Status: Acute (2) Chronic anticoagulation Current visit: Yes Status: Acute Assessment and Plan: Impression Epistaxis Chronic anticoagulation Diabetes Coronary artery disease Pacemaker placement Hyperlipidemia History of colon cancer Plan Admitted outpatient observation under the hospitalist services, Dr. Darling taking over patient care He was admitted overnight for monitoring of attacks is, and serial hemoglobin and blood counts. This morning. Upon examination, patient does not appear to have any ongoing bleeding, no further episodes of bloody emesis. He continues to have bilateral posterior nasal packing intact. Did speak with Dr. Fuentes ENT, who recommends leaving nasal packing intact until Friday. He is able to see patient Saturday 06/09 at 12[address] at his new office. Will place patient on Augmentin for antimicrobial coverage Serial hemoglobins have been monitored and patient is stable. INR recheck remains therapeutic 2.75. Patient initially was receiving liquids only. We will advance his diet and make sure he tolerates oral intake. Of asked nursing staff to get patient up and ambulate him. He does live independently with his at home. Case management did evaluate patient. He denies any need for home health services. We will plan to reevaluate patient later this afternoon. Hopeful he can be discharged home with planned follow-up with Dr. Fuentes for Friday. At time of discharge his medical care will return to his primary care provider, Dr. Srivastava 06/06/17 [id number]; Kwadwo Darling M.D. Mr. Duran reports severe nasal bleeding last night with subsequent control with the nasal packs placed in the emergency room. His been very drowsy today due to difficulty getting any sleep overnight. He's eaten a little today but was able to eat applesauce and a few bites of soft food. He reports he is drinking liquids well. He denies dyspnea or chest pain. The patient is anticoagulated after stroke in late September of this year at which time echocardiogram demonstrated an apical thrombus. He has known cardiomyopathy. Bilateral nasal packs were present on examination. The patient is mouth breathing and speech is mumbled but he is able to provide historical information. Nasal packs are bloodsoaked but there is no ongoing active blood loss. Patient is drowsy but in no distress and responds to questions appropriately. Respirations nonlabored with clear breath sounds; cardiac rhythm is irregular. Chest x-ray reviewed by myself-NAD, pacemaker present. Hemoglobin 11.8-10.9-10.6-10.5 INR 2.35-2.75 INR/hemoglobin are being repeated currently-provided hemoglobin is stable patient can discharge home with nasal packs in place and follow-up with Dr. Fuentes as described above. Continue full liquid diet with soft foods as tolerated. Discussed with patient and his . DVT Prophylaxis: Coumadin Resuscitation Status: Full Code Hospital Course Summary Disclaimer: The visit summary below is not to be considered part of the above Progress Note. Hospital Course: 06/06/17 Impression Epistaxis Chronic anticoagulation Diabetes Coronary artery disease Pacemaker placement Hyperlipidemia History of colon cancer Plan Admitted outpatient observation under the hospitalist services, Dr. Darling taking over patient care He was admitted overnight for monitoring of attacks is, and serial hemoglobin and blood counts. This morning. Upon examination, patient does not appear to have any ongoing bleeding, no further episodes of bloody emesis. He continues to have bilateral posterior nasal packing intact. Did speak with Dr. Fuentes ENT, who recommends leaving nasal packing intact until Friday. He is able to see patient Saturday 06/09 at 12[address] at his new office. Will place patient on Augmentin for antimicrobial coverage Serial hemoglobins have been monitored and patient is stable. INR recheck remains therapeutic 2.75. Patient initially was receiving liquids only. We will advance his diet and make sure he tolerates oral intake. Of asked nursing staff to get patient up and ambulate him. He does live independently with his at home. Case management did evaluate patient. He denies any need for home health services. We will plan to reevaluate patient later this afternoon. Hopeful he can be discharged home with planned follow-up with Dr. Fuentes for Friday. At time of discharge his medical care will return to his primary care provider, Dr. Srivastava
[2017-06-06] MEDS: AMOX/CLAV 875 MG/125 MG TABLET PO SCH ×2 (13:14→20:38)
--- NOTE | 2017-06-06 20:23 | Discharge Summary ---
Discharge Summary- Blank Discharge Summary: Repeat laboratory data at 6 PM demonstrated slight drop in hemoglobin to 9.6 however the patient was hemodynamically stable. INR was slightly improved from value earlier in the day. Patient felt stable to discharge home and follow-up with Dr. Fuentes as previously coordinated on Friday at 12:45. The patient is to hold warfarin between now and that time. Medications are otherwise unchanged from admission. Blood sugar this evening was a little over 200. Patient is asked to follow-up with Dr. Srivastava in 1-2 weeks.
[2017-06-06] MEDS ORDERED: INSULIN DETEMIR 100unit/ml INJECTION SQ SCH (21:00)
[2017-06-06] MEDS ORDERED: ATORVASTATIN 40 MG TABLET PO SCH (21:00)
[2017-06-06] MEDS: HYDROCODONE/APAP 5mg/325mg TABLET PO PRN (23:38)
[2017-06-07] MEDS: INSULIN ASPART 100unit/ml INJECTION SQ PRN ×3 (07:34→14:18)
[2017-06-07] MEDS: D5-1/2NS 1,000 ML IV SCH (08:10)
[2017-06-07] MEDS: AMLODIPINE 5 MG TABLET PO SCH (08:26)
[2017-06-07] MEDS: AMOX/CLAV 875 MG/125 MG TABLET PO SCH (08:26)
[2017-06-07] MEDS ORDERED: NS FLUSH BAG 500ml IV PRN (12:48)
[2017-06-07] MEDS ORDERED: PHYTONADIONE 5 MG/2.5 ML ORAL LIQUID PO ONE (12:48)
--- NOTE | 2017-06-07 13:29 | Discharge Summary ---
<Felicitas Pabon Joseph - Last Filed: 06/07/17 14:06> Discharge Information Date of admission: 06/06/17 02:14 Anticipated date of discharge: 06/07/17 Attending Physician: Roxana Darling MD Primary care physician: Colin Srivastava MD - Discharge Diagnosis (1) Epistaxis Status: Acute (2) Chronic anticoagulation Status: Acute Epistaxis, uncontrolled Melanotic stools Chronic anticoagulation Hemorrhagic stroke 10/30/16 Ischemic stroke, atrial thrombus 10/25/16 Diabetes type 2 Cardiomyopathy, EF 30-35%, Coronary artery disease with hx of SC Pacemaker placement Hyperlipidemia History of colon cancer - Laboratory Labs: 06/07/17 13:04 06/07/17 05:21 - Radiology Radiology: CXR 2V 06/05/17 FINDINGS: The lungs are clear without evidence of focal abnormal airspace opacity. There is no pleural effusion or pneumothorax. Support devices are stable. The heart size, mediastinal contours and pulmonary vascularity are stable. Hiatal hernia. IMPRESSION: No acute cardiopulmonary disease. History of Present Illness HPI: Patient is 76 old male who presented to the emergency room last evening for evaluation of severe nosebleed. Patient has had chronic episodes of nosebleeds since been placed on warfarin. Last evening bleeding started following sneezing come and he was unable to get the bleeding to stop thus presenting to the emergency room. Patient was acutely evaluated. Patient ended up requiring bilateral posterior nasal tampons to control bleeding. This took several hours while in the emergency room. Patient would have posterior drainage causing him to vomit blood intermittently. Laboratory studies were monitored. Hemoglobin initially 11.8, and INR 2.35. Given concern for further active bleeding he was admitted to outpatient observation under the hospitalist services . Serial hemoglobin labs were trended and remained stable, currently 10.5. INR today is 2.75. No evidence of acute bleeding. The patient is without complaints, denies nausea, vomiting, shortness of breath or chest pain. Objective Vital signs: Temperature 99.0 F 06/07/17 07:47 Pulse Rate 83 06/07/17 09:23 Respiratory Rate 18 06/07/17 07:47 Blood Pressure 159/80 H 06/07/17 07:47 Pulse Oximetry 93 06/07/17 07:47 Height/Weight/BMI: Height 1.78 m Weight 80 kg Body Mass Index 25.3 - Constitutional Present: mild distress, thin - Routine HEENT Exam Comments: Despite nasal packs he has both anterior and posterior bloody drainage. Frequently coughs up blood and occasionally clots of blood. - Routine Respiratory Exam Comments: coughing up blood - Routine Cardiovascular Exam Present: RRR, S1, S2 - Routine Abdominal Exam Present: soft, normoactive bowel sounds - Routine Extremities Exam Present: no edema, pulses intact - Routine Skin Exam Present: dry, warm - Routine Neurological Exam Present: alert, oriented X3 - Routine Psychiatric Exam Present: normal affect, cooperative Hospital Course This is a general summary of the patient's hospital course. For more details refer to the complete medical record. Hospital course: David was admitted to observation status late in the evening of 06/05/17 for epistaxis. B/L nasal tampons were inserted in the ED and received FFP. He was started on Augmentin prophylactically. Coumadin was held and INR was monitored. Serial hgb were monitored - initial hgb was 11.8, but then drifted down slowly into the 10's and then into the 9's. He remained hemodynamically stable and the original plan was to discharge him home with the packs in place and f/u was arranged with Dr. Fuentes, ENT for 06/09. However, prior to discharge he developed bright red/maroon stool and thus was kept overnight again. On 06/07/17 , he developed significantly more nasal bleeding with blood exiting both anteriorly and posteriorly. Occasionally he spit out a blood clot. He had bloody streaks in his posterior pharynx. He also continued to have dark red stools. Hgb had decreased to 9.1 and INR, while drifting down, was still elevated at 2.41. FFP and Vitamin K 10 mg PO were ordered. CXR was repeated d/t concern for aspiration. Since there was no ENT or interventional radiologist available over the weekend, arrangements were made for transfer to [facility] for definitive care. Discharge Plan - Discharge Disposition Discharge Date: 06/06/17 Disposition: 02 To [facility] Acute Care *Condition: Stable Reason For Visit (Visit label in EMR): Epistaxis,caogulopathy - Discharge Medications *Discharge Medications: New Amoxicillin/Potassium Clav [Amox-Clav 875-125 mg Tablet] 875 mg PO Q12HR #10 tab Continue Amlodipine Besylate 5 mg PO DAILY 30 Days #30 tab Warfarin Sodium 4 mg PO DAILY SACUBITRIL/VALSARTAN 49/51mg [ENTRESTO 49/51mg] 1 tab PO BID Atorvastatin Calcium 40 mg PO HS #0 tab Aspirin [Aspirin EC] 81 mg PO DAILY glipiZIDE [Glipizide ER] 10 mg PO DAILY Insulin Detemir [Levemir Flextouch] 10 unit SQ HS Famotidine [Pepcid AC] 20 mg PO BID Carvedilol 6.25 mg PO BID Magnesium Oxide [Magnesium] 400 mg PO BID Warfarin Sodium 5 mg PO DAILY Discontinued Magnesium Oxide 1 tab PO BID #0 tab Carvedilol 6.25 mg PO BID Warfarin Sodium 5 mg PO .X2 THEN 4MG 1X SACUBITRIL/VALSARTAN 24/26mg [ENTRESTO 24/26mg] 1 tab PO BID Minocycline [Minocin] 100 mg PO BID #13 cap glipiZIDE [Glipizide ER] 10 mg PO DAILY Insulin Lispro [HumaLOG] 5 unit SQ TIDWM Insulin Detemir [Levemir Flextouch] 10 unit SQ HS Warfarin [Coumadin] 4 mg PO Q3D - Discharge Packet/Instructions *Diet: Nothing by mouth until further instruction from care team at [facility] *Activity: As tolerated *Pain Management/Treatment: Tylenol if needed-take as per instructions on package *Wound Care: Leave nasal packs in place; can add gauze pads under nose and replace as needed if there is some blood drainage Additional Instructions: DO NOT TAKE WARFARIN until after you see the ear nose and throat doctor. Take Augmentin twice daily to minimize risk of sinus infection while the nasal packs are in. Prescription was faxed to [facility]. *Expected Signs/Symptoms: Nasal congestion, some blood dripping through the packing and dripping down the back of your throat. Bowel movements may be dark in color from blood you swallowed. *Notify Physician if: You begin passing large clots of blood, dizziness, passing out, having bloody/black stools, or difficulty breathing/maintaining airway. *During Business Hours Contact: Dr. Srivastava's office *After Business Hours Contact: (1) Dr. Srivastava's office, (2) [facility] for the on-call doctor, (3) ENT specialist at [facility]. *Pending Lab/Results: No Pending Lab - Referrals/Follow Up *Referrals/Follow Up: Colin Srivastava MD [Family Provider] - (1-2 wks) - Patient Handouts Patient Handouts: Nosebleed (GEN), Blood Thinners (DC) - Dismissal Complete Discharge Instructions are:: Complete <Roxana Darling - Last Filed: 06/07/17 14:46> Discharge Information Date of admission: 06/06/17 02:14 Primary care physician: - Discharge Diagnosis (1) Epistaxis Status: Acute (2) Chronic anticoagulation Status: Acute (3) Acute blood loss anemia Status: Acute Hospital Course This is a general summary of the patient's hospital course. For more details refer to the complete medical record. Hospital course: I have independently evaluated and examined this patient. I reviewed the chart, the patient's history, and the [employer] T[employer] OPERATOR/PA's documented findings as above. We discussed and formulated the assessment and plan as above with additions as below: Mr. Duran continued to have some melanotic/maroon stools this overnight and morning with minor drift of hemoglobin from 9.6 last night to 9.2 this morning. He is remained hemodynamically stable. Shortly after noon he notified nursing that he was coughing/spitting up blood. He feels blood draining in the back of his throat that he then clears by spitting it up. He is not spitting or coughing up blood clots but primarily bright red blood. There is a scant amount of blood draining anteriorly through the nasal packing. Blood pressure remained stable with low-grade tachycardia. Patient complains of nasal congestion but denies dyspnea. There is streaking of bright red blood in the posterior pharynx and the patient is repetitively spitting up red blood. Right lung field is coarse posteriorly and left lung field clear. Abdomen is benign. Vitamin K given at 1346, 1 unit of FFP in and second unit ordered. 20 mg Lasix IV to be given between units. Case discussed with on-call ENT at [facility] and Dr. Cabrera at [facility] who accepted patient in transfer to [facility] in the event acute interventions become necessary if reversing anticoagulation fails to control bleeding. Mrs. Duran was updated on plans to transfer. Of note patient has a [employer] defibrillator/pacemaker and battery was changed 04/01/[address] Hooks. Indication for device appears to be cardiomyopathy/low ejection fraction without history of VT/VF. Time spent with patient: discharge greater than 30 minutes
[2017-06-07] MEDS ORDERED: FUROSEMIDE 20 MG/2 ML INJECTION IVP ONE (14:33)
[2017-06-07] MEDS: HYDROCODONE/APAP 5mg/325mg TABLET PO PRN (14:49)
[2017-06-07 15:00] VITALS: O2SAT 94
[2017-06-07 16:03] VITALS: BP 144/79; PULSE 110; RESP 16; TEMP 98.8
[2017-06-07] MEDS ORDERED: AMOX/CLAV 875 MG/125 MG TABLET PO SCH (21:00)
--- NOTE | 2017-06-08 08:24 | XRay Report ---
Indication: hemoptysis PROCEDURE: XR chest 1V: Encounter: Initial Comparison: June 05, 2017 Findings: Lungs are stable in appearance with hypoinflation. No focal consolidative process. No pleural effusion or pneumothorax. Cardiac silhouette and mediastinal contours are stable. Pulmonary vascularity is normal. Support devices are stable. Impression: Stable chest with hypoinflation. .
== END 2017-06-07 16:00 | disposition short-term general hospital (02) ==
LOC: MED 16:46 → ED 16:46 → SUATTDRO 06-06 02:14 → MED 06-06 02:30
PROVIDERS: ADMIT Internal Medicine; ATTEND Internal Medicine

== ENCOUNTER 2017-08-11 06:33 | Inpatient (IN) ==
[2017-08-11] MEDS ORDERED: ASPIRIN 81 MG CHEWABLE TABLET PO ONE (06:50)
--- NOTE | 2017-08-11 06:51 | Emergency Department Report ---
Chest Pain HPI - General Chief Complaint: Chest Pain Stated Complaint: intermittent cp Time Seen by Provider: 08/11/17 06:49 Source: patient Mode of arrival: ambulatory Limitations: no limitations - History of Present Illness HPI narrative: Patient is a 76-year-old male presents emergency department for evaluation of intermittent chest pain for 3 days. Patient states he gets a twinge of chest pain approximately lasting less than a minute at least 5-6 times a day since Friday. Patient is taking nitroglycerin 3 which she stated alleviated the pain on Friday, this morning patient had continued pain took 2 nitroglycerin with apparent alleviation of pain. Patient having increasing weakness so EMS was called and patient was brought to the ER for evaluation. MD complaint: chest pain Occurred At: home Onset (ago): day(s) (3) Nitro Today: 0.4 mg x 4, provided by EMS - Related Data Home Medications Medication Instructions Recorded Confirmed Atorvastatin Calcium 40 mg PO HS #0 tab 10/31/16 08/11/17 Aspirin [Aspirin EC] 81 mg PO DAILY 06/06/17 08/11/17 Carvedilol 6.25 mg PO BIDWM 06/06/17 08/11/17 Famotidine [Pepcid AC] 20 mg PO BID 06/06/17 08/11/17 Insulin Detemir [Levemir Flextouch] 10 unit SQ HS 06/06/17 08/11/17 Magnesium Oxide [Magnesium] 400 mg PO DAILY 06/06/17 08/11/17 SACUBITRIL/VALSARTAN 49/51mg 1 tab PO BID 06/06/17 08/11/17 [ENTRESTO 49/51mg] Warfarin Sodium 4 mg PO DAILY 06/06/17 08/11/17 Warfarin Sodium 5 mg PO DAILY 06/06/17 08/11/17 glipiZIDE [Glipizide ER] 10 mg PO DAILY 06/06/17 08/11/17 Humalog KwikPen (insulin lispro) 5 unit SQ ACS ml 07/10/17 08/11/17 100 unit/mL SQ PEN Ferrous Sulfate [Iron] 325 mg PO DAILY 08/11/17 08/11/17 Previous Rx's Medication Instructions Recorded Amlodipine Besylate 5 mg PO DAILY 30 Days #30 tab 11/20/16 erythromycin 5 mg/gram (0.5 %) eye 0.5 inch RIGHT EYE .qhs #1 g 07/17/17 ointment Allergies Allergy/AdvReac Type Severity Reaction Status Date / Time No Known Drug Allergies Allergy Unknown Verified 08/11/17 06:35 Review of Systems Constitutional: Reports: weakness. Denies: fever, chills Eyes: Denies: eye pain, eye discharge ENT: Denies: throat pain, dental pain Cardiovascular: Reports: chest pain, dyspnea on exertion. 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 Cardiac Arrhythmia Yes Hypertension Yes Myocardial Infarction Yes: x2 Pneumonia Yes Diabetes Mellitus Type 2 Yes Gastroesophageal Reflux Yes Disease Ulcer Yes Hx Kidney Stones Yes Clotting Problems Yes: CLOT IN BRAIN AND IN HEART Osteoarthritis Yes Shingles Yes: 2013 Blood Transfusions Yes: NO PROBLEMS Other Yes: RADIATION FOR COLON CA [facility] Medical History (Last Reviewed 07/10/17 @ 13:02 by Rani Bennett [facility]) GERD (gastroesophageal reflux disease) (Chronic Medical) Coronary atherosclerosis (Acute Medical) Type 2 diabetes mellitus (Chronic Medical) PNA (pneumonia) (Chronic Medical) Stroke (Acute Medical) Hx of blood clots (Resolved Medical) Colon polyps (Resolved Medical) Blindness (Chronic Medical) Colon cancer (Resolved Medical ~2010) Colectomy, radiation and chemo High cholesterol (Chronic Medical) HTN (hypertension) (Chronic Medical) Heart attack (Resolved Medical ~2008) CHF (congestive heart failure) (Chronic Medical) Surgical History: 1. Right retinal attachment--03/25/2016. 2. Ostomy reversal --2010. 3. Colectomy--2010. 4. PowerPort placement--2010. 5. Colonoscopy-- 09/05/2010. 6. Repair of Radha fundoplication--08/[address] Botello. 7. Cardiac catheterization with stent placement x2--2008 at [facility]. 8. Coronary artery bypass graft (quad)--08/28/2008. 9. Laparoscopic appendectomy--2006. 10. Radha fundoplication--12/26/[address] Jennings. 11. Inguinal hernia repair--1968. 12. Inguinal hernia repair-- 1953. Family History: Family History (Last Reviewed 07/10/17 @ 13:02 by Rani Bennett Melanie) Mother Lung cancer Father Aneurysm Brother Heart attack - Social History Smoking status: Never smoker Substance use type: does not use Alcohol intake frequency: does not drink Physical Exam - General General appearance: alert, in no apparent distress - Eye Eye exam: Present: PERRL, EOMI - ENT ENT exam: Present: normal oropharynx, mucous membranes moist, TM's normal bilaterally - Chest Chest inspection: Present: normal inspection, symmetric chest wall rise. Absent : tenderness - Respiratory Respiratory exam: Present: normal lung sounds bilaterally. Absent: respiratory distress, wheezes, stridor - Cardiovascular Cardiovascular exam: Present: regular rate, normal rhythm, normal heart sounds - Abdominal Exam Abdominal exam: Present: soft, normal bowel sounds. Absent: distention, tenderness - Skin Skin exam: Present: warm, dry, pallor - Neurological Exam Neurological exam: Present: alert, oriented X3 - Psychiatric Psychiatric exam: Present: normal affect, normal mood Course Vital Signs Temperature 97.9 F 08/11/17 06:35 Pulse Rate 79 08/11/17 06:35 Respiratory Rate 22 08/11/17 06:35 Blood Pressure 111/56 08/11/17 06:35 Pulse Oximetry 96 08/11/17 06:35 Temperature 97.9 F 08/11/17 06:35 Pulse Rate 87 08/11/17 07:37 Respiratory Rate 23 08/11/17 06:52 Blood Pressure 116/56 08/11/17 07:37 Pulse Oximetry 98 08/11/17 07:37 Chest Pain - [facility] Narrative Medical decision making narrative: Patient with a hemoglobin of 5.8, mildly elevated troponin 0.185, suspect type II. Patient does show mild strain in 3 and aVF. Discuss case with Dr. Ornelas, hospitalist, he will admit - Differential Diagnosis Likely: pneumothorax, stable angina, unstable angina pectoris, atypical chest pain, st elevation myocardial infarction, costochondritis, chest pain - Medical Records Data Attestation: I reviewed the patient's medical records. - Lab Data Attestation: I reviewed the patient's lab results. Result diagrams: 08/11/17 07:02 08/11/17 07:02 Lab Results 08/11/17 08/11/17 08/11/17 Range/Units 07:02 07:02 07:03 WBC 20.5 H (4.5-11.0) T/MM3 RBC 1.84 L (4.50-5.90) M/MM3 Hgb 5.2 L* (13.5-17.5) GM/DL Hct 17.0 L* (41-53) % MCV 92.4 (80-100) UM3 MCH 28.3 (26-34) UUG MCHC 30.6 L (31-37) GM/DL RDW Std Deviation 52.3 H (36.9-50.2) FL Plt Count 176 (130-400) T/MM3 MPV 10.3 (9.4-12.4) UM3 Immature Gran % (Auto) Not performed Neut % (Auto) Not performed Lymph % (Auto) Not performed [place] % (Auto) Not performed Eos % (Auto) Not performed Baso % (Auto) Not performed Neut # (Auto) Not performed Lymph # (Auto) Not performed [place] # (Auto) Not performed Eos # (Auto) Not performed Baso # (Auto) Not performed Abs Immat Gran (auto) Not performed Neutrophils % (Manual) 91.0 H (33-66) % Band Neutrophils % 1.0 (0-6) % Lymphocytes % (Manual) 3.0 L (23-45) % Monocytes % (Manual) 4.0 (0-9.0) % Metamyelocytes % 1.0 H (0-0) % Neutrophils # (Manual) 18.7 H (1.8-7.7) T/MM3 Band Neutrophils # 0.2 T/MM3 Lymphocytes # (Manual) 0.6 L (1-4.8) T/MM3 Monocytes # (Manual) 0.8 (0-0.8) T/MM3 Metamyelocytes # 0.2 T/MM3 Nucleated RBCs 2 Polychromasia 1+ Hypochromasia 1+ Poikilocytosis 1+ Anisocytosis 1+ Ovalocytes 1+ Helmet Cells 1+ RBC Morph Comment Abnormal INR 1.21 (0.99-1.21) Turbidity < 20 (0-20) Sodium 140 (134-144) MEQ/L Potassium 3.9 (3.6-5) MEQ/L Chloride 111 H (98-107) MEQ/L Carbon Dioxide 20 L (22-30) MEQ/L Anion Gap 9 (5-15) MEQ/L BUN 44.0 H (9-20) MG/DL Creatinine 1.2 (0.8-1.5) MG/DL GFR Calculation 59 BUN/Creatinine Ratio 37 H (6-26) RATIO Glucose 306 H (75-110) MG/DL Calculated Osmolality 292 H (261-280) MOSM/KG Calcium 8.4 (8.4-10.2) MG/DL Magnesium 1.8 (1.6-2.3) MG/DL Total Bilirubin 0.30 (0.20-1.30) MG/DL Icterus Index < 2 (0-7) AST 14 L (17-59) U/L ALT 31 (21-72) U/L Alkaline Phosphatase 82 (38-126) U/L Troponin I 0.185 H (0-0.12) ng/ml B-Natriuretic Peptide 1650 H (0-175) pg/mL Total Protein 4.7 L (6.3-8.2) G/DL Albumin 2.4 L (3.5-5.0) G/DL Globulin 2.3 L (2.4-3.6) G/DL Albumin/Globulin Ratio 1.0 L (1.1-2.2) RATIO TSH 3.15 (0.47-4.68) MIU/L Specimen Hemolysis < 15 (0-25) Crossmatch (AHG) 08/11/17 Range/Units 07:22 WBC (4.5-11.0) T/MM3 RBC (4.50-5.90) M/MM3 Hgb (13.5-17.5) GM/DL Hct (41-53) % MCV (80-100) UM3 MCH (26-34) UUG MCHC (31-37) GM/DL RDW Std Deviation (36.9-50.2) FL Plt Count (130-400) T/MM3 MPV (9.4-12.4) UM3 Immature Gran % (Auto) Neut % (Auto) Lymph % (Auto) [place] % (Auto) Eos % (Auto) Baso % (Auto) Neut # (Auto) Lymph # (Auto) [place] # (Auto) Eos # (Auto) Baso # (Auto) Abs Immat Gran (auto) Neutrophils % (Manual) (33-66) % Band Neutrophils % (0-6) % Lymphocytes % (Manual) (23-45) % Monocytes % (Manual) (0-9.0) % Metamyelocytes % (0-0) % Neutrophils # (Manual) (1.8-7.7) T/MM3 Band Neutrophils # T/MM3 Lymphocytes # (Manual) (1-4.8) T/MM3 Monocytes # (Manual) (0-0.8) T/MM3 Metamyelocytes # T/MM3 Nucleated RBCs Polychromasia Hypochromasia Poikilocytosis Anisocytosis Ovalocytes Helmet Cells RBC Morph Comment INR (0.99-1.21) Turbidity (0-20) Sodium (134-144) MEQ/L Potassium (3.6-5) MEQ/L Chloride (98-107) MEQ/L Carbon Dioxide (22-30) MEQ/L Anion Gap (5-15) MEQ/L BUN (9-20) MG/DL Creatinine (0.8-1.5) MG/DL GFR Calculation BUN/Creatinine Ratio (6-26) RATIO Glucose (75-110) MG/DL Calculated Osmolality (261-280) MOSM/KG Calcium (8.4-10.2) MG/DL Magnesium (1.6-2.3) MG/DL Total Bilirubin (0.20-1.30) MG/DL Icterus Index (0-7) AST (17-59) U/L ALT (21-72) U/L Alkaline Phosphatase (38-126) U/L Troponin I (0-0.12) ng/ml B-Natriuretic Peptide (0-175) pg/mL Total Protein (6.3-8.2) G/DL Albumin (3.5-5.0) G/DL Globulin (2.4-3.6) G/DL Albumin/Globulin Ratio (1.1-2.2) RATIO TSH (0.47-4.68) MIU/L Specimen Hemolysis (0-25) Crossmatch (AHG) See Detail - Radiology Data Attestation: I reviewed the patient's radiology results. Fluid, no acute infiltrates - EKG Data EKG #1 EKG attestation: Yes: I reviewed and interpreted this EKG. EKG shows normal: sinus rhythm Rate: normal Rhythm: NSR [place]/QRS: normal Interpretation: nonspecific ST-T wave changes Disposition Clinical Impression: Acute GI bleeding, Elevated troponin Disposition: 02 To [facility] Acute Care Condition: Stable Prescriptions: No Action Amlodipine Besylate 5 mg PO DAILY 30 Days #30 tab Warfarin Sodium 4 mg PO DAILY SACUBITRIL/VALSARTAN 49/51mg [ENTRESTO 49/51mg] 1 tab PO BID Ferrous Sulfate [Iron] 325 mg PO DAILY Atorvastatin Calcium 40 mg PO HS #0 tab Aspirin [Aspirin EC] 81 mg PO DAILY glipiZIDE [Glipizide ER] 10 mg PO DAILY Insulin Detemir [Levemir Flextouch] 10 unit SQ HS Famotidine [Pepcid AC] 20 mg PO BID Carvedilol 6.25 mg PO BIDWM Magnesium Oxide [Magnesium] 400 mg PO DAILY Warfarin Sodium 5 mg PO DAILY Humalog KwikPen (insulin lispro) 100 unit/mL SQ PEN 5 unit SQ ACS ml erythromycin 5 mg/gram (0.5 %) eye ointment 0.5 inch RIGHT EYE .qhs #1 g Referrals: Colin Srivastava MD [Family Provider] - Time of Disposition: 08:02 - Seen By: physician
[2017-08-11] MEDS: SALINE FLUSH 10ml SYRINGE IVF PRN (06:56)
--- NOTE | 2017-08-11 07:43 | XRay Report ---
EXAM: XR chest 1V LOCATION OF DICTATION: SY HISTORY: chest pain COMPARISON: June 07, 2017 FINDINGS: The heart size is upper limits normal. Postsurgical changes of median sternotomy. Right dual-lead pacer defibrillator leads in stable position. Left-sided chest port in stable position with the tip overlying the upper SVC. Limited depth of inspiration. There is bibasal atelectasis. No consolidating opacities or pleural effusions. No pneumothorax. The osseous structures are within normal limits for the patient's age. IMPRESSION: 1. Low lung volumes with mild basilar atelectasis. No consolidating opacities. 2. The heart size is upper limits normal without evidence for CHF. .
[2017-08-11 08:59] VITALS: BMI 25.1
--- NOTE | 2017-08-11 09:05 | History & Physical Report ---
History of Present Illness Date: 08/11/17 Chief complaint: Chest pain, Anemia HPI: David is 76 yr old male who is known to the hospitalist service from previous admissions. David had a ischemic stroke back in september of 2016 followed my a hemorrhagic stroke in October of 2016. He was later placed back on warfarin however had epistaxis that was unable to be controlled. was admitted to [facility] for monitoring however finally was transferred on 06/06/17 for ENT evaluation. He underwent a nasal artery procedure at [facility]. David's reports he had been off warfarin last week for skin shoulder removal. He started back on warfarin on 08/07 and 08/08 forgetting that he was suppose to remain off for a foot callus removal scheduled for tomorrow. He was not had warfarin since 08/08. reports he has black stools for over a week and thought it was due to iron intake. Today David was brought to ER for evaluation of 3 days of intermittent chest pain and weakness. Further work up in the ER revealed significant anemia with Hgb of 5.2, Hct 17, WBC 20.5, PLT 175. INR 1.21. Troponin was found to be elevated at 0.185. EKG did have some questions depression. He was given NTG and at time of examination chest pain was gone. In the severity of his anemia, accompanied with elevated troponin and chest pain. The hospitalist services were contacted and accepted patient for inpatient admission for further evaluation and treatment. Did discuss advanced directives with patient and . They do wish for patient to be a full code Review of Systems All systems PM: 10-point ROS was reviewed, no additional remarkable complaints except - Constitutional Constitutional: Present: fatigue - Cardiovascular Cardiovascular: Present: chest pain - Gastrointestinal Gastrointestinal: Present: as per HPI, melena Past Medical History Clinic Medical History GERD (gastroesophageal reflux disease) Coronary atherosclerosis Type 2 diabetes mellitus Stroke - Ischemia and Hemorrhagic Hx of blood clots Blindness Colon cancer High cholesterol HTN (hypertension) Heart attack~2008 CHF (congestive heart failure) Surgical History: 1. Right retinal attachment--03/25/2016. 2. Ostomy reversal --2010. 3. Colectomy--2010. 4. PowerPort placement--2010. 5. Colonoscopy-- 09/05/2010. 6. Repair of Radha fundoplication--08/[address] Botello. 7. Cardiac catheterization with stent placement x2--2009 at [facility]. 8. Coronary artery bypass graft (quad)--08/28/2008. 9. Laparoscopic appendectomy--2006. 10. Radha fundoplication--12/26/[address] Jennings. 11. Inguinal hernia repair--1968. 12. Inguinal hernia repair-- 1952. Family History Updates: Mother- Lung cancer. Father- Aneurysm. Brother-Heart attack - Social History Smoking status: Never smoker Alcohol intake frequency: does not drink Housing: house Household members: spouse Current occupational status: retired Social history: PCP Dr Srivastava Cardiology- Dr Hooks Medications Home Medications Medication Instructions Recorded Confirmed Type Atorvastatin Calcium 40 mg PO HS #0 tab 10/31/16 08/11/17 History Aspirin [Aspirin EC] 81 mg PO DAILY 06/06/17 08/11/17 History Carvedilol 6.25 mg PO BIDWM 06/06/17 08/11/17 History Famotidine [Pepcid AC] 20 mg PO BID 06/06/17 08/11/17 History Insulin Detemir [Levemir Flextouch] 10 unit SQ HS 06/06/17 08/11/17 History Magnesium Oxide [Magnesium] 400 mg PO DAILY 06/06/17 08/11/17 History SACUBITRIL/VALSARTAN 49/51mg 1 tab PO BID 06/06/17 08/11/17 History [ENTRESTO 49/51mg] Warfarin Sodium 4 mg PO DAILY 06/06/17 08/11/17 History Warfarin Sodium 5 mg PO DAILY 06/06/17 08/11/17 History glipiZIDE [Glipizide ER] 10 mg PO DAILY 06/06/17 08/11/17 History Humalog KwikPen (insulin lispro) 5 unit SQ ACS ml 07/10/17 08/11/17 History 100 unit/mL SQ PEN Ferrous Sulfate [Iron] 325 mg PO DAILY 08/11/17 08/11/17 History Allergies Allergy/AdvReac Type Severity Reaction Status Date / Time No Known Drug Allergies Allergy Unknown Verified 08/11/17 06:35 Exam Vital Signs: Temperature 97.9 F 08/11/17 06:35 Pulse Rate 87 08/11/17 07:37 Respiratory Rate 23 08/11/17 06:52 Blood Pressure 116/56 08/11/17 07:37 Pulse Oximetry 98 08/11/17 07:37 Telemetry Rhythm: Sinus Rhythm - Constitutional Present: no acute distress, well nourished, well developed - Routine HEENT Exam Eye: Present: EOMI ENT: Present: mucous membranes moist, dentition normal - Routine Respiratory Exam Present: CTA bilaterally. Absent: wheezes - Routine Cardiovascular Exam Present: RRR, S1, S2. Absent: murmur - Routine Abdominal Exam Present: soft, normoactive bowel sounds, non distended. Absent: tenderness - Routine Extremities Exam Present: full ROM, pulses intact, normal capillary refill - Routine Skin Exam Present: intact, dry, pallor, warm Comments: Incision and sutures to left scapula. No evidence of infection or drainage - Routine Neurological Exam Present: alert, oriented X3, CN II-XII intact, moving all extremities - Routine Psychiatric Exam Present: normal affect, cooperative Results - Labs CBC & Chem 7: 08/11/17 07:02 08/11/17 07:02 Assessment and Plan (1) Acute blood loss anemia Current visit: Yes Status: Acute (2) Chest pain Current visit: Yes Status: Acute Assessment and Plan: Impression Melena - acute GI bleed, suspect upper Blood loss anemia- Hgb on admission 5.2 Chest pain Elevated Troponin - NSTEMI -- possible Type II secondary to anemia Leukocytosis- POA- 20 CAD Stroke-ischemic and hemorrhagic (2017) Type 2 DM HTN CHF Hypercholesterolemia Hx Colon cancer Chronic anticoagulation- Warfarin Plan Admit patient as inpatient under the care of Dr Espinoza for Anemia, chest pain /elevated troponin. Type screen and given 2 units of PRBCs on admission. Monitor telemetry and obtain serial troponins. Consult placed to Dr Hooks who is David's claims support specialist. Check UA given leukocytosis will treat as needed however leukocytosis may be reactive. Protonix IV for GI protection. NS 100 ml for gentle hydration. May have clear liquids only. SCDs to Bilateral lower ext for DVT prophylaxis. Monitor blood counts carefully. At this time he is hemodynamically stable. Hold anticoagulation secondary to acute GI bleed. Again , patient does wish to be a full code and this order is written. Will discuss further orders and plan of care with attending, Dr. Espinoza. At time of discharge medical care will return to primary care provider. Dr. Srivastava. CRISTAL Consultation place with Dr Keith for endoscopic evaluation - case discussed. DVT Prophylaxis: SCD's GI Prophylaxis: Protonix Resuscitation Status: Full Code - Physician Narrative Physician: Lai Espinoza MD Narrative: Date: 08/11/17 Time: 1125 Have independently interviewed and examined pt. Chart reviewed. Case discussed with ED physician, Sx, and my KINESIOLOGIST. Care plan developed with my supervision; agree with above. Presents to ED secondary to intermitted chest pain over the past 2-3 days and progressive weakness. Weakness has been progressive for about 1 week, worsening with time. Winded with activities. Not having increased cough/congestion. Pain to chest worse with activities-does not radiation to left arm and jaw; would decrease with NTG. No nausea. Appetite stable (but oral drive chronically low). Stools black for the last 3 days. More unsteady with activities. Was trying to hold out with symptoms to see PCP, but weakness/chest pain worsened this am. Presents to ED for evaluation. Troponin with elevation, but hemoglobin very decreased to 5.2. INR normal (Has been holding Coumadin since 08/07 as was to have surgery to calus on his heal by Dr Srivastava). With elevation of troponin and significant anemia, Hospitalist notified for admission. Anticipate greater than 2 midnights of care needed. Lungs: decreased CV: regular AB: soft flat BS decreased MSE: awake alert appropriate Plan: Inpatient admission to [facility] for treatment of NSTEMI and acute GI bleed with significant anemia-anticipate greater than 2 midnights of care needed. Will transfuse 2 units pRBC due to significant anemia and cardiac instability ( elevated troponin). Consult with Sx for endoscopic evaluation when medically stable. Consult Dr Hooks due to NSTEMI. Hold blood thinners. Support BP. SCD for DVT protection. IV Protonix BID for GI protection-suspect upper GI blood loss. Monitor lab. Hold antihypertensive to decrease risk for hypotension due to volume depletion from GI bleed. CCU currently full - admit to floor; potentially need transfer to CCU. Hospital Course Summary Disclaimer: The visit summary below is not to be considered part of the above Progress Note. Hospital Course: Impression Blood loss anemia- Hgb on admission 5.2 Chest pain Elevated Troponin Leukocytosis- POA- 20 CAD Stroke-ischemic and hemorrhagic (2017) Type 2 DM HTN CHF Hypercholesterolemia Hx Colon cancer Chronic anticoagulation- Warfarin Plan Admit patient as inpatient under the care of Dr Espinoza for Anemia, chest pain Type screen and given 2 units of PRBCs on admission Monitor telemetry and obtain serial troponins. Consult placed to Dr Hooks who is David's claims support specialist. Check UA given leukocytosis will treat as needed however leukocytosis may be reactive Protonix IV for GI protection NS 100 ml for gentle hydration. May have clear liquids only. SCDs to Bilateral lower ext for DVT prophylaxis Monitor blood counts carefully. At this time he is hemodynamically stable Again , patient does wish to be a full code and this order is written. Will discuss further orders and plan of care with attending, Dr. Espinoza. At time of discharge medical care will return to primary care provider. Dr. Srivastava
[2017-08-11] MEDS: PANTOPRAZOLE 40 MG INJECTION IVP SCH ×2 (09:21→21:30)
[2017-08-11] MEDS: NS 1,000 ML IV SCH ×2 (09:22→20:38)
[2017-08-11] MEDS ORDERED: ALTEPLASE (Cathflo*) 2mg INJECTION IV ONE (10:11)
--- NOTE | 2017-08-11 10:23 | Cardiology Consult Note ---
<Nataly Lockett - Last Filed: 08/12/17 09:33> History of Present Illness Consult date: 08/11/17 Requesting physician: Lai Espinoza Consult reason: chest pain Chief complaint: chest pain History of present illness: David is 76 year old male who is known to Dr. Hooks's practice with a history of CAD with CABG, ischemic cardiomyopathy with ICD, HTN, and DM type II, who had a ischemic stroke back in september of 2016 followed my a hemorrhagic stroke in October of 2016. He was later placed back on warfarin however had epistaxis that was unable to be controlled. He was admitted to [facility] for monitoring and was transferred on 06/06/17 for ENT evaluation. He underwent a nasal artery procedure at [facility]. David's reports he had been off warfarin last week for recent procedure and started back on warfarin on 08/07 and 08/08, but has not had warfarin since 08/08. reports he has black stools for over a week and thought it was due to iron intake. Today David was brought to ED for evaluation of 3 days of intermittent chest pain and weakness. Further work up in the ER revealed significant anemia with Hgb of 5.2, Hct 17, WBC 20.5, PLT 175. INR 1.21. Troponin was found to be elevated at 0.185. EKG did have some questions depression. He was given NTG and at time of examination chest pain was gone. In the severity of his anemia, accompanied with elevated troponin and chest pain. The hospitalist services were contacted and accepted patient for inpatient admission for further evaluation and treatment. Dr. Hooks is consulted and we appreciate the consult Review of Systems - Constitutional Constitutional: Present: fatigue. Absent: chills, fever(s) - EENMT Eyes: Absent: change in vision Balance: Absent: vertigo Mouth/Throat: Absent: sore throat - Cardiovascular Cardiovascular: Present: chest pain. Absent: palpitations, syncope, dyspnea on exertion, orthopnea Rhythm: Absent: abnormal rhythm Vascular: Absent: pedal edema - Respiratory Respiratory: Absent: cough - Gastrointestinal Gastrointestinal: Present: melena. 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 Hypertension Yes Myocardial Infarction Yes: x2 Pneumonia Yes Diabetes Mellitus Type 2 Yes Gastroesophageal Reflux Yes Disease Gastrointestinal Bleeding Yes: FROM COLON CANCER Ulcer Yes Hx Kidney Stones Yes Clotting Problems Yes: CLOT IN BRAIN AND IN HEART SEPTEMBER Osteoarthritis Yes Shingles Yes: 2012 Blood Transfusions Yes: NO PROBLEMS Other Yes: RADIATION FOR COLON CA [facility] Medical History (Last Reviewed 07/10/17 @ 13:02 by ELLI Santiago) GERD (gastroesophageal reflux disease) (Chronic Medical) Coronary atherosclerosis (Acute Medical) Type 2 diabetes mellitus (Chronic Medical) PNA (pneumonia) (Chronic Medical) Stroke (Acute Medical) Hx of blood clots (Resolved Medical) Colon polyps (Resolved Medical) Blindness (Chronic Medical) Colon cancer (Resolved Medical ~2010) Colectomy, radiation and chemo High cholesterol (Chronic Medical) HTN (hypertension) (Chronic Medical) Heart attack (Resolved Medical ~2008) CHF (congestive heart failure) (Chronic Medical) Surgical History: 1. Right retinal attachment--03/25/2016. 2. Ostomy reversal --2010. 3. Colectomy--2010. 4. PowerPort placement--2010. 5. Colonoscopy-- 09/05/2010. 6. Repair of Radha fundoplication--08/[address] Botello. 7. Cardiac catheterization with stent placement x2--2008 at [facility]. 8. Coronary artery bypass graft (quad)--08/28/2008. 9. Laparoscopic appendectomy--2006. 10. Radha fundoplication--12/26/[address] Jennings. 11. Inguinal hernia repair--1968. 12. Inguinal hernia repair-- 1952. Family History: Family History (Last Reviewed 07/10/17 @ 13:02 by ELLI Santiago) Mother Lung cancer Father Aneurysm Brother Heart attack - Social History Smoking status: Never smoker Substance use type: does not use Alcohol intake frequency: former alcohol drinker Household members: spouse Current occupational status: retired Current residence: Apartment/Private Home Medications Home Medications Medication Instructions Recorded Confirmed Type Atorvastatin Calcium 40 mg PO HS #0 tab 10/31/16 08/11/17 History Aspirin [Aspirin EC] 81 mg PO DAILY 06/06/17 08/11/17 History Carvedilol 6.25 mg PO BIDWM 06/06/17 08/11/17 History Famotidine [Pepcid AC] 20 mg PO BID 06/06/17 08/11/17 History Insulin Detemir [Levemir Flextouch] 10 unit SQ HS 06/06/17 08/11/17 History Magnesium Oxide [Magnesium] 400 mg PO DAILY 06/06/17 08/11/17 History SACUBITRIL/VALSARTAN 49/51mg 1 tab PO BID 06/06/17 08/11/17 History [ENTRESTO 49/51mg] Warfarin Sodium 4 mg PO DAILY 06/06/17 08/11/17 History Warfarin Sodium 5 mg PO DAILY 06/06/17 08/11/17 History glipiZIDE [Glipizide ER] 10 mg PO DAILY 06/06/17 08/11/17 History Humalog KwikPen (insulin lispro) 5 unit SQ ACS ml 07/10/17 08/11/17 History 100 unit/mL SQ PEN Ferrous Sulfate [Iron] 325 mg PO DAILY 08/11/17 08/11/17 History Allergies Allergy/AdvReac Type Severity Reaction Status Date / Time No Known Drug Allergies Allergy Unknown Verified 08/11/17 06:35 Exam Vital signs: Temperature 97.6 F 08/11/17 08:55 Pulse Rate 85 08/11/17 08:55 Respiratory Rate 16 08/11/17 08:55 Blood Pressure 132/69 08/11/17 08:55 Pulse Oximetry 97 08/11/17 08:55 - Constitutional no acute distress, well nourished, cooperative - Routine HEENT Exam Head: Present: normocephalic ENT: Present: mucous membranes moist - Routine Neck Exam Absent: JVD, carotid bruit - Routine Chest/Breast/Axilla Exam Chest wall: Absent: tenderness - Routine Respiratory Exam Present: CTA bilaterally. Absent: rales, wheezes - Routine Cardiovascular Exam Present: RRR, no murmur - Routine Abdominal Exam Present: soft, normoactive bowel sounds - Routine Extremities Exam Present: no edema - Routine Skin Exam Present: intact, dry, warm - Routine Neurological Exam Present: alert, oriented X3 - Routine Psychiatric Exam Present: normal affect, normal thought process Results 08/12/17 08:22 08/12/17 03:33 Intake and Output 08/10/17 08/11/17 08/11/17 22:59 06:59 14:59 Other: Weight 175 lb 4.28 oz Patient Weight 08/12/17 06:59 Weight 175 lb 4.28 oz Laboratory Results - last 24 hr 08/11/17 08/11/17 08/11/17 07:02 07:02 07:03 WBC 20.5 H RBC 1.84 L Hgb 5.2 L* Hct 17.0 L* MCV 92.4 MCH 28.3 MCHC 30.6 L RDW Std Deviation 52.3 H Plt Count 176 MPV 10.3 Immature Gran % (Auto) Not performed Neut % (Auto) Not performed Lymph % (Auto) Not performed [place] % (Auto) Not performed Eos % (Auto) Not performed Baso % (Auto) Not performed Neut # (Auto) Not performed Lymph # (Auto) Not performed [place] # (Auto) Not performed Eos # (Auto) Not performed Baso # (Auto) Not performed Abs Immat Gran (auto) Not performed Neutrophils % (Manual) 91.0 H Band Neutrophils % 1.0 Lymphocytes % (Manual) 3.0 L Monocytes % (Manual) 4.0 Metamyelocytes % 1.0 H Neutrophils # (Manual) 18.7 H Band Neutrophils # 0.2 Lymphocytes # (Manual) 0.6 L Monocytes # (Manual) 0.8 Metamyelocytes # 0.2 Nucleated RBCs 2 Polychromasia 1+ Hypochromasia 1+ Poikilocytosis 1+ Anisocytosis 1+ Ovalocytes 1+ Helmet Cells 1+ RBC Morph Comment Abnormal INR 1.21 Turbidity < 20 Sodium 140 Potassium 3.9 Chloride 111 H Carbon Dioxide 20 L Anion Gap 9 BUN 44.0 H Creatinine 1.2 GFR Calculation 59 BUN/Creatinine Ratio 37 H Glucose 306 H Glucometer Calculated Osmolality 292 H Calcium 8.4 Magnesium 1.8 Total Bilirubin 0.30 Icterus Index < 2 AST 14 L ALT 31 Alkaline Phosphatase 82 Troponin I 0.185 H B-Natriuretic Peptide 1650 H Total Protein 4.7 L Albumin 2.4 L Globulin 2.3 L Albumin/Globulin Ratio 1.0 L TSH 3.15 Specimen Hemolysis < 15 Ur Collection Type Urine Color Urine Clarity Urine pH Ur Specific [place] Urine Protein Urine Glucose (UA) Urine Ketones Urine Occult Blood Urine Nitrate Urine Bilirubin Urine Urobilinogen Ur Leukocyte Esterase Urinalysis Comment Blood Type Antibody Screen Crossmatch ([facility]) Blood Product Request 08/11/17 08/11/17 08/11/17 07:22 10:02 11:44 WBC RBC Hgb Hct MCV MCH MCHC RDW Std Deviation Plt Count MPV Immature Gran % (Auto) Neut % (Auto) Lymph % (Auto) [place] % (Auto) Eos % (Auto) Baso % (Auto) Neut # (Auto) Lymph # (Auto) [place] # (Auto) Eos # (Auto) Baso # (Auto) Abs Immat Gran (auto) Neutrophils % (Manual) Band Neutrophils % Lymphocytes % (Manual) Monocytes % (Manual) Metamyelocytes % Neutrophils # (Manual) Band Neutrophils # Lymphocytes # (Manual) Monocytes # (Manual) Metamyelocytes # Nucleated RBCs Polychromasia Hypochromasia Poikilocytosis Anisocytosis Ovalocytes Helmet Cells RBC Morph Comment INR Turbidity Sodium Potassium Chloride Carbon Dioxide Anion Gap BUN Creatinine GFR Calculation BUN/Creatinine Ratio Glucose Glucometer Calculated Osmolality Calcium Magnesium Total Bilirubin Icterus Index AST ALT Alkaline Phosphatase Troponin I B-Natriuretic Peptide Total Protein Albumin Globulin Albumin/Globulin Ratio TSH Specimen Hemolysis Ur Collection Type Urine, clean catch Urine Color Yellow Urine Clarity Clear Urine pH 5.0 Ur Specific [place] 1.015 Urine Protein Trace A Urine Glucose (UA) 2+ A Urine Ketones 1+ A Urine Occult Blood Negative Urine Nitrate Negative Urine Bilirubin Negative Urine Urobilinogen 0.2 Ur Leukocyte Esterase Negative Urinalysis Comment Microscopic not ind. Blood Type A Positive Antibody Screen Negative Crossmatch ([facility]) See Detail Blood Product Request 1 unit pc issued 08/11/17 08/11/17 12:34 12:54 WBC RBC Hgb Hct MCV MCH MCHC RDW Std Deviation Plt Count MPV Immature Gran % (Auto) Neut % (Auto) Lymph % (Auto) [place] % (Auto) Eos % (Auto) Baso % (Auto) Neut # (Auto) Lymph # (Auto) [place] # (Auto) Eos # (Auto) Baso # (Auto) Abs Immat Gran (auto) Neutrophils % (Manual) Band Neutrophils % Lymphocytes % (Manual) Monocytes % (Manual) Metamyelocytes % Neutrophils # (Manual) Band Neutrophils # Lymphocytes # (Manual) Monocytes # (Manual) Metamyelocytes # Nucleated RBCs Polychromasia Hypochromasia Poikilocytosis Anisocytosis Ovalocytes Helmet Cells RBC Morph Comment INR Turbidity Sodium Potassium Chloride Carbon Dioxide Anion Gap BUN Creatinine GFR Calculation BUN/Creatinine Ratio Glucose Glucometer 373 Calculated Osmolality Calcium Magnesium Total Bilirubin Icterus Index AST ALT Alkaline Phosphatase Troponin I B-Natriuretic Peptide Total Protein Albumin Globulin Albumin/Globulin Ratio TSH Specimen Hemolysis Ur Collection Type Urine Color Urine Clarity Urine pH Ur Specific [place] Urine Protein Urine Glucose (UA) Urine Ketones Urine Occult Blood Urine Nitrate Urine Bilirubin Urine Urobilinogen Ur Leukocyte Esterase Urinalysis Comment Blood Type Antibody Screen Crossmatch ([facility]) Blood Product Request 1 unit pc issued - Imaging and Cardiology Imaging & Cardiology Narrative: Date of Exam: 08/11/17 Ordering Provider: Vince Emerson MD Type of Exam(s): XR chest 1V Reason for Exam(s): chest pain EXAM: XR chest 1V LOCATION OF DICTATION: SY HISTORY: chest pain COMPARISON: June 07, 2017 FINDINGS: The heart size is upper limits normal. Postsurgical changes of median sternotomy. Right dual-lead pacer defibrillator leads in stable position. Left-sided chest port in stable position with the tip overlying the upper SVC. Limited depth of inspiration. There is bibasal atelectasis. No consolidating opacities or pleural effusions. No pneumothorax. The osseous structures are within normal limits for the patient's age. IMPRESSION: 1. Low lung volumes with mild basilar atelectasis. No consolidating opacities. 2. The heart size is upper limits normal without evidence for CHF. 08/11/17 13:18 EKG interpretations - EKG EKG results cardiology: sinus rhythm - NC, pacemaker, normal Myocardial infarction: anterior NC (old age or indeterminate), lateral NC (old age or indeterminate) Assessment and Plan - Assessment and Plan (1) Acute blood loss anemia Current visit: No Status: Acute -per hospitalist - With patient's CAD HGB needs to be 10 (2) Chest pain Current visit: Yes Status: Acute First episode on Friday, again yesterday morning - relieved by nitro - diaphoretic with first episode, not the second - Left arm pain with first episode only - Trend serial troponin levels - EKG: SR. inferior NC, indeterminate age, anterolateral NC, indeterminate age , ST-T changes (3) Elevated troponin Current visit: Yes Status: Acute - Trend serial troponin levels, likely elevated due to acute anemia - EKG: SR. inferior NC, indeterminate age, anterolateral NC, indeterminate age , ST-T changes (4) Atherosclerosis of coronary artery bypass graft without angina pectoris Current visit: Yes Status: Acute (5) Ischemic cardiomyopathy Current visit: Yes Status: Acute Continue Coreg and Entresto as VS allow (6) HTN (hypertension) Current visit: No Status: Chronic (7) Presence of automatic implantable cardioverter-defibrillator Current visit: Yes Status: Acute - Assessment and Plan Acute blood loss anemia: -per hospitalist - With patient's CAD HGB needs to be 10 Chest pain: First episode on Friday, again yesterday morning - relieved by nitro - diaphoretic with first episode, not the second - Left arm pain with first episode only - Trend serial troponin levels - EKG: SR. inferior NC, indeterminate age, anterolateral NC, indeterminate age , ST-T changes Elevated troponin:- Trend serial troponin levels, likely elevated due to acute anemia - EKG: SR. inferior NC, indeterminate age, anterolateral NC, indeterminate age , ST-T changes Ischemic CM: Continue Coreg and Entresto as VS allow Thank you for allowing us to participate in the care of this patient. Hospital Course Summary Disclaimer: The visit summary below is not to be considered part of the above Progress Note. Hospital Course: Impression Blood loss anemia- Hgb on admission 5.2 Chest pain Elevated Troponin Leukocytosis- POA- 20 CAD Stroke-ischemic and hemorrhagic (2017) Type 2 DM HTN CHF Hypercholesterolemia Hx Colon cancer Chronic anticoagulation- Warfarin Plan Admit patient as inpatient under the care of Dr Espinoza for Anemia, chest pain Type screen and given 2 units of PRBCs on admission Monitor telemetry and obtain serial troponins. Consult placed to Dr Hooks who is David's digital intern. Check UA given leukocytosis will treat as needed however leukocytosis may be reactive Protonix IV for GI protection NS 100 ml for gentle hydration. May have clear liquids only. SCDs to Bilateral lower ext for DVT prophylaxis Monitor blood counts carefully. At this time he is hemodynamically stable Again , patient does wish to be a full code and this order is written. Will discuss further orders and plan of care with attending, Dr. Espinoza. At time of discharge medical care will return to primary care provider. Dr. 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 Hypertension Yes Myocardial Infarction Yes: x2 Pneumonia Yes Diabetes Mellitus Type 2 Yes Gastroesophageal Reflux Yes Disease Gastrointestinal Bleeding Yes: FROM COLON CANCER Ulcer Yes Hx Kidney Stones Yes Clotting Problems Yes: CLOT IN BRAIN AND IN HEART SEPTEMBER Osteoarthritis Yes Shingles Yes: 2012 Blood Transfusions Yes: NO PROBLEMS Other Yes: RADIATION FOR COLON CA [facility] Medical History (Last Reviewed 07/10/17 @ 13:02 by ELLI Santiago) GERD (gastroesophageal reflux disease) (Chronic Medical) Coronary atherosclerosis (Acute Medical) Type 2 diabetes mellitus (Chronic Medical) PNA (pneumonia) (Chronic Medical) Stroke (Acute Medical) Hx of blood clots (Resolved Medical) Colon polyps (Resolved Medical) Blindness (Chronic Medical) Colon cancer (Resolved Medical ~2010) Colectomy, radiation and chemo High cholesterol (Chronic Medical) HTN (hypertension) (Chronic Medical) Heart attack (Resolved Medical ~2008) CHF (congestive heart failure) (Chronic Medical) Family History: Family History (Last Reviewed 07/10/17 @ 13:02 by ELLI Santiago) Mother Lung cancer Father Aneurysm Brother Heart attack Exam Vital signs: Temperature 99.2 F 08/13/17 04:00 Pulse Rate 68 08/13/17 07:00 Respiratory Rate 16 08/13/17 07:00 Blood Pressure 99/53 08/13/17 07:00 Pulse Oximetry 91 08/13/17 07:00 Results 08/13/17 09:09 08/13/17 04:11 Cardiac Enzymes 08/12/17 08/13/17 08/13/17 Range/Units 13:48 04:11 04:11 AST 16 L (17-59) U/L Troponin I 0.175 H 0.157 H (0-0.12) ng/ml 08/13/17 Range/Units 09:09 AST (17-59) U/L Troponin I 0.122 H (0-0.12) ng/ml CBC 08/12/17 08/13/17 08/13/17 Range/Units 13:48 04:11 09:09 WBC 15.2 H D (4.5-11.0) T/MM3 RBC 2.30 L (4.50-5.90) M/MM3 Hgb 8.0 L D 6.7 L D 8.2 L D (13.5-17.5) GM/DL Hct 20.5 L (41-53) % Plt Count 116 L (130-400) T/MM3 Comprehensive Metabolic Panel 08/12/17 08/13/17 Range/Units 13:48 04:11 Sodium 140 144 (134-144) MEQ/L Potassium 3.7 3.1 L (3.6-5) MEQ/L Chloride 115 H 118 H (98-107) MEQ/L Carbon Dioxide 18 L 20 L (22-30) MEQ/L BUN 54.0 H* 41.0 H (9-20) MG/DL Creatinine 1.3 1.1 D (0.8-1.5) MG/DL Glucose 270 H 113 H (75-110) MG/DL Calcium 7.3 L 7.1 L (8.4-10.2) MG/DL AST 16 L (17-59) U/L ALT 27 (21-72) U/L Alkaline Phosphatase 65 (38-126) U/L Total Protein 4.3 L (6.3-8.2) G/DL Albumin 2.0 L (3.5-5.0) G/DL Intake and Output 08/12/17 08/13/17 08/13/17 22:59 06:59 14:59 Intake Total 818.333 / 231.277 0590.334 / 1354.334 Output Total 525 / 525 775 / 775 250 / 250 Balance 293.333 / 293.333 579.334 / 579.334 -250 / -250 Intake: IV 288.333 / 288.333 808.334 / 808.334 Ns 1,000 ml @ 100 mls/hr IV . 288.333 / 288.333 808.334 / 808.334 Q10H [facility] Rx#:[id number] Oral 180 / 180 240 / 240 Intake (Blood Product) Amt 350 / 350 306 / 306 Output: Urine 525 / 525 775 / 775 250 / 250 Other: Urine Appearance Clear Clear Clear Urine Color Dark Yellow Dark Yellow Dark Yellow Stool Characteristics Tarry Stool Color Black Stool Consistency Soft Size of Bowel Movement Moderate # Incontinent Bowel Movements 1 Weight 81.2 kg Patient Weight 08/14/17 06:59 Weight 81.2 kg Assessment and Plan - Attestation Attestation Narrative: 08/13/17 11:38 Recommendation After examining the patient I agree with the above assessment. I am involved in the formulation of the patient's plan of care. - Assessment and Plan (1) HTN (hypertension) Current visit: No Status: Chronic (2) Acute blood loss anemia Current visit: No Status: Acute (3) Elevated troponin Current visit: Yes Status: Acute (4) Chest pain Current visit: Yes Status: Acute (5) Atherosclerosis of coronary artery bypass graft without angina pectoris Current visit: Yes Status: Acute (6) Ischemic cardiomyopathy Current visit: Yes Status: Acute (7) Presence of automatic implantable cardioverter-defibrillator Current visit: Yes Status: Acute Hospital Course Summary Disclaimer: The visit summary below is not to be considered part of the above Progress Note.
[2017-08-11] MEDS ORDERED: WATER FOR INJ STERILE INJ ONE (10:38)
[2017-08-11] MEDS ORDERED: BISACODYL 10 MG SUPPOSITORY RECTALLY PRN (10:55)
[2017-08-11] MEDS: INSULIN ASPART 100unit/ml INJECTION SQ PRN ×2 (14:10→21:29)
[2017-08-11] MEDS: ERYTHROMYCIN 0.5% EYE OINTMENT 3.5gm RIGHT EYE SCH ×2 (14:10→21:30)
--- NOTE | 2017-08-11 18:45 | General Surgery Consult Note ---
Consult date: 08/11/17 Attending Physician: Lai Espinoza MD Reason for consult: other (acute GI bleed - melena) [facility] Medical History (Last Reviewed 07/10/17 @ 13:02 by ELLI Santiago) GERD (gastroesophageal reflux disease) (Chronic Medical) Coronary atherosclerosis (Acute Medical) Type 2 diabetes mellitus (Chronic Medical) PNA (pneumonia) (Chronic Medical) Stroke (Acute Medical) Hx of blood clots (Resolved Medical) Colon polyps (Resolved Medical) Blindness (Chronic Medical) Colon cancer (Resolved Medical ~2010) Colectomy, radiation and chemo High cholesterol (Chronic Medical) HTN (hypertension) (Chronic Medical) Heart attack (Resolved Medical ~2008) CHF (congestive heart failure) (Chronic Medical) Medical History Updates: peripheral neuropathy. 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 Skin cancer - comment: left nasal sidewall, left forearm , left shoulder Surgical History: * Excision of skin cancer from left shoulder - 07/[address] Srivastava. * Nasal cauterization for control of sever epistaxis - 2016 at [facility]. 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 Keith. * Excision of skin cancer from the left forearm - 06/13/2016. * Right retinal attachment--03/25/2016. * Right cataract extraction - 05/27/[address] James Mar. * Left cataract extraction - 05/06/[address] James Mar. * Excision of basal cell carcinoma from the left nasal sidewall - 02/24/[address] Sanchez. * Ileostomy reversal - [address] Phani Renteria. * Ultralow anterior resection of the colon - [address] Phani Renteria. * Left sublavian PowerPort placement - [address] Popeye Mar. * EGD and colonscopy with biopsies - 06/18/[address] Popeye Mar. * Colonoscopy with polypectomy - 09/05/2009. * Repair of Radha fundoplication--08/[address] Botello. * Cardiac catheterization with stent placement x2 - 09/2008 at [facility]. * Coronary artery bypass graft (quad)--08/28/2008. * Laparoscopic appendectomy--2006. * Radha fundoplication--12/26/[address] Jennings. * Inguinal hernia repair-- 1968. * Inguinal hernia repair--1952. 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 Current residence: Apartment/Private Home Medications Home Medications Medication Instructions Recorded Confirmed Type Atorvastatin Calcium 40 mg PO HS #0 tab 10/31/16 08/11/17 History Aspirin [Aspirin EC] 81 mg PO DAILY 06/06/17 08/11/17 History Carvedilol 6.25 mg PO BIDWM 06/06/17 08/11/17 History Famotidine [Pepcid AC] 20 mg PO BID 06/06/17 08/11/17 History Insulin Detemir [Levemir Flextouch] 10 unit SQ HS 06/06/17 08/11/17 History Magnesium Oxide [Magnesium] 400 mg PO DAILY 06/06/17 08/11/17 History SACUBITRIL/VALSARTAN 49/51mg 1 tab PO BID 06/06/17 08/11/17 History [ENTRESTO 49/51mg] Warfarin Sodium 4 mg PO DAILY 06/06/17 08/11/17 History Warfarin Sodium 5 mg PO DAILY 06/06/17 08/11/17 History glipiZIDE [Glipizide ER] 10 mg PO DAILY 06/06/17 08/11/17 History Humalog KwikPen (insulin lispro) 5 unit SQ ACS ml 07/10/17 08/11/17 History 100 unit/mL SQ PEN Ferrous Sulfate [Iron] 325 mg PO DAILY 08/11/17 08/11/17 History Allergies Allergy/AdvReac Type Severity Reaction Status Date / Time No Known Drug Allergies Allergy Unknown Verified 08/11/17 06:35 Review of Systems 10-point ROS: negative except for HPI and the following: - General General: Present: other (sweats) - Respiratory Respiratory: Present: cough (due to recent cold - just completed antibiotics) - Gastrointestinal Gastrointestinal: Present: blood in stools - Musculoskeletal Musculoskeletal: Present: back pain - Neurological Neurological: Present: numbness Additional comments: history od ischemic and hemorrhagic stroke 09/2016, 10/2016 - Hematologic/Lymphatic Hematologic/Lymphatic: Present: history of blood clots/DVT/PE, use of blood thinners (on hold) - Vital Signs Last Vital Signs Temp 96.4 F L 08/11/17 15:19 Pulse 87 08/11/17 18:22 Resp 16 08/11/17 18:22 BP 122/68 08/11/17 15:19 Pulse Ox 98 08/11/17 18:22 - Laboratory Result Diagrams: 08/11/17 15:56 08/11/17 07:02 General Surgery Results - Results Labs: Prior HGB 5.2 Hospital Course Summary Disclaimer: The visit summary below is not to be considered part of the above Progress Note. Hospital Course: Impression Blood loss anemia- Hgb on admission 5.2 Chest pain Elevated Troponin Leukocytosis- POA- 20 CAD Stroke-ischemic and hemorrhagic (2016) Type 2 DM HTN CHF Hypercholesterolemia Hx Colon cancer Chronic anticoagulation- Warfarin Plan Admit patient as inpatient under the care of Dr Espinoza for Anemia, chest pain Type screen and given 2 units of PRBCs on admission Monitor telemetry and obtain serial troponins. Consult placed to Dr Hooks who is David's manager custom. Check UA given leukocytosis will treat as needed however leukocytosis may be reactive Protonix IV for GI protection NS 100 ml for gentle hydration. May have clear liquids only. SCDs to Bilateral lower ext for DVT prophylaxis Monitor blood counts carefully. At this time he is hemodynamically stable Again , patient does wish to be a full code and this order is written. Will discuss further orders and plan of care with attending, Dr. Espinoza. At time of discharge medical care will return to primary care provider. Dr. Srivastava
--- NOTE | 2017-08-11 21:18 | Consultation ---
DATE OF CONSULTATION 08/11/2017 CONSULTING PHYSICIAN Federico Keith MD REQUESTING PHYSICIAN Dr. Espinoza REASON FOR CONSULTATION Acute GI bleed - melena. IMPRESSION 1. Acute GI bleed with melanotic stools. 2. Coumadin anticoagulation - currently held for outpatient procedures with a INR of 1.21 this morning. 3. Acute blood loss anemia requiring transfusion. 4. Chest pain. 5. Coronary artery disease. 6. Personal history of stroke with an ischemic stroke in September 2016 and hemorrhagic stroke in October 2016. 7. Type 2 diabetes mellitus. 8. Hypertension. 9. History of colon cancer in 2010. RECOMMENDATIONS 1. Continue with transfusion until hemoglobin is stable. 2. Reevaluate progress tomorrow and see if he is stable enough for bowel prep. 3. I will likely perform upper and lower endoscopy on 08/13/2017. HISTORY OF PRESENT ILLNESS David is known to my surgical practice from an excision of additional margins for his squamous cell carcinoma of the left dorsum of the arm in July 2016. He has had a complicated medical history since then with an ischemic stroke in September 2016 and a hemorrhagic stroke in October 2016. He was started on warfarin after his ischemic stroke when the clot was seen in the heart and whenever he is on the warfarin he notices occasional melanotic stools. He has had other episodes of nosebleeds including one that required transfer to [facility] for cauterization. He denied any recent significant nosebleeds. The patient has had melanotic stools for about the last week. On Friday he developed chest pain at rest and used nitroglycerin which did help resolve the symptoms. He did have some of the chest pain radiate into the arm. He noticed dizziness and sweating. He continued to have symptoms and eventually decided that he should go to the emergency department. He was discovered to have a hemoglobin of 5.2. Questioning revealed that he had had the melanotic stools. He was admitted under the hospitalist service. The patient was off his warfarin due to a lesion removal from the left shoulder. He did take some doses on 08/07/2017 and 08/08/2017 but has otherwise been off of his warfarin lately since another outpatient callus removal had been recommended. PAST MEDICAL HISTORY, PAST SURGICAL HISTORY, ALLERGIES, MEDICATIONS, REVIEW OF SYSTEMS, VITAL SIGNS, LABORATORY DATA See electronic consultation report. PHYSICAL EXAMINATION GENERAL: The patient is awake and alert, in no acute distress. HEENT: Sclerae clear. Extraocular muscles intact. NECK: Supple with a midline trachea. No lymphadenopathy or thyromegaly noted. HEART: Regular rate and rhythm. LUNGS: Clear to auscultation bilaterally. CHEST: There is a pacemaker in the right upper chest and a PowerPort in the left upper chest. ABDOMEN: Soft, nontender, nondistended. He has a subcostal incision as well as a sternal incision. He also has a lower midline incision and an incision along the right lower quadrant. No masses are noted. EXTREMITIES: No clubbing, cyanosis or edema. NEURO: Cranial nerves II-XII are grossly intact. PSYCHIATRIC: Normal mood and affect. PATIENT EDUCATION The details, risks and benefits of EGD and colonoscopy were discussed with the patient and his who was present. The discussion included but was not limited to bleeding, perforation requiring surgical repair, missed lesions, and complications of anesthesia. He had no questions and did wish to proceed with endoscopies. [facility]
[2017-08-11] MEDS ORDERED: NS FLUSH BAG 500ml IV PRN (22:53)
[2017-08-12] MEDS: NS 1,000 ML IV SCH ×2 (05:00→20:07)
[2017-08-12] MEDS: INSULIN ASPART 100unit/ml INJECTION SQ PRN ×4 (06:01→21:22)
[2017-08-12] MEDS: FERROUS SULFATE 324 MG TABLET PO SCH (09:07)
[2017-08-12] MEDS: PANTOPRAZOLE 40 MG INJECTION IVP SCH ×2 (09:08→20:07)
[2017-08-12] MEDS: ASCORBIC ACID 500 MG TABLET PO SCH (09:08)
--- NOTE | 2017-08-12 09:52 | Cardiology Progress Note ---
<Nataly Lockett - Last Filed: 08/13/17 08:18> Subjective Principal diagnosis: anemia, elevated troponin Interval history: David is seen in follow up for anemia and elevated troponin. He is examined in his room on the Surgical Unit, but has since been moved to CCU due hgb 6.9 following 3 units of PRBCs. He denies any further chest pain, no palpitations, dyspnea or dizziness. Exam Vital signs: Temperature 97.1 F 08/12/17 07:57 Pulse Rate 78 08/12/17 08:00 Respiratory Rate 16 08/12/17 07:57 Blood Pressure 137/70 08/12/17 07:57 Pulse Oximetry 95 08/12/17 07:57 - Constitutional no acute distress, well nourished, cooperative - Routine HEENT Exam Head: Present: normocephalic ENT: Present: mucous membranes moist - Routine Neck Exam Absent: JVD, carotid bruit - Routine Chest/Breast/Axilla Exam Chest wall: Absent: tenderness - Routine Respiratory Exam Present: CTA bilaterally. Absent: rales, wheezes - Routine Cardiovascular Exam Present: RRR, no murmur - Routine Abdominal Exam Present: soft, normoactive bowel sounds - Routine Extremities Exam Present: no edema - Routine Skin Exam Present: intact, dry, warm - Routine Neurological Exam Present: alert, oriented X3 - Routine Psychiatric Exam Present: normal affect, normal thought process - Additional findings Additional findings: Ascorbic Acid (Vitamin C) 500 mg PO [facility] Last Admin: 08/12/17 09:08 Dose: 500 mg Bisacodyl (Dulcolax) 10 mg RECTALLY DAILY PRN PRN Reason: Constipation Erythromycin (Ilotycin) 1 applic RIGHT EYE HS [facility] Last Admin: 08/11/17 21:30 Dose: 1 applic Ferrous Sulfate (Feosol) 324 mg PO [facility] Last Admin: 08/12/17 09:07 Dose: 324 mg Glipizide (Glucotrol Xl) 10 mg PO [facility] Last Admin: 08/12/17 09:08 Dose: 10 mg Sodium Chloride (Normal Saline) 1,000 mls @ 100 mls/hr IV .Q10H [facility] Last Admin: 08/12/17 05:00 Dose: 100 mls/hr Insulin Aspart (Novolog) 1 - 5 unit SQ SS PRN; Protocol PRN Reason: Hyperglycemia Last Admin: 08/12/17 06:01 Dose: 4 unit Magnesium Hydroxide (Mom) 30 ml PO DAILY PRN PRN Reason: Constipation Nitroglycerin (Nitrostat) 0.4 mg SL Q5MIN3 PRN PRN Reason: Chest pain Ondansetron HCl (Zofran) 4 mg IVP Q6H PRN PRN Reason: Nausea Pantoprazole Sodium (Protonix Iv) 40 mg IVP BID [facility] Last Admin: 08/12/17 09:08 Dose: 40 mg Sodium Chloride (Iv Flush) 10 - 80 ml IVF PRN PRN PRN Reason: Flushing Last Admin: 08/11/17 06:56 Dose: 20 ml Sodium Chloride (Normal Saline) 500 ml IV PRN PRN Results 08/13/17 04:11 08/13/17 04:11 Cardiac Enzymes 08/11/17 08/11/17 Range/Units 13:15 18:43 Troponin I 0.133 H 0.161 H (0-0.12) ng/ml CBC 08/11/17 08/11/17 08/11/17 Range/Units 15:56 15:56 22:15 WBC 18.6 H (4.5-11.0) T/MM3 RBC 2.66 L (4.50-5.90) M/MM3 Hgb 7.6 L D Cancelled 5.8 L* D (13.5-17.5) GM/DL Hct 23.3 L D 17.6 L* D (41-53) % Plt Count 157 (130-400) T/MM3 Neut # (Auto) Not performed Lymph # (Auto) Not performed [place] # (Auto) Not performed Eos # (Auto) Not performed Baso # (Auto) Not performed 08/12/17 08/12/17 Range/Units 03:33 08:22 WBC 33.1 H* D 30.3 H* (4.5-11.0) T/MM3 RBC 2.67 L 2.42 L (4.50-5.90) M/MM3 Hgb 7.6 L D 6.9 L (13.5-17.5) GM/DL Hct 23.8 L D 21.4 L (41-53) % Plt Count 154 145 (130-400) T/MM3 Neut # (Auto) Not performed Not performed Lymph # (Auto) Not performed Not performed [place] # (Auto) Not performed Not performed Eos # (Auto) Not performed Not performed Baso # (Auto) Not performed Not performed Comprehensive Metabolic Panel 08/12/17 Range/Units 03:33 Sodium 140 (134-144) MEQ/L Potassium 4.0 (3.6-5) MEQ/L Chloride 114 H (98-107) MEQ/L Carbon Dioxide 16 L (22-30) MEQ/L BUN 55.0 H* (9-20) MG/DL Creatinine 1.4 D (0.8-1.5) MG/DL Glucose 304 H (75-110) MG/DL Calcium 7.6 L D (8.4-10.2) MG/DL Intake and Output 08/11/17 08/12/17 08/12/17 22:59 06:59 14:59 Intake Total 0 / 0 1686.667 / 1686.667 Output Total 200 / 200 350 / 350 225 / 225 Balance -200 / -200 1336.667 / 1336.667 -225 / -225 Intake: IV 0 / 0 936.667 / 936.667 Ns 1,000 ml @ 100 mls/hr IV . 0 / 0 936.667 / 936.667 Q10H [facility] Rx#:[id number] Oral 750 / 750 Output: Urine 200 / 200 350 / 350 225 / 225 Other: Urine Appearance Clear Clear Clear Urine Color Yellow Dark Yellow Yellow Urine Odor Normal Normal Normal Stool Characteristics Tarry Tarry Stool Color Black Black Bright Red Blood Stool Consistency Soft Soft Size of Bowel Movement Large Small # Bowel Movements 1 # Incontinent Bowel Movements 2 Weight 181 lb 7.047 oz Patient Weight 08/13/17 06:59 Weight 181 lb 7.047 oz Laboratory Results - last 24 hr 08/11/17 08/11/17 08/11/17 07:22 10:02 11:44 WBC RBC Hgb Hct MCV MCH MCHC RDW Std Deviation Plt Count MPV Immature Gran % (Auto) Neut % (Auto) Lymph % (Auto) [place] % (Auto) Eos % (Auto) Baso % (Auto) Neut # (Auto) Lymph # (Auto) [place] # (Auto) Eos # (Auto) Baso # (Auto) Abs Immat Gran (auto) Neutrophils % (Manual) Band Neutrophils % Lymphocytes % (Manual) Monocytes % (Manual) Metamyelocytes % Neutrophils # (Manual) Band Neutrophils # Lymphocytes # (Manual) Monocytes # (Manual) Metamyelocytes # Nucleated RBCs Polychromasia Poikilocytosis Anisocytosis Ovalocytes Libra Cells Schistocytes RBC Morph Comment Turbidity Sodium Potassium Chloride Carbon Dioxide Anion Gap BUN Creatinine GFR Calculation BUN/Creatinine Ratio Glucose Glucometer Calculated Osmolality Calcium Icterus Index Troponin I Specimen Hemolysis Ur Collection Type Urine, clean catch Urine Color Yellow Urine Clarity Clear Urine pH 5.0 Ur Specific [place] 1.015 Urine Protein Trace A Urine Glucose (UA) 2+ A Urine Ketones 1+ A Urine Occult Blood Negative Urine Nitrate Negative Urine Bilirubin Negative Urine Urobilinogen 0.2 Ur Leukocyte Esterase Negative Urinalysis Comment Microscopic not ind. Stool Occult Blood Blood Type A Positive Antibody Screen Negative Crossmatch ([facility]) See Detail Blood Product Request 1 unit pc issued 08/11/17 08/11/17 08/11/17 12:34 12:54 13:15 WBC RBC Hgb Hct MCV MCH MCHC RDW Std Deviation Plt Count MPV Immature Gran % (Auto) Neut % (Auto) Lymph % (Auto) [place] % (Auto) Eos % (Auto) Baso % (Auto) Neut # (Auto) Lymph # (Auto) [place] # (Auto) Eos # (Auto) Baso # (Auto) Abs Immat Gran (auto) Neutrophils % (Manual) Band Neutrophils % Lymphocytes % (Manual) Monocytes % (Manual) Metamyelocytes % Neutrophils # (Manual) Band Neutrophils # Lymphocytes # (Manual) Monocytes # (Manual) Metamyelocytes # Nucleated RBCs Polychromasia Poikilocytosis Anisocytosis Ovalocytes Libra Cells Schistocytes RBC Morph Comment Turbidity Sodium Potassium Chloride Carbon Dioxide Anion Gap BUN Creatinine GFR Calculation BUN/Creatinine Ratio Glucose Glucometer 373 Calculated Osmolality Calcium Icterus Index Troponin I 0.133 H Specimen Hemolysis < 15 Ur Collection Type Urine Color Urine Clarity Urine pH Ur Specific [place] Urine Protein Urine Glucose (UA) Urine Ketones Urine Occult Blood Urine Nitrate Urine Bilirubin Urine Urobilinogen Ur Leukocyte Esterase Urinalysis Comment Stool Occult Blood Blood Type Antibody Screen Crossmatch ([facility]) Blood Product Request 1 unit pc issued 08/11/17 08/11/17 08/11/17 15:56 15:56 18:38 WBC 18.6 H RBC 2.66 L Hgb 7.6 L D Cancelled Hct 23.3 L D MCV 87.6 MCH 28.6 MCHC 32.6 RDW Std Deviation 48.1 Plt Count 157 MPV 10.8 Immature Gran % (Auto) Not performed Neut % (Auto) Not performed Lymph % (Auto) Not performed [place] % (Auto) Not performed Eos % (Auto) Not performed Baso % (Auto) Not performed Neut # (Auto) Not performed Lymph # (Auto) Not performed [place] # (Auto) Not performed Eos # (Auto) Not performed Baso # (Auto) Not performed Abs Immat Gran (auto) Not performed Neutrophils % (Manual) 85.0 H Band Neutrophils % Lymphocytes % (Manual) 8.0 L Monocytes % (Manual) 7.0 Metamyelocytes % Neutrophils # (Manual) 15.8 H Band Neutrophils # Lymphocytes # (Manual) 1.5 Monocytes # (Manual) 1.3 H Metamyelocytes # Nucleated RBCs 4 Polychromasia 1+ Poikilocytosis 2+ Anisocytosis 1+ Ovalocytes 1+ Libra Cells Schistocytes 1+ RBC Morph Comment Abnormal Turbidity Sodium Potassium Chloride Carbon Dioxide Anion Gap BUN Creatinine GFR Calculation BUN/Creatinine Ratio Glucose Glucometer 327 Calculated Osmolality Calcium Icterus Index Troponin I Specimen Hemolysis Ur Collection Type Urine Color Urine Clarity Urine pH Ur Specific [place] Urine Protein Urine Glucose (UA) Urine Ketones Urine Occult Blood Urine Nitrate Urine Bilirubin Urine Urobilinogen Ur Leukocyte Esterase Urinalysis Comment Stool Occult Blood Blood Type Antibody Screen Crossmatch ([facility]) Blood Product Request 08/11/17 08/11/17 08/11/17 18:43 21:04 22:15 WBC RBC Hgb 5.8 L* D Hct 17.6 L* D MCV MCH MCHC RDW Std Deviation Plt Count MPV Immature Gran % (Auto) Neut % (Auto) Lymph % (Auto) [place] % (Auto) Eos % (Auto) Baso % (Auto) Neut # (Auto) Lymph # (Auto) [place] # (Auto) Eos # (Auto) Baso # (Auto) Abs Immat Gran (auto) Neutrophils % (Manual) Band Neutrophils % Lymphocytes % (Manual) Monocytes % (Manual) Metamyelocytes % Neutrophils # (Manual) Band Neutrophils # Lymphocytes # (Manual) Monocytes # (Manual) Metamyelocytes # Nucleated RBCs Polychromasia Poikilocytosis Anisocytosis Ovalocytes [place] Cells Schistocytes RBC Morph Comment Turbidity Sodium Potassium Chloride Carbon Dioxide Anion Gap BUN Creatinine GFR Calculation BUN/Creatinine Ratio Glucose Glucometer 367 Calculated Osmolality Calcium Icterus Index Troponin I 0.161 H Specimen Hemolysis < 15 Ur Collection Type Urine Color Urine Clarity Urine pH Ur Specific [place] Urine Protein Urine Glucose (UA) Urine Ketones Urine Occult Blood Urine Nitrate Urine Bilirubin Urine Urobilinogen Ur Leukocyte Esterase Urinalysis Comment Stool Occult Blood Blood Type Antibody Screen Crossmatch ([facility]) Blood Product Request 08/11/17 08/12/17 08/12/17 23:30 03:33 03:33 WBC 33.1 H* D RBC 2.67 L Hgb 7.6 L D Hct 23.8 L D MCV 89.1 MCH 28.5 MCHC 31.9 RDW Std Deviation 50.0 Plt Count 154 MPV 11.4 Immature Gran % (Auto) Not performed Neut % (Auto) Not performed Lymph % (Auto) Not performed [place] % (Auto) Not performed Eos % (Auto) Not performed Baso % (Auto) Not performed Neut # (Auto) Not performed Lymph # (Auto) Not performed [place] # (Auto) Not performed Eos # (Auto) Not performed Baso # (Auto) Not performed Abs Immat Gran (auto) Not performed Neutrophils % (Manual) 87.0 H Band Neutrophils % 6.0 Lymphocytes % (Manual) 4.0 L Monocytes % (Manual) 3.0 Metamyelocytes % Neutrophils # (Manual) 28.8 H Band Neutrophils # 2.0 Lymphocytes # (Manual) 1.3 Monocytes # (Manual) 1.0 H Metamyelocytes # Nucleated RBCs Polychromasia 1+ Poikilocytosis 2+ Anisocytosis 1+ Ovalocytes 1+ Libra Cells Schistocytes 1+ RBC Morph Comment Abnormal Turbidity < 20 Sodium 140 Potassium 4.0 Chloride 114 H Carbon Dioxide 16 L Anion Gap 10 BUN 55.0 H* Creatinine 1.4 D GFR Calculation 50 BUN/Creatinine Ratio 39 H Glucose 304 H Glucometer Calculated Osmolality 295 H Calcium 7.6 L D Icterus Index < 2 Troponin I Specimen Hemolysis < 15 Ur Collection Type Urine Color Urine Clarity Urine pH Ur Specific [place] Urine Protein Urine Glucose (UA) Urine Ketones Urine Occult Blood Urine Nitrate Urine Bilirubin Urine Urobilinogen Ur Leukocyte Esterase Urinalysis Comment Stool Occult Blood Blood Type Antibody Screen Crossmatch ([facility]) Blood Product Request 1 unit pc issued 01/16/18 01/16/18 01/16/18 05:57 08:22 08:56 WBC 30.3 H* RBC 2.42 L Hgb 6.9 L Hct 21.4 L MCV 88.4 MCH 28.5 MCHC 32.2 RDW Std Deviation 48.2 Plt Count 145 MPV 10.9 Immature Gran % (Auto) Not performed Neut % (Auto) Not performed Lymph % (Auto) Not performed [place] % (Auto) Not performed Eos % (Auto) Not performed Baso % (Auto) Not performed Neut # (Auto) Not performed Lymph # (Auto) Not performed [place] # (Auto) Not performed Eos # (Auto) Not performed Baso # (Auto) Not performed Abs Immat Gran (auto) Not performed Neutrophils % (Manual) 95.0 H Band Neutrophils % 1.0 Lymphocytes % (Manual) 3.0 L Monocytes % (Manual) Metamyelocytes % 1.0 H Neutrophils # (Manual) 28.8 H Band Neutrophils # 0.3 Lymphocytes # (Manual) 0.9 L Monocytes # (Manual) Metamyelocytes # 0.3 Nucleated RBCs Polychromasia 1+ Poikilocytosis 1+ Anisocytosis 2+ Ovalocytes [place] Cells 1+ Schistocytes 1+ RBC Morph Comment Abnormal Turbidity Sodium Potassium Chloride Carbon Dioxide Anion Gap BUN Creatinine GFR Calculation BUN/Creatinine Ratio Glucose Glucometer 334 Calculated Osmolality Calcium Icterus Index Troponin I Specimen Hemolysis Ur Collection Type Urine Color Urine Clarity Urine pH Ur Specific [place] Urine Protein Urine Glucose (UA) Urine Ketones Urine Occult Blood Urine Nitrate Urine Bilirubin Urine Urobilinogen Ur Leukocyte Esterase Urinalysis Comment Stool Occult Blood Positive A Blood Type Antibody Screen Crossmatch ([facility]) Blood Product Request Assessment and Plan - Assessment and Plan (1) Acute blood loss anemia Current visit: No Status: Acute (2) Chest pain Current visit: Yes Status: Acute (3) Elevated troponin Current visit: Yes Status: Acute (4) Atherosclerosis of coronary artery bypass graft without angina pectoris Current visit: Yes Status: Acute (5) Ischemic cardiomyopathy Current visit: Yes Status: Acute (6) HTN (hypertension) Current visit: No Status: Chronic (7) Presence of automatic implantable cardioverter-defibrillator Current visit: Yes Status: Acute - Assessment and Plan 08/11/16 Acute blood loss anemia: -per hospitalist - With patient's CAD HGB needs to be 10 Chest pain: First episode on Friday, again yesterday morning - relieved by nitro - diaphoretic with first episode, not the second - Left arm pain with first episode only - Trend serial troponin levels - EKG: SR. inferior [place], indeterminate age, anterolateral [place], indeterminate age , ST-T changes Elevated troponin:- Trend serial troponin levels, likely elevated due to acute anemia - EKG: SR. inferior [place], indeterminate age, anterolateral [place], indeterminate age , ST-T changes Ischemic CM: Continue Coreg and Entresto as VS allow Thank you for allowing us to participate in the care of this patient. 08/12/16 Denies chest pain today. Transferred to CCU by hospitalist due to continued anemia despite 3 units PRBCS 4th unit ordered. Trend troponin Hospital Course Summary Disclaimer: The visit summary below is not to be considered part of the above Progress Note. Hospital Course: Impression Blood loss anemia- Hgb on admission 5.2 Chest pain Elevated Troponin Leukocytosis- POA- 20 CAD Stroke-ischemic and hemorrhagic (2017) Type 2 DM HTN CHF Hypercholesterolemia Hx Colon cancer Chronic anticoagulation- Warfarin Plan Admit patient as inpatient under the care of Dr Espinoza for Anemia, chest pain Type screen and given 2 units of PRBCs on admission Monitor telemetry and obtain serial troponins. Consult placed to Dr Hooks who is David's dry starch supervisor. Check UA given leukocytosis will treat as needed however leukocytosis may be reactive Protonix IV for GI protection NS 100 ml for gentle hydration. May have clear liquids only. SCDs to Bilateral lower ext for DVT prophylaxis Monitor blood counts carefully. At this time he is hemodynamically stable Again , patient does wish to be a full code and this order is written. Will discuss further orders and plan of care with attending, Dr. Espinoza. At time of discharge medical care will return to primary care provider. Dr. Srivastava <López Hooks - Last Filed: 08/18/17 15:08> Exam Vital signs: Temperature 96.9 F 08/18/17 11:00 Pulse Rate 68 08/18/17 11:00 Respiratory Rate 16 08/18/17 11:00 Blood Pressure 125/70 08/18/17 11:00 Pulse Oximetry 94 08/18/17 11:00 Results 08/18/17 04:42 08/18/17 04:42 CBC 08/18/17 Range/Units 04:42 WBC 7.3 (4.5-11.0) T/MM3 RBC 3.31 L (4.50-5.90) M/MM3 Hgb 9.6 L (13.5-17.5) GM/DL Hct 29.3 L (41-53) % Plt Count 130 (130-400) T/MM3 Comprehensive Metabolic Panel 08/18/17 Range/Units 04:42 Sodium 136 (134-144) MEQ/L Potassium 3.9 (3.6-5) MEQ/L Chloride 103 (98-107) MEQ/L Carbon Dioxide 26 (22-30) MEQ/L BUN 20.0 (9-20) MG/DL Creatinine 0.9 (0.8-1.5) MG/DL Glucose 270 H (75-110) MG/DL Calcium 7.7 L (8.4-10.2) MG/DL Intake and Output 08/18/17 08/18/17 08/18/17 06:59 14:59 22:59 Intake Total 200 / 200 1318.667 / 1318.667 Output Total 550 / 550 Balance -350 / -350 1318.667 / 1318.667 Intake: IV 978.667 / 978.667 Sodium Acetate 40 meq Multi-Vit 978.667 / 978.667 Infusion 10 ml Multi-Trace Elements 1 ml In TPN - Standard Formula 2,000 ml @ 80 mls/hr IV .Q24H [facility] Rx#:[id number] Oral 200 / 200 340 / 340 Output: Urine 550 / 550 Other: Urine Color Yellow Urine Odor Normal Stool Color Brown Stool Consistency Soft Size of Bowel Movement Smear Weight 83 kg Patient Weight 08/19/17 06:59 Weight 83 kg Assessment and Plan - Assessment and Plan (1) HTN (hypertension) Current visit: No Status: Chronic (2) Acute blood loss anemia Current visit: Yes Status: Acute (3) Elevated troponin Current visit: Yes Status: Acute (4) Chest pain Current visit: Yes Status: Acute (5) Atherosclerosis of coronary artery bypass graft without angina pectoris Current visit: Yes Status: Chronic (6) Ischemic cardiomyopathy Current visit: Yes Status: Chronic (7) Presence of automatic implantable cardioverter-defibrillator Current visit: Yes Status: Chronic - Attestation Attestation Narrative: 08/18/17 15:08 Recommendation After examining the patient I agree with the above assessment. I am involved in the formulation of the patient's plan of care. Hospital Course Summary Disclaimer: The visit summary below is not to be considered part of the above Progress Note.
--- NOTE | 2017-08-12 09:52 | Progress Note ---
- Date 08/12/17 Subjective: David is seen this morning in follow up for GI bleeding. Hgb continue to fluctuate. Patient has had 5 reported black and bloody stools overnight. He denies having any chest pain or feeling short of breath upon examination. His vital signs remains stable currently. Objective Vital signs: Temperature 97.1 F 08/12/17 07:57 Pulse Rate 78 08/12/17 08:00 Respiratory Rate 16 08/12/17 07:57 Blood Pressure 137/70 08/12/17 07:57 Pulse Oximetry 95 08/12/17 07:57 Height/Weight/BMI: Height 1.78 m Weight 82.3 kg Body Mass Index 25.1 - Constitutional Present: no acute distress, well nourished, well developed - Routine HEENT Exam Eye: Present: EOMI ENT: Present: mucous membranes moist, dentition normal - Routine Respiratory Exam Present: CTA bilaterally. Absent: wheezes - Routine Cardiovascular Exam Present: RRR, S1, S2. Absent: murmur - Routine Abdominal Exam Present: soft, normoactive bowel sounds, non distended. Absent: tenderness - Routine Rectal Exam Visual: Present: black stool, bloody stool, alondra blood, heme (+) stool - Routine Extremities Exam Present: normal capillary refill - Routine Skin Exam Present: intact, dry, warm - Routine Neurological Exam Present: alert, oriented X3, CN II-XII intact - Routine Lymphatic Exam Lymphatic: Absent: adenopathy - Routine Psychiatric Exam Present: normal affect, cooperative Results - Labs CBC & Chem 7: 08/12/17 08:22 08/12/17 03:33 Assessment and Plan (1) Acute blood loss anemia Current visit: Yes Status: Acute (2) Chest pain Current visit: Yes Status: Acute Assessment and Plan: Impression Melena - acute GI bleed, suspect upper Blood loss anemia- Hgb on admission 5.2 Chest pain Elevated Troponin - NSTEMI -- possible Type II secondary to anemia Leukocytosis- POA- 20 CAD Stroke-ischemic and hemorrhagic (2017) Type 2 DM HTN CHF Hypercholesterolemia Hx Colon cancer Chronic anticoagulation- Warfarin Plan Concerned of overall stability - Move to ICU now that there is bed availability It appears patient had 5 bloody/black stools overnight. Patient has received 3 units of packed red cell transfusion yesterday and overnight. CBC now that revealed another decrease in Hemoglobin - currently 6.9. Will give 1 unit PRBC now. Suspect he will need multiple more units. There are currently 3 available. Appreciated consultation by Dr Keith Continue with IV Protonix for GI protection Care discussed with attending Dr Reeves 08/12/2017-11:27 AM. I reviewed this chart, the patient history, and the ADDICTION PROFESSIONAL's/ PA's documented findings as above. We discussed and formulated the assessment and plan as above with the additions below.-Dr. Reeves Patient is seen this morning accompanied by his , son and [id number]. He was initially difficult to arouse but then once he was awake family stated he was back to his normal self. He denies any chest pain now. He denies any shortness of breath. He denies any nausea or vomiting. His states that he had an upper respiratory infection and was on antibiotics until last week. She states she had a bad "cold" during that time as well and she tested negative for influenza. The patient started having melanotic stools about a week ago. He has not had any nausea or vomiting. He denies any history of gastric ulcers. Fortunately, he had been off of warfarin except for 2 days last week. 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 On exam the patient is drowsy but arousable. He states he's in [place] in ICU. He states it's 2019. He states Zunilda Araya is the president. His encouraged him to stop joking around, but he will not or cannot answer the question correctly. HEENT reveals sclerae to be anicteric and oropharynx is moist. Neck is supple. Chest is clear to auscultation. Cardiovascular reveals a regular rate and rhythm with occasional bigeminy seen on telemetry. Abdomen is soft and nontender. Extremities are free of edema. Impression and plan Regarding GI bleed, he seems to be acutely bleeding and is currently on his fourth unit of blood. Patient was transferred to intensive care for closer monitoring. We'll continue serial hemoglobins. The patient does have [address] Chest pain has resolved. Discussed today with Dr. Hooks. Rechecking troponin today. Aspirin and Coumadin are on hold. Continue Protonix IV. Will discuss with Dr. McConeghey. Keep nothing by mouth today. Regarding hyperglycemia, will give sliding scale insulin. May need to increase insulin if blood sugars are coming down. Will hold oral glipizide. He did get a dose this morning. He does have metabolic acidosis with bicarbonate of 16 and normal and anion gap. Urinalysis did show ketones. Will repeat basic metabolic profile with next hemoglobin. Regarding bigeminy which is intermittent, will check magnesium. He has borderline low calcium with ionized calcium of 1.08. Regarding leukocytosis, this is most likely secondary to stress. He is afebrile. We'll continue to monitor closely. He is full code. He would like to fill out DPOA paperwork. At this point he wants his and children to make decisions for him if he cannot make them himself. Greater than 45 minutes of critical care time spent seeing and evaluating patient in determining care plan today. DVT Prophylaxis: SCD's GI Prophylaxis: Protonix Resuscitation Status: Full Code - Physician Narrative Narrative: Date: 08/12/17 Time: 0944 Hospital Course Summary Disclaimer: The visit summary below is not to be considered part of the above Progress Note. Hospital Course: Impression Blood loss anemia- Hgb on admission 5.2 Chest pain Elevated Troponin Leukocytosis- POA- 20 CAD Stroke-ischemic and hemorrhagic (2017) Type 2 DM HTN CHF Hypercholesterolemia Hx Colon cancer Chronic anticoagulation- Warfarin Plan Admit patient as inpatient under the care of Dr Espinoza for Anemia, chest pain Type screen and given 2 units of PRBCs on admission Monitor telemetry and obtain serial troponins. Consult placed to Dr Hooks who is David's neurology director. Check UA given leukocytosis will treat as needed however leukocytosis may be reactive Protonix IV for GI protection NS 100 ml for gentle hydration. May have clear liquids only. SCDs to Bilateral lower ext for DVT prophylaxis Monitor blood counts carefully. At this time he is hemodynamically stable Again , patient does wish to be a full code and this order is written. Will discuss further orders and plan of care with attending, Dr. Espinoza. At time of discharge medical care will return to primary care provider. Dr. Srivastava 08/12/17 Concerned of overall stability - Move to ICU now that there is bed availability It appears patient had 5 bloody/black stools overnight. Patient has received 3 units of packed red cell transfusion yesterday and overnight. CBC now that revealed another decrease in Hemoglobin - currently 6.9. Will give 1 unit PRBC now. Suspect he will need multiple more units. There are currently 3 available. Appreciated consultation by Dr Keith Continue with IV Protonix for GI protection Care discussed with attending Dr Reeves
[2017-08-12] MEDS ORDERED: NS FLUSH BAG 500ml IV PRN (12:33)
--- NOTE | 2017-08-12 17:45 | Progress Note ---
DATE OF VISIT 08/12/2017 REASON FOR VISIT Follow GI bleed. SUBJECTIVE David denies any abdominal pain today. He was having numerous melanotic stools. His hemoglobin did drop to 5.8 last evening and he received a transfusion of a third unit of blood. He was 7.6 in the white hat hacker and 6.9 on a recheck at 8: 22. A fourth unit of packed red cells was ordered. His last recheck after transfusion was 8.0. His current nurse reports two melanotic stools since her shift started at 9:00 a.m. (seven hours ago). SUBJECTIVE VITAL SIGNS: Temperature 98.7, pulse 70, blood pressure 136/62, respiratory rate 22, oxygen saturation 98% on room air. GENERAL: The patient is awake and alert. He is in no acute distress. ABDOMEN: Soft, nontender, nondistended. LABORATORY DATA See Subjective above. IMPRESSION 1. Acute GI bleed with melanotic stools - clinically appears to be improving. 2. Acute blood loss anemia requiring transfusion - ongoing. 3. Coumadin anticoagulation - currently held. 4. Coronary artery disease. 5. Personal history of stroke x 2 in 2017. PLAN 1. I discussed the situation with the hospitalist team (Dr. Reeves and Tricia Theodore, VIVIAN). I did feel that the patient's condition was still somewhat unstable and that a bowel prep today may be detrimental. 2. I recommended transfusion of a unit of FFP to be sure that his coagulation was completely normalized from his Coumadin effect. 3. If hemoglobin is more stable tomorrow I will plan on bowel prep with anticipation of an EGD and colonoscopy on . [facility]
[2017-08-12] MEDS ORDERED: GLUCOSE ORAL GEL 40% 37.5gm PO PRN (19:44)
[2017-08-12] MEDS ORDERED: DEXTROSE 50% SYRINGE 50ml (1 AMP) IVP PRN (19:44)
[2017-08-12] MEDS: ERYTHROMYCIN 0.5% EYE OINTMENT 3.5gm RIGHT EYE SCH (20:07)
[2017-08-13] MEDS: NITROGLYCERIN 0.4 MG SUBLINGUAL TABLET SL PRN ×3 (04:27→08:19)
[2017-08-13] MEDS: NS 1,000 ML IV SCH (05:37)
[2017-08-13] MEDS: INSULIN ASPART 100unit/ml INJECTION SQ PRN ×3 (06:17→20:21)
[2017-08-13] MEDS: MORPHINE SULFATE 10 MG SYRINGE IVP PRN (06:24)
[2017-08-13] MEDS: PANTOPRAZOLE 40 MG INJECTION IVP SCH ×2 (08:23→20:21)
[2017-08-13] MEDS: FERROUS SULFATE 324 MG TABLET PO SCH (08:24)
[2017-08-13] MEDS: ASCORBIC ACID 500 MG TABLET PO SCH (08:24)
--- NOTE | 2017-08-13 08:45 | Cardiology Progress Note ---
<Nataly Lockett - Last Filed: 08/14/17 11:22> Subjective Principal diagnosis: anemia, elevated troponin Interval history: David is seen in follow up for anemia and elevated troponin. He is examined in his room in CCU. He has had chest pain during the night and this morning, requiring nitro and Morphine administration. Now c/o headache . He denies palpitations, dyspnea or dizziness. Exam Vital signs: Temperature 99.2 F 08/13/17 04:00 Pulse Rate 68 08/13/17 07:00 Respiratory Rate 16 08/13/17 07:00 Blood Pressure 99/53 08/13/17 07:00 Pulse Oximetry 91 08/13/17 07:00 - Constitutional no acute distress, well nourished, cooperative - Routine HEENT Exam Head: Present: normocephalic ENT: Present: mucous membranes moist - Routine Neck Exam Absent: JVD, carotid bruit - Routine Chest/Breast/Axilla Exam Chest wall: Absent: tenderness - Routine Respiratory Exam Present: CTA bilaterally. Absent: rales, wheezes - Routine Cardiovascular Exam Present: no murmur, irregular rhythm - Routine Abdominal Exam Present: soft, normoactive bowel sounds - Routine Extremities Exam Present: no edema - Routine Skin Exam Present: intact, dry, warm - Routine Neurological Exam Present: alert, oriented X3 - Routine Psychiatric Exam Present: normal affect, normal thought process - Additional findings Additional findings: Ascorbic Acid (Vitamin C) 500 mg PO [facility] Last Admin: 08/13/17 08:24 Dose: 500 mg Bisacodyl (Dulcolax) 10 mg RECTALLY DAILY PRN PRN Reason: Constipation Dextrose (D50%W) 20 ml IVP PRN PRN PRN Reason: Hypoglycemia Erythromycin (Ilotycin) 1 applic RIGHT [facility] Last Admin: 08/12/17 20:07 Dose: 1 applic Ferrous Sulfate (Feosol) 324 mg PO [facility] Last Admin: 08/13/17 08:24 Dose: 324 mg Glucose (Glutose 15) 37.5 gm PO PRN PRN PRN Reason: Hypoglycemia Sodium Chloride (Normal Saline) 1,000 mls @ 100 mls/hr IV .Q10H [facility] Last Infusion: 08/13/17 06:05 Dose: 0 mls/hr Insulin Aspart (Novolog) 2 - 8 unit SQ SS PRN; Protocol PRN Reason: Hyperglycemia Last Admin: 08/13/17 06:17 Dose: 2 unit Magnesium Hydroxide (Mom) 30 ml PO DAILY PRN PRN Reason: Constipation Morphine Sulfate (Morphine Sulfate Inj) 2 - 5 mg IVP Q5M PRN PRN Reason: Chest pain Last Admin: 08/13/17 06:24 Dose: 5 mg Ondansetron HCl (Zofran) 4 mg IVP Q6H PRN PRN Reason: Nausea Pantoprazole Sodium (Protonix Iv) 40 mg IVP BID [facility] Last Admin: 08/13/17 08:23 Dose: 40 mg Sodium Chloride (Iv Flush) 10 - 80 ml IVF PRN PRN PRN Reason: Flushing Last Admin: 08/11/17 06:56 Dose: 20 ml Sodium Chloride (Normal Saline) 500 ml IV PRN PRN Results 08/13/17 09:09 08/13/17 04:11 Cardiac Enzymes 08/12/17 08/12/17 08/12/17 Range/Units 03:31 09:47 13:48 AST (17-59) U/L Troponin I 0.132 H 0.178 H 0.175 H (0-0.12) ng/ml 08/13/17 08/13/17 Range/Units 04:11 04:11 AST 16 L (17-59) U/L Troponin I 0.157 H (0-0.12) ng/ml CBC 08/12/17 08/12/17 08/13/17 Range/Units 08:22 13:48 04:11 WBC 30.3 H* 15.2 H D (4.5-11.0) T/MM3 RBC 2.42 L 2.30 L (4.50-5.90) M/MM3 Hgb 6.9 L 8.0 L D 6.7 L D (13.5-17.5) GM/DL Hct 21.4 L 20.5 L (41-53) % Plt Count 145 116 L (130-400) T/MM3 Neut # (Auto) Not performed Lymph # (Auto) Not performed [place] # (Auto) Not performed Eos # (Auto) Not performed Baso # (Auto) Not performed Comprehensive Metabolic Panel 08/12/17 08/13/17 Range/Units 13:48 04:11 Sodium 140 144 (134-144) MEQ/L Potassium 3.7 3.1 L (3.6-5) MEQ/L Chloride 115 H 118 H (98-107) MEQ/L Carbon Dioxide 18 L 20 L (22-30) MEQ/L BUN 54.0 H* 41.0 H (9-20) MG/DL Creatinine 1.3 1.1 D (0.8-1.5) MG/DL Glucose 270 H 113 H (75-110) MG/DL Calcium 7.3 L 7.1 L (8.4-10.2) MG/DL AST 16 L (17-59) U/L ALT 27 (21-72) U/L Alkaline Phosphatase 65 (38-126) U/L Total Protein 4.3 L (6.3-8.2) G/DL Albumin 2.0 L (3.5-5.0) G/DL Intake and Output 08/12/17 08/13/17 08/13/17 22:59 06:59 14:59 Intake Total 818.333 / 226.977 8311.334 / 1354.334 Output Total 525 / 525 775 / 775 250 / 250 Balance 293.333 / 293.333 579.334 / 579.334 -250 / -250 Intake: IV 288.333 / 288.333 808.334 / 808.334 Ns 1,000 ml @ 100 mls/hr IV . 288.333 / 288.333 808.334 / 808.334 Q10H [facility] Rx#:[id number] Oral 180 / 180 240 / 240 Intake (Blood Product) Amt 350 / 350 306 / 306 Output: Urine 525 / 525 775 / 775 250 / 250 Other: Urine Appearance Clear Clear Clear Urine Color Dark Yellow Dark Yellow Dark Yellow Stool Characteristics Tarry Stool Color Black Stool Consistency Soft Size of Bowel Movement Moderate # Incontinent Bowel Movements 1 - Imaging and Cardiology EKG results: image reviewed Assessment and Plan - Assessment and Plan (1) Acute blood loss anemia Current visit: No Status: Acute (2) Chest pain Current visit: Yes Status: Acute (3) Elevated troponin Current visit: Yes Status: Acute (4) Atherosclerosis of coronary artery bypass graft without angina pectoris Current visit: Yes Status: Acute (5) Ischemic cardiomyopathy Current visit: Yes Status: Acute (6) HTN (hypertension) Current visit: No Status: Chronic (7) Presence of automatic implantable cardioverter-defibrillator Current visit: Yes Status: Acute - Assessment and Plan 08/11/17 Acute blood loss anemia: -per hospitalist - With patient's CAD HGB needs to be 10 Chest pain: First episode on Friday, again yesterday morning - relieved by nitro - diaphoretic with first episode, not the second - Left arm pain with first episode only - Trend serial troponin levels - EKG: SR. inferior IL, indeterminate age, anterolateral IL, indeterminate age , ST-T changes Elevated troponin:- Trend serial troponin levels, likely elevated due to acute anemia - EKG: SR. inferior IL, indeterminate age, anterolateral IL, indeterminate age , ST-T changes Ischemic CM: Continue Coreg and Entresto as VS allow Thank you for allowing us to participate in the care of this patient. 08/12/17 Denies chest pain today. Transferred to CCU by hospitalist due to continued anemia despite 3 units PRBCS 4th unit ordered. Trend troponin 08/13/17 Has more chest pain, last night and again this morning. - Nitro paste 0.5 inch Q6H - Replacing blood loss should improve angina - Okay to perform diagnostic scope when okay with surgery - Would prefer during daytime while cytogenetics laboratory manager is available Hospital Course Summary Disclaimer: The visit summary below is not to be considered part of the above Progress Note. Hospital Course: Impression Blood loss anemia- Hgb on admission 5.2 Chest pain Elevated Troponin Leukocytosis- POA- 20 CAD Stroke-ischemic and hemorrhagic (2017) Type 2 DM HTN CHF Hypercholesterolemia Hx Colon cancer Chronic anticoagulation- Warfarin Plan Admit patient as inpatient under the care of Dr Espinoza for Anemia, chest pain Type screen and given 2 units of PRBCs on admission Monitor telemetry and obtain serial troponins. Consult placed to Dr Hooks who is David's stemhole borer and topper. Check UA given leukocytosis will treat as needed however leukocytosis may be reactive Protonix IV for GI protection NS 100 ml for gentle hydration. May have clear liquids only. SCDs to Bilateral lower ext for DVT prophylaxis Monitor blood counts carefully. At this time he is hemodynamically stable Again , patient does wish to be a full code and this order is written. Will discuss further orders and plan of care with attending, Dr. Espinoza. At time of discharge medical care will return to primary care provider. Dr. Srivastava <Maida Hooksin - Last Filed: 08/18/17 15:11> Exam Vital signs: Temperature 96.9 F 08/18/17 11:00 Pulse Rate 68 08/18/17 11:00 Respiratory Rate 16 08/18/17 11:00 Blood Pressure 125/70 08/18/17 11:00 Pulse Oximetry 94 08/18/17 11:00 Results 08/18/17 04:42 08/18/17 04:42 CBC 08/18/17 Range/Units 04:42 WBC 7.3 (4.5-11.0) T/MM3 RBC 3.31 L (4.50-5.90) M/MM3 Hgb 9.6 L (13.5-17.5) GM/DL Hct 29.3 L (41-53) % Plt Count 130 (130-400) T/MM3 Comprehensive Metabolic Panel 08/18/17 Range/Units 04:42 Sodium 136 (134-144) MEQ/L Potassium 3.9 (3.6-5) MEQ/L Chloride 103 (98-107) MEQ/L Carbon Dioxide 26 (22-30) MEQ/L BUN 20.0 (9-20) MG/DL Creatinine 0.9 (0.8-1.5) MG/DL Glucose 270 H (75-110) MG/DL Calcium 7.7 L (8.4-10.2) MG/DL Intake and Output 08/18/17 08/18/17 08/18/17 06:59 14:59 22:59 Intake Total 200 / 200 1318.667 / 1318.667 Output Total 550 / 550 Balance -350 / -350 1318.667 / 1318.667 Intake: IV 978.667 / 978.667 Sodium Acetate 40 meq Multi-Vit 978.667 / 978.667 Infusion 10 ml Multi-Trace Elements 1 ml In TPN - Standard Formula 2,000 ml @ 80 mls/hr IV .Q24H [facility] Rx#:[id number] Oral 200 / 200 340 / 340 Output: Urine 550 / 550 Other: Urine Color Yellow Urine Odor Normal Stool Color Brown Stool Consistency Soft Size of Bowel Movement Smear Weight 83 kg Patient Weight 08/19/17 06:59 Weight 83 kg Assessment and Plan - Assessment and Plan (1) HTN (hypertension) Current visit: No Status: Chronic (2) Acute blood loss anemia Current visit: Yes Status: Acute (3) Elevated troponin Current visit: Yes Status: Acute (4) Chest pain Current visit: Yes Status: Acute (5) Atherosclerosis of coronary artery bypass graft without angina pectoris Current visit: Yes Status: Chronic (6) Ischemic cardiomyopathy Current visit: Yes Status: Chronic (7) Presence of automatic implantable cardioverter-defibrillator Current visit: Yes Status: Chronic - Attestation Attestation Narrative: 08/18/17 15:11 Recommendation After examining the patient I agree with the above assessment. I am involved in the formulation of the patient's plan of care. Hospital Course Summary Disclaimer: The visit summary below is not to be considered part of the above Progress Note.
[2017-08-13] MEDS ORDERED: NS FLUSH BAG 500ml IV PRN (10:04)
--- NOTE | 2017-08-13 10:55 | Progress Note ---
- Date 08/13/17 Subjective: Seen this morning in his room in CCU. He is more alert this morning. He states he had chest pain and arm pain earlier this morning associated with shortness of breath. It improved with nitroglycerin and blood transfusion. Hemoglobin this morning was down to 6.7 and improved 8.2 after [address] Hooks with like hemoglobin over 10 if possible. He denies any pain now. He denies nausea or vomiting. Objective Vital signs: Temperature 99.2 F 08/13/17 04:00 Pulse Rate 68 08/13/17 07:00 Respiratory Rate 16 08/13/17 07:00 Blood Pressure 99/53 08/13/17 07:00 Pulse Oximetry 91 08/13/17 07:00 Height/Weight/BMI: Height 1.78 m Weight 81.2 kg Body Mass Index 25.1 Comments: I&O's 3060/4633 He is afebrile, blood pressure 122/59, heart rate 60, O2 sat 94% on room air GEN-alert, oriented to [facility], 2018, cannot remember the name of the president KM-sclera anicteric, right eye is mattery, oropharynx is moist NECK-supple CV-regular rate and rhythm CHEST-clear to auscultation bilaterally ABD-soft, nontender with positive bowel sounds -no Hawkins EXT-no edema NEURO-more alert today SKIN-warm and dry and without rashes Results - Labs CBC & Chem 7: 08/13/17 09:09 08/13/17 04:11 Labs: Platelets down to 116 from 145-154 White count is 15.2 down from 30. It was likely elevated secondary to stress Bicarbonate is 20 improved from 16. BUN is 41 improved from 54. It is down to 0.122 this morning. Calcium is 7.1 but albumin is also low at 2.0 Assessment and Plan (1) Acute blood loss anemia Current visit: Yes Status: Acute (2) Chest pain Current visit: Yes Status: Acute Assessment and Plan: Impression Melena - acute GI bleed, suspect upper Blood loss anemia- Hgb on admission 5.2 -the patient is required 5 units of blood and 1 unit of FFP Chest pain -continues to have intermittent chest pain, usually associated with hemoglobin below 7 Elevated Troponin - NSTEMI -- possible Type II secondary to anemia -troponin trending down Leukocytosis- PO -improving-likely secondary to stress CAD Stroke-ischemic and hemorrhagic (2017) Type 2 DM HTN CHF Hypercholesterolemia Hx Colon cancer Chronic anticoagulation- Warfarin-may need to reconsider risk-benefit ratio Malnutrition Metabolic acidosis is improving Mild thrombocytopenia Plan The patient had another episode of chest pain this morning when hemoglobin was 6.7. He was given 1 unit of blood and nitroglycerin and hemoglobin improved to 8.2 and chest pain resolved. Troponin is trending down and is 0.122. We'll transfuse another unit of blood now and recheck hemoglobin. We'll try to keep hemoglobin greater than 10. Discussed earlier today with Dr. Keith, considering EGD later today if hemoglobin is improving, patient remains chest pain-free, and okay with Dr. Hooks and anesthesia. We'll replace potassium IV Start TPN regarding malnutrition. Remain off of aspirin and warfarin. Continue Protonix. Continue serial hemoglobin. Recheck CBC tomorrow regarding leukocytosis and thrombocytopenia. Recheck CMP, magnesium and phosphorus tomorrow regarding hypokalemia, metabolic acidosis, elevated BUN creatinine, and regarding malnutrition with initiation of TPN The patient remains critically ill. Greater than 40 minutes of time spent seeing and evaluating the patient and determined care plan. Discussed today with his nurse, Dr. Keith, and BETTINA Mclean for Dr. Hooks. - Physician Narrative Narrative: Date: 08/13/17 Time: 1051 Hospital Course Summary Disclaimer: The visit summary below is not to be considered part of the above Progress Note. Hospital Course: Impression Blood loss anemia- Hgb on admission 5.2 Chest pain Elevated Troponin Leukocytosis- POA- 20 CAD Stroke-ischemic and hemorrhagic (2017) Type 2 DM HTN CHF Hypercholesterolemia Hx Colon cancer Chronic anticoagulation- Warfarin Plan Admit patient as inpatient under the care of Dr Espinoza for Anemia, chest pain Type screen and given 2 units of PRBCs on admission Monitor telemetry and obtain serial troponins. Consult placed to Dr Hooks who is Cadys appraiser art. Check UA given leukocytosis will treat as needed however leukocytosis may be reactive Protonix IV for GI protection NS 100 ml for gentle hydration. May have clear liquids only. SCDs to Bilateral lower ext for DVT prophylaxis Monitor blood counts carefully. At this time he is hemodynamically stable Again , patient does wish to be a full code and this order is written. Will discuss further orders and plan of care with attending, Dr. Espinoza. At time of discharge medical care will return to primary care provider. Dr. Srivastava 08/12/2017-11:27 AM. I reviewed this chart, the patient history, and the BREASTER's/ PA's documented findings as above. We discussed and formulated the assessment and plan as above with the additions below.-Dr. Reeves Patient is seen this morning accompanied by his , son and [id number]. He was initially difficult to arouse but then once he was awake family stated he was back to his normal self. He denies any chest pain now. He denies any shortness of breath. He denies any nausea or vomiting. His states that he had an upper respiratory infection and was on antibiotics until last week. She states she had a bad "cold" during that time as well and she tested negative for influenza. The patient started having melanotic stools about a week ago. He has not had any nausea or vomiting. He denies any history of gastric ulcers. Fortunately, he had been off of warfarin except for 2 days last week. 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 On exam the patient is drowsy but arousable. He states he's in [place] in ICU. He states it's 2019. He states Zunilda Araya is the president. His encouraged him to stop joking around, but he will not or cannot answer the question correctly. HEENT reveals sclerae to be anicteric and oropharynx is moist. Neck is supple. Chest is clear to auscultation. Cardiovascular reveals a regular rate and rhythm with occasional bigeminy seen on telemetry. Abdomen is soft and nontender. Extremities are free of edema. Impression and plan Regarding GI bleed, he seems to be acutely bleeding and is currently on his fourth unit of blood. Patient was transferred to intensive care for closer monitoring. We'll continue serial hemoglobins. The patient does have [address] Chest pain has resolved. Discussed today with Dr. Hooks. Rechecking troponin today. Aspirin and Coumadin are on hold. Continue Protonix IV. Will discuss with Dr. Keith. Keep nothing by mouth today. Regarding hyperglycemia, will give sliding scale insulin. May need to increase insulin if blood sugars are coming down. Will hold oral glipizide. He did get a dose this morning. He does have metabolic acidosis with bicarbonate of 16 and normal and anion gap. Urinalysis did show ketones. Will repeat basic metabolic profile with next hemoglobin. Regarding bigeminy which is intermittent, will check magnesium. He has borderline low calcium with ionized calcium of 1.08. Regarding leukocytosis, this is most likely secondary to stress. He is afebrile. We'll continue to monitor closely. He is full code. He would like to fill out DPOA paperwork. At this point he wants his and children to make decisions for him if he cannot make them himself. 08/13/2017 -11 AM The patient had another episode of chest pain this morning when hemoglobin was 6.7. He was given 1 unit of blood and nitroglycerin and hemoglobin improved to 8.2 and chest pain resolved. Troponin is trending down and is 0.122. We'll transfuse another unit of blood now and recheck hemoglobin. We'll try to keep hemoglobin greater than 10. Discussed earlier today with Dr. Keith, considering EGD later today if hemoglobin is improving, patient remains chest pain-free, and okay with Dr. Hooks and anesthesia. We'll replace potassium IV Start TPN regarding malnutrition. Remain off of aspirin and warfarin. Continue Protonix. Continue serial hemoglobin. Recheck CBC tomorrow regarding leukocytosis and thrombocytopenia. Recheck CMP, magnesium and phosphorus tomorrow regarding hypokalemia, metabolic acidosis, elevated BUN creatinine, and regarding malnutrition with initiation of TPN The patient remains critically ill. Greater than 40 minutes of time spent seeing and evaluating the patient and determined care plan. Discussed today with his nurse, Dr. Keith, and BETTINA Mclean for Dr. Hooks.
[2017-08-13] MEDS ORDERED: TPN - PHARMACY CONSULT MC ONE (11:04)
[2017-08-13] MEDS: POTASSIUM CHLORIDE PREMIX 10 MEQ/100 ML BAG IV SCH ×4 (11:47→15:46)
[2017-08-13] MEDS: ONDANSETRON 4 MG/2 ML INJECTION IVP PRN (13:37)
[2017-08-13] MEDS: NITROGLYCERIN 2% OINTMENT 1gm PACKET TP SCH ×2 (14:53→20:21)
--- NOTE | 2017-08-13 15:29 | Wound Care Progress Note ---
Wound Center Progress Note: At this time in unit to see pt however, pt has eyes closed and has a vomit bag at his side. Physical assessment differed at this time. After talking with RN pt has sever excoriation disucssed with nurse using the advance 3 M skin protectant wand. Explained to nurse that after pt is thoroughly cleaned and no barrier in place to apply skin protectant q 3 days. Also to contact wound care if skin gets worse.
[2017-08-13] MEDS: MAGNESIUM SULFATE IV SCH (16:15)
[2017-08-13] MEDS: POTASSIUM PHOSPHATE IV SCH (16:15)
[2017-08-13] MEDS: FAT EMULSION 20% 100 ML IV SCH (16:15)
[2017-08-13] MEDS: [UNRECOGNIZED DRUG - OTHER] IV SCH (16:15)
[2017-08-13] MEDS: SODIUM ACETATE IV SCH (16:15)
[2017-08-13] MEDS ORDERED: Bisacodyl EC TAB 5 MG TABLET PO ONE (17:07)
[2017-08-13] MEDS ORDERED: POLYETHYL. GLYCOL 3350 BOTTLE 238 GM PO ONE (18:30)
--- NOTE | 2017-08-13 18:40 | Progress Note ---
DATE OF VISIT 08/13/2017 REASON FOR VISIT Follow GI bleed. SUBJECTIVE David had two melanotic stools since last evening. He had one around 9:40 last night and another this morning that the nurse reported was a moderate-sized black stool. His hemoglobin this morning was 6.7 and an additional unit of packed red blood cells was ordered. Current recheck is pending. He did have chest pain overnight requiring nitroglycerin. He said the chest pain went into his arm. OBJECTIVE VITAL SIGNS: Temperature 99.2, pulse 84, blood pressure 116/63, respiratory rate 20, oxygen saturation 97% on room air. GENERAL: The patient is awake, alert, in no acute distress. ABDOMEN: Soft, nontender, nondistended. LABORATORY DATA See Subjective. IMPRESSION 1. Acute GI bleed with melanotic stools - his stools are becoming less frequent but he seems to have ongoing blood loss. 2. Acute blood loss anemia requiring transfusion - hemoglobin still not fully stabilized. 3. Coumadin anticoagulation - held. He has received a unit of FFP. 4. Coronary artery disease. 5. Personal history of stroke x 2 in 2017. PLAN 1. I am still concerned about the patient's level of resuscitation but this is complicated with the fact that his source of bleeding has not been identified. 2. With chest pain that has responded to nitroglycerin I am concerned that he does have some poor perfusion of the myocardium and I am not sure if a procedure at this point with cardiovascular depression by sedation would be mitchell. 3. Continue transfusions with a target hemoglobin of 10 per recent Cardiology note. 4. To avoid the bowel prep David may need simply an EGD when he is resuscitated to the point of being cleared for a procedure. 5. The case was discussed with Dr. eReves of the hospitalist service. 6. Since it does not look like David will be back to a regular diet in the near future I think it would be mitchell to consider initiation of TPN since he does have a PowerPort. MTDD
[2017-08-13] MEDS: ERYTHROMYCIN 0.5% EYE OINTMENT 3.5gm RIGHT EYE SCH (20:21)
[2017-08-14] MEDS: INSULIN ASPART 100unit/ml INJECTION SQ PRN ×4 (01:54→21:14)
[2017-08-14] MEDS: NITROGLYCERIN 2% OINTMENT 1gm PACKET TP SCH ×4 (03:43→20:33)
--- NOTE | 2017-08-14 08:58 | Pharmacy Consult-TPN/PPN ---
Pharmacy Consult-TPN/PPN - Laboratory Information Chemistry Turbidity < 20 (0-20) 08/14/17 03:54 Sodium 140 MEQ/L (134-144) 08/14/17 03:54 Potassium 3.6 MEQ/L (3.6-5) 08/14/17 03:54 Chloride 114 MEQ/L (98-107) H 08/14/17 03:54 Carbon Dioxide 21 MEQ/L (22-30) L 08/14/17 03:54 Anion Gap 5 MEQ/L (5-15) 08/14/17 03:54 BUN 25.0 MG/DL (9-20) H 08/14/17 03:54 Creatinine 1.0 MG/DL (0.8-1.5) 08/14/17 03:54 GFR Calculation 73 08/14/17 03:54 BUN/Creatinine Ratio 25 RATIO (6-26) 08/14/17 03:54 Glucose 221 MG/DL (75-110) H 08/14/17 03:54 Glucometer 278 mg/dL (65-110) 08/14/17 05:37 Calculated Osmolality 280 MOSM/KG (261-280) 08/14/17 03:54 Calcium 7.2 MG/DL (8.4-10.2) L 08/14/17 03:54 Ionized Calcium Adrianna 1.08 MMOL/L (1.12-1.32) L 08/12/17 09:47 Phosphorus 2.5 MG/DL (2.5-4.5) 08/14/17 03:54 Magnesium 1.9 MG/DL (1.6-2.3) 08/14/17 03:54 Iron 35 UG/DL (49-181) L 08/11/17 06:57 Ferritin 24.2 NG/ML (18-464) 08/11/17 06:57 Total Bilirubin 0.70 MG/DL (0.20-1.30) 08/14/17 03:54 Conjugated Bilirubin 0.00 MG/DL (0.00-0.30) 08/14/17 03:54 Unconjugated Bilirubin 0.50 MG/DL (0.00-1.1) 08/14/17 03:54 Icterus Index < 2 (0-7) 08/14/17 03:54 AST 13 U/L (17-59) L 08/14/17 03:54 ALT 31 U/L (21-72) 08/14/17 03:54 Alkaline Phosphatase 74 U/L (38-126) 08/14/17 03:54 Troponin I 0.123 ng/ml (0-0.12) H 08/13/17 15:32 B-Natriuretic Peptide 1650 pg/mL (0-175) H 08/11/17 07:02 Total Protein 4.5 G/DL (6.3-8.2) L 08/14/17 03:54 Albumin 2.2 G/DL (3.5-5.0) L 08/14/17 03:54 Globulin 2.3 G/DL (2.4-3.6) L 08/14/17 03:54 Albumin/Globulin Ratio 1.0 RATIO (1.1-2.2) L 08/14/17 03:54 Plasma Lactate 1.8 MMOL/L (0.6-2.2) 08/12/17 13:48 Vitamin B12 367 PG/ML (239-931) 08/11/17 06:57 TSH 3.15 MIU/L (0.47-4.68) 08/11/17 07:02 Specimen Hemolysis < 15 (0-25) 08/14/17 03:54 Intake and Output 08/13/17 08/14/17 08/15/17 06:59 06:59 06:59 Intake Total 3372.667 / 3372.667 1030 / 1030 374.667 / 374.667 Output Total 1650 / 1650 1555 / 1555 Balance 1722.667 / 1722.667 -525 / -525 374.667 / 374.667 Weight 82.3 kg 81.2 kg Intake: IV 730 / 730 374.667 / 374.667 Fat Emulsion 20% 100 ml @ 50 100 / 100 mls/hr IV 1600 [facility] Rx#: [id number] Ns 1,000 ml @ 100 mls/hr IV . 0 / 0 Q10H [facility] Rx#:[id number] Potassium Chloride Premix 10 400 / 400 meq In 100 ml @ 100 mls/hr IV Q1H [facility] Rx#:[id number] Sodium Acetate 80 meq POTASSIUM 230 / 230 374.667 / 374.667 PHOSPHATE (mEq) 40 meq Magnesium Sulfate Inj 16 meq Calcium Gluconate 9.3 meq Multi -Vit Infusion 10 ml Multi- Trace Elements 1 ml Potassium Acetate Inj 60 meq In TPN - Custom Formula 2,000 ml @ 40 mls/hr IV .Q24H [facility] Rx#: [id number] Oral 420 / 420 Intake (Blood Product) Amt 956 / 956 300 / 300 Output: Urine 1650 / 1650 1555 / 1555 Other: Urine Appearance Clear Clear Urine Color Dark Yellow Yellow Urine Odor Normal Strong Stool Characteristics Tarry Tarry Stool Color Black Green Black Stool Consistency Soft Soft Size of Bowel Movement Moderate Small # Incontinent Bowel Movements 1 1 - Consult Information We will continue custom TPN formula with the only change of increasing potassium acetate from 60mEq per bag to 80mEq per bag. Continue rate of 80mL per hour. Thanks
[2017-08-14] MEDS: PANTOPRAZOLE 40 MG INJECTION IVP SCH ×2 (09:03→20:32)
[2017-08-14] MEDS: ASCORBIC ACID 500 MG TABLET PO SCH ×2 (09:04→09:43)
[2017-08-14] MEDS: FERROUS SULFATE 324 MG TABLET PO SCH ×2 (09:04→09:43)
[2017-08-14] MEDS: SALINE FLUSH 10ml SYRINGE IVF PRN (09:20)
--- NOTE | 2017-08-14 09:39 | Progress Note ---
- Date 08/14/17 Subjective: The patient was seen this morning in his room. He states he had some chest pain overnight lasting about 5 minutes. It resolved on its own. Hemoglobin was 9.4 at 4 AM and a repeat hemoglobin has been drawn now and is pending. Dr. Hooks would like to keep his hemoglobin above 10 if he is continuing to have angina. Patient denies any shortness of breath. He states when he did have the chest pain radiated up to his left shoulder and was associated with some shortness of breath. The patient was nauseated yesterday but not today. He denies any abdominal pain. He has a lot of mattering in his right eye and has been on erythromycin ointment for the past several days without any improvement. He denies any pain in his eye. He had 3 small black stools/smears yesterday and one overnight. Objective Vital signs: Temperature 98.3 F 08/14/17 00:00 Pulse Rate 65 08/14/17 06:30 Respiratory Rate 18 08/14/17 06:30 Blood Pressure 140/65 H 08/14/17 06:30 Pulse Oximetry 94 08/14/17 06:30 Height/Weight/BMI: Height 1.78 m Weight 81.2 kg Body Mass Index 25.1 Comments: Afebrile, heart rate 71, blood pressure 158/73, O2 sat 94% GEN-alert, oriented, no acute distress HEENT-right eye very mattery, no erythema of the eye, left eye looks normal. NECK-supple CV-regular rate and rhythm CHEST-clear to auscultation bilaterally ABD-soft, nontender with positive bowel sounds -no Hawkins EXT-no edema NEURO-mild speech deficit from old stroke, stable. No new focal deficits SKIN-warm and dry and without rashes Results - Labs CBC & Chem 7: 08/14/17 03:54 08/14/17 03:54 Labs: Magnesium and phosphorus are normal. Albumin is 2.2. Calcium is 7.2. BUN has decreased from a maximum of 55 down to 25. Most likely this is due to decrease in acute GI bleed Assessment and Plan (1) Acute blood loss anemia Current visit: Yes Status: Acute (2) Chest pain Current visit: Yes Status: Acute Assessment and Plan: Impression Melena - acute GI bleed, suspect upper Acute Blood loss anemia- Hgb on admission 5.2 -the patient is required 6 units of blood and 1 unit of FFP-hemoglobin 9.4 this morning Chest pain -continues to have intermittent chest pain Elevated Troponin - NSTEMI -- possible Type II secondary to anemia -troponin trending down Leukocytosis- PO -improving-likely secondary to stress CAD Stroke-ischemic and hemorrhagic (2017) Type 2 DM HTN CHF Hypercholesterolemia Hx Colon cancer Chronic anticoagulation- Warfarin-may need to reconsider risk-benefit ratio Malnutrition Metabolic acidosis is improving Mild thrombocytopenia Right eye conjunctivitis-not improving on erythromycin. Will change to Cipro Plan Hemoglobin is trending up. He has had a total of 6 units of packed red cells and 1 unit of FFP. Hemoglobin 9.4 today but still having some chest discomfort. The patient had chest pain again this morning lasting 5 minutes. Await repeat hemoglobin. If less than 10 will likely transfuse. Plan for EGD later today. We'll discuss with Dr. Keith after hemoglobin is back. TPN started yesterday. Blood sugars climbing. Will add Levemir 10 units every morning. Continue sliding scale. Continue TPN for malnutrition. Continue Protonix. Recheck CBC tomorrow regarding anemia. Recheck CMP magnesium and phosphorous regarding initiation of TPN. The patient remains critically ill. Greater than 30 minutes of critical care time spent seeing and evaluating the patient. Discussed with Dr. Hooks this morning. We'll talk with Dr. Keith after local his back was morning. - Physician Narrative Narrative: Date: 08/14/17 Time: 0935 Hospital Course Summary Disclaimer: The visit summary below is not to be considered part of the above Progress Note. Hospital Course: Impression Blood loss anemia- Hgb on admission 5.2 Chest pain Elevated Troponin Leukocytosis- POA- 20 CAD Stroke-ischemic and hemorrhagic (2017) Type 2 DM HTN CHF Hypercholesterolemia Hx Colon cancer Chronic anticoagulation- Warfarin Plan Admit patient as inpatient under the care of Dr Espinoza for Anemia, chest pain Type screen and given 2 units of PRBCs on admission Monitor telemetry and obtain serial troponins. Consult placed to Dr Hooks who is Cadys top cutter. Check UA given leukocytosis will treat as needed however leukocytosis may be reactive Protonix IV for GI protection NS 100 ml for gentle hydration. May have clear liquids only. SCDs to Bilateral lower ext for DVT prophylaxis Monitor blood counts carefully. At this time he is hemodynamically stable Again , patient does wish to be a full code and this order is written. Will discuss further orders and plan of care with attending, Dr. Espinoaz. At time of discharge medical care will return to primary care provider. Dr. Srivastava 08/13/2017 Plan The patient had another episode of chest pain this morning when hemoglobin was 6.7. He was given 1 unit of blood and nitroglycerin and hemoglobin improved to 8.2 and chest pain resolved. Troponin is trending down and is 0.122. We'll transfuse another unit of blood now and recheck hemoglobin. We'll try to keep hemoglobin greater than 10. Discussed earlier today with Dr. Keith, considering EGD later today if hemoglobin is improving, patient remains chest pain-free, and okay with Dr. Hooks and anesthesia. We'll replace potassium IV Start TPN regarding malnutrition. Remain off of aspirin and warfarin. Continue Protonix. Continue serial hemoglobin. Recheck CBC tomorrow regarding leukocytosis and thrombocytopenia. Recheck CMP, magnesium and phosphorus tomorrow regarding hypokalemia, metabolic acidosis, elevated BUN creatinine, and regarding malnutrition with initiation of TPN The patient remains critically ill. Greater than 40 minutes of time spent seeing and evaluating the patient and determined care plan. Discussed today with his nurse, Dr. Keith, and BETTINA Mclean for Dr. Hooks. 08/14/2017 Plan Hemoglobin is trending up. He has had a total of 6 units of packed red cells and 1 unit of FFP. Hemoglobin 9.4 today but still having some chest discomfort. The patient had chest pain again this morning lasting 5 minutes. Await repeat hemoglobin. If less than 10 will likely transfuse. Plan for EGD later today. We'll discuss with Dr. Keith after hemoglobin is back. TPN started yesterday. Blood sugars climbing. Will add Levemir 10 units every morning. Continue sliding scale. Continue TPN for malnutrition. Continue Protonix. Recheck CBC tomorrow regarding anemia. Recheck CMP magnesium and phosphorous regarding initiation of TPN. The patient remains critically ill. Greater than 30 minutes of critical care time spent seeing and evaluating the patient. Discussed with Dr. Hooks this morning. We'll talk with Dr. Keith after local his back was morning.
[2017-08-14] MEDS ORDERED: INSULIN DETEMIR 100unit/ml INJECTION SQ SCH (09:45)
[2017-08-14] MEDS ORDERED: FALL RISK - PHARMACY CONSULT XX ONE (11:00)
--- NOTE | 2017-08-14 11:29 | Cardiology Progress Note ---
<Nataly Lockett - Last Filed: 08/15/17 13:20> Subjective Principal diagnosis: anemia, elevated troponin Interval history: David is seen in follow up for anemia and elevated troponin. He is examined in his room in CCU. He reports "just a little bit" of chest pain this morning. He denies palpitations, dyspnea, dizziness, nausea. Exam Vital signs: Temperature 98.6 F 08/14/17 10:55 Pulse Rate 69 08/14/17 08:00 Respiratory Rate 18 08/14/17 06:30 Blood Pressure 140/65 H 08/14/17 06:30 Pulse Oximetry 94 08/14/17 06:30 - Constitutional no acute distress, well nourished, cooperative - Routine HEENT Exam Head: Present: normocephalic ENT: Present: mucous membranes moist - Routine Neck Exam Absent: JVD, carotid bruit - Routine Chest/Breast/Axilla Exam Chest wall: Present: pacemaker. Absent: tenderness - Routine Respiratory Exam Present: CTA bilaterally. Absent: rales, wheezes - Routine Cardiovascular Exam Present: RRR, no murmur - Routine Abdominal Exam Present: soft, normoactive bowel sounds - Routine Extremities Exam Present: no edema - Routine Skin Exam Present: intact, dry, warm - Routine Neurological Exam Present: alert, oriented X3 - Routine Psychiatric Exam Present: normal affect, normal thought process - Additional findings Additional findings: Ascorbic Acid (Vitamin C) 500 mg PO [facility] Last Admin: 08/14/17 09:43 Dose: Not Given Bisacodyl (Dulcolax) 10 mg RECTALLY DAILY PRN PRN Reason: Constipation Ciprofloxacin (Ciloxan) 1 applic RIGHT EYE BID [facility] Dextrose (D50%W) 20 ml IVP PRN PRN PRN Reason: Hypoglycemia Ferrous Sulfate (Feosol) 324 mg PO [facility] Last Admin: 08/14/17 09:43 Dose: Not Given Glucose (Glutose 15) 37.5 gm PO PRN PRN PRN Reason: Hypoglycemia Sodium Acetate 80 meq/Potassium Phosphate 40 meq/Magnesium Sulfate 16 meq/ Calcium Gluconate 9.3 meq/Multivitamins/Minerals 10 ml/Chromium/Copper/Manganese /Zinc 1 ml/ Potassium Acetate 60 meq/ Amino Acids/Electrolytes 2,114.0909 mls @ 40 mls/hr IV .Q24H [facility] PRN Reason: Protocol Stop: 08/14/17 15:59 Last Infusion: 08/14/17 07:22 Dose: 80 mls/hr Fat Emulsion Intravenous (Intralipid 20%) 100 mls @ 50 mls/hr IV 1600 [facility] Last Infusion: 08/13/17 18:15 Dose: Infused Sodium Acetate 80 meq/Potassium Phosphate 40 meq/Magnesium Sulfate 16 meq/ Calcium Gluconate 9.3 meq/Multivitamins/Minerals 10 ml/Chromium/Copper/Manganese /Zinc 1 ml/ Potassium Acetate 80 meq/ Amino Acids/Electrolytes 2,124.0909 mls @ 40 mls/hr IV .Q24H [facility] PRN Reason: Protocol Insulin Aspart (Novolog) 2 - 8 unit SQ SS PRN; Protocol PRN Reason: Hyperglycemia Last Admin: 08/14/17 05:52 Dose: 5 unit Insulin Detemir (Levemir) 10 unit SQ DAILY [facility] Magnesium Hydroxide (Mom) 30 ml PO DAILY PRN PRN Reason: Constipation Morphine Sulfate (Morphine Sulfate Inj) 2 - 5 mg IVP Q5M PRN PRN Reason: Chest pain Last Admin: 08/13/17 06:24 Dose: 5 mg Nitroglycerin (Nitro-Bid) 0.5 inch TP Q6HR [facility] Last Admin: 08/14/17 09:20 Dose: 0.5 inch Ondansetron HCl (Zofran) 4 mg IVP Q6H PRN PRN Reason: Nausea Last Admin: 08/13/17 13:37 Dose: 4 mg Pantoprazole Sodium (Protonix Iv) 40 mg IVP BID [facility] Last Admin: 08/14/17 09:03 Dose: 40 mg Sodium Chloride (Iv Flush) 10 - 80 ml IVF PRN PRN PRN Reason: Flushing Last Admin: 08/14/17 09:20 Dose: 10 ml Sodium Chloride (Normal Saline) 500 ml IV PRN PRN Sodium Chloride (Normal Saline) 500 ml IV PRN PRN Last Admin: 08/13/17 12:38 Dose: 500 ml Results 08/14/17 09:32 08/14/17 03:54 Cardiac Enzymes 08/13/17 08/14/17 Range/Units 15:32 03:54 AST 13 L (17-59) U/L Troponin I 0.123 H (0-0.12) ng/ml CBC 08/13/17 08/13/1718 Range/Units 15:32 21:53 03:54 Hgb 10.3 L D 9.8 L 9.4 L (13.5-17.5) GM/DL 08/14/17 Range/Units 09:32 Hgb 9.8 L (13.5-17.5) GM/DL Comprehensive Metabolic Panel 08/13/17 08/14/17 Range/Units 15:32 03:54 Sodium 140 (134-144) MEQ/L Potassium 4.1 D 3.6 (3.6-5) MEQ/L Chloride 114 H (98-107) MEQ/L Carbon Dioxide 21 L (22-30) MEQ/L BUN 25.0 H (9-20) MG/DL Creatinine 1.0 (0.8-1.5) MG/DL Glucose 221 H (75-110) MG/DL Calcium 7.2 L (8.4-10.2) MG/DL Unconjugated Bilirubin 0.50 (0.00-1.1) MG/DL AST 13 L (17-59) U/L ALT 31 (21-72) U/L Alkaline Phosphatase 74 (38-126) U/L Total Protein 4.5 L (6.3-8.2) G/DL Albumin 2.2 L (3.5-5.0) G/DL Intake and Output 08/13/17 08/14/17 08/14/17 22:59 06:59 14:59 Intake Total 530 / 530 374.667 / 374.667 Output Total 955 / 955 200 / 200 300 / 300 Balance -425 / -425 -200 / -200 74.667 / 74.667 Intake: IV 530 / 530 374.667 / 374.667 Fat Emulsion 20% 100 ml @ 50 100 / 100 mls/hr IV 1600 [facility] Rx#: [id number] Potassium Chloride Premix 10 200 / 200 meq In 100 ml @ 100 mls/hr IV Q1H [facility] Rx#:[id number] Sodium Acetate 80 meq POTASSIUM 230 / 230 374.667 / 374.667 PHOSPHATE (mEq) 40 meq Magnesium Sulfate Inj 16 meq Calcium Gluconate 9.3 meq Multi -Vit Infusion 10 ml Multi- Trace Elements 1 ml Potassium Acetate Inj 60 meq In TPN - Custom Formula 2,000 ml @ 40 mls/hr IV .Q24H [facility] Rx#: [id number] Output: Urine 955 / 955 200 / 200 300 / 300 Other: Urine Appearance Clear Urine Color Yellow Urine Odor Strong Stool Characteristics Tarry Stool Color Black Green Black Stool Consistency Soft Size of Bowel Movement Small # Incontinent Bowel Movements 1 Weight 178 lb 12.718 oz Patient Weight 08/15/17 06:59 Weight 178 lb 12.718 oz Assessment and Plan - Assessment and Plan (1) Acute blood loss anemia Current visit: No Status: Acute (2) Chest pain Current visit: Yes Status: Acute (3) Elevated troponin Current visit: Yes Status: Acute (4) Atherosclerosis of coronary artery bypass graft without angina pectoris Current visit: Yes Status: Acute (5) Ischemic cardiomyopathy Current visit: Yes Status: Acute (6) HTN (hypertension) Current visit: No Status: Chronic (7) Presence of automatic implantable cardioverter-defibrillator Current visit: Yes Status: Acute - Assessment and Plan 08/11/17 Acute blood loss anemia: -per hospitalist - With patient's CAD HGB needs to be 10 Chest pain: First episode on Friday, again yesterday morning - relieved by nitro - diaphoretic with first episode, not the second - Left arm pain with first episode only - Trend serial troponin levels - EKG: SR. inferior OK, indeterminate age, anterolateral OK, indeterminate age , ST-T changes Elevated troponin:- Trend serial troponin levels, likely elevated due to acute anemia - EKG: SR. inferior OK, indeterminate age, anterolateral OK, indeterminate age , ST-T changes Ischemic CM: Continue Coreg and Entresto as VS allow Thank you for allowing us to participate in the care of this patient. 08/12/17 Denies chest pain today. Transferred to CCU by hospitalist due to continued anemia despite 3 units PRBCS 4th unit ordered. Trend troponin 08/13/17 Has more chest pain, last night and again this morning. - Nitro paste 0.5 inch Q6H - Replacing blood loss should improve angina - Okay to perform diagnostic scope when okay with surgery - Would prefer during daytime while geophysical laboratory director is available 08/14/17 Increase nitro paste to 1 inch Q6H Hospital Course Summary Disclaimer: The visit summary below is not to be considered part of the above Progress Note. Hospital Course: Impression Blood loss anemia- Hgb on admission 5.2 Chest pain Elevated Troponin Leukocytosis- POA- 20 CAD Stroke-ischemic and hemorrhagic (2017) Type 2 DM HTN CHF Hypercholesterolemia Hx Colon cancer Chronic anticoagulation- Warfarin Plan Admit patient as inpatient under the care of Dr sEpinoza for Anemia, chest pain Type screen and given 2 units of PRBCs on admission Monitor telemetry and obtain serial troponins. Consult placed to Dr Hooks who is David's commercial marketing specialist. Check UA given leukocytosis will treat as needed however leukocytosis may be reactive Protonix IV for GI protection NS 100 ml for gentle hydration. May have clear liquids only. SCDs to Bilateral lower ext for DVT prophylaxis Monitor blood counts carefully. At this time he is hemodynamically stable Again , patient does wish to be a full code and this order is written. Will discuss further orders and plan of care with attending, Dr. Espinoza. At time of discharge medical care will return to primary care provider. Dr. Srivastava <López Hooks - Last Filed: 08/18/17 15:14> Exam Vital signs: Temperature 96.9 F 08/18/17 11:00 Pulse Rate 68 08/18/17 11:00 Respiratory Rate 16 08/18/17 11:00 Blood Pressure 125/70 08/18/17 11:00 Pulse Oximetry 94 08/18/17 11:00 Results 08/18/17 04:42 08/18/17 04:42 CBC 08/18/17 Range/Units 04:42 WBC 7.3 (4.5-11.0) T/MM3 RBC 3.31 L (4.50-5.90) M/MM3 Hgb 9.6 L (13.5-17.5) GM/DL Hct 29.3 L (41-53) % Plt Count 130 (130-400) T/MM3 Comprehensive Metabolic Panel 08/18/17 Range/Units 04:42 Sodium 136 (134-144) MEQ/L Potassium 3.9 (3.6-5) MEQ/L Chloride 103 (98-107) MEQ/L Carbon Dioxide 26 (22-30) MEQ/L BUN 20.0 (9-20) MG/DL Creatinine 0.9 (0.8-1.5) MG/DL Glucose 270 H (75-110) MG/DL Calcium 7.7 L (8.4-10.2) MG/DL Intake and Output 08/18/17 08/18/17 08/18/17 06:59 14:59 22:59 Intake Total 200 / 200 1318.667 / 1318.667 Output Total 550 / 550 Balance -350 / -350 1318.667 / 1318.667 Intake: IV 978.667 / 978.667 Sodium Acetate 40 meq Multi-Vit 978.667 / 978.667 Infusion 10 ml Multi-Trace Elements 1 ml In TPN - Standard Formula 2,000 ml @ 80 mls/hr IV .Q24H [facility] Rx#:[id number] Oral 200 / 200 340 / 340 Output: Urine 550 / 550 Other: Urine Color Yellow Urine Odor Normal Stool Color Brown Stool Consistency Soft Size of Bowel Movement Smear Weight 83 kg Patient Weight 08/19/17 06:59 Weight 83 kg Assessment and Plan - Assessment and Plan (1) HTN (hypertension) Current visit: No Status: Chronic (2) Acute blood loss anemia Current visit: Yes Status: Acute (3) Elevated troponin Current visit: Yes Status: Acute (4) Chest pain Current visit: Yes Status: Acute (5) Atherosclerosis of coronary artery bypass graft without angina pectoris Current visit: Yes Status: Chronic (6) Ischemic cardiomyopathy Current visit: Yes Status: Chronic (7) Presence of automatic implantable cardioverter-defibrillator Current visit: Yes Status: Chronic - Attestation Attestation Narrative: 08/18/17 15:14 Recommendation After examining the patient I agree with the above assessment. I am involved in the formulation of the patient's plan of care. Hospital Course Summary Disclaimer: The visit summary below is not to be considered part of the above Progress Note.
[2017-08-14] MEDS: CIPROFLOXACIN 0.3% RIGHT EYE SCH ×2 (12:04→20:32)
[2017-08-14] MEDS: EYE RIGHT EYE SCH ×2 (12:04→20:32)
--- NOTE | 2017-08-14 14:23 | Anesthesia Preoperative Report ---
Anesthesia Preoperative Record - Date and Time Date: 08/14/17 Preoperative Diagnosis: anemia elevated troponin Proposed Procedure: EGD NPO Since Date: 08/13/17 NPO Since Time: 23:00 Allergies/Adverse Reactions: Allergies Allergy/AdvReac Type Severity Reaction Status Date / Time No Known Drug Allergies Allergy Unknown Verified 08/11/17 06:35 - Vital Signs Vital Signs: Temperature 98.6 F 08/14/17 10:55 Pulse Rate 69 08/14/17 08:00 Respiratory Rate 18 08/14/17 06:30 Blood Pressure 140/65 H 08/14/17 06:30 Pulse Oximetry 94 08/14/17 06:30 Height and Weight: Height 5 ft 10 in Weight 81.1 kg Body Mass Index 25.1 - Medications Inpatient Medications: Current Medications Ascorbic Acid (Vitamin C) 500 mg PO [facility] Last Admin: 08/14/17 09:43 Dose: Not Given Bisacodyl (Dulcolax) 10 mg RECTALLY DAILY PRN PRN Reason: Constipation Ciprofloxacin (Ciloxan) 1 applic RIGHT EYE BID [facility] Last Admin: 08/14/17 12:04 Dose: 1 applic Dextrose (D50%W) 20 ml IVP PRN PRN PRN Reason: Hypoglycemia Ferrous Sulfate (Feosol) 324 mg PO [facility] Last Admin: 08/14/17 09:43 Dose: Not Given Glucose (Glutose 15) 37.5 gm PO PRN PRN PRN Reason: Hypoglycemia Sodium Acetate 80 meq/Potassium Phosphate 40 meq/Magnesium Sulfate 16 meq/ Calcium Gluconate 9.3 meq/Multivitamins/Minerals 10 ml/Chromium/Copper/Manganese /Zinc 1 ml/ Potassium Acetate 60 meq/ Amino Acids/Electrolytes 2,114.0909 mls @ 40 mls/hr IV .Q24H [facility] PRN Reason: Protocol Stop: 08/14/17 15:59 Last Infusion: 08/14/17 11:00 Dose: 80 mls/hr Fat Emulsion Intravenous (Intralipid 20%) 100 mls @ 50 mls/hr IV 1600 [facility] Last Infusion: 08/13/17 18:15 Dose: Infused Sodium Acetate 80 meq/Potassium Phosphate 40 meq/Magnesium Sulfate 16 meq/ Calcium Gluconate 9.3 meq/Multivitamins/Minerals 10 ml/Chromium/Copper/Manganese /Zinc 1 ml/ Potassium Acetate 80 meq/ Amino Acids/Electrolytes 2,124.0909 mls @ 40 mls/hr IV .Q24H [facility] PRN Reason: Protocol Insulin Aspart (Novolog) 2 - 8 unit SQ SS PRN; Protocol PRN Reason: Hyperglycemia Last Admin: 08/14/17 05:52 Dose: 5 unit Insulin Aspart (Novolog) 3 - 12 unit SQ SS PRN; Protocol PRN Reason: Hyperglycemia Last Admin: 08/14/17 14:05 Dose: 12 unit Insulin Detemir (Levemir) 10 unit SQ BID [facility] Magnesium Hydroxide (Mom) 30 ml PO DAILY PRN PRN Reason: Constipation Morphine Sulfate (Morphine Sulfate Inj) 2 - 5 mg IVP Q5M PRN PRN Reason: Chest pain Last Admin: 08/13/17 06:24 Dose: 5 mg Nitroglycerin (Nitro-Bid) 0.5 inch TP Q6HR [facility] Last Admin: 08/14/17 09:20 Dose: 0.5 inch Ondansetron HCl (Zofran) 4 mg IVP Q6H PRN PRN Reason: Nausea Last Admin: 08/13/17 13:37 Dose: 4 mg Pantoprazole Sodium (Protonix Iv) 40 mg IVP BID [facility] Last Admin: 08/14/17 09:03 Dose: 40 mg Sodium Chloride (Iv Flush) 10 - 80 ml IVF PRN PRN PRN Reason: Flushing Last Admin: 08/14/17 09:20 Dose: 10 ml Sodium Chloride (Normal Saline) 500 ml IV PRN PRN Sodium Chloride (Normal Saline) 500 ml IV PRN PRN Last Admin: 08/13/17 12:38 Dose: 500 ml Home Medications: Home Medications Medication Instructions Recorded Confirmed Type Atorvastatin Calcium 40 mg PO HS #0 tab 10/31/16 08/11/17 History Aspirin [Aspirin EC] 81 mg PO DAILY 06/06/17 08/11/17 History Carvedilol 6.25 mg PO BIDWM 06/06/17 08/11/17 History Famotidine [Pepcid AC] 20 mg PO BID 06/06/17 08/11/17 History Insulin Detemir [Levemir Flextouch] 10 unit SQ HS 06/06/17 08/11/17 History Magnesium Oxide [Magnesium] 400 mg PO DAILY 06/06/17 08/11/17 History SACUBITRIL/VALSARTAN 49/51mg 1 tab PO BID 06/06/17 08/11/17 History [ENTRESTO 49/51mg] Warfarin Sodium 4 mg PO DAILY 06/06/17 08/11/17 History Warfarin Sodium 5 mg PO DAILY 06/06/17 08/11/17 History glipiZIDE [Glipizide ER] 10 mg PO DAILY 06/06/17 08/11/17 History Humalog KwikPen (insulin lispro) 5 unit SQ ACS ml 07/10/17 08/11/17 History 100 unit/mL SQ PEN Ferrous Sulfate [Iron] 325 mg PO DAILY 08/11/17 08/11/17 History Is Patient on Beta Arabella?: No - Medical History Respiratory: Reports: Orthopnea, Pneumonia DENIES: Asthma, Bronchitis, Chronic Obstructive Pulmonary Disease (COPD), Dyspnea, Pulmonary Embolism, Upper Respiratory Infection, Pulmonary Edema, Sleep Apnea, Tuberculosis, Other Cardiovascular: Reports: Arrhythmia, Coronary Artery Disease, Hypertension, Myocardial Infarction (x2), Other (Angina yesterday relieved with NTG. Elevated Troponin) Gastrointestional: Reports: Gastroesophageal Reflux Disease, Gastrointestinal Bleeding (FROM COLON CANCER), Ulcer DENIES: Obstructive Bowel, Hepatitis, Cirrhosis, Nausea or Vomiting Present, Hiatal Hernia, Morbid Obesity, Other Neuro/Musculoskeletal: Reports: HX.MS.OSAR, Cerebrovascular Accident (September 2016 ), Muscle Weakness (RT SIDED R/T CVA) Denies: Back Problems, Depression, Headaches, Loss of Consciousness, Neuromuscular Disorder, Paralysis, Paresthesia, Syncope, Seizures, Other Renal/Endocrine: Reports: Diabetes Mellitus Type 2 Other History: Reports: Blood Transfusions (NO PROBLEMS), Cancer (COLON, MELANOMAx2), Other (RADIATION FOR COLON CA) - Surgical History HEENT Surgeries: Reports: Ear Surgery, Eye Surgery (CATARACTS BI-LAT), Other ( DETACHED RETINA, RT EYE) Cardiac Surgeries/Treatments: Reports: Cardiac Catheterization, Pacemaker, Other (Quid Byjoselin 2008) GI Surgery/Treatments: Reports: Appendectomy, Colon Resection (R/T CA), Hernia Repair (BI-LAT INGUINAL) Reproductive Surgery/Treatment: Reports: Vasectomy Anesthesia Reactions: None Hx Family Anesthesia Reaction: No History of Motion Sickness: No - Social History Smoking Status: Never smoker Hx Chewing Tobacco Use: No Second Hand Exposure: No Substance Use Type: does not use Alcohol Intake: never Alcohol Intake Frequency: former alcohol drinker - Pertinent Findings Laboratory: CBC and BMP 08/14/17 09:32 08/14/17 03:54 BMP 08/13/17 08/14/17 15:32 03:54 Sodium 140 Potassium 4.1 D 3.6 Chloride 114 H Carbon Dioxide 21 L BUN 25.0 H Creatinine 1.0 Glucose 221 H Calcium 7.2 L Cardiac Enzymes 08/13/17 Range/Units 15:32 Troponin I 0.123 H (0-0.12) ng/ml Liver Function 08/14/17 Range/Units 03:54 Total Bilirubin 0.70 (0.20-1.30) MG/DL AST 13 L (17-59) U/L ALT 31 (21-72) U/L Alkaline Phosphatase 74 (38-126) U/L Albumin 2.2 L (3.5-5.0) G/DL EKG: Sinus Rhythm - Physical Exam Respiratory Exam: Present: lungs clear, bilateral breath sounds equal Cardiovascular Exam: Present: regular rate and rhythm, no murmur - Airway Assessment Mallampati Score: II TMD: 2 Fingerbreadths Teeth: upper dentures, lower dentures Overall Assessment: no airway concerns - ASA ASA Score: 4 - Plan Anesthesia: General TIVA - Discussion Discussion: Discussed risks/options/alternatives of anesthesia and questions answered. Patient consents. Nursing pain assessment noted. Attestation Statement: Prior to the delivery of any anesthetic medication, I examined the patient, developed the plan, obtained the patient's consent and discussed the risk and benefits of the procedure with the patient/guardian. - Additional Information Seen by Anesthesia: Yes
[2017-08-14] MEDS ORDERED: PROPOFOL 500 MG/50 ML VIAL ONE (14:53)
[2017-08-14] MEDS ORDERED: LIDOCAINE VISCOUS 2% ORAL LIQUID 15ml PO ONE (15:04)
--- NOTE | 2017-08-14 15:10 | General Surgery Procedure Note ---
Date of Procedure: 08/14/17 Surgeon: Sagar Anesthesia: General TIVA ASA Score: 4 Postoperative Diagnosis: Large duodenal diverticulum, mild duodenitis, mild proximal gastritis, apparent large sliding hiatal hernia Procedure: Esophagogastroduodenoscopy with biopsies for NIKO and duodenum and stomach for histology
[2017-08-14] MEDS: [UNRECOGNIZED DRUG - OTHER] IV SCH ×2 (16:33→16:39)
[2017-08-14] MEDS: FAT EMULSION 20% 100 ML IV SCH (16:33)
[2017-08-14] MEDS: POTASSIUM PHOSPHATE IV SCH ×2 (16:33→16:39)
[2017-08-14] MEDS: SODIUM ACETATE IV SCH ×2 (16:33→16:39)
[2017-08-14] MEDS: MAGNESIUM SULFATE IV SCH ×2 (16:33→16:39)
[2017-08-14] MEDS: SUCRALFATE 1gm/10ml ORAL LIQUID PO SCH ×2 (18:04→20:32)
[2017-08-14] MEDS: INSULIN DETEMIR 100unit/ml INJECTION SQ SCH (20:33)
[2017-08-15] MEDS: NITROGLYCERIN 2% OINTMENT 1gm PACKET TP SCH ×3 (03:30→15:53)
[2017-08-15] MEDS: INSULIN ASPART 100unit/ml INJECTION SQ PRN ×3 (03:30→19:37)
[2017-08-15] MEDS: SUCRALFATE 1gm/10ml ORAL LIQUID PO SCH ×4 (08:47→21:42)
[2017-08-15] MEDS: FERROUS SULFATE 324 MG TABLET PO SCH (08:48)
[2017-08-15] MEDS: ASCORBIC ACID 500 MG TABLET PO SCH (08:48)
[2017-08-15] MEDS: EYE RIGHT EYE SCH ×3 (08:48→21:43)
[2017-08-15] MEDS: CIPROFLOXACIN 0.3% RIGHT EYE SCH ×3 (08:48→21:43)
--- NOTE | 2017-08-15 08:54 | Pharmacy Consult-TPN/PPN ---
Pharmacy Consult-TPN/PPN - Laboratory Information Chemistry Turbidity < 20 (0-20) 08/15/17 04:58 Sodium 140 MEQ/L (134-144) 08/15/17 04:58 Potassium 3.7 MEQ/L (3.6-5) 08/15/17 04:58 Chloride 112 MEQ/L (98-107) H 08/15/17 04:58 Carbon Dioxide 24 MEQ/L (22-30) 08/15/17 04:58 Anion Gap 4 MEQ/L (5-15) L 08/15/17 04:58 BUN 17.0 MG/DL (9-20) 08/15/17 04:58 Creatinine 0.9 MG/DL (0.8-1.5) 08/15/17 04:58 GFR Calculation 82 08/15/17 04:58 BUN/Creatinine Ratio 19 RATIO (6-26) 08/15/17 04:58 Glucose 196 MG/DL (75-110) H 08/15/17 04:58 Glucometer 250 mg/dL (65-110) 08/14/17 21:09 Calculated Osmolality 276 MOSM/KG (261-280) 08/15/17 04:58 Calcium 7.6 MG/DL (8.4-10.2) L 08/15/17 04:58 Ionized Calcium Adrianna 1.08 MMOL/L (1.12-1.32) L 08/12/17 09:47 Phosphorus 2.7 MG/DL (2.5-4.5) 08/15/17 04:58 Magnesium 2.1 MG/DL (1.6-2.3) 08/15/17 04:58 Iron 35 UG/DL (49-181) L 08/11/17 06:57 Ferritin 24.2 NG/ML (18-464) 08/11/17 06:57 Total Bilirubin 0.90 MG/DL (0.20-1.30) 08/15/17 04:58 Conjugated Bilirubin 0.00 MG/DL (0.00-0.30) 08/14/17 03:54 Unconjugated Bilirubin 0.50 MG/DL (0.00-1.1) 08/14/17 03:54 Icterus Index < 2 (0-7) 08/15/17 04:58 AST 13 U/L (17-59) L 08/15/17 04:58 ALT 31 U/L (21-72) 08/15/17 04:58 Alkaline Phosphatase 79 U/L (38-126) 08/15/17 04:58 Troponin I 0.123 ng/ml (0-0.12) H 08/13/17 15:32 B-Natriuretic Peptide 1650 pg/mL (0-175) H 08/11/17 07:02 Total Protein 4.9 G/DL (6.3-8.2) L 08/15/17 04:58 Albumin 2.4 G/DL (3.5-5.0) L 08/15/17 04:58 Globulin 2.5 G/DL (2.4-3.6) 08/15/17 04:58 Albumin/Globulin Ratio 1.0 RATIO (1.1-2.2) L 08/15/17 04:58 Plasma Lactate 1.8 MMOL/L (0.6-2.2) 08/12/17 13:48 Vitamin B12 367 PG/ML (239-931) 08/11/17 06:57 TSH 3.15 MIU/L (0.47-4.68) 08/11/17 07:02 Specimen Hemolysis < 15 (0-25) 08/15/17 04:58 Intake and Output 08/14/17 08/15/17 08/16/17 06:59 06:59 06:59 Intake Total 1030 / 1030 1526.667 / 1526.667 Output Total 1555 / 1555 1425 / 1425 Balance -525 / -525 101.667 / 101.667 Weight 81.2 kg 81.1 kg Intake: IV 730 / 730 1526.667 / 1526.667 Fat Emulsion 20% 100 ml @ 50 100 / 100 100.0 / 100.0 mls/hr IV 1600 [facility] Rx#: [id number] Ns 1,000 ml @ 100 mls/hr IV . 0 / 0 Q10H [facility] Rx#:[id number] Potassium Chloride Premix 10 400 / 400 meq In 100 ml @ 100 mls/hr IV Q1H [facility] Rx#:[id number] Sodium Acetate 80 meq POTASSIUM 230 / 230 1426.667 / 1426.667 PHOSPHATE (mEq) 40 meq Magnesium Sulfate Inj 16 meq Calcium Gluconate 9.3 meq Multi -Vit Infusion 10 ml Multi- Trace Elements 1 ml Potassium Acetate Inj 80 meq In TPN - Custom Formula 2,000 ml @ 40 mls/hr IV .Q24H [facility] Rx#: [id number] Intake (Blood Product) Amt 300 / 300 Output: Urine 1555 / 1555 1425 / 1425 Other: Urine Appearance Clear Clear Urine Color Yellow Pale Yellow Urine Odor Strong Normal Stool Characteristics Tarry Stool Color Green Black Black Stool Consistency Soft Size of Bowel Movement Small Smear # Incontinent Bowel Movements 1 - Consult Information Lytes trending to normal . Will continue same TPN formulation which is chloride free and has extra potassium. Thank you.
[2017-08-15] MEDS: INSULIN DETEMIR 100unit/ml INJECTION SQ SCH ×3 (09:02→21:43)
[2017-08-15] MEDS: PANTOPRAZOLE 40 MG INJECTION IVP SCH ×2 (09:06→21:42)
--- NOTE | 2017-08-15 11:43 | Progress Note ---
- Date 08/15/17 Subjective: Patient was seen this morning in his room. He states he has not had any chest pain today or last night. He states he's feeling okay. He denies shortness of breath or abdominal pain. He denies any nausea right now. He is drinking some clear liquids without difficulties. We will try to do a bowel prep today and colonoscopy tomorrow. Objective Vital signs: Temperature 98.2 F 08/15/17 09:00 Pulse Rate 80 08/15/17 09:00 Respiratory Rate 16 08/15/17 09:00 Blood Pressure 166/99 H 08/15/17 09:00 Pulse Oximetry 94 08/15/17 09:00 Height/Weight/BMI: Height 1.78 m Weight 81.9 kg Body Mass Index 25.1 Comments: Weight on admission was 79.5 and weight today is 81.9 Urine output yesterday 1.4 L No stools recorded today He had 2 stools yesterday one was black and one was black green GEN-alert, no acute distress HEENT-mild decreased erythema of the right eye, oropharynx is moist NECK-supple CV-regular rate and rhythm with occasional ectopy CHEST-clear to auscultation bilaterally ABD-soft, nontender with positive bowel sounds -Hawkins in place with good urine output EXT-no edema NEURO-chronic weakness, chronic mild slurred speech SKIN-warm and dry Results - Labs CBC & Chem 7: 08/15/17 04:58 08/15/17 04:58 Labs: Hemoglobin is 10.1 up from 9.8 Iron is low at 35 ferritin is low normal at 24.2 B 12 is borderline low at 367, TSH is 3.15 Assessment and Plan (1) Acute blood loss anemia Current visit: Yes Status: Acute (2) Chest pain Current visit: Yes Status: Acute Assessment and Plan: Impression Melena - acute GI bleed, suspect upper Acute Blood loss anemia- Hgb on admission 5.2 -the patient is required 6 units of blood and 1 unit of FFP-hemoglobin 10.1 this morning. Last transfusion was in the afternoon of 08/13/2017 Chest pain -been since yesterday morning. Hemoglobin has improved to approximately 10. He has a nitroglycerin patch on Elevated Troponin - NSTEMI -- possible Type II secondary to anemia -troponin trending down Leukocytosis- POA-resolved CAD Stroke-ischemic and hemorrhagic (2017) Type 2 DM -hyperglycemia secondary to TPN HTN CHF Hypercholesterolemia Hx Colon cancer Chronic anticoagulation- Warfarin currently on hold-may need to reconsider risk- benefit ratio Malnutrition-TPN initiated Metabolic acidosis is improving Mild thrombocytopenia Right eye conjunctivitis-not improving on erythromycin. Changed to Cipro on Iron deficiency anemia-the patient would likely benefit from IV iron Borderline B-12 level-we'll give oral B 12 Plan Hemoglobin has been stable and the patient has not required a transfusion since the . EGD was done yesterday and did not show any cause for his GI bleed. Discussed with Dr. Keith today. Plan for bowel prep today with colonoscopy tomorrow. Chest pain has resolved with hemoglobin in the 10 range and Nitropatch. Will increase insulin regarding hyperglycemia from TPN Consider IV iron prior to discharge Continue TPN for malnutrition, will discontinue once the patient can take by mouth Start oral B 12 DVT Prophylaxis: SCD's Resuscitation Status: Full Code - Physician Narrative Narrative: Date: 08/15/17 Time: 1139 Hospital Course Summary Disclaimer: The visit summary below is not to be considered part of the above Progress Note. Hospital Course: Impression Blood loss anemia- Hgb on admission 5.2 Chest pain Elevated Troponin Leukocytosis- POA- 20 CAD Stroke-ischemic and hemorrhagic (2017) Type 2 DM HTN CHF Hypercholesterolemia Hx Colon cancer Chronic anticoagulation- Warfarin Plan Admit patient as inpatient under the care of Dr Espinoza for Anemia, chest pain Type screen and given 2 units of PRBCs on admission Monitor telemetry and obtain serial troponins. Consult placed to Dr Hooks who is David's systems designer. Check UA given leukocytosis will treat as needed however leukocytosis may be reactive Protonix IV for GI protection NS 100 ml for gentle hydration. May have clear liquids only. SCDs to Bilateral lower ext for DVT prophylaxis Monitor blood counts carefully. At this time he is hemodynamically stable Again , patient does wish to be a full code and this order is written. Will discuss further orders and plan of care with attending, Dr. Espinoza. At time of discharge medical care will return to primary care provider. Dr. Srivastava 08/15/2017 Hemoglobin is trending up. He has had a total of 6 units of packed red cells and 1 unit of FFP. Hemoglobin 9.4 today but still having some chest discomfort. The patient had chest pain again this morning lasting 5 minutes. Await repeat hemoglobin. If less than 10 will likely transfuse. Plan for EGD later today. We'll discuss with Dr. Keith after hemoglobin is back. TPN started yesterday. Blood sugars climbing. Will add Levemir 10 units every morning. Continue sliding scale. Continue TPN for malnutrition. Continue Protonix. Recheck CBC tomorrow regarding anemia. Recheck CMP magnesium and phosphorous regarding initiation of TPN. The patient remains critically ill. Greater than 30 minutes of critical care time spent seeing and evaluating the patient. Discussed with Dr. Hooks this morning. We'll talk with Dr. Keith after local his back was morning.
--- NOTE | 2017-08-15 13:25 | Cardiology Progress Note ---
<Nataly Lockett - Last Filed: 08/18/17 10:33> Subjective Principal diagnosis: anemia, elevated troponin Interval history: David is seen in follow up for anemia and elevated troponin. He is examined in his room in CCU. He denies chest pain or pressure, palpitations, dyspnea, dizziness, nausea. Exam Vital signs: Temperature 98.2 F 08/15/17 09:00 Pulse Rate 80 08/15/17 09:00 Respiratory Rate 16 08/15/17 09:00 Blood Pressure 166/99 H 08/15/17 09:00 Pulse Oximetry 94 08/15/17 09:00 - Constitutional no acute distress, well nourished, cooperative - Routine HEENT Exam Head: Present: normocephalic ENT: Present: mucous membranes moist - Routine Neck Exam Absent: JVD, carotid bruit - Routine Chest/Breast/Axilla Exam Chest wall: Absent: tenderness - Routine Respiratory Exam Present: decreased breath sounds, CTA bilaterally - Routine Cardiovascular Exam Absent: JVD - Routine Abdominal Exam Present: soft, normoactive bowel sounds - Routine Extremities Exam Present: no edema - Routine Skin Exam Present: intact, dry, warm - Routine Neurological Exam Present: alert, oriented X3 - Routine Psychiatric Exam Present: normal affect, normal thought process - Additional findings Additional findings: Ascorbic Acid (Vitamin C) 500 mg PO WB [facility] Last Admin: 08/15/17 08:48 Dose: 500 mg Bisacodyl (Dulcolax) 10 mg RECTALLY DAILY PRN PRN Reason: Constipation Ciprofloxacin (Ciloxan) 1 applic RIGHT EYE BID [facility] Last Admin: 08/15/17 09:33 Dose: 1 applic Cyanocobalamin (Vit. B-12) 1,000 mcg PO DAILY [facility] Dextrose (D50%W) 20 ml IVP PRN PRN PRN Reason: Hypoglycemia Ferrous Sulfate (Feosol) 324 mg PO WB [facility] Last Admin: 08/15/17 08:48 Dose: 324 mg Glucose (Glutose 15) 37.5 gm PO PRN PRN PRN Reason: Hypoglycemia Fat Emulsion Intravenous (Intralipid 20%) 100 mls @ 50 mls/hr IV 1600 LUDMILA Last Infusion: 08/14/17 18:33 Dose: Infused Sodium Acetate 80 meq/Potassium Phosphate 40 meq/Magnesium Sulfate 16 meq/ Calcium Gluconate 9.3 meq/Multivitamins/Minerals 10 ml/Chromium/Copper/Manganese /Zinc 1 ml/ Potassium Acetate 80 meq/ Amino Acids/Electrolytes 2,124.0909 mls @ 40 mls/hr IV .Q24H LUDMILA PRN Reason: Protocol Last Infusion: 08/15/17 04:35 Dose: 80 mls/hr Insulin Aspart (Novolog) 3 - 12 unit SQ SS PRN; Protocol PRN Reason: Hyperglycemia Last Admin: 08/15/17 11:40 Dose: 12 unit Insulin Detemir (Levemir) 20 unit SQ BID [facility] Magnesium Hydroxide (Mom) 30 ml PO DAILY PRN PRN Reason: Constipation Morphine Sulfate (Morphine Sulfate Inj) 2 - 5 mg IVP Q5M PRN PRN Reason: Chest pain Last Admin: 08/13/17 06:24 Dose: 5 mg Nitroglycerin (Nitro-Bid) 1 inch TP Q6HR [facility] Last Admin: 08/15/17 08:59 Dose: 1 inch Ondansetron HCl (Zofran) 4 mg IVP Q6H PRN PRN Reason: Nausea Last Admin: 08/13/17 13:37 Dose: 4 mg Pantoprazole Sodium (Protonix Iv) 40 mg IVP BID [facility] Last Admin: 08/15/17 09:06 Dose: 40 mg Sodium Chloride (Iv Flush) 10 - 80 ml IVF PRN PRN PRN Reason: Flushing Last Admin: 08/14/17 09:20 Dose: 10 ml Sodium Chloride (Normal Saline) 500 ml IV PRN PRN Sodium Chloride (Normal Saline) 500 ml IV PRN PRN Last Admin: 08/13/17 12:38 Dose: 500 ml Sucralfate (Carafate Slurry) 1 gm PO ACHS [facility] Last Admin: 08/15/17 11:42 Dose: 1 gm Results 08/18/17 04:42 08/18/17 04:42 Cardiac Enzymes 08/15/17 Range/Units 04:58 AST 13 L (17-59) U/L CBC 08/15/17 Range/Units 04:58 WBC 8.0 D (4.5-11.0) T/MM3 RBC 3.55 L (4.50-5.90) M/MM3 Hgb 10.1 L (13.5-17.5) GM/DL Hct 31.1 L D (41-53) % Plt Count 106 L (130-400) T/MM3 Neut # (Auto) 6.4 (1.8-7.7) T/MM3 Lymph # (Auto) 0.8 L (1-4.8) T/MM3 [place] # (Auto) 0.6 (0-0.8) T/MM3 Eos # (Auto) 0.2 (0-0.5) T/MM3 Baso # (Auto) 0.0 (0-0.2) T/MM3 Comprehensive Metabolic Panel 08/15/17 Range/Units 04:58 Sodium 140 (134-144) MEQ/L Potassium 3.7 (3.6-5) MEQ/L Chloride 112 H (98-107) MEQ/L Carbon Dioxide 24 (22-30) MEQ/L BUN 17.0 (9-20) MG/DL Creatinine 0.9 (0.8-1.5) MG/DL Glucose 196 H (75-110) MG/DL Calcium 7.6 L (8.4-10.2) MG/DL AST 13 L (17-59) U/L ALT 31 (21-72) U/L Alkaline Phosphatase 79 (38-126) U/L Total Protein 4.9 L (6.3-8.2) G/DL Albumin 2.4 L (3.5-5.0) G/DL Intake and Output 08/14/17 08/15/17 08/15/17 22:59 06:59 14:59 Intake Total 318.0 / 318.0 263.333 / 263.333 Output Total 425 / 425 200 / 200 950 / 950 Balance -107.0 / -107.0 63.333 / 63.333 -950 / -950 Intake: IV 318.0 / 318.0 263.333 / 263.333 Fat Emulsion 20% 100 ml @ 50 100.0 / 100.0 mls/hr IV 1600 LUDMILA Rx#: [id number] Sodium Acetate 80 meq POTASSIUM 218 / 218 263.333 / 263.333 PHOSPHATE (mEq) 40 meq Magnesium Sulfate Inj 16 meq Calcium Gluconate 9.3 meq Multi -Vit Infusion 10 ml Multi- Trace Elements 1 ml Potassium Acetate Inj 80 meq In TPN - Custom Formula 2,000 ml @ 40 mls/hr IV .Q24H LUDMILA Rx#: [id number] Output: Urine 425 / 425 200 / 200 950 / 950 Other: Urine Appearance Clear Clear Clear Urine Color Yellow Pale Pale Yellow Yellow Weight 180 lb 8.937 oz Patient Weight 08/16/17 06:59 Weight 180 lb 8.937 oz - Imaging and Cardiology Imaging & Cardiology Narrative: Date of Procedure: 08/14/17 Surgeon: Sagar Anesthesia: General TIVA ASA Score: 4 Postoperative Diagnosis: Large duodenal diverticulum, mild duodenitis, mild proximal gastritis, apparent large sliding hiatal hernia Procedure: Esophagogastroduodenoscopy with biopsies for NIKO and duodenum and stomach for histology 08/15/17 14:55 Assessment and Plan - Assessment and Plan (1) Acute blood loss anemia Current visit: Yes Status: Acute (2) Chest pain Current visit: Yes Status: Acute (3) Elevated troponin Current visit: Yes Status: Acute (4) Atherosclerosis of coronary artery bypass graft without angina pectoris Current visit: Yes Status: Chronic (5) Ischemic cardiomyopathy Current visit: Yes Status: Chronic (6) HTN (hypertension) Current visit: No Status: Chronic (7) Presence of automatic implantable cardioverter-defibrillator Current visit: Yes Status: Chronic - Assessment and Plan 08/11/17 Acute blood loss anemia: -per hospitalist - With patient's CAD HGB needs to be 10 Chest pain: First episode on Friday, again yesterday morning - relieved by nitro - diaphoretic with first episode, not the second - Left arm pain with first episode only - Trend serial troponin levels - EKG: SR. inferior LA, indeterminate age, anterolateral LA, indeterminate age , ST-T changes Elevated troponin:- Trend serial troponin levels, likely elevated due to acute anemia - EKG: SR. inferior LA, indeterminate age, anterolateral LA, indeterminate age , ST-T changes Ischemic CM: Continue Coreg and Entresto as VS allow Thank you for allowing us to participate in the care of this patient. 08/12/17 Denies chest pain today. Transferred to CCU by hospitalist due to continued anemia despite 3 units PRBCS 4th unit ordered. Trend troponin 08/13/17 Has more chest pain, last night and again this morning. - Nitro paste 0.5 inch Q6H - Replacing blood loss should improve angina - Okay to perform diagnostic scope when okay with surgery - Would prefer during daytime while microbiology lab assistant is available 08/14/17 Increase nitro paste to 1 inch Q6H 08/15/17 Start Amlodipine 5mg daily for angina - Change Nitro paste to Imdur 30mg daily - When discharged, no anticoagulation due to recent GI bleed. Hospital Course Summary Disclaimer: The visit summary below is not to be considered part of the above Progress Note. Hospital Course: Impression Blood loss anemia- Hgb on admission 5.2 Chest pain Elevated Troponin Leukocytosis- POA- 20 CAD Stroke-ischemic and hemorrhagic (2017) Type 2 DM HTN CHF Hypercholesterolemia Hx Colon cancer Chronic anticoagulation- Warfarin Plan Admit patient as inpatient under the care of Dr Espinoza for Anemia, chest pain Type screen and given 2 units of PRBCs on admission Monitor telemetry and obtain serial troponins. Consult placed to Dr Hooks who is David's coating machine operator helper. Check UA given leukocytosis will treat as needed however leukocytosis may be reactive Protonix IV for GI protection NS 100 ml for gentle hydration. May have clear liquids only. SCDs to Bilateral lower ext for DVT prophylaxis Monitor blood counts carefully. At this time he is hemodynamically stable Again , patient does wish to be a full code and this order is written. Will discuss further orders and plan of care with attending, Dr. Espinoza. At time of discharge medical care will return to primary care provider. Dr. Srivastava <López Hooks - Last Filed: 08/20/17 13:07> Exam Vital signs: Temperature 96.3 F L 08/20/17 12:00 Pulse Rate 84 08/20/17 12:00 Respiratory Rate 15 08/20/17 12:00 Blood Pressure 152/72 H 08/20/17 12:00 Pulse Oximetry 94 08/20/17 12:00 Results 08/20/17 08:13 08/19/17 04:12 CBC 08/20/17 Range/Units 08:13 WBC 6.8 (4.5-11.0) T/MM3 RBC 3.34 L (4.50-5.90) M/MM3 Hgb 9.4 L (13.5-17.5) GM/DL Hct 29.9 L (41-53) % Plt Count 178 (130-400) T/MM3 Intake and Output 08/19/17 08/20/17 08/20/17 22:59 06:59 14:59 Intake Total 150 / 150 150 / 150 Output Total 250 / 250 175 / 175 100 / 100 Balance -100 / -100 -25 / -25 -100 / -100 Intake: Oral 150 / 150 150 / 150 Output: Urine 250 / 250 175 / 175 100 / 100 Other: Urine Appearance Cloudy Cloudy Clear Urine Color Dark Yellow Dark Yellow Dark Yellow Urine Odor Normal Normal Stool Characteristics Foamy Foamy Mucoid Mucoid Tarry Tarry Stool Color Brown Brown Brown Yellow Yellow Stool Consistency Liquid Liquid Liquid Watery Loose Size of Bowel Movement Moderate Moderate Large # Voids 1 1 1 # Bowel Movements 1 # Incontinent Bowel Movements 1 1 1 Weight 81.2 kg Patient Weight 08/21/17 06:59 Weight 81.2 kg Assessment and Plan - Assessment and Plan (1) HTN (hypertension) Current visit: No Status: Chronic (2) Acute blood loss anemia Current visit: Yes Status: Acute (3) Elevated troponin Current visit: Yes Status: Acute (4) Chest pain Current visit: Yes Status: Acute (5) Atherosclerosis of coronary 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 I am involved in the formulation of the patient's plan of care. Hospital Course Summary Disclaimer: The visit summary below is not to be considered part of the above Progress Note.
[2017-08-15] MEDS ORDERED: POTASSIUM CHLORIDE INJ 20 MEQ in D5NS 1,000 ML IV SCH (15:30)
--- NOTE | 2017-08-15 15:45 | Operative Note ---
DATE OF OPERATION 08/14/2017 SURGEON Federico Keith MD. PREOPERATIVE DIAGNOSIS Melena. POSTOPERATIVE DIAGNOSES 1. Melena. 2. Very mild duodenitis. 3. Very mild proximal gastritis. 4. Possible sliding hiatal hernia. 5. Large duodenal diverticulum (no evidence of ulceration). PROCEDURE Esophagogastroduodenoscopy with antral biopsy for NIKO testing and duodenal and gastric biopsies for histology. ANESTHESIA TIVA ASA CLASS 4 INDICATIONS The patient is a 76-year-old male was admitted to the hospital for evaluation of chest pain and anemia. He was having significant melanotic stools. He had previously been on warfarin but had been holding his warfarin for outpatient procedures in the office. It was recommended that he undergo EGD and colonoscopy, but the patient was not feeling well enough to tolerate the bowel prep and only consented today to EGD. FINDINGS There was a large duodenal diverticulum but no evidence of ulceration in the area. There was no clear etiology for his melena on upper endoscopy. He had very mild irritation of the duodenal bulb and the proximal stomach near the GE junction. The upper abdomen did not distend fully and so it appeared there may have been a sliding hiatal hernia altering the upper anatomy of the stomach. This could not be clearly delineated on retroflexed views. The esophagus was normal. DESCRIPTION OF PROCEDURE After informed consent was obtained, the patient was taken to the endoscopy suite and placed in a left lateral decubitus position. IV anesthesia was administered by the anesthesia team. A bite block was inserted followed by an Olympus video gastroscope. The gastroscope was advanced down to the second portion of the duodenum. A large diverticulum was noted in the second portion of duodenum. There was no evidence of ulceration. The scope was withdrawn into the stomach and a biopsy was taken for NIKO testing. It was returned to the duodenal bulb and biopsies of the irritated areas were taken and were sent for histology. The scope was returned to the stomach and was retroflexed to attempt to see the cardiac and fundic portions of the stomach. Stomach was partially able to be distended. No significant abnormalities were noted, but there was some minor irritation of the proximal stomach in the area of the GE junction. The Z-line was sharp during scope withdrawal. A biopsy had been taken of the proximal stomach and was sent to Pathology. The biopsy sites were inspected and were found to be hemostatic. The scope was withdrawn, examining the esophagus circumferentially. The patient was then awakened and transferred to the recovery area in his preprocedure state. RECOMMENDATIONS 1. Add Carafate to his PPI therapy because of the minor irritation. 2. I think he will need a colonoscopy when he is able to tolerate the bowel prep since no clear etiology for his melena was determined. MTDD
[2017-08-15] MEDS: CYANOCOBALAMIN (B-12) 500mcg TABLET PO SCH (17:23)
[2017-08-15] MEDS: FAT EMULSION 20% 100 ML IV SCH (17:24)
[2017-08-15] MEDS: AMLODIPINE 5 MG TABLET PO SCH (17:24)
[2017-08-15] MEDS: MAGNESIUM SULFATE IV SCH (17:25)
[2017-08-15] MEDS: POTASSIUM PHOSPHATE IV SCH (17:25)
[2017-08-15] MEDS: SODIUM ACETATE IV SCH (17:25)
[2017-08-15] MEDS: [UNRECOGNIZED DRUG - OTHER] IV SCH (17:25)
[2017-08-15] MEDS ORDERED: DEXTROSE 50% SYRINGE 50ml (1 AMP) IVP PRN (18:19)
[2017-08-15] MEDS: NS 1,000 ML IV SCH (23:04)
[2017-08-16] MEDS: INSULIN ASPART 100unit/ml INJECTION SQ PRN ×5 (02:15→18:57)
[2017-08-16] MEDS: SUCRALFATE 1gm/10ml ORAL LIQUID PO SCH ×4 (06:22→21:13)
[2017-08-16] MEDS: ISOSORBIDE MONONITRATE ER 30 MG TABLET PO SCH (06:22)
[2017-08-16] MEDS: FERROUS SULFATE 324 MG TABLET PO SCH (09:21)
[2017-08-16] MEDS: ASCORBIC ACID 500 MG TABLET PO SCH (09:21)
[2017-08-16] MEDS: CYANOCOBALAMIN (B-12) 500mcg TABLET PO SCH (09:21)
[2017-08-16] MEDS: EYE RIGHT EYE SCH ×2 (09:22→21:14)
[2017-08-16] MEDS: INSULIN DETEMIR 100unit/ml INJECTION SQ SCH ×2 (09:22→21:14)
[2017-08-16] MEDS: AMLODIPINE 5 MG TABLET PO SCH (09:22)
[2017-08-16] MEDS: CIPROFLOXACIN 0.3% RIGHT EYE SCH ×2 (09:22→21:14)
[2017-08-16] MEDS: PANTOPRAZOLE 40 MG INJECTION IVP SCH ×2 (09:23→21:13)
--- NOTE | 2017-08-16 10:30 | Progress Note ---
- Date 08/16/17 Subjective: David was seen this morning in CCU. He states his right shoulder is a little achy. He states when his chest was hurting he would have left shoulder pain but not right shoulder pain. He denies having any chest pain for the last couple of days. He does feel a little short of breath right now and also needs to urinate. He has had no nausea or vomiting. He denies any abdominal pain. No stools recorded yesterday or today. He has now agreed for bowel prep with plans for colonoscopy tomorrow. Objective Vital signs: Temperature 98.5 F 08/15/17 12:00 Pulse Rate 69 08/16/17 08:00 Respiratory Rate 20 08/16/17 07:00 Blood Pressure 125/74 08/16/17 07:00 Pulse Oximetry 95 08/16/17 07:00 Height/Weight/BMI: Height 1.78 m Weight 81.9 kg Body Mass Index 25.1 Comments: Blood pressure 120/73, O2 sat 96% on room air, pulse 78 GEN-alert, oriented, no acute distress HEENT-right eye is mildly red but improved, oropharynx is moist NECK-supple CV-regular rate and rhythm CHEST-clear to auscultation bilaterally from the posterior. ABD-soft, nontender, nondistended with positive bowel sounds -no Hawkins EXT-no edema NEURO-no new focal deficits SKIN-warm and dry Results - Labs CBC & Chem 7: 08/16/17 04:23 08/16/17 04:23 Microbiology Results: Microbiology 08/14/17 14:58 Gastric Biopsy Helicobacter pylori Rapid Urease - Final Assessment and Plan (1) Acute blood loss anemia Current visit: Yes Status: Acute (2) Chest pain Current visit: Yes Status: Acute Assessment and Plan: Impression Melena - acute GI bleed-EGD negative. Colonoscopy pending. No further melena for 2 days. Acute Blood loss anemia- Hgb on admission 5.2 -the patient is required 6 units of blood and 1 unit of FFP-hemoglobin 10.2 this morning. Last transfusion was in the afternoon of 08/13/2017 Chest pain -none since 08/14/2017 in the morning. Hemoglobin has improved to approximately 10. He has a nitroglycerin patch on Elevated Troponin - NSTEMI -- possible Type II secondary to anemia -troponin trending down Leukocytosis- POA-resolved CAD Stroke-ischemic and hemorrhagic (2017) Type 2 DM -hyperglycemia secondary to TPN HTN CHF Hypercholesterolemia Hx Colon cancer Chronic anticoagulation- Warfarin currently on hold-may need to reconsider risk- benefit ratio Malnutrition-TPN initiated Metabolic acidosis is improving Mild thrombocytopenia Right eye conjunctivitis-not improving on erythromycin. Changed to Cipro on Iron deficiency anemia-the patient would likely benefit from IV iron Borderline B-12 level-we'll give oral B 12 Plan Hemoglobin has been stable and the patient has not required a transfusion since the . EGD was done 08/14/2017 and did not show any cause for his GI bleed. The patient had refused prep and colonoscopy yesterday, but now is agreeable to bowel prep with plans for colonoscopy tomorrow. Discussed with Dr. Keith. Chest pain has resolved with hemoglobin in the 10 range and Nitropatch. We'll give an extra dose of Lantus this morning for hyperglycemia Consider IV iron prior to discharge Continue TPN for malnutrition, will discontinue once the patient can take by mouth Start oral B 12 GI Prophylaxis: Protonix Resuscitation Status: Full Code - Physician Narrative Narrative: Date: 08/16/17 Time: 1023 Hospital Course Summary Disclaimer: The visit summary below is not to be considered part of the above Progress Note. Hospital Course: Impression Blood loss anemia- Hgb on admission 5.2 Chest pain Elevated Troponin Leukocytosis- POA- 20 CAD Stroke-ischemic and hemorrhagic (2017) Type 2 DM HTN CHF Hypercholesterolemia Hx Colon cancer Chronic anticoagulation- Warfarin Plan Admit patient as inpatient under the care of Dr Espinoza for Anemia, chest pain Type screen and given 2 units of PRBCs on admission Monitor telemetry and obtain serial troponins. Consult placed to Dr Hooks who is David's mechanical handyman. Check UA given leukocytosis will treat as needed however leukocytosis may be reactive Protonix IV for GI protection NS 100 ml for gentle hydration. May have clear liquids only. SCDs to Bilateral lower ext for DVT prophylaxis Monitor blood counts carefully. At this time he is hemodynamically stable Again , patient does wish to be a full code and this order is written. Will discuss further orders and plan of care with attending, Dr. Espinoza. At time of discharge medical care will return to primary care provider. Dr. Srivastava
[2017-08-16] MEDS ORDERED: INSULIN GLARGINE 100unit/ml INJECTION SQ ONE (10:31)
[2017-08-16] MEDS ORDERED: Bisacodyl EC TAB 5 MG TABLET PO ONE (12:31)
[2017-08-16] MEDS ORDERED: POLYETHYL. GLYCOL 3350 BOTTLE 238 GM PO ONE (14:00)
--- NOTE | 2017-08-16 15:28 | Pharmacy Consult-TPN/PPN ---
Pharmacy Consult-TPN/PPN - Laboratory Information Chemistry Turbidity < 20 (0-20) 08/16/17 04:23 Sodium 137 MEQ/L (134-144) 08/16/17 04:23 Potassium 3.8 MEQ/L (3.6-5) 08/16/17 04:23 Chloride 106 MEQ/L (98-107) 08/16/17 04:23 Carbon Dioxide 25 MEQ/L (22-30) 08/16/17 04:23 Anion Gap 6 MEQ/L (5-15) 08/16/17 04:23 BUN 16.0 MG/DL (9-20) 08/16/17 04:23 Creatinine 0.8 MG/DL (0.8-1.5) 08/16/17 04:23 GFR Calculation 94 08/16/17 04:23 BUN/Creatinine Ratio 20 RATIO (6-26) 08/16/17 04:23 Glucose 224 MG/DL (75-110) H 08/16/17 04:23 Glucometer 297 mg/dL (65-110) 08/16/17 11:44 Hemoglobin A1c 6.3 % (4.0-5.7) H 08/15/17 18:35 Calculated Osmolality 272 MOSM/KG (261-280) 08/16/17 04:23 Calcium 7.7 MG/DL (8.4-10.2) L 08/16/17 04:23 Ionized Calcium Adrianna 1.08 MMOL/L (1.12-1.32) L 08/12/17 09:47 Phosphorus 2.7 MG/DL (2.5-4.5) 08/15/17 04:58 Magnesium 2.1 MG/DL (1.6-2.3) 08/15/17 04:58 Iron 35 UG/DL (49-181) L 08/11/17 06:57 Ferritin 24.2 NG/ML (18-464) 08/11/17 06:57 Total Bilirubin 0.90 MG/DL (0.20-1.30) 08/15/17 04:58 Conjugated Bilirubin 0.00 MG/DL (0.00-0.30) 08/14/17 03:54 Unconjugated Bilirubin 0.50 MG/DL (0.00-1.1) 08/14/17 03:54 Icterus Index < 2 (0-7) 08/16/17 04:23 AST 13 U/L (17-59) L 08/15/17 04:58 ALT 31 U/L (21-72) 08/15/17 04:58 Alkaline Phosphatase 79 U/L (38-126) 08/15/17 04:58 Troponin I 0.123 ng/ml (0-0.12) H 08/13/17 15:32 B-Natriuretic Peptide 1650 pg/mL (0-175) H 08/11/17 07:02 Total Protein 4.9 G/DL (6.3-8.2) L 08/15/17 04:58 Albumin 2.4 G/DL (3.5-5.0) L 08/15/17 04:58 Globulin 2.5 G/DL (2.4-3.6) 08/15/17 04:58 Albumin/Globulin Ratio 1.0 RATIO (1.1-2.2) L 08/15/17 04:58 Plasma Lactate 1.8 MMOL/L (0.6-2.2) 08/12/17 13:48 Vitamin B12 367 PG/ML (239-931) 08/11/17 06:57 TSH 3.15 MIU/L (0.47-4.68) 08/11/17 07:02 Specimen Hemolysis < 15 (0-25) 08/16/17 04:23 Intake and Output 08/15/17 08/16/17 08/17/17 06:59 06:59 06:59 Intake Total 1526.667 / 1295.491 9007.334 / 3.334 80 / 80 Output Total 1425 / 1425 2450 / 2450 150 / 150 Balance 101.667 / 101.667 -316.666 / -316.666 -70 / -70 Weight 81.1 kg 81.9 kg 81.9 kg Intake: IV 1526.667 / 0627.203 2221.334 / 3.334 80 / 80 Fat Emulsion 20% 100 ml @ 50 100.0 / 100.0 100 / 100 mls/hr IV 1600 [facility] Rx#: [id number] Sodium Acetate 80 meq POTASSIUM 1426.667 / 3046.080 4285.334 / 2032.334 80 / 80 PHOSPHATE (mEq) 40 meq Magnesium Sulfate Inj 16 meq Calcium Gluconate 9.3 meq Multi -Vit Infusion 10 ml Multi- Trace Elements 1 ml Potassium Acetate Inj 80 meq In TPN - Custom Formula 2,000 ml @ 40 mls/hr IV .Q24H [facility] Rx#: [id number] Output: Urine 1425 / 1425 2450 / 2450 150 / 150 Other: Urine Appearance Clear Clear Clear Urine Color Pale Yellow Yellow Yellow Urine Odor Normal Stool Color Black Size of Bowel Movement Smear # Voids 1 - Consult Information TPN consult: day 4 No significant electrolyte changes. Will continue same TPN formula and rate. Thank you, Catherine Schneider [facility]
[2017-08-16] MEDS: FAT EMULSION 20% 100 ML IV SCH (16:13)
[2017-08-16] MEDS: POTASSIUM PHOSPHATE IV SCH (16:14)
[2017-08-16] MEDS: MAGNESIUM SULFATE IV SCH (16:14)
[2017-08-16] MEDS: [UNRECOGNIZED DRUG - OTHER] IV SCH (16:14)
[2017-08-16] MEDS: SODIUM ACETATE IV SCH (16:14)
--- NOTE | 2017-08-16 16:50 | Progress Note ---
DATE OF VISIT 08/16/2017 REASON FOR VISIT Follow GI bleed. SUBJECTIVE David denies any abdominal pain. He visited with his and son last night and decided that he would proceed with colonoscopy. The decision was too late to be reasonable to do a bowel prep throughout the night. OBJECTIVE VITAL SIGNS: Temperature 98.5, pulse 69, blood pressure 125/74, respiratory rate 20, oxygen saturation 95% on room air. GENERAL: The patient is awake, alert, in no acute stress. ABDOMEN: Soft, nontender, nondistended. LABORATORY DATA Hemoglobin was 10.2 this morning. IMPRESSION 1. Melena - still uncertain etiology after EGD. 2. Acute blood loss anemia requiring transfusion - stable. PLAN 1. Since the patient has consented to a trial of the bowel prep we will see if he can tolerate the bowel prep this afternoon. 2. As long as he is able to complete the bowel prep I will do a colonoscopy tomorrow. 3. N.p.o. at midnight. MTDD
[2017-08-16] MEDS: TRAMADOL 50 MG TABLET PO PRN (21:11)
[2017-08-16] MEDS: SALINE FLUSH 10ml SYRINGE IVF PRN (21:13)
[2017-08-17] MEDS: INSULIN ASPART 100unit/ml INJECTION SQ PRN ×4 (01:41→18:26)
[2017-08-17] MEDS ORDERED: MORPHINE SULFATE 2mg INJECTION IVP ONE (04:03)
[2017-08-17] MEDS: SALINE FLUSH 10ml SYRINGE IVF PRN ×2 (04:05→20:20)
[2017-08-17] MEDS: SUCRALFATE 1gm/10ml ORAL LIQUID PO SCH ×4 (05:31→20:09)
[2017-08-17] MEDS: ISOSORBIDE MONONITRATE ER 30 MG TABLET PO SCH (05:31)
[2017-08-17] MEDS: FLEET PHOSPHO - SODA ENEMA 133ml PR PRN ×2 (07:18→09:39)
[2017-08-17] MEDS: ASCORBIC ACID 500 MG TABLET PO SCH (09:13)
[2017-08-17] MEDS: AMLODIPINE 5 MG TABLET PO SCH (09:14)
[2017-08-17] MEDS: FERROUS SULFATE 324 MG TABLET PO SCH (09:14)
[2017-08-17] MEDS: CIPROFLOXACIN 0.3% RIGHT EYE SCH ×2 (09:14→20:10)
[2017-08-17] MEDS: EYE RIGHT EYE SCH ×2 (09:14→20:10)
[2017-08-17] MEDS: CYANOCOBALAMIN (B-12) 500mcg TABLET PO SCH (09:14)
[2017-08-17] MEDS: PANTOPRAZOLE 40 MG INJECTION IVP SCH ×2 (09:18→20:10)
[2017-08-17] MEDS: INSULIN DETEMIR 100unit/ml INJECTION SQ SCH ×2 (09:19→20:09)
[2017-08-17] MEDS ORDERED: FLEET PHOSPHO - SODA ENEMA 133ml PR ONE (12:17)
--- NOTE | 2017-08-17 13:16 | Anesthesia Preoperative Report ---
Anesthesia Preoperative Record - Date and Time Date: 08/17/17 Preoperative Diagnosis: anemia elevated troponin NPO Since Date: 08/16/17 NPO Since Time: 00:00 Allergies/Adverse Reactions: Allergies Allergy/AdvReac Type Severity Reaction Status Date / Time No Known Drug Allergies Allergy Unknown Verified 08/11/17 06:35 - Vital Signs Vital Signs: Temperature 98.2 F 08/17/17 08:00 Pulse Rate 69 08/17/17 10:00 Respiratory Rate 23 08/17/17 10:00 Blood Pressure 130/69 08/17/17 10:00 Pulse Oximetry 96 08/17/17 10:00 Height and Weight: Height 1.78 m Weight 82.6 kg Body Mass Index 25.1 - Medications Inpatient Medications: Current Medications Amlodipine Besylate (Norvasc) 5 mg PO DAILY [facility] Last Admin: 08/17/17 09:14 Dose: 5 mg Ascorbic Acid (Vitamin C) 500 mg PO WB [facility] Last Admin: 08/17/17 09:13 Dose: Not Given Bisacodyl (Dulcolax) 10 mg RECTALLY DAILY PRN PRN Reason: Constipation Ciprofloxacin (Ciloxan) 1 applic RIGHT EYE BID [facility] Last Admin: 08/17/17 09:14 Dose: 1 applic Cyanocobalamin (Vit. B-12) 1,000 mcg PO DAILY [facility] Last Admin: 08/17/17 09:14 Dose: Not Given Dextrose (D50%W) 20 ml IVP PRN PRN PRN Reason: Hypoglycemia Dextrose (D50%W) 25 ml IVP O PRN PRN Reason: Hypoglycemia Ferrous Sulfate (Feosol) 324 mg PO [facility] Last Admin: 08/17/17 09:14 Dose: Not Given Glucose (Glutose 15) 37.5 gm PO PRN PRN PRN Reason: Hypoglycemia Fat Emulsion Intravenous (Intralipid 20%) 100 mls @ 50 mls/hr IV 1600 [facility] Last Infusion: 08/16/17 18:13 Dose: Infused Sodium Acetate 80 meq/Potassium Phosphate 40 meq/Magnesium Sulfate 16 meq/ Calcium Gluconate 9.3 meq/Multivitamins/Minerals 10 ml/Chromium/Copper/Manganese /Zinc 1 ml/ Potassium Acetate 80 meq/ Amino Acids/Electrolytes 2,124.0909 mls @ 40 mls/hr IV .Q24H [facility] PRN Reason: Protocol Last Infusion: 08/17/17 07:00 Dose: 80 mls/hr Insulin Aspart (Novolog) 3 - 12 unit SQ SS PRN; Protocol PRN Reason: Hyperglycemia Last Admin: 08/17/17 12:30 Dose: 10 unit Insulin Detemir (Levemir) 20 unit SQ BID [facility] Last Admin: 08/17/17 09:19 Dose: 20 unit Isosorbide Mononitrate (Imdur) 30 mg PO ACB [facility] Last Admin: 08/17/17 05:31 Dose: Not Given Magnesium Hydroxide (Mom) 30 ml PO DAILY PRN PRN Reason: Constipation Morphine Sulfate (Morphine Sulfate Inj) 2 - 5 mg IVP Q5M PRN PRN Reason: Chest pain Last Admin: 08/13/17 06:24 Dose: 5 mg Ondansetron HCl (Zofran) 4 mg IVP Q6H PRN PRN Reason: Nausea Last Admin: 08/13/17 13:37 Dose: 4 mg Pantoprazole Sodium (Protonix Iv) 40 mg IVP BID [facility] Last Admin: 08/17/17 09:18 Dose: 40 mg Sodium Chloride (Iv Flush) 10 - 80 ml IVF PRN PRN PRN Reason: Flushing Last Admin: 08/17/17 04:05 Dose: 10 ml Sodium Chloride (Normal Saline) 500 ml IV PRN PRN Sodium Chloride (Normal Saline) 500 ml IV PRN PRN Last Admin: 08/13/17 12:38 Dose: 500 ml Sodium Phosphate (Fleet Enema) 1 enema DC PRN PRN Last Admin: 08/17/17 09:39 Dose: 1 enema Sucralfate (Carafate Slurry) 1 gm PO [facility] Last Admin: 08/17/17 10:48 Dose: Not Given Tramadol HCl (Ultram) 50 mg PO Q4H PRN PRN Reason: Pain Last Admin: 08/16/17 21:11 Dose: 50 mg Home Medications: Home Medications Medication Instructions Recorded Confirmed Type Atorvastatin Calcium 40 mg PO HS #0 tab 10/31/16 08/11/17 History Aspirin [Aspirin EC] 81 mg PO DAILY 06/06/17 08/11/17 History Carvedilol 6.25 mg PO BIDWM 06/06/17 08/11/17 History Famotidine [Pepcid AC] 20 mg PO BID 06/06/17 08/11/17 History Insulin Detemir [Levemir Flextouch] 10 unit SQ HS 06/06/17 08/11/17 History Magnesium Oxide [Magnesium] 400 mg PO DAILY 06/06/17 08/11/17 History SACUBITRIL/VALSARTAN 49/51mg 1 tab PO BID 06/06/17 08/11/17 History [ENTRESTO 49/51mg] Warfarin Sodium 4 mg PO DAILY 06/06/17 08/11/17 History Warfarin Sodium 5 mg PO DAILY 06/06/17 08/11/17 History glipiZIDE [Glipizide ER] 10 mg PO DAILY 06/06/17 08/11/17 History Humalog KwikPen (insulin lispro) 5 unit SQ ACS ml 07/10/17 08/11/17 History 100 unit/mL SQ PEN Ferrous Sulfate [Iron] 325 mg PO DAILY 08/11/17 08/11/17 History Is Patient on Beta Arabella?: No - Medical History Respiratory: Reports: Orthopnea, Pneumonia DENIES: Asthma, Bronchitis, Chronic Obstructive Pulmonary Disease (COPD), Dyspnea, Pulmonary Embolism, Upper Respiratory Infection, Pulmonary Edema, Sleep Apnea, Tuberculosis, Other Cardiovascular: Reports: Angina (relieve with NTG), Arrhythmia, Congestive Heart Failure (history), Coronary Artery Disease (s/p CABG x 4), Hypertension, High Cholesterol, Myocardial Infarction (x2), Other (hx of ischemic cardiomyopathy. Pt. has PPM with AICD per history) Gastrointestional: Reports: Gastroesophageal Reflux Disease, Gastrointestinal Bleeding (FROM COLON CANCER), Hiatal Hernia, Ulcer DENIES: Obstructive Bowel, Hepatitis, Cirrhosis, Nausea or Vomiting Present, Morbid Obesity, Other Neuro/Musculoskeletal: Reports: HX.MS.OSAR, Cerebrovascular Accident (September 2016 ischemic, October 2016 has hemorrhagic), Muscle Weakness (RT SIDED R/T CVA) Denies: Back Problems, Depression, Headaches, Loss of Consciousness, Neuromuscular Disorder, Paralysis, Paresthesia, Syncope, Seizures, Other Renal/Endocrine: Reports: Diabetes Mellitus Type 2 Other History: Reports: Blood Transfusions (NO PROBLEMS), Cancer (COLON, MELANOMAx2), Other (RADIATION FOR COLON CA) - Surgical History HEENT Surgeries: Reports: Ear Surgery, Eye Surgery (CATARACTS BI-LAT), Other ( DETACHED RETINA, RT EYE) Cardiac Surgeries/Treatments: Reports: Cardiac Catheterization, Coronary Artery Bypass Graft (per cardiology history), Internal Defibrillator (per cardiology history), Pacemaker, Other (Quid Bybayayo 2008) GI Surgery/Treatments: Reports: Appendectomy, Colon Resection (R/T CA), Hernia Repair (BI-LAT INGUINAL) Reproductive Surgery/Treatment: Reports: Vasectomy Anesthesia Reactions: None Hx Family Anesthesia Reaction: No History of Motion Sickness: No - Social History Smoking Status: Never smoker Hx Chewing Tobacco Use: No Second Hand Exposure: No Substance Use Type: does not use Alcohol Intake: never Alcohol Intake Frequency: former alcohol drinker - Pertinent Findings Laboratory: CBC and BMP 08/17/17 05:20 08/17/17 05:21 BMP 08/17/17 05:21 Sodium 132 L Potassium 4.0 Chloride 101 Carbon Dioxide 27 BUN 19.0 Creatinine 0.9 Glucose 186 H Calcium 7.8 L EKG: Sinus Rhythm - Physical Exam Respiratory Exam: Present: lungs clear, bilateral breath sounds equal Cardiovascular Exam: Present: regular rate and rhythm, no murmur - Airway Assessment Mallampati Score: II TMD: 2 Fingerbreadths Teeth: upper dentures, lower dentures Overall Assessment: no airway concerns - ASA ASA Score: 4 - Plan Anesthesia: General TIVA - Discussion Discussion: Discussed risks/options/alternatives of anesthesia and questions answered. Patient consents. Nursing pain assessment noted. Attestation Statement: Prior to the delivery of any anesthetic medication, I examined the patient, developed the plan, obtained the patient's consent and discussed the risk and benefits of the procedure with the patient/guardian. - Additional Information Seen by Anesthesia: Yes
[2017-08-17] MEDS ORDERED: PROPOFOL 500 MG/50 ML VIAL ONE (13:29)
[2017-08-17] MEDS ORDERED: NS 500 ML IV SCH (13:30)
[2017-08-17] MEDS ORDERED: PHENYLEPHRINE INJ 10 MG/ML VIAL IV ONE (14:26)
[2017-08-17] MEDS ORDERED: SALINE FLUSH 10ml SYRINGE ONE (14:27)
--- NOTE | 2017-08-17 15:03 | General Surgery Procedure Note ---
Date of Procedure: 08/17/17 Surgeon: Sagar ASA Score: 4 Postoperative Diagnosis: Melena, moderate sigmoid diverticulosis, colon polyps x5 Procedure: Colonoscopy with polypectomy x 5
--- NOTE | 2017-08-17 15:30 | Anesthesia Postoperative Note ---
- Date and Time Date: 08/17/17 Time: 15:28 - Status Patient Participated in Evaluation: Patient Participated in Person Vital Signs: Temperature 97.2 F 08/17/17 15:21 Pulse Rate 60 08/17/17 15:25 Respiratory Rate 17 08/17/17 15:25 Blood Pressure 131/68 08/17/17 15:25 Pulse Oximetry 94 08/17/17 15:25 Respiratory Function: Airway Patent, Regular Respirations Cardiovascular Function: Regular Pulse Mental Status: Lethargic (arouse easily) Pain Intensity: 0 Hydration: IV Infusing Complications During Recover: None Apparent - Follow-Up Instructions Instructions: Per Surgeon
--- NOTE | 2017-08-17 15:30 | Pharmacy Consult-TPN/PPN ---
Pharmacy Consult-TPN/PPN - Laboratory Information Chemistry Turbidity < 20 (0-20) 08/17/17 05:21 Sodium 132 MEQ/L (134-144) L 08/17/17 05:21 Potassium 4.0 MEQ/L (3.6-5) 08/17/17 05:21 Chloride 101 MEQ/L (98-107) 08/17/17 05:21 Carbon Dioxide 27 MEQ/L (22-30) 08/17/17 05:21 Anion Gap 4 MEQ/L (5-15) L 08/17/17 05:21 BUN 19.0 MG/DL (9-20) 08/17/17 05:21 Creatinine 0.9 MG/DL (0.8-1.5) 08/17/17 05:21 GFR Calculation 82 08/17/17 05:21 BUN/Creatinine Ratio 21 RATIO (6-26) 08/17/17 05:21 Glucose 186 MG/DL (75-110) H 08/17/17 05:21 Glucometer 330 mg/dL (65-110) 08/17/17 12:10 Hemoglobin A1c 6.3 % (4.0-5.7) H 08/15/17 18:35 Calculated Osmolality 262 MOSM/KG (261-280) 08/17/17 05:21 Calcium 7.8 MG/DL (8.4-10.2) L 08/17/17 05:21 Ionized Calcium Adrianna 1.08 MMOL/L (1.12-1.32) L 08/12/17 09:47 Phosphorus 2.7 MG/DL (2.5-4.5) 08/15/17 04:58 Magnesium 2.1 MG/DL (1.6-2.3) 08/15/17 04:58 Iron 35 UG/DL (49-181) L 08/11/17 06:57 Ferritin 24.2 NG/ML (18-464) 08/11/17 06:57 Total Bilirubin 0.90 MG/DL (0.20-1.30) 08/15/17 04:58 Conjugated Bilirubin 0.00 MG/DL (0.00-0.30) 08/14/17 03:54 Unconjugated Bilirubin 0.50 MG/DL (0.00-1.1) 08/14/17 03:54 Icterus Index < 2 (0-7) 08/17/17 05:21 AST 13 U/L (17-59) L 08/15/17 04:58 ALT 31 U/L (21-72) 08/15/17 04:58 Alkaline Phosphatase 79 U/L (38-126) 08/15/17 04:58 Troponin I 0.123 ng/ml (0-0.12) H 08/13/17 15:32 B-Natriuretic Peptide 1650 pg/mL (0-175) H 08/11/17 07:02 Total Protein 4.9 G/DL (6.3-8.2) L 08/15/17 04:58 Albumin 2.4 G/DL (3.5-5.0) L 08/15/17 04:58 Globulin 2.5 G/DL (2.4-3.6) 08/15/17 04:58 Albumin/Globulin Ratio 1.0 RATIO (1.1-2.2) L 08/15/17 04:58 Plasma Lactate 1.8 MMOL/L (0.6-2.2) 08/12/17 13:48 Vitamin B12 367 PG/ML (239-931) 08/11/17 06:57 TSH 3.15 MIU/L (0.47-4.68) 08/11/17 07:02 Specimen Hemolysis < 15 (0-25) 08/17/17 05:21 Intake and Output 08/16/17 08/17/17 08/18/17 06:59 06:59 06:59 Intake Total 2133.334 / 2133.334 4026.667 / 4026.667 799.333 / 799.333 Output Total 2450 / 2450 1300 / 1300 175 / 175 Balance -316.666 / -758.107 4253.667 / 2726.667 624.333 / 624.333 Weight 81.9 kg 81.9 kg 82.6 kg Intake: IV 2133.334 / 2133.334 1986.667 / 1986.667 799.333 / 799.333 Fat Emulsion 20% 100 ml @ 50 100 / 100 100 / 100 mls/hr IV 1600 [facility] Rx#: [id number] Ns 500 ml @ 50 mls/hr IV .Q10H 150 / 150 [facility] Rx#:[id number] Sodium Acetate 80 meq POTASSIUM 2033.334 / 2033.334 1886.667 / 1886.667 649.333 / 649.333 PHOSPHATE (mEq) 40 meq Magnesium Sulfate Inj 16 meq Calcium Gluconate 9.3 meq Multi -Vit Infusion 10 ml Multi- Trace Elements 1 ml Potassium Acetate Inj 80 meq In TPN - Custom Formula 2,000 ml @ 40 mls/hr IV .Q24H [facility] Rx#: [id number] Oral 2039 / 2039 Output: Urine 2450 / 2450 1300 / 1300 175 / 175 Other: Urine Appearance Clear Clear Clear Urine Color Yellow Yellow Yellow Urine Odor Strong Stool Characteristics Tarry Stool Color Black Brown Clear Stool Consistency Liquid Liquid Size of Bowel Movement Moderate Large # Voids 1 1 1 # Bowel Movements 1 1 # Incontinent Bowel Movements 1 - Consult Information TPN consult: day 5 Sodium level is low at 132. This decrease is likely due to the effects of yesterday's bowel prep. Chloride has is no longer elevated. Will change to Standard formula TPN with an additional 40 MEq of Sodium Acetate. TPN electrolyte pattern listed below. Continue same TPN rate 80 ml/hr. Thank you, Catherine Schneider, [facility] Amino Acids 8.5% 1000 mL Dextrose 50% 1000 mL Electrolytes: Conc: Total/bag: Sodium 35 mEq/L 70 mEq + additional 40 meq Potassium 30 mEq/L 60 mEq Magnesium 5 mEq/L 10 mEq Calcium 4.5 mEq/L 9 mEq Acetate 70 mEq/L 140 mEq + 40 meq Chloride 39 mEq/L 78 mEq Phosphate 15 mmol/L 30 mmol MVI 10 ml trace elements 1 ml
[2017-08-17] MEDS: TRAMADOL 50 MG TABLET PO PRN ×2 (15:48→20:10)
[2017-08-17] MEDS ORDERED: MULTI VIT INFUSION IV SCH (16:00)
[2017-08-17] MEDS ORDERED: SODIUM ACETATE IV SCH (16:00)
[2017-08-17] MEDS ORDERED: MULTI TRACE ELEMENTS IV SCH (16:00)
[2017-08-17] MEDS ORDERED: [UNRECOGNIZED DRUG - OTHER] IV SCH (16:00)
[2017-08-17] MEDS: FAT EMULSION 20% 100 ML IV SCH (16:29)
[2017-08-17] MEDS ORDERED: ALTEPLASE (Cathflo*) 2mg INJECTION IV ONE (19:26)
--- NOTE | 2017-08-17 21:06 | Progress Note ---
- Date 08/17/17 Subjective: The patient was seen earlier this evening in CCU. He underwent colonoscopy today with Dr. Keith and this showed some diverticuli and polyps were resected. No obvious source for bleeding was seen although he could've bled from one of the diverticuli and it has resolved. Postprocedure, the patient was eating a good dinner. His appetite is good. I think his TPN can be discontinued after this current bag is finished. He has had no further bloody stools. Hemoglobin is stable at 10.2. He has had no further chest pain since his hemoglobin has been in the high 9 to low 10 range. He is breathing well. Objective Vital signs: Temperature 97.4 F 08/17/17 20:00 Pulse Rate 63 08/17/17 20:30 Respiratory Rate 15 08/17/17 20:30 Blood Pressure 143/65 H 08/17/17 20:30 Pulse Oximetry 91 08/17/17 20:30 Height/Weight/BMI: Height 1.78 m Weight 82.6 kg Body Mass Index 25.1 Comments: Afebrile, heart rate 63, respirations 15, blood pressure 143/65, O2 sat 91% on room air GEN-alert, no acute distress HEENT-right eye reveals some mild erythema but decreased drainage, left eye appears normal, oropharynx is moist NECK-supple CV-regular rate and rhythm CHEST-clear to auscultation ABD-soft, nontender with positive bowel sounds -no Hawkins EXT-no edema NEURO-mild slurred speech from old stroke, no new weakness SKIN-warm and dry Results - Labs CBC & Chem 7: 08/17/17 05:20 08/17/17 05:21 Microbiology Results: Microbiology 08/14/17 14:58 Gastric Biopsy Helicobacter pylori Rapid Urease - Final Assessment and Plan (1) Acute blood loss anemia Current visit: Yes Status: Acute (2) Chest pain Current visit: Yes Status: Acute Assessment and Plan: Impression Melena - acute GI bleed-EGD negative. Colonoscopy revealed polyps and diverticuli but no obvious source for bleeding. No further melena for 3 days. Acute Blood loss anemia- Hgb on admission 5.2 -the patient is required 6 units of blood and 1 unit of FFP-hemoglobin 10.2. Last transfusion was 08/13/2017 Chest pain -none since 08/14/2017 in the morning. Hemoglobin has improved to approximately 10. He has a nitroglycerin patch on Elevated Troponin - NSTEMI -- possible Type II secondary to anemia -troponin trending down Leukocytosis- POA-resolved CAD Stroke-ischemic and hemorrhagic (2016) Type 2 DM -hyperglycemia secondary to TPN HTN CHF Hypercholesterolemia Hx Colon cancer Chronic anticoagulation- Warfarin currently on hold-may need to reconsider risk- benefit ratio (history of hemorrhagic stroke, recent epistaxis requiring intervention, now with GI bleed) Malnutrition-TPN initiated Metabolic acidosis is improving Mild thrombocytopenia Right eye conjunctivitis-not improving on erythromycin. Changed to Cipro on Iron deficiency anemia-start oral iron Borderline B-12 level-we'll give oral B 12 Plan Hemoglobin has been stable and the patient has not required a transfusion since the . EGD was done 08/14/2017 and did not show any cause for his GI bleed. Colonoscopy today on 08/17/2017 did not show any obvious source for bleed but there were diverticuli. Polyps were resected. Chest pain has resolved with hemoglobin in the 10 range and Nitropatch. DC TPN current bag is empty Dark oral iron Start oral B 12 Overall, the patient is doing well. Hemoglobin has stabilized at 10. GI bleeding seems to have resolved off of Coumadin. The source of the bleed is unknown at this time. It is likely too risky to resume Coumadin or other anticoagulation. We'll need to discuss with cardiology tomorrow. If the patient is eating and drinking well tomorrow and having no further chest discomfort, he could likely be discharged soon if okay with Dr. Hooks and Dr. Keith. We'll consult PT and OT to evaluate strength to see if he is able to return home. Discussed today with Dr. Keith. - Physician Narrative Narrative: Date: 08/17/17 Time: 2101 Hospital Course Summary Disclaimer: The visit summary below is not to be considered part of the above Progress Note. Hospital Course: Impression Blood loss anemia- Hgb on admission 5.2 Chest pain Elevated Troponin Leukocytosis- POA- 20 CAD Stroke-ischemic and hemorrhagic (2017) Type 2 DM HTN CHF Hypercholesterolemia Hx Colon cancer Chronic anticoagulation- Warfarin Plan Admit patient as inpatient under the care of Dr Espinoza for Anemia, chest pain Type screen and given 2 units of PRBCs on admission Monitor telemetry and obtain serial troponins. Consult placed to Dr Hooks who is David's report clerk. Check UA given leukocytosis will treat as needed however leukocytosis may be reactive Protonix IV for GI protection NS 100 ml for gentle hydration. May have clear liquids only. SCDs to Bilateral lower ext for DVT prophylaxis Monitor blood counts carefully. At this time he is hemodynamically stable Again , patient does wish to be a full code and this order is written. Will discuss further orders and plan of care with attending, Dr. Espinoza. At time of discharge medical care will return to primary care provider. Dr. Srivastava 08/17/2017 Hemoglobin has been stable and the patient has not required a transfusion since the . EGD was done 08/14/2017 and did not show any cause for his GI bleed. Colonoscopy today on 08/17/2017 did not show any obvious source for bleed but there were diverticuli. Polyps were resected. Chest pain has resolved with hemoglobin in the 10 range and Nitropatch. DC TPN current bag is empty Dark oral iron Start oral B 12 Overall, the patient is doing well. Hemoglobin has stabilized at 10. GI bleeding seems to have resolved off of Coumadin. The source of the bleed is unknown at this time. It is likely too risky to resume Coumadin or other anticoagulation. We'll need to discuss with cardiology tomorrow. If the patient is eating and drinking well tomorrow and having no further chest discomfort, he could likely be discharged soon if okay with Dr. Hooks and Dr. Keith. We'll consult PT and OT to evaluate strength to see if he is able to return home.
[2017-08-18] MEDS: INSULIN ASPART 100unit/ml INJECTION SQ PRN ×2 (00:44→06:35)
[2017-08-18] MEDS: SALINE FLUSH 10ml SYRINGE IVF PRN ×5 (05:35→20:43)
[2017-08-18] MEDS: SUCRALFATE 1gm/10ml ORAL LIQUID PO SCH ×4 (05:36→20:42)
[2017-08-18] MEDS: ISOSORBIDE MONONITRATE ER 30 MG TABLET PO SCH (05:39)
--- NOTE | 2017-08-18 07:19 | Operative Note ---
DATE OF OPERATION 08/17/2017 SURGEON Federico Keith MD PREOPERATIVE DIAGNOSES 1. Melena. 2. Acute blood loss anemia - stable after transfusion. 3. Personal history of colorectal cancer. POSTOPERATIVE DIAGNOSES 1. Melena - no clear etiology but bleeding was potentially from moderate diverticulosis. 2. Moderate sigmoid diverticulosis. 3. No evidence of recurrence at his coloanal anastomosis. 4. 0.5 cm pedunculated polyp of the ascending colon. 5. 0.7 cm sessile colon polyp at 60 cm x 2. 6. Less than 0.5 cm sessile colon polyp at 60 cm. 7. Less than 0.5 cm sessile polyp of the colon at 45 cm. PROCEDURE Colonoscopy with hot biopsy forceps polypectomy x 3 and hot snare polypectomy x 2. ANESTHESIA TIVA ASA CLASS 4 INDICATIONS The patient is a 76-year-old male who had been hospitalized for melena. He had been observed and required transfusion of 6 units of blood total. He previously had an EGD but had not been feeling well enough to tolerate a bowel prep, so colonoscopy was not able to be performed earlier in his hospital stay. Since EGD did not show any definite etiology for his melena, a colonoscopy was recommended to him. FINDINGS There were surgical changes of the anal canal but no identified evidence of any recurrence at his coloanal anastomosis. The scope could not be retroflexed given the narrow caliber of the sigmoid colon that had been used to create the anastomosis. There was moderate diverticulosis of the sigmoid colon. Five polyps were encountered throughout the colon as described above. DESCRIPTION OF PROCEDURE After informed consent was obtained the patient was taken to the endoscopy suite and placed in the left lateral decubitus position. IV anesthesia was administered by the anesthesia team. A digital rectal exam was performed. There was narrowing but no actual stricture of the anal canal from prior anastomosis. There was more density posteriorly but a definite recurrent mass could not be identified. The Olympus video colonoscope with an AmplWhim device was then inserted. The scope was advanced to the level of the ascending colon where a pedunculated polyp was noted. It was grasped with hot biopsy forceps. The mucosa was tented and cautery was applied to destroy the base of the polyp. The polyp was then removed with the biopsy forceps and was sent to pathology. The scope was advanced the remainder of the distance to the cecum which was identified by the appendiceal orifice and ileocecal valve. The bowel prep was good with some residual liquid contents of the colon that were able to be irrigated and evacuated via the colonoscope. The scope was slowly withdrawn examining the mucosa circumferentially. No other abnormalities were noted until the 60 cm nereyda on scope withdrawal. Landmarks were difficult given the patient's prior colectomy and alteration of the normal anatomy. Three polyps in close proximity were discovered. A larger sessile polyp was encircled with a polypectomy snare. The mucosa was tented and then cautery was applied via the snare to divide the base of the polyp. It was grasped with a biopsy forceps and removed through the colonoscope. It was then sent to Pathology. Another smaller adjacent polyp was removed with the hot biopsy forceps polypectomy technique and a third 0.7 cm sessile polyp was encircled with the polypectomy snare and removed with a hot snare technique. The scope was withdrawn to 45 cm where a very small polyp was encountered. It was removed with the hot biopsy forceps polypectomy technique and was also sent to pathology. The scope was withdrawn to the end of the colon where the carbon dioxide was evacuated prior to scope removal. RECOMMENDATIONS 1. Avoid anticoagulants for now. The patient's does not want to resume anticoagulation in the future. 2. Advance to a regular consistency diet. 3. Await pathology results. THERON
[2017-08-18] MEDS: CYANOCOBALAMIN (B-12) 500mcg TABLET PO SCH (08:58)
[2017-08-18] MEDS: CIPROFLOXACIN 0.3% RIGHT EYE SCH ×2 (08:59→20:42)
[2017-08-18] MEDS: EYE RIGHT EYE SCH ×2 (08:59→20:42)
[2017-08-18] MEDS: AMLODIPINE 5 MG TABLET PO SCH (08:59)
[2017-08-18] MEDS: ASCORBIC ACID 500 MG TABLET PO SCH (08:59)
[2017-08-18] MEDS: FERROUS SULFATE 324 MG TABLET PO SCH (08:59)
[2017-08-18] MEDS: PANTOPRAZOLE 40 MG INJECTION IVP SCH ×2 (08:59→20:42)
[2017-08-18] MEDS: INSULIN DETEMIR 100unit/ml INJECTION SQ SCH (09:00)
--- NOTE | 2017-08-18 09:03 | Progress Note ---
DATE OF VISIT 08/15/2017 REASON FOR VISIT Follow GI bleed. SUBJECTIVE David denies any abdominal pain. He feels like he is drinking somewhat better, but he says he still does not think that he can take the 64 ounces of bowel prep. He currently wants to avoid a colonoscopy during this hospital stay and think about it as an outpatient. OBJECTIVE VITALS: Temperature 98.5, pulse 72, blood pressure 144/81, respiratory rate 21 , oxygen saturation 96%. GENERAL: The patient is awake, alert, in no acute distress. ABDOMEN: Soft, nontender, nondistended. LABORATORY DATA Hemoglobin was 10.1 this morning. IMPRESSION 1. Acute GI bleed with melanotic stools - apparently resolved. 2. Acute blood loss anemia requiring transfusion - stable. 2. Personal history of colon cancer. PLAN 1. I did strongly recommend colonoscopy to David, but he is still not convinced that he wants to go through with the bowel prep. 2. I did contact his by telephone and encourage her to have a discussion with David about proceeding with a bowel prep. She will try to do this this evening. 3. If she can convince him to proceed with the bowel prep, then hopefully he can be prepped tomorrow and scoped on Friday. THERON
--- NOTE | 2017-08-18 09:29 | Progress Note ---
- Date 08/18/17 Objective Vital signs: Temperature 96.7 F L 08/18/17 07:42 Pulse Rate 61 08/18/17 07:42 Respiratory Rate 18 08/18/17 07:42 Blood Pressure 131/68 08/18/17 07:42 Pulse Oximetry 96 08/18/17 07:42 Height/Weight/BMI: Height 1.78 m Weight 83 kg Body Mass Index 25.1 Results - Labs CBC & Chem 7: 08/18/17 04:42 08/18/17 04:42 Microbiology Results: Microbiology 08/14/17 14:58 Gastric Biopsy Helicobacter pylori Rapid Urease - Final Assessment and Plan (1) Acute blood loss anemia Current visit: Yes Status: Acute (2) Chest pain Current visit: Yes Status: Acute Assessment and Plan: Impression Melena - acute GI bleed-EGD negative. Colonoscopy revealed polyps and diverticuli but no obvious source for bleeding. No further melena for 3 days. Acute Blood loss anemia- Hgb on admission 5.2 -the patient is required 6 units of blood and 1 unit of FFP-hemoglobin 10.2. Last transfusion was 08/13/2017 Chest pain -none since 08/14/2017 in the morning. Hemoglobin has improved to approximately 10. He has a nitroglycerin patch on Elevated Troponin - NSTEMI -- possible Type II secondary to anemia -troponin trending down Leukocytosis- POA-resolved CAD Stroke-ischemic and hemorrhagic (2016) Type 2 DM -hyperglycemia secondary to TPN HTN CHF Hypercholesterolemia Hx Colon cancer Chronic anticoagulation- Warfarin currently on hold-may need to reconsider risk- benefit ratio (history of hemorrhagic stroke, recent epistaxis requiring intervention, now with GI bleed) Malnutrition-TPN initiated Metabolic acidosis is improving Mild thrombocytopenia Right eye conjunctivitis-not improving on erythromycin. Changed to Cipro on Iron deficiency anemia-start oral iron Borderline B-12 level-we'll give oral B 12 Plan Hemoglobin has been stable and the patient has not required a transfusion since the . EGD was done 08/14/2017 and did not show any cause for his GI bleed. Colonoscopy today on 08/17/2017 did not show any obvious source for bleed but there were diverticuli. Polyps were resected. Chest pain has resolved with hemoglobin in the 10 range and Nitropatch. DC TPN current bag is empty Dark oral iron Start oral B 12 Overall, the patient is doing well. Hemoglobin has stabilized at 10. GI bleeding seems to have resolved off of Coumadin. The source of the bleed is unknown at this time. It is likely too risky to resume Coumadin or other anticoagulation. We'll need to discuss with cardiology tomorrow. If the patient is eating and drinking well tomorrow and having no further chest discomfort, he could likely be discharged soon if okay with Dr. Hooks and Dr. Keith. We'll consult PT and OT to evaluate strength to see if he is able to return home. Discussed today with Dr. Keith. - Physician Narrative Narrative: Date: 08/18/17 Time: 919 Hospital Course Summary Disclaimer: The visit summary below is not to be considered part of the above Progress Note. Hospital Course: Impression Blood loss anemia- Hgb on admission 5.2 Chest pain Elevated Troponin Leukocytosis- POA- 20 CAD Stroke-ischemic and hemorrhagic (2017) Type 2 DM HTN CHF Hypercholesterolemia Hx Colon cancer Chronic anticoagulation- Warfarin Plan Admit patient as inpatient under the care of Dr Espinoza for Anemia, chest pain Type screen and given 2 units of PRBCs on admission Monitor telemetry and obtain serial troponins. Consult placed to Dr Hooks who is David's sanding machine tender. Check UA given leukocytosis will treat as needed however leukocytosis may be reactive Protonix IV for GI protection NS 100 ml for gentle hydration. May have clear liquids only. SCDs to Bilateral lower ext for DVT prophylaxis Monitor blood counts carefully. At this time he is hemodynamically stable Again , patient does wish to be a full code and this order is written. Will discuss further orders and plan of care with attending, Dr. Espinoza. At time of discharge medical care will return to primary care provider. Dr. Srivastava 08/17/2017 Hemoglobin has been stable and the patient has not required a transfusion since the . EGD was done 08/14/2017 and did not show any cause for his GI bleed. Colonoscopy today on 08/17/2017 did not show any obvious source for bleed but there were diverticuli. Polyps were resected. Chest pain has resolved with hemoglobin in the 10 range and Nitropatch. DC TPN current bag is empty Dark oral iron Start oral B 12 Overall, the patient is doing well. Hemoglobin has stabilized at 10. GI bleeding seems to have resolved off of Coumadin. The source of the bleed is unknown at this time. It is likely too risky to resume Coumadin or other anticoagulation. We'll need to discuss with cardiology tomorrow. If the patient is eating and drinking well tomorrow and having no further chest discomfort, he could likely be discharged soon if okay with Dr. Hooks and Dr. Keith. We'll consult PT and OT to evaluate strength to see if he is able to return home.
[2017-08-18] MEDS: MORPHINE SULFATE 10 MG SYRINGE IVP PRN (09:50)
[2017-08-18] MEDS: ONDANSETRON 4 MG/2 ML INJECTION IVP PRN ×2 (09:50→18:25)
--- NOTE | 2017-08-18 13:10 | Cardiology Progress Note ---
<Nataly Lockett - Last Filed: 08/19/17 10:15> Subjective Principal diagnosis: anemia, elevated troponin Interval history: David is seen in follow up for anemia and elevated troponin. He is examined in his room on the Medical unit. He denies chest pain or pressure, palpitations, dyspnea, dizziness, nausea. Exam Vital signs: Temperature 96.9 F 08/18/17 11:00 Pulse Rate 68 08/18/17 11:00 Respiratory Rate 16 08/18/17 11:00 Blood Pressure 125/70 08/18/17 11:00 Pulse Oximetry 94 08/18/17 11:00 - Constitutional no acute distress, well nourished, cooperative - Routine HEENT Exam Head: Present: normocephalic ENT: Present: mucous membranes moist - Routine Neck Exam Absent: JVD, carotid bruit - Routine Chest/Breast/Axilla Exam Chest wall: Present: pacemaker. Absent: tenderness - Routine Respiratory Exam Present: CTA bilaterally. Absent: rales, wheezes - Routine Cardiovascular Exam Present: RRR, no murmur - Routine Abdominal Exam Present: soft, normoactive bowel sounds - Routine Skin Exam Present: intact, dry, warm - Routine Neurological Exam Present: alert, oriented X3 - Routine Psychiatric Exam Present: normal affect, normal thought process - Additional findings Additional findings: Amlodipine Besylate (Norvasc) 5 mg PO DAILY [facility] Last Admin: 08/18/17 08:59 Dose: 5 mg Ascorbic Acid (Vitamin C) 500 mg PO [facility] Last Admin: 08/18/17 08:59 Dose: 500 mg Bisacodyl (Dulcolax) 10 mg RECTALLY DAILY PRN PRN Reason: Constipation Ciprofloxacin (Ciloxan) 1 applic RIGHT EYE BID [facility] Last Admin: 08/18/17 08:59 Dose: 1 applic Cyanocobalamin (Vit. B-12) 1,000 mcg PO DAILY [facility] Last Admin: 08/18/17 08:58 Dose: 1,000 mcg Dextrose (D50%W) 20 ml IVP PRN PRN PRN Reason: Hypoglycemia Dextrose (D50%W) 25 ml IVP O PRN PRN Reason: Hypoglycemia Ferrous Sulfate (Feosol) 324 mg PO [facility] Last Admin: 08/18/17 08:59 Dose: 324 mg Glucose (Glutose 15) 37.5 gm PO PRN PRN PRN Reason: Hypoglycemia Insulin Aspart (Novolog) 3 - 12 unit SQ SS PRN; Protocol PRN Reason: Hyperglycemia Last Admin: 08/18/17 06:35 Dose: 7 unit Isosorbide Mononitrate (Imdur) 30 mg PO ACB [facility] Last Admin: 08/18/17 05:39 Dose: 30 mg Magnesium Hydroxide (Mom) 30 ml PO DAILY PRN PRN Reason: Constipation Morphine Sulfate (Morphine Sulfate Inj) 2 - 5 mg IVP Q5M PRN PRN Reason: Chest pain Last Admin: 08/18/17 09:50 Dose: 4 mg Ondansetron HCl (Zofran) 4 mg IVP Q6H PRN PRN Reason: Nausea Last Admin: 08/18/17 09:50 Dose: 4 mg Pantoprazole Sodium (Protonix Iv) 40 mg IVP BID [facility] Last Admin: 08/18/17 08:59 Dose: 40 mg Sodium Chloride (Iv Flush) 10 - 80 ml IVF PRN PRN PRN Reason: Flushing Last Admin: 08/18/17 09:49 Dose: 60 ml Sodium Chloride (Normal Saline) 500 ml IV PRN PRN Sodium Chloride (Normal Saline) 500 ml IV PRN PRN Last Admin: 08/13/17 12:38 Dose: 500 ml Sucralfate (Carafate Slurry) 1 gm PO ACHS [facility] Last Admin: 08/18/17 11:59 Dose: 1 gm Tramadol HCl (Ultram) 50 mg PO Q4H PRN PRN Reason: Pain Last Admin: 08/17/17 20:10 Dose: 50 mg Results 08/19/17 04:12 08/19/17 04:12 CBC 08/18/17 Range/Units 04:42 WBC 7.3 (4.5-11.0) T/MM3 RBC 3.31 L (4.50-5.90) M/MM3 Hgb 9.6 L (13.5-17.5) GM/DL Hct 29.3 L (41-53) % Plt Count 130 (130-400) T/MM3 Comprehensive Metabolic Panel 08/18/17 Range/Units 04:42 Sodium 136 (134-144) MEQ/L Potassium 3.9 (3.6-5) MEQ/L Chloride 103 (98-107) MEQ/L Carbon Dioxide 26 (22-30) MEQ/L BUN 20.0 (9-20) MG/DL Creatinine 0.9 (0.8-1.5) MG/DL Glucose 270 H (75-110) MG/DL Calcium 7.7 L (8.4-10.2) MG/DL Intake and Output 08/17/17 08/18/17 08/18/17 22:59 06:59 14:59 Intake Total 582.4249 / 582.4249 200 / 200 978.667 / 978.667 Output Total 525 / 525 550 / 550 Balance 57.4249 / 57.4249 -350 / -350 978.667 / 978.667 Intake: IV 482.4249 / 482.4249 978.667 / 978.667 Fat Emulsion 20% 100 ml @ 50 100.000 / 100.000 mls/hr IV 1600 [facility] Rx#: [id number] Sodium Acetate 40 meq Multi-Vit 302.667 / 302.667 978.667 / 978.667 Infusion 10 ml Multi-Trace Elements 1 ml In TPN - Standard Formula 2,000 ml @ 80 mls/hr IV .Q24H [facility] Rx#:[id number] Sodium Acetate 80 meq POTASSIUM 79.7579 / 79.7579 PHOSPHATE (mEq) 40 meq Magnesium Sulfate Inj 16 meq Calcium Gluconate 9.3 meq Multi -Vit Infusion 10 ml Multi- Trace Elements 1 ml Potassium Acetate Inj 80 meq In TPN - Custom Formula 2,000 ml @ 40 mls/hr IV .Q24H [facility] Rx#: [id number] Oral 100 / 100 200 / 200 Output: Urine 525 / 525 550 / 550 Other: Urine Appearance Clear Urine Color Yellow Yellow Urine Odor Normal Stool Color Brown Stool Consistency Soft Size of Bowel Movement Smear Weight 182 lb 15.739 oz Patient Weight 08/19/17 06:59 Weight 182 lb 15.739 oz Assessment and Plan - Assessment and Plan (1) Acute blood loss anemia Current visit: Yes Status: Acute (2) Chest pain Current visit: Yes Status: Acute (3) Elevated troponin Current visit: Yes Status: Acute (4) Atherosclerosis of coronary artery bypass graft without angina pectoris Current visit: Yes Status: Chronic (5) Ischemic cardiomyopathy Current visit: Yes Status: Chronic (6) HTN (hypertension) Current visit: No Status: Chronic (7) Presence of automatic implantable cardioverter-defibrillator Current visit: Yes Status: Chronic - Assessment and Plan 08/11/17 Acute blood loss anemia: -per hospitalist - With patient's CAD HGB needs to be 10 Chest pain: First episode on Friday, again yesterday morning - relieved by nitro - diaphoretic with first episode, not the second - Left arm pain with first episode only - Trend serial troponin levels - EKG: SR. inferior HI, indeterminate age, anterolateral HI, indeterminate age , ST-T changes Elevated troponin:- Trend serial troponin levels, likely elevated due to acute anemia - EKG: SR. inferior HI, indeterminate age, anterolateral HI, indeterminate age , ST-T changes Ischemic CM: Continue Coreg and Entresto as VS allow Thank you for allowing us to participate in the care of this patient. 08/12/17 Denies chest pain today. Transferred to CCU by hospitalist due to continued anemia despite 3 units PRBCS 4th unit ordered. Trend troponin 08/13/17 Has more chest pain, last night and again this morning. - Nitro paste 0.5 inch Q6H - Replacing blood loss should improve angina - Okay to perform diagnostic scope when okay with surgery - Would prefer during daytime while produce laborer is available 08/14/17 Increase nitro paste to 1 inch Q6H 08/15/17 Start Amlodipine 5mg daily for angina - Change Nitro paste to Imdur 30mg daily - When discharged, no anticoagulation due to recent GI bleed. 08/18/17 No further chest pain since Imdur started on Friday. Stable for discharge from cardiology. Hospital Course Summary Disclaimer: The visit summary below is not to be considered part of the above Progress Note. Hospital Course: Impression Blood loss anemia- Hgb on admission 5.2 Chest pain Elevated Troponin Leukocytosis- POA- 20 CAD Stroke-ischemic and hemorrhagic (2017) Type 2 DM HTN CHF Hypercholesterolemia Hx Colon cancer Chronic anticoagulation- Warfarin Plan Admit patient as inpatient under the care of Dr Espinoza for Anemia, chest pain Type screen and given 2 units of PRBCs on admission Monitor telemetry and obtain serial troponins. Consult placed to Dr Hooks who is [employer] online marketing specialist. Check UA given leukocytosis will treat as needed however leukocytosis may be reactive Protonix IV for GI protection NS 100 ml for gentle hydration. May have clear liquids only. SCDs to Bilateral lower ext for DVT prophylaxis Monitor blood counts carefully. At this time he is hemodynamically stable Again , patient does wish to be a full code and this order is written. Will discuss further orders and plan of care with attending, Dr. Espinoza. At time of discharge medical care will return to primary care provider. Dr. Srivastava <López Hooks - Last Filed: 08/20/17 13:30> Exam Vital signs: Temperature 96.3 F L 08/20/17 12:00 Pulse Rate 84 08/20/17 12:00 Respiratory Rate 15 08/20/17 12:00 Blood Pressure 152/72 H 08/20/17 12:00 Pulse Oximetry 94 08/20/17 12:00 Results 08/20/17 08:13 08/19/17 04:12 CBC 08/20/17 Range/Units 08:13 WBC 6.8 (4.5-11.0) T/MM3 RBC 3.34 L (4.50-5.90) M/MM3 Hgb 9.4 L (13.5-17.5) GM/DL Hct 29.9 L (41-53) % Plt Count 178 (130-400) T/MM3 Intake and Output 08/19/17 08/20/17 08/20/17 22:59 06:59 14:59 Intake Total 150 / 150 150 / 150 Output Total 250 / 250 175 / 175 100 / 100 Balance -100 / -100 -25 / -25 -100 / -100 Intake: Oral 150 / 150 150 / 150 Output: Urine 250 / 250 175 / 175 100 / 100 Other: Urine Appearance Cloudy Cloudy Clear Urine Color Dark Yellow Dark Yellow Dark Yellow Urine Odor Normal Normal Stool Characteristics Foamy Foamy Mucoid Mucoid Tarry Tarry Stool Color Brown Brown Brown Yellow Yellow Stool Consistency Liquid Liquid Liquid Watery Loose Size of Bowel Movement Moderate Moderate Large # Voids 1 1 1 # Bowel Movements 1 # Incontinent Bowel Movements 1 1 1 Weight 81.2 kg Patient Weight 08/21/17 06:59 Weight 81.2 kg Assessment and Plan - Assessment and Plan (1) HTN (hypertension) Current visit: No Status: Chronic (2) Acute blood loss anemia Current visit: Yes Status: Acute (3) Elevated troponin Current visit: Yes Status: Acute (4) Chest pain Current visit: Yes Status: Acute (5) Atherosclerosis of coronary artery bypass graft without angina pectoris Current visit: Yes Status: Chronic (6) Ischemic cardiomyopathy Current visit: Yes Status: Chronic (7) Presence of automatic implantable cardioverter-defibrillator Current visit: Yes Status: Chronic - Attestation Attestation Narrative: 08/20/17 13:29 Recommendation After examining the patient I agree with the above assessment. I am involved in the formulation of the patient's plan of care. Hospital Course Summary Disclaimer: The visit summary below is not to be considered part of the above Progress Note.
--- NOTE | 2017-08-18 20:43 | Progress Note ---
- Date 08/18/17 Subjective: Patient has been in angina free for yet another day. Hemoglobin is remaining stable at 9.8. (Seems to have a much lower threshold for anemia than would be expected) Objective Vital signs: Temperature 97.2 F 08/18/17 15:00 Pulse Rate 66 08/18/17 16:02 Respiratory Rate 18 08/18/17 15:00 Blood Pressure 130/69 08/18/17 15:00 Pulse Oximetry 96 08/18/17 15:00 Height/Weight/BMI: Height 5 ft 10 in Weight 83 kg Body Mass Index 25.1 Results - Labs CBC & Chem 7: 08/20/17 08:13 08/19/17 04:12 Microbiology Results: Microbiology 08/14/17 14:58 Gastric Biopsy Helicobacter pylori Rapid Urease - Final Assessment and Plan (1) Acute blood loss anemia Current visit: Yes Status: Acute (2) Chest pain Current visit: Yes Status: Acute Assessment and Plan: Impression Acute Blood loss anemia- Hgb on admission 5.2 -the patient is required 6 units of blood and 2 unit of FFP Melena - acute GI bleed-EGD negative. Colonoscopy revealed polyps and diverticuli but no obvious source for bleeding. Chest pain -none since 08/14/2017 Elevated Troponin - NSTEMI -- possible Type II secondary to anemia -patient declined further workup Leukocytosis- POA-resolved CAD Stroke-ischemic and hemorrhagic (2016) Type 2 DM -hyperglycemia secondary to TPN HTN CHF Hypercholesterolemia Hx Colon cancer Chronic anticoagulation-discontinuing due to poor risk-benefit Malnutrition-stopped to the patient pulling out Dobhoff Metabolic acidosis is improving Mild thrombocytopenia Right eye conjunctivitis- Cipro Iron deficiency anemia- oral iron Borderline B-12 level- Plan lethargic but stable. Move out of the ICU We'll consult PT and OT to evaluate strength to see if he is able to return home. Discussed today with Dr. Keith. Addendum: Seen and examined patient on same day as the above note. Agree above note, assessment and plan. Comprehensive physical findings correlate to the above note. Documented on Dragon speech to text. Efforts to correct speech recognition errors performed, but variation may exist - Physician Narrative Narrative: Date: 08/18/17 Time: 2033 Hospital Course Summary Disclaimer: The visit summary below is not to be considered part of the above Progress Note. Hospital Course: Impression Blood loss anemia- Hgb on admission 5.2 Chest pain Elevated Troponin Leukocytosis- POA- 20 CAD Stroke-ischemic and hemorrhagic (2017) Type 2 DM HTN CHF Hypercholesterolemia Hx Colon cancer Chronic anticoagulation- Warfarin Plan Admit patient as inpatient under the care of Dr Espinoza for Anemia, chest pain Type screen and given 2 units of PRBCs on admission Monitor telemetry and obtain serial troponins. Consult placed to Dr Hooks who is David's webmethods architect. Check UA given leukocytosis will treat as needed however leukocytosis may be reactive Protonix IV for GI protection NS 100 ml for gentle hydration. May have clear liquids only. SCDs to Bilateral lower ext for DVT prophylaxis Monitor blood counts carefully. At this time he is hemodynamically stable Again , patient does wish to be a full code and this order is written. Will discuss further orders and plan of care with attending, Dr. Espinoza. At time of discharge medical care will return to primary care provider. Dr. Srivastava
[2017-08-19] MEDS: SUCRALFATE 1gm/10ml ORAL LIQUID PO SCH ×4 (05:33→22:40)
[2017-08-19] MEDS: ISOSORBIDE MONONITRATE ER 30 MG TABLET PO SCH (05:33)
--- NOTE | 2017-08-19 09:31 | Progress Note ---
DATE OF VISIT 08/18/2017 REASON FOR VISIT Follow GI bleed. SUBJECTIVE David says that he is doing well. He has been tolerating a regular consistency diet but says that he has only been eating a small amount at a time. He denies any abdominal pain. SUBJECTIVE VITAL SIGNS: Temperature 96.9, pulse 68, blood pressure 125/70, respiratory rate 16, oxygen saturation 94% on room air. GENERAL: The patient is awake and alert in no acute distress. ABDOMEN: Soft, nontender, nondistended. LABORATORY DATA Hemoglobin 9.6. IMPRESSION 1. Melena - no obvious source on EGD and colonoscopy. 2. Acute blood loss anemia requiring transfusion - stable. I think his slight decrease in hemoglobin today is more related to the half-life of transfusion blood products. 3. Moderate sigmoid diverticulosis. 4. Duodenal diverticulum. 5. Multiple colon polyps - removed at colonoscopy - pathology pending. PLAN 1. David is stable from a surgical standpoint. He could be dismissed when deemed reasonable by the Medical and Cardiology teams. 2. I will sign off of his care. Please do not hesitate to contact me if I can be of further assistance. [facility]
--- NOTE | 2017-08-19 10:19 | Cardiology Progress Note ---
<Nataly Lockett - Last Filed: 08/19/17 10:16> Subjective Principal diagnosis: anemia, elevated troponin Interval history: David is seen in follow up for anemia and elevated troponin. He is in bed eating his breakfast. He denies chest pain or pressure, palpitations, dyspnea, dizziness, nausea. Exam Vital signs: Temperature 98.0 F 08/19/17 04:00 Pulse Rate 81 08/19/17 04:00 Respiratory Rate 16 08/19/17 04:00 Blood Pressure 148/76 H 08/19/17 04:00 Pulse Oximetry 94 08/19/17 04:00 - Constitutional no acute distress, well nourished, cooperative - Routine HEENT Exam Head: Present: normocephalic ENT: Present: mucous membranes moist - Routine Neck Exam Absent: JVD, carotid bruit - Routine Chest/Breast/Axilla Exam Chest wall: Present: pacemaker. Absent: tenderness - Routine Respiratory Exam Absent: dyspnea, CTA bilaterally, rales, wheezes - Routine Cardiovascular Exam Present: RRR, no murmur. Absent: JVD - Routine Abdominal Exam Present: soft, normoactive bowel sounds - Routine Extremities Exam Present: no edema - Routine Skin Exam Present: intact, dry, warm - Routine Neurological Exam Present: alert, oriented X3 - Routine Psychiatric Exam Present: normal affect, normal thought process - Additional findings Additional findings: Amlodipine Besylate (Norvasc) 10 mg PO DAILY [facility] Ascorbic Acid (Vitamin C) 500 mg PO [facility] Last Admin: 08/18/17 08:59 Dose: 500 mg Bisacodyl (Dulcolax) 10 mg RECTALLY DAILY PRN PRN Reason: Constipation Ciprofloxacin (Ciloxan) 1 applic RIGHT EYE BID [facility] Last Admin: 08/18/17 20:42 Dose: 1 applic Cyanocobalamin (Vit. B-12) 1,000 mcg PO DAILY [facility] Last Admin: 08/18/17 08:58 Dose: 1,000 mcg Dextrose (D50%W) 20 ml IVP PRN PRN PRN Reason: Hypoglycemia Dextrose (D50%W) 25 ml IVP O PRN PRN Reason: Hypoglycemia Ferrous Sulfate (Feosol) 324 mg PO [facility] Last Admin: 08/18/17 08:59 Dose: 324 mg Glucose (Glutose 15) 37.5 gm PO PRN PRN PRN Reason: Hypoglycemia Insulin Aspart (Novolog) 3 - 12 unit SQ SS PRN; Protocol PRN Reason: Hyperglycemia Last Admin: 08/18/17 06:35 Dose: 7 unit Isosorbide Mononitrate (Imdur) 30 mg PO ACB [facility] Last Admin: 08/19/17 05:33 Dose: 30 mg Magnesium Hydroxide (Mom) 30 ml PO DAILY PRN PRN Reason: Constipation Morphine Sulfate (Morphine Sulfate Inj) 2 - 5 mg IVP Q5M PRN PRN Reason: Chest pain Last Admin: 08/18/17 09:50 Dose: 4 mg Ondansetron HCl (Zofran) 4 mg IVP Q6H PRN PRN Reason: Nausea Last Admin: 08/18/17 18:25 Dose: 4 mg Pantoprazole Sodium (Protonix Iv) 40 mg IVP BID [facility] Last Admin: 08/18/17 20:42 Dose: 40 mg Sodium Chloride (Iv Flush) 10 - 80 ml IVF PRN PRN PRN Reason: Flushing Last Admin: 08/18/17 20:43 Dose: 30 ml Sodium Chloride (Normal Saline) 500 ml IV PRN PRN Sodium Chloride (Normal Saline) 500 ml IV PRN PRN Last Admin: 08/13/17 12:38 Dose: 500 ml Sucralfate (Carafate Slurry) 1 gm PO [facility] Last Admin: 08/19/17 05:33 Dose: 1 gm Tramadol HCl (Ultram) 50 mg PO Q4H PRN PRN Reason: Pain Last Admin: 08/17/17 20:10 Dose: 50 mg Results 08/19/17 04:12 08/19/17 04:12 CBC 08/19/17 Range/Units 04:12 WBC 7.6 (4.5-11.0) T/MM3 RBC 3.29 L (4.50-5.90) M/MM3 Hgb 9.2 L (13.5-17.5) GM/DL Hct 29.5 L (41-53) % Plt Count 158 (130-400) T/MM3 Neut # (Auto) 6.0 (1.8-7.7) T/MM3 Lymph # (Auto) 0.8 L (1-4.8) T/MM3 [place] # (Auto) 0.6 (0-0.8) T/MM3 Eos # (Auto) 0.2 (0-0.5) T/MM3 Baso # (Auto) 0.0 (0-0.2) T/MM3 Comprehensive Metabolic Panel 08/19/17 Range/Units 04:12 Sodium 137 (134-144) MEQ/L Potassium 3.6 (3.6-5) MEQ/L Chloride 105 (98-107) MEQ/L Carbon Dioxide 26 (22-30) MEQ/L BUN 25.0 H (9-20) MG/DL Creatinine 1.1 D (0.8-1.5) MG/DL Glucose 82 (75-110) MG/DL Calcium 7.8 L (8.4-10.2) MG/DL Intake and Output 08/18/17 08/19/17 08/19/17 22:59 06:59 14:59 Intake Total 237 / 237 200 / 200 480 / 480 Output Total 300 / 300 475 / 475 Balance -63 / -63 -275 / -275 480 / 480 Intake: Oral 237 / 237 200 / 200 480 / 480 Output: Urine 300 / 300 475 / 475 Other: Urine Appearance Clear Clear Urine Color Dark Yellow Dark Yellow Urine Odor Strong Strong Stool Color Brown Stool Consistency Soft Formed Size of Bowel Movement Small # Bowel Movements 1 Assessment and Plan - Assessment and Plan (1) Acute blood loss anemia Current visit: Yes Status: Acute (2) Chest pain Current visit: Yes Status: Acute (3) Elevated troponin Current visit: Yes Status: Acute (4) Atherosclerosis of coronary artery bypass graft without angina pectoris Current visit: Yes Status: Chronic (5) Ischemic cardiomyopathy Current visit: Yes Status: Chronic (6) HTN (hypertension) Current visit: No Status: Chronic (7) Presence of automatic implantable cardioverter-defibrillator Current visit: Yes Status: Chronic - Assessment and Plan 08/11/17 Acute blood loss anemia: -per hospitalist - With patient's CAD HGB needs to be 10 Chest pain: First episode on Friday, again yesterday morning - relieved by nitro - diaphoretic with first episode, not the second - Left arm pain with first episode only - Trend serial troponin levels - EKG: SR. inferior AK, indeterminate age, anterolateral AK, indeterminate age , ST-T changes Elevated troponin:- Trend serial troponin levels, likely elevated due to acute anemia - EKG: SR. inferior AK, indeterminate age, anterolateral AK, indeterminate age , ST-T changes Ischemic CM: Continue Coreg and Entresto as VS allow Thank you for allowing us to participate in the care of this patient. 08/12/17 Denies chest pain today. Transferred to CCU by hospitalist due to continued anemia despite 3 units PRBCS 4th unit ordered. Trend troponin 08/13/17 Has more chest pain, last night and again this morning. - Nitro paste 0.5 inch Q6H - Replacing blood loss should improve angina - Okay to perform diagnostic scope when okay with surgery - Would prefer during daytime while labview programmer is available 08/14/17 Increase nitro paste to 1 inch Q6H 08/15/17 Start Amlodipine 5mg daily for angina - Change Nitro paste to Imdur 30mg daily - When discharged, no anticoagulation due to recent GI bleed. 08/18/17 No further chest pain since Imdur started on Friday. Stable for discharge from cardiology. 08/19/16 No change to patient's care Hospital Course Summary Disclaimer: The visit summary below is not to be considered part of the above Progress Note. Hospital Course: Impression Blood loss anemia- Hgb on admission 5.2 Chest pain Elevated Troponin Leukocytosis- POA- 20 CAD Stroke-ischemic and hemorrhagic (2017) Type 2 DM HTN CHF Hypercholesterolemia Hx Colon cancer Chronic anticoagulation- Warfarin Plan Admit patient as inpatient under the care of Dr Espinoza for Anemia, chest pain Type screen and given 2 units of PRBCs on admission Monitor telemetry and obtain serial troponins. Consult placed to Dr Hooks who is David's employee health rn. Check UA given leukocytosis will treat as needed however leukocytosis may be reactive Protonix IV for GI protection NS 100 ml for gentle hydration. May have clear liquids only. SCDs to Bilateral lower ext for DVT prophylaxis Monitor blood counts carefully. At this time he is hemodynamically stable Again , patient does wish to be a full code and this order is written. Will discuss further orders and plan of care with attending, Dr. Espinoza. At time of discharge medical care will return to primary care provider. Dr. Srivastava <López Hooks - Last Filed: 08/20/17 13:46> Exam Vital signs: Temperature 96.3 F L 08/20/17 12:00 Pulse Rate 84 08/20/17 12:00 Respiratory Rate 15 08/20/17 12:00 Blood Pressure 152/72 H 08/20/17 12:00 Pulse Oximetry 94 08/20/17 12:00 Results 08/20/17 08:13 08/19/17 04:12 CBC 08/20/17 Range/Units 08:13 WBC 6.8 (4.5-11.0) T/MM3 RBC 3.34 L (4.50-5.90) M/MM3 Hgb 9.4 L (13.5-17.5) GM/DL Hct 29.9 L (41-53) % Plt Count 178 (130-400) T/MM3 Intake and Output 08/19/17 08/20/17 08/20/17 22:59 06:59 14:59 Intake Total 150 / 150 150 / 150 Output Total 250 / 250 175 / 175 100 / 100 Balance -100 / -100 -25 / -25 -100 / -100 Intake: Oral 150 / 150 150 / 150 Output: Urine 250 / 250 175 / 175 100 / 100 Other: Urine Appearance Cloudy Cloudy Clear Urine Color Dark Yellow Dark Yellow Dark Yellow Urine Odor Normal Normal Stool Characteristics Foamy Foamy Mucoid Mucoid Tarry Tarry Stool Color Brown Brown Brown Yellow Yellow Stool Consistency Liquid Liquid Liquid Watery Loose Size of Bowel Movement Moderate Moderate Large # Voids 1 1 1 # Bowel Movements 1 # Incontinent Bowel Movements 1 1 1 Weight 81.2 kg Patient Weight 08/21/17 06:59 Weight 81.2 kg Assessment and Plan - Assessment and Plan (1) HTN (hypertension) Current visit: No Status: Chronic (2) Acute blood loss anemia Current visit: Yes Status: Acute (3) Elevated troponin Current visit: Yes Status: Acute (4) Chest pain Current visit: Yes Status: Acute (5) Atherosclerosis of coronary artery bypass graft without angina pectoris Current visit: Yes Status: Chronic (6) Ischemic cardiomyopathy Current visit: Yes Status: Chronic (7) Presence of automatic implantable cardioverter-defibrillator Current visit: Yes Status: Chronic - Attestation Attestation Narrative: 08/20/17 13:46 Recommendation After examining the patient I agree with the above assessment. I am involved in the formulation of the patient's plan of care. Hospital Course Summary Disclaimer: The visit summary below is not to be considered part of the above Progress Note.
[2017-08-19] MEDS: AMLODIPINE 10 MG TABLET PO SCH (11:00)
[2017-08-19] MEDS: CYANOCOBALAMIN (B-12) 500mcg TABLET PO SCH (11:00)
[2017-08-19] MEDS: ASCORBIC ACID 500 MG TABLET PO SCH (11:01)
[2017-08-19] MEDS: FERROUS SULFATE 324 MG TABLET PO SCH (11:02)
[2017-08-19] MEDS: TRAMADOL 50 MG TABLET PO PRN (11:02)
[2017-08-19] MEDS: EYE RIGHT EYE SCH ×2 (11:05→22:40)
[2017-08-19] MEDS: CIPROFLOXACIN 0.3% RIGHT EYE SCH ×2 (11:05→22:40)
[2017-08-19] MEDS: PANTOPRAZOLE 40 MG INJECTION IVP SCH ×2 (11:06→22:39)
--- NOTE | 2017-08-19 21:07 | Progress Note ---
- Date 08/19/17 Subjective: He is denying any dark tarry stool but is complaining of abdominal pain today Objective Vital signs: Temperature 98.8 F 08/19/17 15:46 Pulse Rate 77 08/19/17 16:00 Respiratory Rate 18 08/19/17 15:46 Blood Pressure 132/75 08/19/17 15:46 Pulse Oximetry 92 08/19/17 15:46 Height/Weight/BMI: Height 5 ft 10 in Weight 82.3 kg Body Mass Index 25.1 - Constitutional Present: well nourished, well developed - Routine HEENT Exam Eye: Present: EOMI ENT: Present: mucous membranes moist, dentition normal - Routine Respiratory Exam Present: CTA bilaterally. Absent: wheezes - Routine Cardiovascular Exam Present: RRR. Absent: murmur - Routine Abdominal Exam Present: normoactive bowel sounds, distended, firm. Absent: tenderness - Routine Extremities Exam Present: normal capillary refill - Routine Skin Exam Present: dry, warm - Routine Neurological Exam Present: alert, oriented X3, CN II-XII intact - Routine Lymphatic Exam Lymphatic: Absent: adenopathy - Routine Psychiatric Exam Present: normal affect Results - Labs CBC & Chem 7: 08/19/17 04:12 08/19/17 04:12 Microbiology Results: Microbiology 08/14/17 14:58 Gastric Biopsy Helicobacter pylori Rapid Urease - Final Assessment and Plan (1) Acute blood loss anemia Current visit: Yes Status: Acute (2) Chest pain Current visit: Yes Status: Acute Assessment and Plan: Impression Acute Blood loss anemia- Hgb on admission 5.2 -the patient is required 6 units of blood and 1 unit of FFP-hemoglobin 10.2. At highest but now at 9.2 Melena - not seen however patient has lost equivalent of 1 unit of blood in the last 48 hours. I'm not certain of this is delusional or the patient has yet to show further loss. Will hold today Chest pain -none since 08/14/2017 in the morning. On Imdur Elevated Troponin - NSTEMI -- Leukocytosis- POA-resolved CAD Stroke-ischemic and hemorrhagic (2016) Type 2 DM -hyperglycemia secondary to TPN HTN CHF Hypercholesterolemia Hx Colon cancer Chronic anticoagulation- Warfarin stopped Plan considering discharge tomorrow if hemoglobin does not fall significantly and no further bleeding is noted - Physician Narrative Narrative: Date: 08/19/17 Time: 2102 Hospital Course Summary Disclaimer: The visit summary below is not to be considered part of the above Progress Note. Hospital Course: Impression Blood loss anemia- Hgb on admission 5.2 Chest pain Elevated Troponin Leukocytosis- POA- 20 CAD Stroke-ischemic and hemorrhagic (2016) Type 2 DM HTN CHF Hypercholesterolemia Hx Colon cancer Chronic anticoagulation- Warfarin Plan Admit patient as inpatient under the care of Dr Espinoza for Anemia, chest pain Type screen and given 2 units of PRBCs on admission Monitor telemetry and obtain serial troponins. Consult placed to Dr Hooks who is David's trains dispatcher supervisor. Check UA given leukocytosis will treat as needed however leukocytosis may be reactive Protonix IV for GI protection NS 100 ml for gentle hydration. May have clear liquids only. SCDs to Bilateral lower ext for DVT prophylaxis Monitor blood counts carefully. At this time he is hemodynamically stable Again , patient does wish to be a full code and this order is written. Will discuss further orders and plan of care with attending, Dr. Espinoza. At time of discharge medical care will return to primary care provider. Dr. Srivastava
[2017-08-20] MEDS: INSULIN ASPART 100unit/ml INJECTION SQ PRN (00:52)
[2017-08-20] MEDS: SUCRALFATE 1gm/10ml ORAL LIQUID PO SCH ×2 (06:48→11:50)
[2017-08-20] MEDS: ISOSORBIDE MONONITRATE ER 30 MG TABLET PO SCH (06:48)
--- NOTE | 2017-08-20 11:17 | Discharge Summary ---
Discharge Information Date of admission: 08/11/17 08:27 Anticipated date of discharge: 08/20/17 Attending Physician: Luan Andersen MD Primary care physician: Colin Srivastava MD Consults: Dr Hooks- Cardiology Dr Keith- Surgeon - Discharge Diagnosis (1) Acute blood loss anemia Status: Acute (2) Chest pain Status: Acute Acute Blood loss anemia- Hgb on admission 5.2 -the patient is required 6 units of blood and 1 unit of FFP-hemoglobin 10.2. At highest but now at 9.2 Melena - not seen however patient has lost equivalent of 1 unit of blood in the last 48 hours. I'm not certain of this is delusional or the patient has yet to show further loss. Will hold today Chest pain -none since 08/14/2017 in the morning. On Imdur Elevated Troponin - NSTEMI -- Leukocytosis- POA-resolved CAD Stroke-ischemic and hemorrhagic (2016) Type 2 DM -hyperglycemia secondary to TPN HTN CHF Hypercholesterolemia Hx Colon cancer Chronic anticoagulation- Warfarin stopped - Procedures Procedures: 08/17/17- Colonoscopy - Laboratory Labs: 08/20/17 08:13 08/19/17 04:12 - Microbiology Microbiology 08/14/17 14:58 Gastric Biopsy Helicobacter pylori Rapid Urease - Final - Radiology Radiology: 08/11/17- Chest Xray- 1. Low lung volumes with mild basilar atelectasis. No consolidating opacities. 2. The heart size is upper limits normal without evidence for CHF. - Pathology Colonic mucosa- Colon pathology Gastric mucosa-duodenal biopsy, proximal stomach, biopsy History of Present Illness HPI: David is 76 yr old male who is known to the hospitalist service from previous admissions. David had a ischemic stroke back in september of 2016 followed my a hemorrhagic stroke in October of 2016. He was later placed back on warfarin however had epistaxis that was unable to be controlled. [place] [facility] [place] finally was transferred on 06/06/17 for ENT evaluation. He underwent a nasal artery procedure at [facility]. David's reports he had been off warfarin last week for skin shoulder removal. He started back on warfarin on 08/07 and 08/08 forgetting that he was suppose to remain off for a foot callus removal scheduled for tomorrow. He was not had warfarin since 08/08. reports he has black stools for over a week and thought it was due to iron intake. Today David was brought to ER for evaluation of 3 days of intermittent chest pain and weakness. Further work up in the ER revealed significant anemia with Hgb of 5.2, Hct 17, WBC 20.5, PLT 175. INR 1.21. Troponin was found to be elevated at 0.185. EKG did have some questions depression. He was given NTG and at time of examination chest pain was gone. In the severity of his anemia, accompanied with elevated troponin and chest pain. The hospitalist services were contacted and accepted patient for inpatient admission for further evaluation and treatment. Did discuss advanced directives with patient and . They do wish for patient to be a full code Objective Vital signs: Temperature 96.6 F L 08/20/17 08:00 Pulse Rate 86 08/20/17 08:00 Respiratory Rate 18 08/20/17 08:00 Blood Pressure 126/78 08/20/17 08:00 Pulse Oximetry 96 08/20/17 08:00 Height/Weight/BMI: Height 1.78 m Weight 82.3 kg Body Mass Index 25.1 - Constitutional Present: no acute distress, well nourished, well developed - Routine HEENT Exam Eye: Present: EOMI ENT: Present: mucous membranes moist, dentition normal - Routine Respiratory Exam Present: CTA bilaterally. Absent: wheezes - Routine Cardiovascular Exam Present: RRR. Absent: murmur - Routine Abdominal Exam Present: soft, normoactive bowel sounds, non distended. Absent: tenderness - Routine Extremities Exam Present: normal capillary refill - Routine Skin Exam Present: dry, warm - Routine Neurological Exam Present: alert, oriented X3, CN II-XII intact - Routine Lymphatic Exam Lymphatic: Absent: adenopathy - Routine Psychiatric Exam Present: normal affect Hospital Course This is a general summary of the patient's hospital course. For more details refer to the complete medical record. Hospital course: Impression Blood loss anemia- Hgb on admission 5.2 Chest pain Elevated Troponin Leukocytosis- POA- 20 CAD Stroke-ischemic and hemorrhagic (2016) Type 2 DM HTN CHF Hypercholesterolemia Hx Colon cancer Chronic anticoagulation- Warfarin 08/11- Admission Admit patient as inpatient under the care of Dr Espinoza for Anemia, chest pain Type screen and given 2 units of PRBCs on admission Monitor telemetry and obtain serial troponins. Consult placed to Dr Hooks who is David's chief deputy court clerk. Check UA given leukocytosis will treat as needed however leukocytosis may be reactive Protonix IV for GI protection NS 100 ml for gentle hydration. May have clear liquids only. SCDs to Bilateral lower ext for DVT prophylaxis Monitor blood counts carefully. At this time he is hemodynamically stable Again , patient does wish to be a full code and this order is written. Will discuss further orders and plan of care with attending, Dr. Espinoza. At time of discharge medical care will return to primary care provider. Dr. Srivastava 08/12 Concerned of overall stability - Move to ICU now that there is bed availability It appears patient had 5 bloody/black stools overnight. Patient has received 3 units of packed red cell transfusion yesterday and overnight. CBC now that revealed another decrease in Hemoglobin - currently 6.9. Will give 1 unit PRBC now. Suspect he will need multiple more units. There are currently 3 available. Appreciated consultation by Dr Keith Continue with IV Protonix for GI protection Care discussed with attending Dr Reeves 08/13 The patient had another episode of chest pain this morning when hemoglobin was 6.7. He was given 1 unit of blood and nitroglycerin and hemoglobin improved to 8.2 and chest pain resolved. Troponin is trending down and is 0.122. We'll transfuse another unit of blood now and recheck hemoglobin. We'll try to keep hemoglobin greater than 10. Discussed earlier today with Dr. Keith, considering EGD later today if hemoglobin is improving, patient remains chest pain-free, and okay with Dr. Hooks and anesthesia. We'll replace potassium IV Start TPN regarding malnutrition. Remain off of aspirin and warfarin. Continue Protonix. Continue serial hemoglobin. Recheck CBC tomorrow regarding leukocytosis and thrombocytopenia. Recheck CMP, magnesium and phosphorus tomorrow regarding hypokalemia, metabolic acidosis, elevated BUN creatinine, and regarding malnutrition with initiation of TPN The patient remains critically ill. Greater than 40 minutes of time spent seeing and evaluating the patient and determined care plan. Discussed today with his nurse, Dr. Keith, and BETTINA Mclean for Dr. Hooks. 08/14 Hemoglobin is trending up. He has had a total of 6 units of packed red cells and 1 unit of FFP. Hemoglobin 9.4 today but still having some chest discomfort. The patient had chest pain again this morning lasting 5 minutes. Await repeat hemoglobin. If less than 10 will likely transfuse. Plan for EGD later today. We'll discuss with Dr. Keith after hemoglobin is back. TPN started yesterday. Blood sugars climbing. Will add Levemir 10 units every morning. Continue sliding scale. Continue TPN for malnutrition. Continue Protonix. Recheck CBC tomorrow regarding anemia. Recheck CMP magnesium and phosphorous regarding initiation of TPN. The patient remains critically ill. Greater than 30 minutes of critical care time spent seeing and evaluating the patient. Discussed with Dr. Hooks this morning. We'll talk with Dr. Keith after local his back was morning. 08/16 Hemoglobin has been stable and the patient has not required a transfusion since the . EGD was done 08/14/2017 and did not show any cause for his GI bleed. The patient had refused prep and colonoscopy yesterday, but now is agreeable to bowel prep with plans for colonoscopy tomorrow. Discussed with Dr. Keith. Chest pain has resolved with hemoglobin in the 10 range and Nitropatch. We'll give an extra dose of Lantus this morning for hyperglycemia Consider IV iron prior to discharge Continue TPN for malnutrition, will discontinue once the patient can take by mouth Start oral B 12 08/17 Hemoglobin has been stable and the patient has not required a transfusion since the . EGD was done 08/14/2017 and did not show any cause for his GI bleed. Colonoscopy today on 08/17/2017 did not show any obvious source for bleed but there were diverticuli. Polyps were resected. Chest pain has resolved with hemoglobin in the 10 range and Nitropatch. DC TPN current bag is empty Dark oral iron Start oral B 12 08/18 Hemoglobin has been stable and the patient has not required a transfusion since the . EGD was done 08/14/2017 and did not show any cause for his GI bleed. Colonoscopy today on 08/17/2017 did not show any obvious source for bleed but there were diverticuli. Polyps were resected. Chest pain has resolved with hemoglobin in the 10 range and Nitropatch. DC TPN current bag is empty Dark oral iron Start oral B 12 Overall, the patient is doing well. Hemoglobin has stabilized at 10. GI bleeding seems to have resolved off of Coumadin. The source of the bleed is unknown at this time. It is likely too risky to resume Coumadin or other anticoagulation. We'll need to discuss with cardiology tomorrow. If the patient is eating and drinking well tomorrow and having no further chest discomfort, he could likely be discharged soon if okay with Dr. Hooks and Dr. Keith. consult PT and OT to evaluate strength to see if he is able to return home. 08/19 considering discharge tomorrow if hemoglobin does not fall significantly and no further bleeding is noted 08/20- Discharge David is seen and examined today. Prior to discharge. Overall he is feeling good. States that he does have some stomach discomfort/nausea that comes and goes, however, he is tolerating eating without difficulty. His bowels are moving regularly and he has no further episode of dark, tarry or bloody stools. Reports he feels good enough to be discharged home. The plan is that he will go home with his and have home health for further assistance. We will continue on usual home insulin. Did discuss cardiac medications with cardiology team. Patient will continue on original home doses, plus adding Imdur. Patient is to have a lab draw CBC, BMP on Tuesday 08/22, this is to be faxed to Dr. Hooks's office at [phone] Srivastava's office. All warfarin and aspirin have been discontinued during his stay, continue only with iron supplementation. Patient is discharged in stable condition, all orders and plan of care discussed with attending, Dr. Andersen. Addendum: Seen and examined patient on same day as the above note. Agree with nurse practitioner Tricia Davis's note, assessment and plan. Comprehensive physical findings correlate to the above note. Documented on [employer] speech to text. Efforts to correct speech recognition errors performed, but variation may exist. [employer] failure to properly reconcile prior documentation has caused me to write physical scripts for the following medications: amlodipine, Coreg, Entresto, Imdur, pantoprazole and sucralfate. Time spent with patient: discharge greater than 30 minutes Discharge Plan - Discharge Disposition Discharge Date: 08/20/17 Disposition: Discharged Home, Self-Care *Condition: Stable Reason For Visit (Visit label in EMR): anemia elevated troponin - Discharge Medications *Discharge Medications: New Isosorbide Mononitrate ER [Imdur] 30 mg PO ACB #20 tab Tramadol [Ultram] 50 mg PO Q4H PRN #20 tab PRN Reason: Pain Cyanocobalamin (B-12) [Vit. B-12] 1,000 mcg PO DAILY tab Ascorbic Acid [Vitamin C] 500 mg PO WB tab Carvedilol [Coreg] 1 tab PO BIDWM #30 tab SACUBITRIL/VALSARTAN 49/51mg [ENTRESTO 49/51mg] 1 tab PO BID #30 tab Sucralfate [Carafate] 1 gm PO QID 10 Days #40 tab Pantoprazole Tab [Protonix Tab] 1 tab PO ACBID #30 tab Amlodipine Besylate [Norvasc] 5 mg PO DAILY #30 tab Continue Ferrous Sulfate [Iron] 325 mg PO DAILY Atorvastatin Calcium 40 mg PO HS #0 tab glipiZIDE [Glipizide ER] 10 mg PO DAILY Insulin Detemir [Levemir Flextouch] 10 unit SQ HS Changed Insulin Lispro [Humalog Kwikpen U-100] 5 unit SQ AC #0 ml Discontinued Amlodipine Besylate 5 mg PO DAILY 30 Days #30 tab Warfarin Sodium 4 mg PO DAILY SACUBITRIL/VALSARTAN 49/51mg [ENTRESTO 49/51mg] 1 tab PO BID Aspirin [Aspirin EC] 81 mg PO DAILY Famotidine [Pepcid AC] 20 mg PO BID Carvedilol 6.25 mg PO BIDWM Magnesium Oxide [Magnesium] 400 mg PO DAILY Warfarin Sodium 5 mg PO DAILY erythromycin 5 mg/gram (0.5 %) eye ointment 0.5 inch RIGHT EYE .qhs #1 g - Discharge Packet/Instructions *Diet: Carb consistent diet *Activity: Activity as tolerated *Pain Management/Treatment: Ultram as needed for pain *Wound Care: N/A Additional Instructions: All blood thinners are stopped during hospital stay due to bleeding. Blood pressure medications were also changed. Review new medications list carefully. Montior for evidence of blood or black stools and report to PCP *Expected Signs/Symptoms: Continued improvement *Notify Physician if: Bleeding, dizziness, chest pain or shortness of breath *During Business Hours Contact: Dr Holdeman *After Business Hours Contact: Page oncall Physician *Pending Lab/Results: No Pending Lab - Referrals/Follow Up *Referrals/Follow Up: López Hooks MD [Physician] - 09/04/17 10:40 am (Follow up in 2 weeks) Colin Srivastava MD [Family Provider] - 08/27/17 10:30 am (Please make follow up apt for 1 week. Will need CBC at that time.) - Patient Handouts Patient Handouts: Anemia (GEN) - Dismissal Complete Discharge Instructions are:: Complete Physician Narrative - Narrative Attestation Narrative: Date: 08/20/17 Time: 8571
[2017-08-20] MEDS: ASCORBIC ACID 500 MG TABLET PO SCH (11:44)
[2017-08-20] MEDS: FERROUS SULFATE 324 MG TABLET PO SCH (11:45)
[2017-08-20] MEDS: AMLODIPINE 10 MG TABLET PO SCH (11:45)
[2017-08-20] MEDS: CYANOCOBALAMIN (B-12) 500mcg TABLET PO SCH (11:46)
[2017-08-20] MEDS: CIPROFLOXACIN 0.3% RIGHT EYE SCH (11:46)
[2017-08-20] MEDS: EYE RIGHT EYE SCH (11:46)
[2017-08-20] MEDS: PANTOPRAZOLE 40 MG INJECTION IVP SCH (11:52)
[2017-08-20 12:08] VITALS: TEMP 96.3
[2017-08-20 16:35] VITALS: BP 153/88; PULSE 98; RESP 20; O2SAT 95
== END 2017-08-20 17:05 | disposition home health service (06) | DRG 377 ==
LOC: ED 06:33 → SUATTDRO 08:27 → SRG 08:27 → CCU 08-12 09:09 → MED 08-17 21:50
PROVIDERS: ADMIT Hospitalist; ATTEND Family Medicine
PROC: END.EGD (2017-08-14 14:30)

== ENCOUNTER 2017-08-29 14:21 | Inpatient (IN) ==
[2017-08-29] MEDS: SALINE FLUSH 10ml SYRINGE IVF PRN ×2 (15:05→16:43)
--- NOTE | 2017-08-29 16:35 | Emergency Department Report ---
Nausea/Vomiting/Diarrhea HPI - General Chief complaint: Abdominal Pain Stated complaint: abd pain, weak Time Seen by Provider: 08/29/17 14:50 Source: patient, family Mode of arrival: wheelchair Limitations: no limitations - History of Present Illness HPI Narrative: Pt presents from home with a complaint of continual diarrhea and abdominal bloating. He [place] [facility] [place] 10 [place] for a GI bleed. He reports he has had constant bowel incontinence with abd pain. Denies fever, SOA , cough, or vomiting MD complaint: diarrhea Onset (ago): day(s) Description of Vomiting: bilious, foul-smelling Associated Abdominal Pain: Yes Location of pain: diffuse Severity: moderate Consistency: constant Relieving factors: none Exacerbating factors: eating Associated symptoms: loss of appetite, malaise, weakness - Related Data Home Medications Medication Instructions Recorded Confirmed Atorvastatin Calcium 40 mg PO HS #0 tab 10/31/16 08/29/17 Insulin Detemir [Levemir Flextouch] 10 unit SQ HS 06/06/17 08/29/17 glipiZIDE [Glipizide ER] 10 mg PO DAILY 06/06/17 08/29/17 Ferrous Sulfate [Iron] 325 mg PO DAILY 08/11/17 08/29/17 Previous Rx's Medication Instructions Recorded Amlodipine Besylate [Norvasc] 5 mg PO DAILY #30 tab 08/20/17 Carvedilol [Coreg] 1 tab PO BIDWM #30 tab 08/20/17 Insulin Lispro [Humalog Kwikpen 5 unit SQ AC #0 ml 08/20/17 U-100] Isosorbide Mononitrate ER [Imdur] 30 mg PO ACB #20 tab 08/20/17 Pantoprazole Tab [Protonix Tab] 1 tab PO ACBID #30 tab 08/20/17 SACUBITRIL/VALSARTAN 49/51mg 1 tab PO BID #30 tab 08/20/17 [ENTRESTO 49/51mg] Sucralfate [Carafate] 1 gm PO QID 10 Days #40 tab 08/20/17 Tramadol [Ultram] 50 mg PO Q4H PRN #20 tab 08/20/17 Allergies Allergy/AdvReac Type Severity Reaction Status Date / Time No Known Drug Allergies Allergy Unknown Verified 08/29/17 14:27 Review of Systems All systems: reviewed and negative except as stated Constitutional: Reports: as per HPI Cardiovascular: Reports: as per HPI Respiratory: Reports: as per HPI Gastrointestinal: Reports: as per HPI Musculoskeletal: Reports: as per HPI [facility] Patient Stated Medical History Cerebrovascular Accident Yes: September 2016 ischemic, October 2016 has hemorrhagic Peripheral Neuropathy Yes: BI-LAT FEET Paralysis No Seizures No Syncope No Cataracts Yes Hearing Loss Yes: RT EAR 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 Pt. has PPM with AICD per history Asthma No Bronchitis No Chronic Obstructive Pulmonary No Disease (COPD) Pneumonia Yes Pulmonary Edema No Pulmonary Embolism No Sleep Apnea No Tuberculosis No Other Respiratory No Diabetes Mellitus Type 2 Yes Cirrhosis No Gastroesophageal Reflux Yes Disease Gastrointestinal Bleeding Yes: FROM COLON CANCER Hepatitis No Hiatal Hernia Yes Obstructive Bowel No Ulcer Yes Other GI No Hx Kidney Stones Yes Clotting Problems Yes: CLOT IN BRAIN AND IN HEART SEPTEMBER Osteoarthritis Yes Other Musculoskeletal No Shingles Yes: 2013 Blood Transfusions Yes: NO PROBLEMS Other Yes: RADIATION FOR COLON CA Depression No Clinic Medical History (Last Reviewed 07/10/17 @ 13:02 by ELLI Santiago) GERD (gastroesophageal reflux disease) (Chronic Medical) Coronary atherosclerosis (Acute Medical) Type 2 diabetes mellitus (Chronic Medical) PNA (pneumonia) (Chronic Medical) Stroke (Acute Medical) Hx of blood clots (Resolved Medical) Colon polyps (Resolved Medical) Blindness (Chronic Medical) Colon cancer (Resolved Medical ~2010) Colectomy, radiation and chemo High cholesterol (Chronic Medical) HTN (hypertension) (Chronic Medical) Heart attack (Resolved Medical ~2008) CHF (congestive heart failure) (Chronic Medical) Medical History Updates: peripheral neuropathy. 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 Skin cancer - comment: left nasal sidewall, left forearm , left shoulder Surgical History: 1. Right retinal attachment--03/25/2016. 2. Ostomy reversal --2010. 3. Colectomy--2010. 4. PowerPort placement--2010. 5. Colonoscopy-- 09/05/2010. 6. Repair of Radha fundoplication--08/[address] Botello. 7. Cardiac catheterization with stent placement x2--2008 at [facility]. 8. Coronary artery bypass graft (quad)--08/28/2008. 9. Laparoscopic appendectomy--2006. 10. Radha fundoplication--12/26/[address] Jennings. 11. Inguinal hernia repair--1968. 12. Inguinal hernia repair-- 1952. Family History: Family History (Last Reviewed 07/10/17 @ 13:02 by Rani Bennett [facility]) Mother Lung cancer Father Aneurysm Brother Heart attack - Social History Smoking status: Never smoker Physical Exam - Limitations Limitations: no limitations - General General appearance: alert, in no apparent distress - Normal Exams: Head:: Normocephalic without trauma Neck:: Full range of motion, without adenopathy Chest/Respirations:: Clear all dinh, with good airflow, and symmetry bilaterally Musculoskeletal:: No tenderness, or deformity noted, good range of motion, all extremities Integumentary:: No rashes (pale, warm, dry) Neurological:: Patient is alert, and oriented, cranial nerves, motor/sensory/ cerebellar, exams w/o gross deficits, to observation Psychiatric:: Patient exhibits, appropriate attention, emotion and affect - Abdominal Exam Abdominal exam: Present: distention, tenderness, hypoactive bowel sounds Course Vital Signs Temperature 97.6 F 08/29/17 14:28 Pulse Rate 62 08/29/17 14:28 Respiratory Rate 16 08/29/17 14:28 Blood Pressure 150/82 H 08/29/17 14:28 Pulse Oximetry 95 08/29/17 14:28 Temperature 97.6 F 08/29/17 14:28 Pulse Rate 62 08/29/17 14:28 Respiratory Rate 16 08/29/17 14:28 Blood Pressure 150/82 H 08/29/17 14:28 Pulse Oximetry 95 08/29/17 14:28 Nausea/Vomiting/Diarrhea - [facility] Narrative Medical decision making narrative: Pt has had limited BM for collection for testing since arrival. CT performed secondary to assessment, distention , and complaint. Labs reviewed with findings significant for GI fluid loss with hypokalemia. Ct result indicate possible abscess and ileus. 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 Dr Keith does not feel pt has any acute surgical needs at this time based on known history and current findings. Pt to be admitted to hospitalist. All of this discussed with pt and family who verbalize understanding. - Differential Diagnosis Likely: traveler's diarrhea, gastroenteritis, clostridium difficile infection, dehydration - Lab Data Attestation: I reviewed the patient's lab results. Result diagrams: 08/29/17 15:09 08/29/17 15:09 Lab Results 08/29/17 08/29/17 08/29/17 Range/Units 15:09 15:09 18:58 WBC 9.1 (4.5-11.0) T/MM3 RBC 3.94 L (4.50-5.90) M/MM3 Hgb 11.0 L (13.5-17.5) GM/DL Hct 33.6 L (41-53) % MCV 85.3 (80-100) UM3 MCH 27.9 (26-34) UUG MCHC 32.7 (31-37) GM/DL RDW Std Deviation 45.4 (36.9-50.2) FL Plt Count 271 (130-400) T/MM3 MPV 9.6 (9.4-12.4) UM3 Immature Gran % (Auto) 2.0 H (0.0-0.5) % Neut % (Auto) 80.7 H (33-66) % Lymph % (Auto) 8.2 L (23-45) % [place] % (Auto) 7.8 (0-9.0) % Eos % (Auto) 1.0 (0-4) % Baso % (Auto) 0.3 (0-2) % Neut # (Auto) 7.3 (1.8-7.7) T/MM3 Lymph # (Auto) 0.7 L (1-4.8) T/MM3 [place] # (Auto) 0.7 (0-0.8) T/MM3 Eos # (Auto) 0.1 (0-0.5) T/MM3 Baso # (Auto) 0.0 (0-0.2) T/MM3 Abs Immat Gran (auto) 0.18 H (0.00-0.03) T/MM3 Turbidity < 20 (0-20) Sodium 143 (134-144) MEQ/L Potassium 2.7 L* (3.6-5) MEQ/L Chloride 113 H (98-107) MEQ/L Carbon Dioxide 19 L (22-30) MEQ/L Anion Gap 11 (5-15) MEQ/L BUN 16.0 (9-20) MG/DL Creatinine 1.2 (0.8-1.5) MG/DL GFR Calculation 59 BUN/Creatinine Ratio 13 (6-26) RATIO Glucose 208 H (75-110) MG/DL Calculated Osmolality 282 H (261-280) MOSM/KG Calcium 8.6 (8.4-10.2) MG/DL Total Bilirubin 0.40 (0.20-1.30) MG/DL Icterus Index < 2 (0-7) AST 18 (17-59) U/L ALT 33 (21-72) U/L Alkaline Phosphatase 151 H (38-126) U/L Total Protein 6.1 L (6.3-8.2) G/DL Albumin 3.1 L (3.5-5.0) G/DL Globulin 3.0 (2.4-3.6) G/DL Albumin/Globulin Ratio 1.0 L (1.1-2.2) RATIO Specimen Hemolysis < 15 (0-25) Stool Occult Blood Stl Cyclospora species Negative (Negative) Stool Rotavirus A PCR Negative (Negative) Stool Adenovirus (PCR) Negative (Negative) Stool Astrovirus (PCR) Negative (Negative) Stool Campylobacter PCR Negative (Negative) Stl C.difficile Tox PCR Negative (Negative) Stool Cryptosporidium PCR Negative (Negative) Stl E.coli Shiga Toxins Negative (Negative) Stl Enterotoxigenic E PCR Negative (Negative) Stool EPEC (PCR) Negative (Negative) Stool EAEC (PCR) Negative (Negative) Stool Entamoeba (PCR) Negative (Negative) Stool Giardia Lamblia PCR Negative (Negative) Stool Salmonella PCR Negative (Negative) Stool Sapovirus (PCR) Negative (Negative) Stl P. shigelloides PCR Negative (Negative) Stl Shigella/EIEC PCR Negative (Negative) St Y.enterocolitica PCR Negative (Negative) Stool Vibrio (PCR) Negative (Negative) Stl Vibrio cholera PCR Negative (Negative) Stl Norovirus GI/GII PCR Negative (Negative) 08/29/17 Range/Units 18:58 WBC (4.5-11.0) T/MM3 RBC (4.50-5.90) M/MM3 Hgb (13.5-17.5) GM/DL Hct (41-53) % MCV (80-100) UM3 MCH (26-34) UUG MCHC (31-37) GM/DL RDW Std Deviation (36.9-50.2) FL Plt Count (130-400) T/MM3 MPV (9.4-12.4) UM3 Immature Gran % (Auto) (0.0-0.5) % Neut % (Auto) (33-66) % Lymph % (Auto) (23-45) % [place] % (Auto) (0-9.0) % Eos % (Auto) (0-4) % Baso % (Auto) (0-2) % Neut # (Auto) (1.8-7.7) T/MM3 Lymph # (Auto) (1-4.8) T/MM3 [place] # (Auto) (0-0.8) T/MM3 Eos # (Auto) (0-0.5) T/MM3 Baso # (Auto) (0-0.2) T/MM3 Abs Immat Gran (auto) (0.00-0.03) T/MM3 Turbidity (0-20) Sodium (134-144) MEQ/L Potassium (3.6-5) MEQ/L Chloride (98-107) MEQ/L Carbon Dioxide (22-30) MEQ/L Anion Gap (5-15) MEQ/L BUN (9-20) MG/DL Creatinine (0.8-1.5) MG/DL GFR Calculation BUN/Creatinine Ratio (6-26) RATIO Glucose (75-110) MG/DL Calculated Osmolality (261-280) MOSM/KG Calcium (8.4-10.2) MG/DL Total Bilirubin (0.20-1.30) MG/DL Icterus Index (0-7) AST (17-59) U/L ALT (21-72) U/L Alkaline Phosphatase (38-126) U/L Total Protein (6.3-8.2) G/DL Albumin (3.5-5.0) G/DL Globulin (2.4-3.6) G/DL Albumin/Globulin Ratio (1.1-2.2) RATIO Specimen Hemolysis (0-25) Stool Occult Blood Negative Stl Cyclospora species (Negative) Stool Rotavirus A PCR (Negative) Stool Adenovirus (PCR) (Negative) Stool Astrovirus (PCR) (Negative) Stool Campylobacter PCR (Negative) Stl C.difficile Tox PCR (Negative) Stool Cryptosporidium PCR (Negative) Stl E.coli Shiga Toxins (Negative) Stl Enterotoxigenic E PCR (Negative) Stool EPEC (PCR) (Negative) Stool EAEC (PCR) (Negative) Stool Entamoeba (PCR) (Negative) Stool Giardia Lamblia PCR (Negative) Stool Salmonella PCR (Negative) Stool Sapovirus (PCR) (Negative) Stl P. shigelloides PCR (Negative) Stl Shigella/EIEC PCR (Negative) St Y.enterocolitica PCR (Negative) Stool Vibrio (PCR) (Negative) Stl Vibrio cholera PCR (Negative) Stl Norovirus GI/GII PCR (Negative) - Radiology Data Attestation: I reviewed the patient's radiology results. (Read per [employer] rad indicates a probable ileus and possible abscess) Disposition Clinical Impression: Ileus, unspecified, Hypokalemia Disposition: 02 [place] [facility] Condition: Improved Prescriptions: No Action Ferrous Sulfate [Iron] 325 mg PO DAILY Isosorbide Mononitrate ER [Imdur] 30 mg PO ACB #20 tab Tramadol [Ultram] 50 mg PO Q4H PRN #20 tab PRN Reason: Pain Carvedilol [Coreg] 1 tab PO BIDWM #30 tab SACUBITRIL/VALSARTAN 49/51mg [ENTRESTO 49/51mg] 1 tab PO BID #30 tab Atorvastatin Calcium 40 mg PO HS #0 tab glipiZIDE [Glipizide ER] 10 mg PO DAILY Insulin Detemir [Levemir Flextouch] 10 unit SQ HS Sucralfate [Carafate] 1 gm PO QID 10 Days #40 tab Pantoprazole Tab [Protonix Tab] 1 tab PO ACBID #30 tab Insulin Lispro [Humalog Kwikpen U-100] 5 unit SQ AC #0 ml Amlodipine Besylate [Norvasc] 5 mg PO DAILY #30 tab Referrals: Colin Srivastava MD [Family Provider] - Time of Disposition: 22:40 - Seen By: midlevel
[2017-08-29] MEDS: NS 1,000 ML IV SCH (16:43)
[2017-08-29] MEDS ORDERED: IOHEXOL 300mg/ml 100ml INJECTION ONE (18:23)
[2017-08-29] MEDS ORDERED: SALINE FLUSH 10ml SYRINGE ONE (18:24)
[2017-08-29] MEDS ORDERED: NS 1,000 ML ONE (18:24)
--- NOTE | 2017-08-29 23:04 | History & Physical Report ---
History of Present Illness Date: 08/30/17 Chief complaint: diarrhea abd distention HPI: Pleasant 76-year-old male presents to the emergency room with essentially constant diarrhea over the past few days, at times To the point of incontinence. he says his spell happening for at least the past few days pretty much since he left the hospital recently. He was able to return home after workup and care for a GI bleed. He denies vomiting, he has had intermittent moderate pain associated with the diarrhea. He's had 10 episodes per day approximately over the past few days. He says he spoke with his family doctor today who wanted him checked out. He has had some shortness of breath and some mild dyspnea on exertion. He says he's had trace foot edema. He denies any chest pain. He has been quite generally weak, he does have a walker that he can use at home but has not needed it. He's been checking his sugars at home and they've ranged from 175 to 250. He denies any black or bloody stools since he left the hospital. Review of Systems All systems PM: 10-point ROS was reviewed, no additional remarkable complaints except Past Medical History Patient Stated Medical History Cerebrovascular Accident Yes: September 2016 ischemic, October 2016 has hemorrhagic Peripheral Neuropathy Yes: BI-LAT FEET Paralysis No Seizures No Syncope No Cataracts Yes Hearing Loss Yes: RT EAR 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 Pt. has PPM with AICD per history Asthma No Bronchitis No Chronic Obstructive Pulmonary No Disease (COPD) Pneumonia Yes Pulmonary Edema No Pulmonary Embolism No Sleep Apnea No Tuberculosis No Other Respiratory No Diabetes Mellitus Type 2 Yes Cirrhosis No Gastroesophageal Reflux Yes Disease Gastrointestinal Bleeding Yes: FROM COLON CANCER Hepatitis No Hiatal Hernia Yes Obstructive Bowel No Ulcer Yes Other GI No Hx Kidney Stones Yes Clotting Problems Yes: CLOT IN BRAIN AND IN HEART SEPTEMBER Osteoarthritis Yes Other Musculoskeletal No Shingles Yes: 2013 Blood Transfusions Yes: NO PROBLEMS Other Yes: RADIATION FOR COLON CA Depression No Clinic Medical History (Last Reviewed 07/10/17 @ 13:02 by ELLI Santiago) GERD (gastroesophageal reflux disease) (Chronic Medical) Coronary atherosclerosis (Acute Medical) Type 2 diabetes mellitus (Chronic Medical) PNA (pneumonia) (Chronic Medical) Stroke (Acute Medical) Hx of blood clots (Resolved Medical) Colon polyps (Resolved Medical) Blindness (Chronic Medical) Colon cancer (Resolved Medical ~2010) Colectomy, radiation and chemo High cholesterol (Chronic Medical) HTN (hypertension) (Chronic Medical) Heart attack (Resolved Medical ~2008) CHF (congestive heart failure) (Chronic Medical) Medical History Updates: peripheral neuropathy. 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 Skin cancer - comment: left nasal sidewall, left forearm , left shoulder Surgical History: 1. Right retinal attachment--03/25/2016. 2. Ostomy reversal --2010. 3. Colectomy--2010. 4. PowerPort placement--2010. 5. Colonoscopy-- 09/05/2010. 6. Repair of Radha fundoplication--08/[address] Botello. 7. Cardiac catheterization with stent placement x2--2008 at [facility]. 8. Coronary artery bypass graft (quad)--08/28/2008. 9. Laparoscopic appendectomy--2006. 10. Radha fundoplication--12/26/[address] Jennings. 11. Inguinal hernia repair--1968. 12. Inguinal hernia repair-- 1952. Family History: Family History (Last Reviewed 07/10/17 @ 13:02 by Rani Bennett [facility]) Mother Lung cancer Father Aneurysm Brother Heart attack Family History Updates: n/c based on age - Social History Smoking status: Never smoker Medications Home Medications Medication Instructions Recorded Confirmed Type Atorvastatin Calcium 40 mg PO HS #0 tab 10/31/16 08/29/17 History Insulin Detemir [Levemir Flextouch] 10 unit SQ HS 06/06/17 08/29/17 History glipiZIDE [Glipizide ER] 10 mg PO DAILY 06/06/17 08/29/17 History Ferrous Sulfate [Iron] 325 mg PO DAILY 08/11/17 08/29/17 History Allergies Allergy/AdvReac Type Severity Reaction Status Date / Time No Known Drug Allergies Allergy Unknown Verified 08/29/17 23:44 Exam Vital Signs: Temperature 97.6 F 08/29/17 14:28 Pulse Rate 68 08/29/17 22:45 Respiratory Rate 16 08/29/17 14:28 Blood Pressure 132/61 08/29/17 22:45 Pulse Oximetry 97 02/02/18 22:45 Height/Weight/BMI: Height 1.78 m Weight 77.4 kg Comments: In general he is quite pleasant he is alert and oriented 3. Appears mildly ill he appears stated age HEENT dry mucous membranes Lungs are clear bilaterally Cardiovascular is regular without murmur gallop rub Abdomen is moderately distended and appears fairly soft with physical exam with mild diffuse tenderness he has hyperactive bowel sounds Extremities trace to no edema Results - Labs CBC & Chem 7: 08/29/17 15:09 08/29/17 15:09 - Imaging and Cardiology CT scan - abdomen Additional comments: see report, "ileus" noted Assessment and Plan (1) Hypokalemia Current visit: Yes Status: Acute (2) Diarrhea Current visit: Yes Status: Acute (3) Ileus, unspecified Current visit: Yes Status: Acute (4) Ischemic cardiomyopathy Current visit: No Status: Chronic (5) Presence of automatic implantable cardioverter-defibrillator Current visit: No Status: Chronic (6) Type 2 diabetes mellitus Current visit: No Status: Chronic (7) Blindness Current visit: No Status: Chronic (8) HTN (hypertension) Current visit: No Status: Chronic Assessment and Plan: 1. Ileus with diarrhea - seems a contradiction in terms b/c of loose stools, but Xray and clinical findings of distention fit. will provide supportive care and observation with surgical consult if needed but for now does not appear needed. 2. Severe hypokalemia - concerning with hx of CAD, ICM. Replace IV and PO and monitor on tele closely, Mg and phos pending 3. DM2 - correctional insulin, clear liquids and advance diet to consistent carb as his clinical scenario allows 4. Coronary artery disease with history of ischemic cardiomyopathy and chronic systolic heart failure. We'll need to review his echo, watch closely with IV fluids he is clinically dehydrated but third spacing likely to occur 5. Recent history of GI bleed to be aware of will monitor hemoglobin, we'll need to review and decide about DVT prophylaxis 6. Short run V tach. imperative to get K up, monitor on tele. Resuscitation Status: Full Code - Physician Narrative Narrative: Date: 08/29/17 Time: 2300 Hospital Course Summary Disclaimer: The visit summary below is not to be considered part of the above Progress Note.
[2017-08-29] MEDS ORDERED: LOPERAMIDE 2 MG CAPSULE PO PRN (23:29)
[2017-08-29] MEDS ORDERED: DEXTROSE 50% SYRINGE 50ml (1 AMP) IVP PRN (23:29)
[2017-08-29] MEDS ORDERED: PROMETHAZINE 25 MG INJECTION IVP PRN (23:29)
[2017-08-29] MEDS ORDERED: GLUCOSE ORAL GEL 40% 37.5gm PO PRN (23:29)
[2017-08-29] MEDS ORDERED: ONDANSETRON 4 MG/2 ML INJECTION IVP PRN (23:29)
[2017-08-29 23:46] VITALS: BMI 24.6
[2017-08-30] MEDS: POTASSIUM CHLORIDE PREMIX 10 MEQ/100 ML BAG IV SCH ×12 (00:01→18:32)
[2017-08-30] MEDS: NS 1,000 ML IV SCH (00:39)
[2017-08-30] MEDS: POTASSIUM CHLORIDE INJ 40 MEQ in NS 1,000 ML IV SCH ×3 (05:50→12:35)
--- NOTE | 2017-08-30 10:56 | Progress Note ---
- Date 08/30/17 Subjective: 76-year-old male presents to the emergency room with essentially constant diarrhea over the past few days to the point of incontinence. He reports 10 episodes per day over the last few days. He states he was recently admitted from 08/11 to 08/20 with GIB. C-Scope and EGD failed to show active bleeding. He required multiple transfusions. Since being home he has had abdominal bloating, tenderness and firmness. He denies N/V. 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 He denies having CP. He has been weak and lethargic. He denies black or bloody stools since discharged on 08/20. Today, he states he does not feel as well as he did last night. He denies anything specific, stating he just feels puny. He denies cough or sputum production. No lightheadedness. He is only on clear liquid diet. His potassium remains low. Stool cx neg thus far. Hgb stable. He reports BM this am, nsg documents large jairo colored liquid stool early this am. His Potassium continues to be low. His colon is much more distended on this CT than prior. I spoke with Dr. Mar who is the general surgeon tongue lining stitcher this weekend apparently the patient has refused to see him and he has been under the care of Dr. Keith. Apparently Dr. Keith was notified on admission but did not feel there was anything surgical to do at this time. Dr. Mariano did recommend contacting the radiologist to see if he could get a read on the CT which I did. Dr. Bran does not see any evidence of obstruction. There is inflammation in the mid descending colon and as well as thick walled mid to descending colon. Checked on pt again this afternoon and he is really not having much tenderness in the abdomen. It is soft. He remains on clear liq. 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 Repeat in 2009. Rectal/Colon Resection- Dr Renteria- 2011 Appendectomy Inguinal Hernia repair 2 Bilateral cataract extraction Skin cancer removal Colectomy ostomy reversal powerport placement HC with stents Family hx Mother with lung cancer Dad with aneurysm Brother with ID Social Hx. Never smoker Occasional walks with walker Objective Vital signs: Temperature 97.6 F 08/30/17 07:29 Pulse Rate 67 08/30/17 10:00 Respiratory Rate 15 08/30/17 08:23 Blood Pressure 144/69 H 08/30/17 07:29 Pulse Oximetry 97 08/30/17 08:23 Height/Weight/BMI: Height 1.78 m Weight 77.5 kg Body Mass Index 24.6 Comments: Gen: alert and oriented. NAD. Just not feeling as well this am. Skin: warm and dry. HEENT: NC/AT PERRL, EOMI, Sclera,lids and conjunctiva wnl. MMM. OP clear. Neck: supple. No JVD. Carotids 2+ without bruits Lungs: clear. No rales, rhonchi or wheezes CV: regular rate and rhythm. No murmur, rub or gallop No edema. Pedal pulses are good Abd: soft. +BS. Pt reports he is still distended, mild TTP, no rebound or guarding MS: Fair strength and ROM. Neuro: no focal deficit. Results - Labs CBC & Chem 7: 08/29/17 15:09 08/30/17 14:01 Assessment and Plan (1) HTN (hypertension) Current visit: No Status: Chronic (2) Blindness Current visit: No Status: Chronic (3) Type 2 diabetes mellitus Current visit: No Status: Chronic (4) Ischemic cardiomyopathy Current visit: No Status: Chronic (5) Presence of automatic implantable cardioverter-defibrillator Current visit: No Status: Chronic (6) Ileus, unspecified Current visit: Yes Status: Acute (7) Hypokalemia Current visit: Yes Status: Acute (8) Diarrhea Current visit: Yes Status: Acute Assessment and Plan: Assessment and Plan: 1. Ileus with diarrhea - Markedly distended loops of bowel. - Surgery consulted - Will continue with clear liquid diet 2. Severe hypokalemia - concerning with hx of CAD, ICM. - Replace IV and PO and monitor on tele closely - Repeat lab this afternoon. 3. DM2 - Blood sugars are reasonable of SSI - correctional insulin, clear liquids and advance diet to consistent carb as his clinical scenario allows 4. Coronary artery disease with history of ischemic cardiomyopathy and chronic systolic heart failure. - EF 30-35%, will stop IVF for now and follow 5. Recent history of GI bleed requiring 6 units of PRBCs -No further melena or hematochezia -No source of bleed found on workup -PPI 6. Short run V tach. -Replacing potassium, recheck mag and K level this afternoon. -monitor on tele. 7. Pt with possible LV thrombus, previously on coumadin -Off since GIB 8. Prophylaxis -PPI and SCDs 9. Consult PT DVT Prophylaxis: SCD's GI Prophylaxis: Protonix Resuscitation Status: Full Code - Time spent with patient Time with patient PN: 25 minutes - Physician Narrative Narrative: Date: 08/30/17 Time: 1050 Hospital Course Summary Disclaimer: The visit summary below is not to be considered part of the above Progress Note.
[2017-08-30] MEDS: INSULIN ASPART 100unit/ml INJECTION SQ PRN ×3 (12:21→21:34)
[2017-08-30] MEDS ORDERED: NS FLUSH BAG 500ml IV PRN (17:41)
[2017-08-30] MEDS: MAGNESIUM SULFATE 1gm PREMIX 1 GM/100 ML BAG IV SCH ×2 (20:09→21:28)
[2017-08-31] MEDS: POTASSIUM CHLORIDE PREMIX 10 MEQ/100 ML BAG IV SCH ×4 (06:17→11:07)
[2017-08-31 08:12] VITALS: O2SAT 97
--- NOTE | 2017-08-31 09:38 | Progress Note ---
- Date 08/31/17 Subjective: 76-year-old male presents to the emergency room with essentially constant diarrhea over the past few days to the point of incontinence. He reports 10 episodes per day over the last few days. He states he was recently admitted from 08/11 to 08/20 with GIB. C-Scope and EGD failed to show active bleeding. He required multiple transfusions. Since being home he has had abdominal bloating, tenderness and firmness. He denies N/V. 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 He denies having CP. He has been weak and lethargic. He denies black or bloody stools since discharged on 08/20. Today, he states he does not feel as well as he did last night. He denies anything specific, stating he just feels puny. He denies cough or sputum production. No lightheadedness. He is only on clear liquid diet. His potassium remains low. Stool cx neg thus far. Hgb stable. He reports BM this am, nsg documents large jairo colored liquid stool early this am. His Potassium continues to be low. His colon is much more distended on this CT than prior. I spoke with Dr. Mar who is the general surgeon psychiatric nurse practitioner this weekend apparently the patient has refused to see him and he has been under the care of Dr. Keith. Apparently Dr. Keith was notified on admission but did not feel there was anything surgical to do at this time. Dr. Mariano did recommend contacting the radiologist to see if he could get a read on the CT which I did. Dr. Bran does not see any evidence of obstruction. There is inflammation in the mid descending colon and as well as thick walled mid to descending colon. Checked on pt again this afternoon and he is really not having much tenderness in the abdomen. It is soft. He remains on clear liq. If he becomes more ill then we would likely need to transfer to a facility with a GI specialist 08/31/17 Today, he continues to feel poorly. He has no energy. He did have some increased abdominal pain earlier but that has resolved. He reports it as a cramping. He did have a small jairo colored BM this am after the cramping. He denies nausea. He denies SOA, CP, or palp. His potassium is not staying up despite being given IV. I discussed transferring him to [place] and he would like to go. We will get it arranged. Objective Vital signs: Temperature 98.4 F 08/31/17 08:00 Pulse Rate 73 08/31/17 08:00 Respiratory Rate 14 08/31/17 08:00 Blood Pressure 149/80 H 08/31/17 08:00 Pulse Oximetry 97 08/31/17 08:00 Height/Weight/BMI: Height 1.78 m Weight 76.8 kg Body Mass Index 24.6 Comments: Gen: alert and oriented. NAD. Just not feeling as well this am. Skin: warm and dry. HEENT: NC/AT PERRL, EOMI, Sclera,lids and conjunctiva wnl. MMM. OP clear. Neck: supple. No JVD. Carotids 2+ without bruits Lungs: clear. No rales, rhonchi or wheezes CV: regular rate and rhythm. No murmur, rub or gallop No edema. Pedal pulses are good Abd: soft. +BS. Pt reports he is still distended, mild TTP, no rebound or guarding MS: Fair strength and ROM. Neuro: no focal deficit. Results - Labs CBC & Chem 7: 08/31/17 04:30 08/31/17 04:30 Assessment and Plan (1) HTN (hypertension) Current visit: No Status: Chronic (2) Blindness Current visit: No Status: Chronic (3) Type 2 diabetes mellitus Current visit: No Status: Chronic (4) Ischemic cardiomyopathy Current visit: No Status: Chronic (5) Presence of automatic implantable cardioverter-defibrillator Current visit: No Status: Chronic (6) Ileus, unspecified Current visit: Yes Status: Acute (7) Hypokalemia Current visit: Yes Status: Acute (8) Diarrhea Current visit: Yes Status: Acute Assessment and Plan: Assessment and Plan: 1. Ileus with diarrhea - Markedly distended loops of bowel. - Surgery consulted-no plan for intervention at this time - Will continue with clear liquid diet - Will transfer to [place] (pt request) for specialty care 2. Severe hypokalemia - concerning with hx of CAD, ICM. - Replace IV and monitor on tele closely - Repeat lab this afternoon. 3. DM2 - Blood sugars are reasonable of SSI - correctional insulin, clear liquids and advance diet to consistent carb as his clinical scenario allows 4. Coronary artery disease with history of ischemic cardiomyopathy and chronic systolic heart failure. - EF 30-35%, will stop IVF for now and follow 5. Recent history of GI bleed requiring 6 units of PRBCs -No further melena or hematochezia -No source of bleed found on workup -PPI 6. Short run V tach. -Replacing potassium, recheck K level this afternoon. -monitor on tele. 7. Pt with possible LV thrombus, previously on coumadin -Off since GIB 8. Prophylaxis -PPI and SCDs 9. Will arrange transfer to [place] for speciality care (GI and Renal). - Physician Narrative Narrative: Date: 08/31/17 Time: 0935 Hospital Course Summary Disclaimer: The visit summary below is not to be considered part of the above Progress Note.
[2017-08-31] MEDS ORDERED: POTASSIUM CHLORIDE PREMIX 10 MEQ/100 ML BAG IV SCH (10:00)
--- NOTE | 2017-08-31 10:04 | CT Scan Report ---
Indication: abd pain, diarrhea, recent GI bleed PROCEDURE: CT abdomen pelvis w con: Encounter: Initial Comparison: Renal CT dated February 25, 2017 Technique: Axial CT images were performed through the abdomen and pelvis after the administration of intravenous contrast. Coronal and sagittal two-dimensional reformats. Automated Exposure Control and Iterative Reconstruction dose reducing techniques were utilized. Contrast: Omnipaque 300 100 mL Findings: Lung bases are grossly clear. Heart is enlarged. Moderate hiatal hernia. No free air. The liver is normal. Gallbladder is unremarkable. The spleen, fatty replaced pancreas and right adrenal gland are within normal limits. Stable small left adrenal nodule. Kidneys are stable with bilateral renal cysts. No abdominal or pelvic lymphadenopathy. Diffuse arterial vascular calcifications. Bladder is grossly normal. Presacral induration and phlegmonous changes chronic due to prior surgery persistent focus of extraluminal gas. Sigmoid diverticulosis without acute diverticulitis. There is distention of the majority of the remaining colon with gas distended transverse colon measuring up to 6.7 cm in diameter. Prior right hemicolectomy. There is some mild wall thickening seen in the mid descending colon. No abnormally dilated small bowel appreciated. Bone windows show no acute findings. Impression: Distention of the colon could represent a partial colonic obstruction or colonic ileus due to inflammation in the descending colon. This could be due to infectious or inflammatory colitis. There is no evidence of obstructing mass which would be unlikely given the patient's reportedly normal recent colonoscopy. There is a preliminary report by [facility]. .
--- NOTE | 2017-08-31 10:25 | Discharge Summary ---
Discharge Information Date of admission: 08/29/17 22:59 Anticipated date of discharge: 08/31/17 Attending Physician: Mariza Rodriguez MD Primary care physician: Colin Srivastava MD Consults: 08/30/17 14:06 Physician Consult [CONS] Routine Consulting Provider: Popeye Mar/Dr. Judge Reason For Exam: Marked dilated loops of bowel and diarrhea Ordering Provider has Notified Physician Intensivist: Yes - Discharge Diagnosis (1) HTN (hypertension) Status: Chronic (2) Blindness Status: Chronic (3) Type 2 diabetes mellitus Status: Chronic (4) Ischemic cardiomyopathy Status: Chronic (5) Presence of automatic implantable cardioverter-defibrillator Status: Chronic (6) Ileus, unspecified Status: Acute (7) Hypokalemia Status: Acute (8) Diarrhea Status: Acute Dilated large bowel h/o colon cancer with right hemicolectomy Recent colonoscopy Jul Hypokalemia CAD CABG in 2008, Stent post CABG 2008 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 He reports 10 episodes per day over the last few days. He states he was recently admitted from 08/11 to 08/20 with GIB. C-Scope and EGD failed to show active bleeding. He required multiple transfusions. Since being home he has had abdominal bloating, tenderness and firmness. He denies N/V. 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 He denies having CP. He has been weak and lethargic. He denies black or bloody stools since discharged on 08/20. Objective Vital signs: Temperature 98.4 F 08/31/17 08:00 Pulse Rate 67 08/31/17 09:06 Respiratory Rate 14 08/31/17 08:00 Blood Pressure 149/80 H 08/31/17 08:00 Pulse Oximetry 97 08/31/17 08:00 Height/Weight/BMI: Height 1.78 m Weight 76.8 kg Body Mass Index 24.6 Hospital Course 08/29/17 76-year-old male presents to the emergency room with essentially constant diarrhea over the past few days to the point of incontinence. He reports 10 episodes per day over the last few days. He states he was recently admitted from 08/11 to 08/20 with GIB. C-Scope and EGD failed to show active bleeding. He required multiple transfusions. Since being home he has had abdominal bloating, tenderness and firmness. He denies N/V. 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 He denies having CP. He has been weak and lethargic. He denies black or bloody stools since discharged on 08/20. 08/30/17 He states he does not feel as well as he did last night. He denies anything specific, stating he just feels puny. He denies cough or sputum production. No lightheadedness. He is only on clear liquid diet. His potassium remains low. Stool cx neg thus far. Hgb stable. He reports BM this am, nsg documents large jairo colored liquid stool early this am. His Potassium continues to be low. His colon is much more distended on this CT than prior. I spoke with Dr. Mar who is the general surgeon windows consultant this weekend apparently the patient has refused to see him and he has been under the care of Dr. Keith. Apparently Dr. Keith was notified on admission but did not feel there was anything surgical to do at this time. Dr. Mar did recommend contacting the radiologist to see if he could get a read on the CT which I did. Dr. Bran does not see any evidence of obstruction. There is inflammation in the mid descending colon and as well as thick walled mid to descending colon. Dr. Mar did recommend continued NPO. Checked on pt again this afternoon and he is really not having much tenderness in the abdomen. It is soft. He remains on clear liq. If he becomes more ill then we would likely need to transfer to a facility with a GI specialist 08/31/17 Today, he continues to feel poorly. He has no energy. He did have some increased abdominal pain earlier but that has resolved. He reports it as a cramping. He did have a small jairo colored BM this am after the cramping. He denies nausea. He denies SOA, CP, or palp. His potassium is not staying up despite being given IV. I discussed transferring him to [place] and he would like to go. We will get it arranged. All po medications are on hold as pt in NPO Follow up once out of hospital will be determined then Discharge Plan - Discharge Disposition Disposition: To [facility] Acute Care *Condition: Stable for Transport Reason For Visit (Visit label in EMR): Ileus,hypokalemia - Discharge Medications *Discharge Medications: New Glucose Oral Gel 40% [Glutose 15] 37.5 gm PO PRN PRN tube PRN Reason: Hypoglycemia Insulin Aspart [NovoLOG] 1 - 5 unit SQ SS PRN vial PRN Reason: Hyperglycemia Ondansetron Inj [Zofran] 4 mg IVP Q6H PRN vial PRN Reason: Nausea &/Or Vomiting Potassium Chloride Premix 10 meq IV Q1H bag Dextrose 50% Pfs [D50%W] 10 ml IVP PRN PRN syringe PRN Reason: Hypoglycemia Discontinued Ferrous Sulfate [Iron] 325 mg PO DAILY Isosorbide Mononitrate ER [Imdur] 30 mg PO ACB #20 tab Tramadol [Ultram] 50 mg PO Q4H PRN #20 tab PRN Reason: Pain Carvedilol [Coreg] 1 tab PO BIDWM #30 tab SACUBITRIL/VALSARTAN 49/51mg [ENTRESTO 49/51mg] 1 tab PO BID #30 tab Atorvastatin Calcium 40 mg PO HS #0 tab glipiZIDE [Glipizide ER] 10 mg PO DAILY Insulin Detemir [Levemir Flextouch] 10 unit SQ HS Sucralfate [Carafate] 1 gm PO QID 10 Days #40 tab Pantoprazole Tab [Protonix Tab] 1 tab PO ACBID #30 tab Insulin Lispro [Humalog Kwikpen U-100] 5 unit SQ AC #0 ml Amlodipine Besylate [Norvasc] 5 mg PO DAILY #30 tab - Discharge Packet/Instructions *Diet: NPO *Activity: as tolerated with assist *Pain Management/Treatment: N/A, pt being transferred to acute facility *Wound Care: N/A *Expected Signs/Symptoms: N/A *Notify Physician if: N/A *During Business Hours Contact: N/A *After Business Hours Contact: N/A *Pending Lab/Results: No Pending Lab - Referrals/Follow Up - Patient Handouts - Dismissal Complete Discharge Instructions are:: Complete Physician Narrative - Narrative Attestation Narrative: Date: 08/31/17 Time: 1020
[2017-08-31 11:45] VITALS: BP 147/74; PULSE 70; RESP 20; TEMP 98.1
[2017-08-31] MEDS ORDERED: NS IV ONE (11:45)
[2017-08-31] MEDS ORDERED: POTASSIUM CHLORIDE IV ONE (11:45)
== END 2017-08-31 11:51 | disposition short-term general hospital (02) | DRG 389 ==
LOC: ED 14:21 → SRG 22:59
PROVIDERS: ADMIT Pediatrics; ATTEND Internal Medicine Cardiovascular Disease